=== PATIENT | male | born 1965 | race American Indian/Alaskan Native ===

== ENCOUNTER 2020-09-08 10:32 | Emergency (ER) | payer MEDICARE ==
--- NOTE | 2020-09-08 11:17 | Emergency Department Report ---
HPI - General Chief Complaint: Weakness Time Seen by Provider: 09/08/20 11:06 - HPI HPI: Room 5 The patient is a 55-year-old male present with chief complaint of constipation. Patient was reportedly sent in by his flat sorting machine clerk for constipation. However the patient states his last bowel movement occurred yesterday. Patient denies complaints. Patient is status post lysis of adhesions 08/10/[address]-guided aspiration of seroma consistent with degenerating hematoma 08/30/2020. Patient's flat sorting machine clerk states the patient was walking down the [address] when he complained of dizziness and fell to the ground. ED Past Medical Hx - Past Medical History Previous Medical History?: Yes Hx Renal Disease: Yes (BPH; Obstructive uropathy; chronic Almaraz) Additional medical history: Hypothyroidism, enlarged prostate, dementia, mental delay - Surgical History Additional Surgical History: bowel obstruction 08/2020 - Social History Smoking Status: Never Smoker - Medications Home Medications: Home Medications Medication Instructions Recorded Confirmed Last Taken Type Finasteride [Proscar] 5 mg PO QDAY 08/07/20 09/01/20 Unknown History Levothyroxine Sodium [Tirosint-Nimo] 50 mcg PO QDAY 08/07/20 09/01/20 Unknown His tory Memantine 10 mg PO BID 08/07/20 09/01/20 Unknown History OLANZapine [Zyprexa] 5 mg PO QDAY 08/07/20 09/01/20 Unknown History Sertraline [Zoloft] 25 mg PO QDAY 08/07/20 09/01/20 Unknown History Tamsulosin [Flomax] 0.4 mg PO QDAY 08/07/20 09/01/20 Unknown History Pantoprazole [Protonix TAB] 20 mg PO QDAC #30 tablet. 08/18/20 09/01/20 Unknown Rx Ciprofloxacin HCl [Ciprofloxacin 500 mg PO Q12HR #14 tab 09/02/20 Unknown Rx TAB] Sennosides/Docusate [Senokot S] 1 each PO Q12HR #30 tab 09/02/20 Unknown Rx bisacodyL [Dulcolax tab] 5 mg PO BID #30 tablet 09/02/20 Unknown Rx metroNIDAZOLE [Flagyl] 500 mg PO Q8HR #20 tablet 09/02/20 Unknown Rx Docusate Sodium [Colace] 100 mg PO BID PRN #60 capsule 09/08/20 Unknown Rx Meclizine HCl 25 mg PO TID PRN #20 tablet 09/08/20 Unknown Rx ED Review of Systems ROS: Stated complaint: WEAKNESS/NO BM Other details as noted in HPI ED Medical Decision Making - Lab Data Result diagrams: 09/08/20 11:40 09/08/20 11:40 - EKG Data -: EKG Interpreted by Me EKG shows normal: sinus rhythm Rate: normal - EKG Data When compared to previous EKG there are: previous EKG unavailable Interpretation: other (No ischemic changes seen) - Radiology Data Radiology results: report reviewed (CT chest), image reviewed (CT chest, CT head) [facility] [address] [place] [address] Cat Scan Report Signed Patient: TYRELL SMITH MR#: [id number] : 1965 Acct:[id number] Age/Sex: 55 / M ADM Date: 09/08/20 Loc: ED Attending Dr: Ordering Physician: REMEDIOS VILLANUEVA MD Date of Service: 09/08/20 Procedure(s): CT angio chest Accession Number(s): [id number] cc: REMEDIOS VILLANUEVA MD CTA CHEST WITH IV CONTRAST INDICATION: Dizziness, recent surgery. TECHNIQUE: Axial CT images were obtained through the chest after injection of 100 cc Omni 350 IV contrast. 3 plane MIP reconstructions were produced. All CT scans at this location are performed using CT dose reduction for ALARA by means of automated exposure control. COMPARISON: None available. FINDINGS: PULMONARY ARTERIES: No pulmonary emboli. THORACIC AORTA: No acute abnormality. HEART: Normal. CORONARY ARTERIES: No significant calcification. PLEURA: No pleural effusion. No pneumothorax. LYMPH NODES: No significant adenopathy. LUNGS: No acute air space or interstitial disease. ADDITIONAL FINDINGS: None. UPPER ABDOMEN: No acute findings. SKELETAL STRUCTURES: No significant osseous abnormality. IMPRESSION: 1. No CT evidence for pulmonary embolism. 2. No acute findings. Signer Name: Edil Fan MD Signed: 09/08/2020 3:16 PM Workstation Name: [id number] Transcribed By: TL Dictated By: Edil Fan MD Electronically Authenticated By: Edil Fan MD Signed Date/Time: 09/08/20 151 DD/ 1514 TD/TT: - Differential Diagnosis Vertigo Critical care attestation.: If time is entered above; I have spent that time in minutes in the direct care of this critically ill patient, excluding procedure time. ED Disposition Clinical Impression: Vertigo Disposition: DC-01 TO HOME OR SELFCARE Is pt being admited?: No Does the pt Need Aspirin: No Condition: Stable Instructions: Dizziness, Vertigo Additional Instructions: Return to the emergency department should you develop worsening symptoms, inability to tolerate food or liquids, high fever or any other concerns Prescriptions: Docusate Sodium [Colace] 100 mg PO BID PRN #60 capsule PRN Reason: Constipation Meclizine HCl 25 mg PO TID PRN #20 tablet PRN Reason: Vertigo Referrals: PRIMARY CARE, [Primary Care Provider] - 3-5 Days
[2020-09-08 12:01] LABS: Hematocrit 35.4 % (35.5-45.6); Hemoglobin 11.9 gm/dl (11.8-15.2); Mean Corpuscular HGB Conc 34 % (32-34); Mean Corpuscular Volume 89 fl (84-94); Platelet Count 231 K/mm3 (140-440); Red Cell Distribution Width 15.6 % (13.2-15.2)
[2020-09-08 12:33] LABS: Alanine Aminotransferase 10 units/L (7-56); Albumin 3.8 g/dL (3.9-5); Blood Urea Nitrogen 18 mg/dL (9-20); Calcium 9.4 mg/dL (8.4-10.2); Creatine Kinase MB 1.4 ng/mL (0.0-4.0); Hemolysis Index 8
[2020-09-08 12:39] LABS: BUN/Creatinine Ratio 26; Free T4 (Free Thyroxine) 0.83 ng/dL (0.76-1.46)
[2020-09-08 12:49] LABS: Total Cells Counted 100
[2020-09-08 12:52] LABS: Platelet Estimate Consistent w Auto; RBC Morphology Normal
--- NOTE | 2020-09-08 15:21 | Cat Scan Report ---
CTA CHEST WITH IV CONTRAST INDICATION: Dizziness, recent surgery. TECHNIQUE: Axial CT images were obtained through the chest after injection of 100 cc Omni 350 IV contrast. 3 derek ne MIP reconstructions were produced. All CT scans at this location are performed using CT dose reduc tion for ALARA by means of automated exposure control. COMPARISON: None available. FINDINGS: PULMONARY ARTERIES: No pulmonary emboli. THORACIC AORTA: No acute abnormality. HEART: Normal. CORONARY ARTERIES: No significant calcification. PLEURA: No pleural effusion. No pneumothorax. LYMPH NODES: No significant adenopathy. LUNGS: No acute air space or interstitial disease. ADDITIONAL FINDINGS: None. UPPER ABDOMEN: No acute findings. SKELETAL STRUCTURES: No significant osseous abnormality. IMPRESSION: 1. No CT evidence for pulmonary embolism. 2. No acute findings. Signer Name: Edil Fan MD Signed: 09/08/2020 3:16 PM Workstation Name: [id number]
[2020-09-08] MEDS ORDERED: SODIUM CHLORIDE 0.9% 1000 ML 1,000 ML IV ONE (16:10)
[2020-09-08 16:32] LABS: Bacteria,Urine 1+ /HPF (Negative); Bilirubin,Urine NEG (Negative); Blood,Urine SM (Negative); Color,Urine Straw (Yellow); Mucus,Urine FEW /HPF; Protein,Urine <15 mg/dL mg/dL (Negative); Urobilinogen,Urine < 2.0 mg/dL (<2.0)
[2020-09-08 16:33] LABS: WBC,Urine > 182.0 /HPF (0.0-6.0)
--- NOTE | 2020-09-08 18:36 | Cat Scan Report ---
CT BRAIN: 09/08/2020 INDICATION / CLINICAL INFORMATION: Dizziness. COMPARISON: None available. FINDINGS: BRAIN/INTRACRANIAL STRUCTURES: Unenhanced CT images of the brain demonstrate no evidence of acute abn ormality. Ventricles and sulci are prominent in size, consistent with diffuse cerebral atrophy, more than is ty pically seen in a patient of this age. There is no evidence of acute ischemic injury, hemorrhage, or mass. There are no abnormal extra-axial fluid collections. EXTRACRANIAL STRUCTURES: Unremarkable. IMPRESSION: No acute abnormality. Prominent diffuse cerebral All CT scans at this location are performed using dose reduction to ALARA by means of automated expos ure control. Signer Name: Venkatesh William MD Signed: 09/08/2020 6:32 PM Workstation Name: [id number]
[2020-09-08 21:32] VITALS: BP 95/65
== END 2020-09-08 21:51 | disposition home or self-care (01) ==
LOC: ED 10:32
DX: R42 Dizziness and giddiness (principal); N40.0 Benign prostatic hyperplasia without lower urinary tract symptoms; E03.8 Other specified hypothyroidism; F03.90 Unspecified dementia, unspecified severity, without behavioral disturbance, psychotic disturbance, mood disturbance, and anxiety; Z79.899 Other long term (current) drug therapy
CPT/HCPCS: 36415; 70450; 71275; 80053; 81001; 82550; 82553; 84439; 84443; 84484; 85007; 85025; 93005; 96360; 99284; J7030; Q9967

== ENCOUNTER 2020-09-19 11:04 | Inpatient (IN) | payer MEDICARE ==
[2020-09-19] MEDS ORDERED: ONDANSETRON 4 MG/2 ML INJ IV ONE (11:23)
[2020-09-19] MEDS ORDERED: SODIUM CHLORIDE 0.9% 1000 ML 1,000 ML IV ONE (11:28)
--- NOTE | 2020-09-19 11:42 | Emergency Department Report ---
ED N/V/D HPI - General Chief complaint: Nausea/Vomiting/Diarrhea Stated complaint: NAUSEA/VOMITING Time Seen by Provider: 09/19/20 11:20 Source: EMS Mode of arrival: Wheelchair Limitations: No Limitations - History of Present Illness Initial comments: Patient is very pleasant 55-year-old male with a past medical history of mental delay, BPH with chronic obstructive uropathy and chronic Almaraz use, recent bowel obstruction diagnosed here August 2020 status post ex lap with lysis of adhesions on August 10 with subsequent postoperative ileus, and repeated admission with CT-guided aspiration of abdominal seroma on September 02 presents to the hospital with complaints of nausea and vomiting since last night. Patient complains of mild mid abdominal pain but asking for apple juice. States his dad had a bowel movement yesterday and today. Patient is oriented to self. States the year is "September", and knows he is in a hospital. - Related Data Home Medications Medication Instructions Recorded Confirmed Last Taken Finasteride [Proscar] 5 mg PO QDAY 08/07/20 09/01/20 Unknown Levothyroxine Sodium [Tirosint-Nimo] 50 mcg PO QDAY 08/07/20 09/01/20 Unknown Memantine 10 mg PO BID 08/07/20 09/01/20 Unknown OLANZapine [Zyprexa] 5 mg PO QDAY 08/07/20 09/01/20 Unknown Sertraline [Zoloft] 25 mg PO QDAY 08/07/20 09/01/20 Unknown Tamsulosin [Flomax] 0.4 mg PO QDAY 08/07/20 09/01/20 Unknown Previous Rx's Medication Instructions Recorded Last Taken Type Pantoprazole [Protonix TAB] 20 mg PO QDAC #30 tablet. 08/18/20 Unknown Rx Ciprofloxacin HCl [Ciprofloxacin 500 mg PO Q12HR #14 tab 09/02/20 Unknown Rx TAB] Sennosides/Docusate [Senokot S] 1 each PO Q12HR #30 tab 09/02/20 Unknown Rx bisacodyL [Dulcolax tab] 5 mg PO BID #30 tablet 09/02/20 Unknown Rx metroNIDAZOLE [Flagyl] 500 mg PO Q8HR #20 tablet 09/02/20 Unknown Rx Docusate Sodium [Colace] 100 mg PO BID PRN #60 capsule 09/08/20 Unknown Rx Meclizine HCl 25 mg PO TID PRN #20 tablet 09/08/20 Unknown Rx Allergies Allergy/AdvReac Type Severity Reaction Status Date / Time No Known Allergies Allergy Unverified 08/07/20 07:58 ED Review of Systems ROS: Stated complaint: NAUSEA/VOMITING Other details as noted in HPI Comment: All other systems reviewed and negative ED Past Medical Hx - Past Medical History Previous Medical History?: Yes Hx Renal Disease: Yes (BPH; Obstructive uropathy; chronic Almaraz) Additional medical history: Hypothyroidism, enlarged prostate, mental delay - Surgical History Past Surgical History?: Yes Additional Surgical History: bowel obstruction 08/2020 - Social History Smoking Status: Never Smoker Substance Use Type: None - Medications Home Medications: Home Medications Medication Instructions Recorded Confirmed Last Taken Type Finasteride [Proscar] 5 mg PO QDAY 08/07/20 09/01/20 Unknown History Levothyroxine Sodium [Tirosint-Nimo] 50 mcg PO QDAY 08/07/20 09/01/20 Unknown History Memantine 10 mg PO BID 08/07/20 09/01/20 Unknown History OLANZapine [Zyprexa] 5 mg PO QDAY 08/07/20 09/01/20 Unknown History Sertraline [Zoloft] 25 mg PO QDAY 08/07/20 09/01/20 Unknown History Tamsulosin [Flomax] 0.4 mg PO QDAY 08/07/20 09/01/20 Unknown History Pantoprazole [Protonix TAB] 20 mg PO QDAC #30 tablet. 08/18/20 09/01/20 Unknown Rx Ciprofloxacin HCl [Ciprofloxacin 500 mg PO Q12HR #14 tab 09/02/20 Unknown Rx TAB] Sennosides/Docusate [Senokot S] 1 each PO Q12HR #30 tab 09/02/20 Unknown Rx bisacodyL [Dulcolax tab] 5 mg PO BID #30 tablet 09/02/20 Unknown Rx metroNIDAZOLE [Flagyl] 500 mg PO Q8HR #20 tablet 09/02/20 Unknown Rx Docusate Sodium [Colace] 100 mg PO BID PRN #60 capsule 09/08/20 Unknown Rx Meclizine HCl 25 mg PO TID PRN #20 tablet 09/08/20 Unknown Rx ED Physical Exam - General Limitations: No Limitations - Other Other exam information: General: No acute distress Head: Atraumatic Eyes: normal appearance ENT: Moist mucous membranes Neck: Normal appearance, no midline tenderness Chest: Clear to auscultation bilaterally CV: Regular rate and rhythm Abdomen: Soft, normal bowel sounds, healing midline abdominal vertical scar from recent ex lap with mild mid abdominal tenderness without distention, rebound, or guarding chronic indwelling Almaraz Back: Normal inspection Extremity: Normal inspection, full range of motion Neuro: Alert oriented to self, place, month but not to year, no facial asymmetry, speech clear, no gross motor sensory deficit Psych: Appropriate behavior Skin: No rash ED Course Vital Signs 09/19/20 09/19/20 09/19/20 11:08 11:15 12:00 Temperature 98.3 F Pulse Rate 93 H 68 84 Respiratory 16 18 11 L Rate Blood Pressure 100/63 101/61 O2 Sat by Pulse 100 100 Oximetry 09/19/20 09/19/20 09/19/20 12:07 13:00 14:00 Temperature Pulse Rate 87 79 Respiratory 18 15 10 L Rate Blood Pressure 104/65 89/57 O2 Sat by Pulse 100 98 Oximetry 09/19/20 15:00 Temperature Pulse Rate 73 Respiratory 9 L Rate Blood Pressure 92/53 O2 Sat by Pulse Oximetry - Consultations Consultation #1: 09/19/20 13:[address] Shepard 09/19/20 13:40 Dr Paz returned call. States he saw patient in the office 2 days ago. He recommends admission, ngt, he will consult ED Medical Decision Making - Lab Data Result diagrams: 09/19/20 11:28 09/19/20 11:28 - Radiology Data Radiology results: report reviewed CT abdomen pelvis w con INDICATION: Abdominal pain. COMPARISON: August 30 2020 TECHNIQUE: Abdominal and pelvic CT exam performed. All CT scans at this location are performed using CT dose reduction for ALARA by means of automated exposure control. FINDINGS: CT ABDOMEN and PELVIS: Lung Bases: No significant abnormality. Liver: No significant abnormality. Biliary: No significant abnormality. Spleen: No significant abnormality. Pancreas: No significant abnormality. Adrenals: No significant abnormality. Kidneys: No significant abnormality. Bladder: Significant circumferential thickening of the bladder. The bladder contains air from Almaraz catheter. Lymphatics: No lymphadenopathy. Vasculature: No significant abnormality. Bowel: The small bowel significant dilated with a transition point seen within the mid pelvis on axial images 112 of series 2. The terminal ileum is normal in caliber. No dilation of large bowel. Appendix is nonvisualized. However, no inflammatory changes in the right lower quadrant to suggest appendicitis. Pelvis: No significant abnormality. Osseous Structures: No aggressive osseous lesion. Additional Findings: Moderate quantity of free fluid is seen IMPRESSION: 1. Significant dilation of small bowel with a transition point to normal distal ileum seen within the mid pelvis concerning for small bowel obstruction. 2. Persistent significant thickening of the bladder. Findings could be related to urinary tract infection. Correlate with urinalysis. 3. Moderate quantity of fluid is seen which is likely reactive from the above findings. - Medical Decision Making 55-year-old male with a developmental delay and recent small bowel obstruction status post lysis of adhesions returns to the hospital once again with small bowel obstruction. Labs and vital signs within normal range. Case discussed with Dr. Cain patient surgeon and patient will be readmitted to the hospital for treatment and possible surgical care Critical Care Time: No Critical care attestation.: If time is entered above; I have spent that time in minutes in the direct care of this critically ill patient, excluding procedure time. ED Disposition Clinical Impression: SBO (small bowel obstruction), Chronic indwelling Almaraz catheter, BPH (benign prostatic hyperplasia) Disposition: 09 OP ADMIT IP TO THIS HOSP Is pt being admited?: Yes Condition: Stable Time of Disposition: 13:39
[2020-09-19 11:52] LABS: Hematocrit 38.3 % (35.5-45.6); Hemoglobin 12.8 gm/dl (11.8-15.2); Mean Corpuscular HGB Conc 33 % (32-34); Mean Corpuscular Volume 89 fl (84-94); Red Cell Distribution Width 15.8 % (13.2-15.2)
[2020-09-19 11:54] LABS: Alanine Aminotransferase 9 units/L (7-56); Albumin 3.8 g/dL (3.9-5); BUN/Creatinine Ratio 26; Blood Urea Nitrogen 18 mg/dL (9-20); Calcium 9.4 mg/dL (8.4-10.2); Hemolysis Index 32
--- NOTE | 2020-09-19 12:51 | Cat Scan Report ---
CT abdomen pelvis w con INDICATION: Abdominal pain. COMPARISON: August 30 2020 TECHNIQUE: Abdominal and pelvic CT exam performed. All CT scans at this location are performed using CT dose reduction for ALARA by means of automated exposure control. FINDINGS: CT ABDOMEN and PELVIS: Lung Bases: No significant abnormality. Liver: No significant abnormality. Biliary: No significant abnormality. Spleen: No significant abnormality. Pancreas: No significant abnormality. Adrenals: No significant abnormality. Kidneys: No significant abnormality. Bladder: Significant circumferential thickening of the bladder. The bladder contains air from Almaraz c atheter. Lymphatics: No lymphadenopathy. Vasculature: No significant abnormality. Bowel: The small bowel significant dilated with a transition point seen within the mid pelvis on axia l images 112 of series 2. The terminal ileum is normal in caliber. No dilation of large bowel. Append ix is nonvisualized. However, no inflammatory changes in the right lower quadrant to suggest appendic itis. Pelvis: No significant abnormality. Osseous Structures: No aggressive osseous lesion. Additional Findings: Moderate quantity of free fluid is seen IMPRESSION: 1. Significant dilation of small bowel with a transition point to normal distal ileum seen within the mid pelvis concerning for small bowel obstruction. 2. Persistent significant thickening of the bladder. Findings could be related to urinary tract infec tion. Correlate with urinalysis. 3. Moderate quantity of fluid is seen which is likely reactive from the above findings. Signer Name: Yogesh Andrew MD Signed: 09/19/2020 12:46 PM Workstation Name: [id number]
[2020-09-19 13:20] LABS: Basophils % (Manual) 0 % (0.0-1.8); Eosinophils % (Manual) 0 % (0.0-4.3); Total Cells Counted 100
[2020-09-19 13:21] LABS: Anisocytosis Few; Band Neutrophils # (Manual) 2.5 K/mm3; Platelet Count 213 K/mm3 (140-440); Platelet Estimate Consistent w Auto
[2020-09-19] MEDS ORDERED: LIDOCAINE VISCOUS 2% 15 ML ORAL LIQD PO ONE (13:38)
--- NOTE | 2020-09-19 13:41 | History and Physical Report ---
History of Present Illness Chief complaint: My stomach hurts History of present illness: 55 YO Assisted Facility Resident with Hypothyroidism, BPH complicated by Obstructive Uropathy with Chronic indwelling kim catheter, Vascular Dementia presents to ED for evaluation. Patient has diminished cognition and provides minimal history at the time of admission. Additional patient history taken from EMS staff, ED staff, as well as senior living facility staff. As per staff the patient has experienced abdominal pain, nausea, and multiple episodes of vomiting over the past 1 day with persistent symptoms over the same timeframe. EMS was notified and upon arrival the patient was found to be in distress and subsequently transported to [facility] for further care and evaluation of the aforementioned symptoms. Patient seen and evaluated in the emergency department. All lab and imaging studies reviewed. Patient underwent CT scan of the abdomen and pelvis and was found to have a partial small bowel obstruction. Surgery team consulted in ED. Patient admitted to surgical floor due to increased risk of worsening symptoms. Patient has cognitive delay at the time of my evaluation but has a positive gag reflex and is able to protect his airway without difficulty. Prior admission on 09/08/2020 reviewed. All medication listed at time of admission has been reconciled. Advanced care planning conducted in ED. Past History Past Medical History: other (See HPI) Past Surgical History: bowel surgery Social history: single. denies: smoking, alcohol abuse, prescription drug abuse Family history: hypertension Medications and Allergies Allergies Allergy/AdvReac Type Severity Reaction Status Date / Time No Known Allergies Allergy Unverified 08/07/20 07:58 Home Medications Medication Instructions Recorded Confirmed Last Taken Type Finasteride [Proscar] 5 mg PO QDAY 08/07/20 09/01/20 Unknown History Levothyroxine Sodium [Tirosint-Nimo] 50 mcg PO QDAY 08/07/20 09/01/20 Unknown History Memantine 10 mg PO BID 08/07/20 09/01/20 Unknown History OLANZapine [Zyprexa] 5 mg PO QDAY 08/07/20 09/01/20 Unknown History Sertraline [Zoloft] 25 mg PO QDAY 08/07/20 09/01/20 Unknown History Tamsulosin [Flomax] 0.4 mg PO QDAY 08/07/20 09/01/20 Unknown History Pantoprazole [Protonix TAB] 20 mg PO QDAC #30 tablet.dr 08/18/20 09/01/20 Unknown Rx Ciprofloxacin HCl [Ciprofloxacin 500 mg PO Q12HR #14 tab 09/02/20 Unknown Rx TAB] Sennosides/Docusate [Senokot S] 1 each PO Q12HR #30 tab 09/02/20 Unknown Rx bisacodyL [Dulcolax tab] 5 mg PO BID #30 tablet 09/02/20 Unknown Rx metroNIDAZOLE [Flagyl] 500 mg PO Q8HR #20 tablet 09/02/20 Unknown Rx Docusate Sodium [Colace] 100 mg PO BID PRN #60 capsule 09/08/20 Unknown Rx Meclizine HCl 25 mg PO TID PRN #20 tablet 09/08/20 Unknown Rx Active Meds: Active Medications Sodium Chloride (Nacl 0.9% 1000 Ml) 1,000 mls @ 125 mls/hr IV ONCE ONE Stop: 09/19/20 19:27 Last Admin: 09/19/20 11:40 Dose: 125 mls/hr Documented by: Review of Systems ROS unobtainable: due to mental status Exam - Constitutional Vitals: Temp Pulse Resp BP Pulse Ox 98.3 F 84 18 101/61 100 09/19/20 11:15 09/19/20 12:00 09/19/20 12:07 09/19/20 12:00 09/19/20 12:07 General appearance: Present: mild distress, cachectic - EENT Eyes: Present: PERRL ENT: hearing intact, clear oral mucosa - Neck Neck: Present: supple, normal ROM - Respiratory Respiratory effort: normal Respiratory: bilateral: CTA - Cardiovascular Heart Sounds: Present: S1 & S2. Absent: rub, click - Extremities Extremities: pulses symmetrical, No edema Peripheral Pulses: within normal limits - Abdominal General gastrointestinal: Present: soft, non-tender, tender, non-distended, normal bowel sounds Male genitourinary: Present: normal - Integumentary Integumentary: Present: clear, warm, dry - Musculoskeletal Musculoskeletal: gait normal, strength equal bilaterally - Psychiatric Psychiatric: appropriate mood/affect, no intact judgment & insight, no memory intact - Neurologic Neurologic: CNII-XII intact, moves all extremities, no gait normal Results - Labs CBC & Chem 7: 09/19/20 11:28 09/19/20 15:42 Labs: Abnormal lab results 11/15/20 11/15/20 Range/Units 11:28 11:28 RDW 15.8 H (13.2-15.2) % Lymphocytes % (Manual) 7.0 L (13.4-35.0) % Lymphocytes # (Manual) 0.7 L (1.2-5.4) K/mm3 Sodium 135 L (137-145) mmol/L Creatinine 0.7 L (0.8-1.3) mg/dL Glucose 120 H (75-100) mg/dL Albumin 3.8 L (3.9-5) g/dL Assessment and Plan - Patient Problems (1) SBO (small bowel obstruction) Current Visit: Yes Status: Acute Plan to address problem: CT scan abdomen and pelvis, bowel rest, IV fluid resuscitation therapy, pain control, surgery team consulted in ED, serial abdominal exam, nasogastric decompression. Further care and evaluation as per surgical team (2) Vascular dementia Current Visit: Yes Status: Acute Qualifiers: Dementia behavioral disturbance: without behavioral disturbance Qualified Code(s): F01.50 - Vascular dementia without behavioral disturbance Plan to address problem: Verbal prompting, verbal redirection, benzodiazepine therapy as clinically indicated (3) BPH (benign prostatic hyperplasia) Current Visit: Yes Status: Acute Plan to address problem: Chronic indwelling Kim catheter, supportive care, outpatient urology follow- up. (4) Chronic indwelling Kim catheter Current Visit: Yes Status: Acute Plan to address problem: Supportive care, outpatient urology follow-up. (5) Constipation Current Visit: No Status: Acute Plan to address problem: Bowel regimen, supportive care. Fleet enema daily as needed (6) DVT prophylaxis Current Visit: No Status: Acute Plan to address problem: SCD to bilateral lower extremities while in bed, (7) Advance care planning Current Visit: Yes Status: Acute Plan to address problem: Disease education conducted, patient is full code, prognosis discussed, +30 minutes.
[2020-09-19] MEDS ORDERED: ACETAMINOPHEN 325 MG TAB PO PRN (14:01)
[2020-09-19] MEDS ORDERED: ONDANSETRON 4 MG/2 ML INJ IV PRN (14:01)
[2020-09-19] MEDS ORDERED: ALBUTEROL 2.5 MG/3 ML NEBU IH PRN (14:01)
[2020-09-19 16:21] LABS: Blood Urea Nitrogen 17 mg/dL (9-20); Hemolysis Index 38
[2020-09-19 16:22] LABS: BUN/Creatinine Ratio 24
[2020-09-19] MEDS ORDERED: SODIUM CHLORIDE 0.9% 500 ML 500 ML IV ONE ×5 (19:41→23:22)
[2020-09-19] MEDS ORDERED: SODIUM CHLORIDE 0.9% 500 ML 500 ML ONE ×3 (19:44→23:26)
[2020-09-19] MEDS ORDERED: SODIUM CHLORIDE 0.9% 1000 ML 1,000 ML ONE (21:38)
[2020-09-20] MEDS ORDERED: SODIUM CHLORIDE 0.9% 1000 ML 1,000 ML IV ONE (03:20)
[2020-09-20] MEDS ORDERED: SODIUM CHLORIDE 0.9% 1000 ML 1,000 ML ONE (03:24)
[2020-09-20] MEDS ORDERED: SODIUM CHLORIDE 0.9% 500 ML 500 ML IV ONE (03:37)
--- NOTE | 2020-09-20 09:53 | Progress Note ---
<HARLEEN CRONIN - Last Filed: 09/20/20 11:56> Assessment and Plan - Patient Problems (1) SBO (small bowel obstruction) Current Visit: Yes Status: Acute Plan to address problem: 09/19 CT abdomen/pelvis with contrast shows significant dilation of small bowel with a transition point to the normal distal ileum concerning for SBO, persistent significant thickening of the bladder and moderate quantity of free fluid which may be likely reactive General surgery consulted NGT to LIS ordered on 09/19 however on 09/20 but at examination patient does not have NG tube in place. RN is attempting placement however the patient is refusing NG tube. 09/20 abdominal x-ray pending Supportive care N.p.o., acccheck q6 while npo MIVF with LR @ 125 (2) Hyperkalemia Current Visit: Yes Status: Resolved Plan to address problem: 09/19 potassium 5.2 09/20 K 4.6 Treat as appropriate (3) BPH (benign prostatic hyperplasia) Current Visit: Yes Status: Acute Plan to address problem: Patient is currently n.p.o. Resume home BPH medications when appropriate Patient has a current indwelling Almaraz catheter Follow-up with urology outpatient (4) Chronic indwelling Almaraz catheter Current Visit: Yes Status: Acute Plan to address problem: Continue indwelling Almaraz catheter Supportive care Outpatient follow-up with urology (5) Vascular dementia Current Visit: Yes Status: Acute Qualifiers: Dementia behavioral disturbance: without behavioral disturbance Qualified Code(s): F01.50 - Vascular dementia without behavioral disturbance Plan to address problem: Supportive care Aspiration/fall precautions Reorientation as needed Benzodiazepines as needed (6) Constipation Current Visit: No Status: Chronic Plan to address problem: Daily Fleet enema as needed (7) DVT prophylaxis Current Visit: No Status: Acute Plan to address problem: SCDs to bilateral lower extremity, while in bed Hold prophylactic anticoagulation until surgery evaluation History Interval history: This is a 55-year-old male from a SNF with hypothyroidism, BPH complicated by obstructive uropathy with chronic indwelling Almaraz catheter, cognitive delay and recent bowel obstruction (08/2020) s/p ex lap with JUSTIN on 08/10/2020 with subsequent postoperative ileus and repeat admission with a CT-guided aspiration of abdominal seroma on 09/02/2020 who presented to the emergency department on 09/19 with complaints of abdominal pain, nausea and multiple episodes of vomiting over the past [address] scan of the abdomen and pelvis and was found to have a partial small bowel obstruction and surgery team consulted in ED. in the emergency department he received 2 L NS bolus and while inpatient he received 2 L NS bolus for hypotension. At the time of my exam patient does not have NG tube to LIS which was ordered in the emergency department. Patient is asking for p.o. intake. Patient was hyperkalemic yesterday and a repeat BMP has been ordered. Overnight the patient was hypotensive and he received 1 L normal saline bolus. Patient is still responsive, able to carry conversation and follows commands. RN informed of need of NG tube placement however the patient is refusing at this time. Repeat ABD x-ray has been ordered. Hospitalist Physical - Constitutional Vitals: Temp Pulse Resp BP Pulse Ox 98.6 F 59 L 18 90/67 99 09/19/20 17:25 09/20/20 05:10 09/20/20 05:10 09/20/20 05:10 09/20/20 05:10 General appearance: Present: no acute distress, cachectic - EENT Eyes: Present: PERRL, EOM intact ENT: hearing decreased, poor dentition - Neck Neck: Present: supple, normal ROM - Respiratory Respiratory effort: normal Respiratory: bilateral: CTA - Cardiovascular Rhythm: regular Heart Sounds: Present: S1 & S2. Absent: systolic murmur, diastolic murmur - Extremities Extremities: no ischemia, pulses intact, pulses symmetrical, No edema, normal temperature, normal color, Full ROM Peripheral Pulses: within normal limits - Abdominal General gastrointestinal: soft, non-tender, non-distended, hypoactive bowel sounds - Integumentary Integumentary: Present: warm, dry - Psychiatric Psychiatric: cooperative - Neurologic Neurologic: CNII-XII intact, no focal deficits, moves all extremities - Allied Health Allied health notes reviewed: nursing Results - Labs CBC & Chem 7: 09/20/20 09:46 09/20/20 09:46 Labs: Laboratory Last Values WBC 9.3 K/mm3 (4.5-11.0) 09/19/20 11:28 RBC 4.30 M/mm3 (3.65-5.03) 09/19/20 11:28 Hgb 12.8 gm/dl (11.8-15.2) 09/19/20 11:28 Hct 38.3 % (35.5-45.6) 09/19/20 11:28 MCV 89 fl (84-94) 09/19/20 11:28 MCH 30 pg (28-32) 09/19/20 11:28 MCHC 33 % (32-34) 09/19/20 11:28 RDW 15.8 % (13.2-15.2) H 09/19/20 11:28 Plt Count 213 K/mm3 (140-440) 09/19/20 11:28 Add Manual Diff Complete 09/19/20 11:28 Total Counted 100 09/19/20 11:28 Seg Neuts % (Manual) 61.0 % (40.0-70.0) 09/19/20 11:28 Band Neutrophils % 27.0 % 09/19/20 11:28 Lymphocytes % (Manual) 7.0 % (13.4-35.0) L 09/19/20 11:28 Reactive Lymphs % (Man) 0 % 09/19/20 11:28 Monocytes % (Manual) 5.0 % (0.0-7.3) 09/19/20 11:28 Eosinophils % (Manual) 0 % (0.0-4.3) 09/19/20 11:28 Basophils % (Manual) 0 % (0.0-1.8) 09/19/20 11:28 Metamyelocytes % 0 % 09/19/20 11:28 Myelocytes % 0 % 09/19/20 11:28 Promyelocytes % 0 % 09/19/20 11:28 Blast Cells % 0 % 09/19/20 11:28 Nucleated RBC % Not Reportable 09/19/20 11:28 Seg Neutrophils # Man 5.7 K/mm3 (1.8-7.7) 09/19/20 11:28 Band Neutrophils # 2.5 K/mm3 09/19/20 11:28 Lymphocytes # (Manual) 0.7 K/mm3 (1.2-5.4) L 09/19/20 11:28 Abs React Lymphs (Man) 0.0 K/mm3 09/19/20 11:28 Monocytes # (Manual) 0.5 K/mm3 (0.0-0.8) 09/19/20 11:28 Eosinophils # (Manual) 0.0 K/mm3 (0.0-0.4) 09/19/20 11:28 Basophils # (Manual) 0.0 K/mm3 (0.0-0.1) 09/19/20 11:28 Metamyelocytes # 0.0 K/mm3 09/19/20 11:28 Myelocytes # 0.0 K/mm3 09/19/20 11:28 Promyelocytes # 0.0 K/mm3 09/19/20 11:28 Blast Cells # 0.0 K/mm3 09/19/20 11:28 WBC Morphology Not Reportable 09/19/20 11:28 Hypersegmented Neuts Not Reportable 09/19/20 11:28 Hyposegmented Neuts Not Reportable 09/19/20 11:28 Hypogranular Neuts Not Reportable 09/19/20 11:28 Smudge Cells Not Reportable 09/19/20 11:28 Toxic Granulation Not Reportable 09/19/20 11:28 Toxic Vacuolation Not Reportable 09/19/20 11:28 Dohle Bodies Not Reportable 09/19/20 11:28 Pelger-Huet Anomaly Not Reportable 09/19/20 11:28 Stella Rods Not Reportable 09/19/20 11:28 Platelet Estimate Consistent w auto 09/19/20 11:28 Clumped Platelets Not Reportable 09/19/20 11:28 Plt Clumps, EDTA Not Reportable 09/19/20 11:28 Large Platelets Not Reportable 09/19/20 11:28 Giant Platelets Not Reportable 09/19/20 11:28 Platelet Satelliting Not Reportable 09/19/20 11:28 Plt Morphology Comment Not Reportable 09/19/20 11:28 RBC Morphology Not Reportable 09/19/20 11:28 Dimorphic RBCs Not Reportable 09/19/20 11:28 Polychromasia Not Reportable 09/19/20 11:28 Hypochromasia Not Reportable 09/19/20 11:28 Poikilocytosis Not Reportable 09/19/20 11:28 Anisocytosis Few 09/19/20 11:28 Microcytosis Not Reportable 09/19/20 11:28 Macrocytosis Not Reportable 09/19/20 11:28 Spherocytes Not Reportable 09/19/20 11:28 Pappenheimer Bodies Not Reportable 09/19/20 11:28 Sickle Cells Not Reportable 09/19/20 11:28 Target Cells Not Reportable 09/19/20 11:28 Tear Drop Cells Not Reportable 09/19/20 11:28 Ovalocytes Not Reportable 09/19/20 11:28 Helmet Cells Not Reportable 09/19/20 11:28 [place] Bodies Not Reportable 09/19/20 11:28 [place] Rings Not Reportable 09/19/20 11:28 [place] Cells Not Reportable 09/19/20 11:28 Bite Cells Not Reportable 09/19/20 11:28 Crenated Cell Not Reportable 09/19/20 11:28 Elliptocytes Not Reportable 09/19/20 11:28 Acanthocytes (Spur) Not Reportable 09/19/20 11:28 Rouleaux Not Reportable 09/19/20 11:28 Hemoglobin C Crystals Not Reportable 09/19/20 11:28 Schistocytes Not Reportable 09/19/20 11:28 Malaria parasites Not Reportable 09/19/20 11:28 Roque Bodies Not Reportable 09/19/20 11:28 Hem Pathologist Commnt No 09/19/20 11:28 Sodium 137 mmol/L (137-145) 09/19/20 15:42 Potassium 5.2 mmol/L (3.6-5.0) H 09/19/20 15:42 Chloride 100.7 mmol/L (98-107) 09/19/20 15:42 Carbon Dioxide 26 mmol/L (22-30) 09/19/20 15:42 Anion Gap 16 mmol/L 09/19/20 15:42 BUN 17 mg/dL (9-20) 09/19/20 15:42 Creatinine 0.7 mg/dL (0.8-1.3) L 09/19/20 15:42 Estimated GFR > 60 ml/min 09/19/20 15:42 BUN/Creatinine Ratio 24 % 09/19/20 15:42 Glucose 114 mg/dL (75-100) H 09/19/20 15:42 Calcium 9.0 mg/dL (8.4-10.2) 09/19/20 15:42 Total Bilirubin 0.40 mg/dL (0.1-1.2) 09/19/20 11:28 AST 18 units/L (5-40) 09/19/20 11:28 ALT 9 units/L (7-56) 09/19/20 11:28 Alkaline Phosphatase 68 units/L (35-129) 09/19/20 11:28 Total Protein 7.1 g/dL (6.3-8.2) 09/19/20 11:28 Albumin 3.8 g/dL (3.9-5) L 09/19/20 11:28 Albumin/Globulin Ratio 1.2 % 09/19/20 11:28 Lipase 28 units/L (13-60) 09/19/20 11:28 Almaraz/IV: IV Catheter Type [Left Forearm INT / Saline Lock ] Active Medications - Current Medications Current Medications: Generic Name Dose Route Start Last Admin Trade Name Freq PRN Reason Stop Dose Admin Acetaminophen 650 mg 09/19/20 14:01 Tylenol PO Q4H PRN Pain MILD(1-3)/Fever >100.5/GARCIA Albuterol 2.5 mg 09/19/20 14:01 Proventil IH Q4HRT PRN Shortness Of Breath Sodium Chloride 1,000 mls @ 125 mls/hr 09/20/20 03:20 09/20/20 03:32 Nacl 0.9% 1000 Ml IV 09/20/20 11:19 125 mls/hr ONCE ONE Administration Ondansetron HCl 4 mg 09/19/20 14:01 Zofran IV Q8H PRN Nausea And Vomiting Sodium Chloride 10 ml 09/19/20 22:00 09/19/20 21:43 Sodium Chloride Flush Syringe 10 Ml IV 10 ml BID CLIFF Administration Sodium Chloride 10 ml 09/19/20 14:01 Sodium Chloride Flush Syringe 10 Ml IV PRN PRN LINE FLUSH <JONH CHINO R - Last Filed: 09/20/20 15:04> Assessment and Plan Assessment and plan: I saw and evaluated the patient. I agree with the findings and the plan of care as documented in the Nurse Practitioner's~note. Hospitalist Physical - Constitutional Vitals: Temp Pulse Resp BP Pulse Ox 98.6 F 65 18 107/63 97 09/20/20 10:04 09/20/20 10:04 09/20/20 10:04 09/20/20 10:04 09/20/20 10:04 Results - Labs CBC & Chem 7: 09/20/20 09:46 09/20/20 09:46 Labs: Laboratory Last Values WBC 5.7 K/mm3 (4.5-11.0) 09/20/20 09:46 RBC 4.35 M/mm3 (3.65-5.03) 09/20/20 09:46 Hgb 13.0 gm/dl (11.8-15.2) 09/20/20 09:46 Hct 39.4 % (35.5-45.6) 09/20/20 09:46 MCV 91 fl (84-94) 09/20/20 09:46 MCH 30 pg (28-32) 09/20/20 09:46 MCHC 33 % (32-34) 09/20/20 09:46 RDW 15.9 % (13.2-15.2) H 09/20/20 09:46 Plt Count 203 K/mm3 (140-440) 09/20/20 09:46 Add Manual Diff Complete 09/19/20 11:28 Total Counted 100 09/19/20 11:28 Seg Neuts % (Manual) 61.0 % (40.0-70.0) 09/19/20 11:28 Band Neutrophils % 27.0 % 09/19/20 11:28 Lymphocytes % (Manual) 7.0 % (13.4-35.0) L 09/19/20 11:28 Reactive Lymphs % (Man) 0 % 09/19/20 11:28 Monocytes % (Manual) 5.0 % (0.0-7.3) 09/19/20 11:28 Eosinophils % (Manual) 0 % (0.0-4.3) 09/19/20 11:28 Basophils % (Manual) 0 % (0.0-1.8) 09/19/20 11:28 Metamyelocytes % 0 % 09/19/20 11:28 Myelocytes % 0 % 09/19/20 11:28 Promyelocytes % 0 % 09/19/20 11:28 Blast Cells % 0 % 09/19/20 11:28 Nucleated RBC % Not Reportable 09/19/20 11:28 Seg Neutrophils # Man 5.7 K/mm3 (1.8-7.7) 09/19/20 11:28 Band Neutrophils # 2.5 K/mm3 09/19/20 11:28 Lymphocytes # (Manual) 0.7 K/mm3 (1.2-5.4) L 09/19/20 11:28 Abs React Lymphs (Man) 0.0 K/mm3 09/19/20 11:28 Monocytes # (Manual) 0.5 K/mm3 (0.0-0.8) 09/19/20 11:28 Eosinophils # (Manual) 0.0 K/mm3 (0.0-0.4) 09/19/20 11:28 Basophils # (Manual) 0.0 K/mm3 (0.0-0.1) 09/19/20 11:28 Metamyelocytes # 0.0 K/mm3 09/19/20 11:28 Myelocytes # 0.0 K/mm3 09/19/20 11:28 Promyelocytes # 0.0 K/mm3 09/19/20 11:28 Blast Cells # 0.0 K/mm3 09/19/20 11:28 WBC Morphology Not Reportable 09/19/20 11:28 Hypersegmented Neuts Not Reportable 09/19/20 11:28 Hyposegmented Neuts Not Reportable 09/19/20 11:28 Hypogranular Neuts Not Reportable 09/19/20 11:28 Smudge Cells Not Reportable 09/19/20 11:28 Toxic Granulation Not Reportable 09/19/20 11:28 Toxic Vacuolation Not Reportable 09/19/20 11:28 Dohle Bodies Not Reportable 09/19/20 11:28 Pelger-Huet Anomaly Not Reportable 09/19/20 11:28 Stella Rods Not Reportable 09/19/20 11:28 Platelet Estimate Consistent w auto 09/19/20 11:28 Clumped Platelets Not Reportable 09/19/20 11:28 Plt Clumps, EDTA Not Reportable 09/19/20 11:28 Large Platelets Not Reportable 09/19/20 11:28 Giant Platelets Not Reportable 09/19/20 11:28 Platelet Satelliting Not Reportable 09/19/20 11:28 Plt Morphology Comment Not Reportable 09/19/20 11:28 RBC Morphology Not Reportable 09/19/20 11:28 Dimorphic RBCs Not Reportable 09/19/20 11:28 Polychromasia Not Reportable 09/19/20 11:28 Hypochromasia Not Reportable 09/19/20 11:28 Poikilocytosis Not Reportable 09/19/20 11:28 Anisocytosis Few 09/19/20 11:28 Microcytosis Not Reportable 09/19/20 11:28 Macrocytosis Not Reportable 09/19/20 11:28 Spherocytes Not Reportable 09/19/20 11:28 Pappenheimer Bodies Not Reportable 09/19/20 11:28 Sickle Cells Not Reportable 09/19/20 11:28 Target Cells Not Reportable 09/19/20 11:28 Tear Drop Cells Not Reportable 09/19/20 11:28 Ovalocytes Not Reportable 09/19/20 11:28 Helmet Cells Not Reportable 09/19/20 11:28 [place] Bodies Not Reportable 09/19/20 11:28 [place] Rings Not Reportable 09/19/20 11:28 [place] Cells Not Reportable 09/19/20 11:28 Bite Cells Not Reportable 09/19/20 11:28 Crenated Cell Not Reportable 09/19/20 11:28 Elliptocytes Not Reportable 09/19/20 11:28 Acanthocytes (Spur) Not Reportable 09/19/20 11:28 Rouleaux Not Reportable 09/19/20 11:28 Hemoglobin C Crystals Not Reportable 09/19/20 11:28 Schistocytes Not Reportable 09/19/20 11:28 Malaria parasites Not Reportable 09/19/20 11:28 Roque Bodies Not Reportable 09/19/20 11:28 Hem Pathologist Commnt No 09/19/20 11:28 Sodium 142 mmol/L (137-145) 09/20/20 09:46 Potassium 4.6 mmol/L (3.6-5.0) 09/20/20 09:46 Chloride 108.8 mmol/L (98-107) H 09/20/20 09:46 Carbon Dioxide 22 mmol/L (22-30) 09/20/20 09:46 Anion Gap 16 mmol/L 09/20/20 09:46 BUN 11 mg/dL (9-20) 09/20/20 09:46 Creatinine 0.6 mg/dL (0.8-1.3) L 09/20/20 09:46 Estimated GFR > 60 ml/min 09/20/20 09:46 BUN/Creatinine Ratio 18 % 09/20/20 09:46 Glucose 95 mg/dL (75-100) 09/20/20 09:46 Calcium 9.1 mg/dL (8.4-10.2) 09/20/20 09:46 Total Bilirubin 0.40 mg/dL (0.1-1.2) 09/19/20 11:28 AST 18 units/L (5-40) 09/19/20 11:28 ALT 9 units/L (7-56) 09/19/20 11:28 Alkaline Phosphatase 68 units/L (35-129) 09/19/20 11:28 Total Protein 7.1 g/dL (6.3-8.2) 09/19/20 11:28 Albumin 3.8 g/dL (3.9-5) L 09/19/20 11:28 Albumin/Globulin Ratio 1.2 % 09/19/20 11:28 Lipase 28 units/L (13-60) 09/19/20 11:28 Almaraz/IV: IV Catheter Type [Left Forearm INT / Saline Lock ] Active Medications - Current Medications Current Medications: Generic Name Dose Route Start Last Admin Trade Name Freq PRN Reason Stop Dose Admin Acetaminophen 650 mg 09/19/20 14:01 Tylenol PO Q4H PRN Pain MILD(1-3)/Fever >100.5/GARCIA Albuterol 2.5 mg 09/19/20 14:01 Proventil IH Q4HRT PRN Shortness Of Breath Lactated Ringer's 1,000 mls @ 125 mls/hr 09/20/20 12:00 Lactated Ringers IV DIRECT CLIFF Ondansetron HCl 4 mg 09/19/20 14:01 Zofran IV Q8H PRN Nausea And Vomiting Sodium Chloride 10 ml 09/19/20 22:00 09/20/20 11:34 Sodium Chloride Flush Syringe 10 Ml IV 10 ml BID CLIFF Administration Sodium Chloride 10 ml 09/19/20 14:01 Sodium Chloride Flush Syringe 10 Ml IV PRN PRN LINE FLUSH
[2020-09-20 10:21] LABS: Hematocrit 39.4 % (35.5-45.6); Mean Corpuscular HGB Conc 33 % (32-34); Mean Corpuscular Volume 91 fl (84-94); Platelet Count 203 K/mm3 (140-440); Red Blood Count 4.35 M/mm3 (3.65-5.03); Red Cell Distribution Width 15.9 % (13.2-15.2)
--- NOTE | 2020-09-20 10:53 | XRay Report ---
ABDOMEN 1 VIEW(S) 09/20/2020 9:42 AM INDICATION / CLINICAL INFORMATION: small bowel obstruction. COMPARISON: Abdomen x-ray 10:03 AM same day FINDINGS: The tip of an esophagogastric tube projects over the body of the stomach in expected position. Signer Name: Edil Fan MD Signed: 09/20/2020 10:49 AM Workstation Name: [id number]
--- NOTE | 2020-09-20 10:55 | XRay Report ---
ABDOMEN 4 VIEW(S) INDICATION / CLINICAL INFORMATION: sbo eval. COMPARISON: Abdomen x-ray 08/30/2020 FINDINGS: TUBES / LINES: NG tube has tip in body of stomach. BOWEL GAS PATTERN: Moderate gaseous distention of small bowel with paucity of colonic gas characteris tic for distal small bowel obstruction FREE AIR / EXTRALUMINAL GAS: None seen. ADDITIONAL FINDINGS: No significant additional findings. IMPRESSION: 1. Distal small bowel obstruction Signer Name: Edil Fan MD Signed: 09/20/2020 10:51 AM Workstation Name: [id number]
[2020-09-20] MEDS ORDERED: D5W/LACTATED RINGERS 1,000 ML IV SCH (11:00)
[2020-09-20 11:11] LABS: Blood Urea Nitrogen 11 mg/dL (9-20); Calcium 9.1 mg/dL (8.4-10.2); Hemolysis Index 7
[2020-09-20 11:15] LABS: BUN/Creatinine Ratio 18
[2020-09-20] MEDS ORDERED: LACTATED RINGERS 1,000 ML IV SCH (12:00)
--- NOTE | 2020-09-20 12:12 | Consultation ---
History of Present Illness Consult date: 09/20/20 - History of present illness History of present illness: Pt well-known to me s/p Ex Lap/ JUSTIN on Aug 10, 2020 for same presentation. Pt hx of one day of abd pain/n/v priort to admission. Pt with dementia/developmental retardation so difficult to obtain reliable history on a daily basis. He reports no BM for several days but passing some flatus. c/o crampy abd pain diffusely but wants to eat. Past History Past Medical History: other (See HPI) Past Surgical History: bowel surgery Social history: single. denies: smoking, alcohol abuse, prescription drug abuse Family history: hypertension Medications and Allergies Allergies Allergy/AdvReac Type Severity Reaction Status Date / Time No Known Allergies Allergy Unverified 08/07/20 07:58 Home Medications Medication Instructions Recorded Confirmed Last Taken Type Finasteride [Proscar] 5 mg PO QDAY 08/07/20 09/01/20 Unknown History Levothyroxine Sodium [Tirosint-Nimo] 50 mcg PO QDAY 08/07/20 09/01/20 Unknown History Memantine 10 mg PO BID 08/07/20 09/01/20 Unknown History OLANZapine [Zyprexa] 5 mg PO QDAY 08/07/20 09/01/20 Unknown History Sertraline [Zoloft] 25 mg PO QDAY 08/07/20 09/01/20 Unknown History Tamsulosin [Flomax] 0.4 mg PO QDAY 08/07/20 09/01/20 Unknown History Pantoprazole [Protonix TAB] 20 mg PO QDAC #30 tablet. 08/18/20 09/01/20 Unknown Rx Ciprofloxacin HCl [Ciprofloxacin 500 mg PO Q12HR #14 tab 09/02/20 Unknown Rx TAB] Sennosides/Docusate [Senokot S] 1 each PO Q12HR #30 tab 09/02/20 Unknown Rx bisacodyL [Dulcolax tab] 5 mg PO BID #30 tablet 09/02/20 Unknown Rx metroNIDAZOLE [Flagyl] 500 mg PO Q8HR #20 tablet 09/02/20 Unknown Rx Docusate Sodium [Colace] 100 mg PO BID PRN #60 capsule 09/08/20 Unknown Rx Meclizine HCl 25 mg PO TID PRN #20 tablet 09/08/20 Unknown Rx Active Meds: Active Medications Acetaminophen (Tylenol) 650 mg PO Q4H PRN PRN Reason: Pain MILD(1-3)/Fever >100.5/GARCIA Albuterol (Proventil) 2.5 mg IH Q4HRT PRN PRN Reason: Shortness Of Breath Lactated Ringer's (Lactated Ringers) 1,000 mls @ 125 mls/hr IV DIRECT CLIFF Ondansetron HCl (Zofran) 4 mg IV Q8H PRN PRN Reason: Nausea And Vomiting Sodium Chloride (Sodium Chloride Flush Syringe 10 Ml) 10 ml IV BID CLIFF Last Admin: 09/20/20 11:34 Dose: 10 ml Documented by: Sodium Chloride (Sodium Chloride Flush Syringe 10 Ml) 10 ml IV PRN PRN PRN Reason: LINE FLUSH Exam Vital Signs Pulse Resp 93 H 16 09/19/20 11:08 09/19/20 11:08 - Abdomen Abdomen: Present: tender, bowel sounds hypoactive, distended (wound c/d/i; no periotoneal signs) Results - Labs 09/20/20 09:46 09/20/20 09:46 Abnormal lab results 09/19/20 09/19/20 09/20/20 Range/Units 11:28 15:42 09:46 RDW (13.2-15.2) % Lymphocytes % (Manual) 7.0 L (13.4-35.0) % Lymphocytes # (Manual) 0.7 L (1.2-5.4) K/mm3 Potassium 5.2 H (3.6-5.0) mmol/L Chloride 108.8 H (98-107) mmol/L Creatinine 0.7 L 0.6 L (0.8-1.3) mg/dL Glucose 114 H (75-100) mg/dL 09/20/20 Range/Units 09:46 RDW 15.9 H (13.2-15.2) % Lymphocytes % (Manual) (13.4-35.0) % Lymphocytes # (Manual) (1.2-5.4) K/mm3 Potassium (3.6-5.0) mmol/L Chloride (98-107) mmol/L Creatinine (0.8-1.3) mg/dL Glucose (75-100) mg/dL Diabetes panel 09/19/20 09/20/20 Range/Units 15:42 09:46 Sodium 137 142 (137-145) mmol/L Potassium 5.2 H 4.6 (3.6-5.0) mmol/L Chloride 100.7 108.8 H (98-107) mmol/L Carbon Dioxide 26 22 (22-30) mmol/L BUN 17 11 (9-20) mg/dL Creatinine 0.7 L 0.6 L (0.8-1.3) mg/dL Glucose 114 H 95 (75-100) mg/dL Calcium 9.0 9.1 (8.4-10.2) mg/dL Calcium panel 09/19/20 09/20/20 Range/Units 15:42 09:46 Calcium 9.0 9.1 (8.4-10.2) mg/dL Pituitary panel 09/19/20 09/20/20 Range/Units 15:42 09:46 Sodium 137 142 (137-145) mmol/L Potassium 5.2 H 4.6 (3.6-5.0) mmol/L Chloride 100.7 108.8 H (98-107) mmol/L Carbon Dioxide 26 22 (22-30) mmol/L BUN 17 11 (9-20) mg/dL Creatinine 0.7 L 0.6 L (0.8-1.3) mg/dL Glucose 114 H 95 (75-100) mg/dL Calcium 9.0 9.1 (8.4-10.2) mg/dL Adrenal panel 09/19/20 09/20/20 Range/Units 15:42 09:46 Sodium 137 142 (137-145) mmol/L Potassium 5.2 H 4.6 (3.6-5.0) mmol/L Chloride 100.7 108.8 H (98-107) mmol/L Carbon Dioxide 26 22 (22-30) mmol/L BUN 17 11 (9-20) mg/dL Creatinine 0.7 L 0.6 L (0.8-1.3) mg/dL Glucose 114 H 95 (75-100) mg/dL Calcium 9.0 9.1 (8.4-10.2) mg/dL Assessment and Plan Recurrent pSBO--- NGT now in place this AM (pt had prev refused but RN today talked him into it). KUB noted Obtain SBFT today to further eval. Daily labs/KUB/exam-- will attempt non-operative tx plan at this time. Note that this pt has abnormal GI fct with slow motility and hx chronic constip ation as baseline (along with urologic issues) and is difficult to eval due to developmental retardation/dementia.
--- NOTE | 2020-09-21 10:59 | Progress Note ---
<HARLEEN CRONIN - Last Filed: 09/21/20 11:19> Assessment and Plan - Patient Problems (1) SBO (small bowel obstruction) Current Visit: Yes Status: Acute Plan to address problem: 09/19 CT abdomen/pelvis with contrast shows significant dilation of small bowel with a transition point to the normal distal ileum concerning for SBO, persistent significant thickening of the bladder and moderate quantity of free fluid which may be likely reactive General surgery consulted NGT to LIS 09/20 abdominal x-ray shows SBO 09/20 SBFT ordered for further evaluation MIVF with LR @ 125, changed to D5 half-normal saline given hypoglycemia Supportive care N.p.o., acccheck q6 while npo (2) BPH (benign prostatic hyperplasia) Current Visit: Yes Status: Acute Plan to address problem: Patient is currently n.p.o. Resume home BPH medications when appropriate Patient has a current indwelling Almaraz catheter Follow-up with urology outpatient (3) Chronic indwelling Almaraz catheter Current Visit: Yes Status: Acute Plan to address problem: Continue indwelling Almaraz catheter Supportive care Outpatient follow-up with urology (4) Vascular dementia Current Visit: Yes Status: Acute Qualifiers: Dementia behavioral disturbance: without behavioral disturbance Qualified Code(s): F01.50 - Vascular dementia without behavioral disturbance Plan to address problem: Supportive care Aspiration/fall precautions Reorientation as needed Benzodiazepines as needed (5) Constipation Current Visit: No Status: Chronic Plan to address problem: Daily Fleet enema as needed NV lactulose scheduled Dulcolax suppository as needed Per surgery patient has decreased gastric motility and constipation (6) Severe malnutrition Current Visit: Yes Status: Chronic Plan to address problem: Patient with BMI of 16.5 and appears to be a very cachectic Nutrition supplements while not n.p.o. Nutrition consult (9) DVT prophylaxis Current Visit: No Status: Acute Plan to address problem: SCDs to bilateral lower extremity, while in bed Lovenox subcu since surgery has opted conservative management History Interval history: This is a 55-year-old male from a SNF with hypothyroidism, BPH complicated by obstructive uropathy with chronic indwelling Almaraz catheter, cognitive delay and recent bowel obstruction (08/2020) s/p ex lap with JUSTIN on 08/10/2020 with subsequent postoperative ileus and repeat admission with a CT-guided aspiration of abdominal seroma on 09/02/2020 who presented to the emergency department on 09/19 with complaints of abdominal pain, nausea and multiple episodes of vomiting over the past [address] scan of the abdomen and pelvis and was found to have a partial small bowel obstruction and surgery team consulted in ED. In the emergency department he received 2 L NS bolus and while inpatient he received 2 L NS bolus for hypotension. Overnight the patient was hypoglycemic therefore his IV fluids were changed from LR to D51/2 102 and NS. Patient is NGT to LIS draining light green/yellow fluid. Patient's x-rays show a heavy stool burden and he has some history of chronic constipation therefore lactulose NV and Dulcolax suppository as needed has been ordered. Repeat labs and KUB ordered for the a.m. per surgery recommendations. 09/20: Overnight the patient was hypotensive and he received 1 L normal saline bolus. NGT to LIS placed. Repeat ABD x-ray showed SBO and SBFT was obtained for further evaluation Hospitalist Physical - Constitutional Vitals: Temp Pulse Resp BP Pulse Ox 98.0 F 68 20 125/74 95 09/21/20 08:07 09/21/20 08:07 09/21/20 08:07 09/21/20 08:07 09/21/20 08:33 General appearance: Present: no acute distress, cachectic - EENT Eyes: Present: PERRL, EOM intact ENT: hearing intact, poor dentition - Neck Neck: Present: supple, normal ROM - Respiratory Respiratory effort: normal Respiratory: bilateral: CTA - Cardiovascular Rhythm: regular Heart Sounds: Present: S1 & S2. Absent: systolic murmur, diastolic murmur - Extremities Extremities: no ischemia, pulses intact, pulses symmetrical, No edema, normal temperature, normal color, Full ROM Peripheral Pulses: within normal limits - Abdominal General gastrointestinal: soft, non-tender, normal bowel sounds - Integumentary Integumentary: Present: clear, warm, dry - Psychiatric Psychiatric: appropriate mood/affect, cooperative - Neurologic Neurologic: CNII-XII intact, no focal deficits, moves all extremities - Allied Health Allied health notes reviewed: nursing Results - Labs CBC & Chem 7: 09/20/20 09:46 09/20/20 09:46 Labs: Laboratory Last Values WBC 5.7 K/mm3 (4.5-11.0) 09/20/20 09:46 RBC 4.35 M/mm3 (3.65-5.03) 09/20/20 09:46 Hgb 13.0 gm/dl (11.8-15.2) 09/20/20 09:46 Hct 39.4 % (35.5-45.6) 09/20/20 09:46 MCV 91 fl (84-94) 09/20/20 09:46 MCH 30 pg (28-32) 09/20/20 09:46 MCHC 33 % (32-34) 09/20/20 09:46 RDW 15.9 % (13.2-15.2) H 09/20/20 09:46 Plt Count 203 K/mm3 (140-440) 09/20/20 09:46 Add Manual Diff Complete 09/19/20 11:28 Total Counted 100 09/19/20 11:28 Seg Neuts % (Manual) 61.0 % (40.0-70.0) 09/19/20 11:28 Band Neutrophils % 27.0 % 09/19/20 11:28 Lymphocytes % (Manual) 7.0 % (13.4-35.0) L 09/19/20 11:28 Reactive Lymphs % (Man) 0 % 09/19/20 11:28 Monocytes % (Manual) 5.0 % (0.0-7.3) 09/19/20 11:28 Eosinophils % (Manual) 0 % (0.0-4.3) 09/19/20 11:28 Basophils % (Manual) 0 % (0.0-1.8) 09/19/20 11:28 Metamyelocytes % 0 % 09/19/20 11:28 Myelocytes % 0 % 09/19/20 11:28 Promyelocytes % 0 % 09/19/20 11:28 Blast Cells % 0 % 09/19/20 11:28 Nucleated RBC % Not Reportable 09/19/20 11:28 Seg Neutrophils # Man 5.7 K/mm3 (1.8-7.7) 09/19/20 11:28 Band Neutrophils # 2.5 K/mm3 09/19/20 11:28 Lymphocytes # (Manual) 0.7 K/mm3 (1.2-5.4) L 09/19/20 11:28 Abs React Lymphs (Man) 0.0 K/mm3 09/19/20 11:28 Monocytes # (Manual) 0.5 K/mm3 (0.0-0.8) 09/19/20 11:28 Eosinophils # (Manual) 0.0 K/mm3 (0.0-0.4) 09/19/20 11:28 Basophils # (Manual) 0.0 K/mm3 (0.0-0.1) 09/19/20 11:28 Metamyelocytes # 0.0 K/mm3 09/19/20 11:28 Myelocytes # 0.0 K/mm3 09/19/20 11:28 Promyelocytes # 0.0 K/mm3 09/19/20 11:28 Blast Cells # 0.0 K/mm3 09/19/20 11:28 WBC Morphology Not Reportable 09/19/20 11:28 Hypersegmented Neuts Not Reportable 09/19/20 11:28 Hyposegmented Neuts Not Reportable 09/19/20 11:28 Hypogranular Neuts Not Reportable 09/19/20 11:28 Smudge Cells Not Reportable 09/19/20 11:28 Toxic Granulation Not Reportable 09/19/20 11:28 Toxic Vacuolation Not Reportable 09/19/20 11:28 Dohle Bodies Not Reportable 09/19/20 11:28 Pelger-Huet Anomaly Not Reportable 09/19/20 11:28 Stella Rods Not Reportable 09/19/20 11:28 Platelet Estimate Consistent w auto 09/19/20 11:28 Clumped Platelets Not Reportable 09/19/20 11:28 Plt Clumps, EDTA Not Reportable 09/19/20 11:28 Large Platelets Not Reportable 09/19/20 11:28 Giant Platelets Not Reportable 09/19/20 11:28 Platelet Satelliting Not Reportable 09/19/20 11:28 Plt Morphology Comment Not Reportable 09/19/20 11:28 RBC Morphology Not Reportable 09/19/20 11:28 Dimorphic RBCs Not Reportable 09/19/20 11:28 Polychromasia Not Reportable 09/19/20 11:28 Hypochromasia Not Reportable 09/19/20 11:28 Poikilocytosis Not Reportable 09/19/20 11:28 Anisocytosis Few 09/19/20 11:28 Microcytosis Not Reportable 09/19/20 11:28 Macrocytosis Not Reportable 09/19/20 11:28 Spherocytes Not Reportable 09/19/20 11:28 Pappenheimer Bodies Not Reportable 09/19/20 11:28 Sickle Cells Not Reportable 09/19/20 11:28 Target Cells Not Reportable 09/19/20 11:28 Tear Drop Cells Not Reportable 09/19/20 11:28 Ovalocytes Not Reportable 09/19/20 11:28 Helmet Cells Not Reportable 09/19/20 11:28 [place] Bodies Not Reportable 09/19/20 11:28 [place] Rings Not Reportable 09/19/20 11:28 [place] Cells Not Reportable 09/19/20 11:28 Bite Cells Not Reportable 09/19/20 11:28 Crenated Cell Not Reportable 09/19/20 11:28 Elliptocytes Not Reportable 09/19/20 11:28 Acanthocytes (Spur) Not Reportable 09/19/20 11:28 Rouleaux Not Reportable 09/19/20 11:28 Hemoglobin C Crystals Not Reportable 09/19/20 11:28 Schistocytes Not Reportable 09/19/20 11:28 Malaria parasites Not Reportable 09/19/20 11:28 Roque Bodies Not Reportable 09/19/20 11:28 Hem Pathologist Commnt No 09/19/20 11:28 Sodium 142 mmol/L (137-145) 09/20/20 09:46 Potassium 4.6 mmol/L (3.6-5.0) 09/20/20 09:46 Chloride 108.8 mmol/L (98-107) H 09/20/20 09:46 Carbon Dioxide 22 mmol/L (22-30) 09/20/20 09:46 Anion Gap 16 mmol/L 09/20/20 09:46 BUN 11 mg/dL (9-20) 09/20/20 09:46 Creatinine 0.6 mg/dL (0.8-1.3) L 09/20/20 09:46 Estimated GFR > 60 ml/min 09/20/20 09:46 BUN/Creatinine Ratio 18 % 09/20/20 09:46 Glucose 95 mg/dL (75-100) 09/20/20 09:46 POC Glucose 98 mg/dL (70-105) 09/21/20 09:11 Calcium 9.1 mg/dL (8.4-10.2) 09/20/20 09:46 Total Bilirubin 0.40 mg/dL (0.1-1.2) 09/19/20 11:28 AST 18 units/L (5-40) 09/19/20 11:28 ALT 9 units/L (7-56) 09/19/20 11:28 Alkaline Phosphatase 68 units/L (35-129) 09/19/20 11:28 Total Protein 7.1 g/dL (6.3-8.2) 09/19/20 11:28 Albumin 3.8 g/dL (3.9-5) L 09/19/20 11:28 Albumin/Globulin Ratio 1.2 % 09/19/20 11:28 Lipase 28 units/L (13-60) 09/19/20 11:28 Almaraz/IV: Voiding Method Indwelling Catheter IV Catheter Type [Left Forearm INT / Saline Lock ] Active Medications - Current Medications Current Medications: Generic Name Dose Route Start Last Admin Trade Name Freq PRN Reason Stop Dose Admin Acetaminophen 650 mg 09/19/20 14:01 Tylenol PO Q4H PRN Pain MILD(1-3)/Fever >100.5/GARCIA Albuterol 2.5 mg 09/19/20 14:01 Proventil IH Q4HRT PRN Shortness Of Breath Bisacodyl 10 mg 09/21/20 10:00 Dulcolax NV QDAY PRN Constipation Dextrose/Sodium Chloride 1,000 mls @ 75 mls/hr 09/21/20 10:00 D5/0.45ns IV DIRECT CLIFF Lactulose 200 gm 09/21/20 10:00 Cephulac NV BID CLIFF Levothyroxine Sodium 25 mcg 09/22/20 06:00 Synthroid IV DAILY@0600 CLIFF Olanzapine 5 mg 09/21/20 10:00 Zyprexa PO QDAY CLIFF Ondansetron HCl 4 mg 09/19/20 14:01 Zofran IV Q8H PRN Nausea And Vomiting Pantoprazole Sodium 20 mg 09/22/20 07:30 Protonix PO QDAC CLIFF Sertraline HCl 25 mg 09/21/20 10:00 Zoloft PO QDAY CLIFF Sodium Chloride 10 ml 09/19/20 22:00 09/20/20 22:25 Sodium Chloride Flush Syringe 10 Ml IV 10 ml BID CLIFF Administration Sodium Chloride 10 ml 09/19/20 14:01 Sodium Chloride Flush Syringe 10 Ml IV PRN PRN LINE FLUSH <JONH CHINO R - Last Filed: 09/22/20 15:48> Assessment and Plan Assessment and plan: I saw and evaluated the patient. I agree with the findings and the plan of care as documented in the Nurse Practitioner's~note, Hospitalist Physical - Constitutional Vitals: Temp Pulse Resp BP Pulse Ox 97.9 F 61 18 100/62 99 09/22/20 07:21 09/22/20 07:21 09/22/20 07:21 09/22/20 07:21 09/22/20 07:21 Results - Labs CBC & Chem 7: 09/22/20 10:37 09/22/20 10:37 Labs: Laboratory Last Values WBC 6.6 K/mm3 (4.5-11.0) 09/22/20 10:37 RBC 4.13 M/mm3 (3.65-5.03) 09/22/20 10:37 Hgb 12.4 gm/dl (11.8-15.2) 09/22/20 10:37 Hct 36.5 % (35.5-45.6) 09/22/20 10:37 MCV 88 fl (84-94) 09/22/20 10:37 MCH 30 pg (28-32) 09/22/20 10:37 MCHC 34 % (32-34) 09/22/20 10:37 RDW 15.1 % (13.2-15.2) 09/22/20 10:37 Plt Count 232 K/mm3 (140-440) 09/22/20 10:37 Lymph % (Auto) 11.8 % (13.4-35.0) L 09/22/20 10:37 [place] % (Auto) 10.5 % (0.0-7.3) H 09/22/20 10:37 Eos % (Auto) 1.2 % (0.0-4.3) 09/22/20 10:37 Baso % (Auto) 0.5 % (0.0-1.8) 09/22/20 10:37 Lymph # (Auto) 0.8 K/mm3 (1.2-5.4) L 09/22/20 10:37 [place] # (Auto) 0.7 K/mm3 (0.0-0.8) 09/22/20 10:37 Eos # (Auto) 0.1 K/mm3 (0.0-0.4) 09/22/20 10:37 Baso # (Auto) 0.0 K/mm3 (0.0-0.1) 09/22/20 10:37 Add Manual Diff Complete 09/19/20 11:28 Total Counted 100 09/19/20 11:28 Seg Neutrophils % 76.0 % (40.0-70.0) H 09/22/20 10:37 Seg Neuts % (Manual) 61.0 % (40.0-70.0) 09/19/20 11:28 Band Neutrophils % 27.0 % 09/19/20 11:28 Lymphocytes % (Manual) 7.0 % (13.4-35.0) L 09/19/20 11:28 Reactive Lymphs % (Man) 0 % 09/19/20 11:28 Monocytes % (Manual) 5.0 % (0.0-7.3) 09/19/20 11:28 Eosinophils % (Manual) 0 % (0.0-4.3) 09/19/20 11:28 Basophils % (Manual) 0 % (0.0-1.8) 09/19/20 11:28 Metamyelocytes % 0 % 09/19/20 11:28 Myelocytes % 0 % 09/19/20 11:28 Promyelocytes % 0 % 09/19/20 11:28 Blast Cells % 0 % 09/19/20 11:28 Nucleated RBC % Not Reportable 09/19/20 11:28 Seg Neutrophils # 5.0 K/mm3 (1.8-7.7) 09/22/20 10:37 Seg Neutrophils # Man 5.7 K/mm3 (1.8-7.7) 09/19/20 11:28 Band Neutrophils # 2.5 K/mm3 09/19/20 11:28 Lymphocytes # (Manual) 0.7 K/mm3 (1.2-5.4) L 09/19/20 11:28 Abs React Lymphs (Man) 0.0 K/mm3 09/19/20 11:28 Monocytes # (Manual) 0.5 K/mm3 (0.0-0.8) 09/19/20 11:28 Eosinophils # (Manual) 0.0 K/mm3 (0.0-0.4) 09/19/20 11:28 Basophils # (Manual) 0.0 K/mm3 (0.0-0.1) 09/19/20 11:28 Metamyelocytes # 0.0 K/mm3 09/19/20 11:28 Myelocytes # 0.0 K/mm3 09/19/20 11:28 Promyelocytes # 0.0 K/mm3 09/19/20 11:28 Blast Cells # 0.0 K/mm3 09/19/20 11:28 WBC Morphology Not Reportable 09/19/20 11:28 Hypersegmented Neuts Not Reportable 09/19/20 11:28 Hyposegmented Neuts Not Reportable 09/19/20 11:28 Hypogranular Neuts Not Reportable 09/19/20 11:28 Smudge Cells Not Reportable 09/19/20 11:28 Toxic Granulation Not Reportable 09/19/20 11:28 Toxic Vacuolation Not Reportable 09/19/20 11:28 Dohle Bodies Not Reportable 09/19/20 11:28 Pelger-Huet Anomaly Not Reportable 09/19/20 11:28 Stella Rods Not Reportable 09/19/20 11:28 Platelet Estimate Consistent w auto 09/19/20 11:28 Clumped Platelets Not Reportable 09/19/20 11:28 Plt Clumps, EDTA Not Reportable 09/19/20 11:28 Large Platelets Not Reportable 09/19/20 11:28 Giant Platelets Not Reportable 09/19/20 11:28 Platelet Satelliting Not Reportable 09/19/20 11:28 Plt Morphology Comment Not Reportable 09/19/20 11:28 RBC Morphology Not Reportable 09/19/20 11:28 Dimorphic RBCs Not Reportable 09/19/20 11:28 Polychromasia Not Reportable 09/19/20 11:28 Hypochromasia Not Reportable 09/19/20 11:28 Poikilocytosis Not Reportable 09/19/20 11:28 Anisocytosis Few 09/19/20 11:28 Microcytosis Not Reportable 09/19/20 11:28 Macrocytosis Not Reportable 09/19/20 11:28 Spherocytes Not Reportable 09/19/20 11:28 Pappenheimer Bodies Not Reportable 09/19/20 11:28 Sickle Cells Not Reportable 09/19/20 11:28 Target Cells Not Reportable 09/19/20 11:28 Tear Drop Cells Not Reportable 09/19/20 11:28 Ovalocytes Not Reportable 09/19/20 11:28 Helmet Cells Not Reportable 09/19/20 11:28 [place] Bodies Not Reportable 09/19/20 11:28 [place] Rings Not Reportable 09/19/20 11:28 [place] Cells Not Reportable 09/19/20 11:28 Bite Cells Not Reportable 09/19/20 11:28 Crenated Cell Not Reportable 09/19/20 11:28 Elliptocytes Not Reportable 09/19/20 11:28 Acanthocytes (Spur) Not Reportable 09/19/20 11:28 Rouleaux Not Reportable 09/19/20 11:28 Hemoglobin C Crystals Not Reportable 09/19/20 11:28 Schistocytes Not Reportable 09/19/20 11:28 Malaria parasites Not Reportable 09/19/20 11:28 Roque Bodies Not Reportable 09/19/20 11:28 Hem Pathologist Commnt No 09/19/20 11:28 Sodium 138 mmol/L (137-145) 09/22/20 10:37 Potassium 3.5 mmol/L (3.6-5.0) L 09/22/20 10:37 Chloride 99.1 mmol/L (98-107) 09/22/20 10:37 Carbon Dioxide 29 mmol/L (22-30) 09/22/20 10:37 Anion Gap 13 mmol/L 09/22/20 10:37 BUN 4 mg/dL (9-20) L 09/22/20 10:37 Creatinine 0.6 mg/dL (0.8-1.3) L 09/22/20 10:37 Estimated GFR > 60 ml/min 09/22/20 10:37 BUN/Creatinine Ratio 7 % 09/22/20 10:37 Glucose 135 mg/dL (75-100) H 09/22/20 10:37 POC Glucose 109 mg/dL (70-105) H 09/22/20 12:12 Calcium 9.4 mg/dL (8.4-10.2) 09/22/20 10:37 Total Bilirubin 0.40 mg/dL (0.1-1.2) 09/19/20 11:28 AST 18 units/L (5-40) 09/19/20 11:28 ALT 9 units/L (7-56) 09/19/20 11:28 Alkaline Phosphatase 68 units/L (35-129) 09/19/20 11:28 Total Protein 7.1 g/dL (6.3-8.2) 09/19/20 11:28 Albumin 3.8 g/dL (3.9-5) L 09/19/20 11:28 Albumin/Globulin Ratio 1.2 % 09/19/20 11:28 Lipase 28 units/L (13-60) 09/19/20 11:28 TSH 9.420 mlU/mL (0.270-4.200) H 09/22/20 10:37 Free T4 1.08 ng/dL (0.76-1.46) 09/22/20 10:37 Almaraz/IV: Voiding Method Indwelling Catheter IV Catheter Type [Left Forearm INT / Saline Lock ] Active Medications - Current Medications Current Medications: Generic Name Dose Route Start Last Admin Trade Name Freq PRN Reason Stop Dose Admin Acetaminophen 650 mg 09/19/20 14:01 Tylenol PO Q4H PRN Pain MILD(1-3)/Fever >100.5/GARCIA Albuterol 2.5 mg 09/19/20 14:01 Proventil IH Q4HRT PRN Shortness Of Breath Bisacodyl 10 mg 09/21/20 10:00 Dulcolax NV QDAY PRN Constipation Enoxaparin Sodium 40 mg 09/21/20 12:00 09/22/20 10:16 Enoxaparin SUB-Q 40 mg QDAY@1000 [facility] Administration Protocol Lactulose 20 gm 09/22/20 10:00 09/22/20 10:16 Cephulac PO 20 gm QDAY CLIFF Administration Levothyroxine Sodium 25 mcg 09/22/20 06:00 09/22/20 05:41 Synthroid IV 25 mcg DAILY@0600 [facility] Administration Olanzapine 5 mg 09/21/20 10:00 09/22/20 10:16 Zyprexa PO 5 mg QDAY CLIFF Administration Ondansetron HCl 4 mg 09/19/20 14:01 Zofran IV Q8H PRN Nausea And Vomiting Pantoprazole Sodium 20 mg 09/22/20 07:30 09/22/20 10:16 Protonix PO 20 mg QDAC CLIFF Administration Sertraline HCl 25 mg 09/21/20 10:00 09/22/20 10:16 Zoloft PO 25 mg QDAY CLIFF Administration Sodium Chloride 10 ml 09/19/20 22:00 09/22/20 10:16 Sodium Chloride Flush Syringe 10 Ml IV 10 ml BID CLIFF Administration Sodium Chloride 10 ml 09/19/20 14:01 Sodium Chloride Flush Syringe 10 Ml IV PRN PRN LINE FLUSH Nutrition/Malnutrition Assess - Dietary Evaluation Nutrition/Malnutrition Findings: Nutrition Notes Start: 09/21/20 10:34 Freq: Status: Active Protocol: Document 09/21/20 10:34 LM (Rec: 09/21/20 11:07 LM [id number]) Nutrition Notes Need for Assessment generated from: Low BMI Initial or Follow up Assessment Current Diagnosis Small Bowel Obstruction Other Pertinent Diagnosis Dementia, BPH Current Diet NPO Labs/Tests Reviewed Pertinent Medications Reviewed Height 5 ft 11 in Weight 53.7 kg [place] Body Weight (kg) 78.18 BMI 16.5 Weight Status Underweight Subjective/Other Information MD consult for malnutrition. Screen for low BMI. Pt is from SNF. 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 Pt was unaware of UBW. Pt has temporal wasting. Burn Absent Trauma Absent Current % PO Negligible Minimum of two criteria Yes Body Fat Depletion Mild depletion (non-severe) Muscle Mass Mild Depletion (non-severe) #1 Nutrition Diagnosis Malnutrition Etiology Dementia As Evidenced by Signs and Symptoms Pt with muscle and fat wasting Is patient on ventilator? No Is Patient Ambulatory and/or Out of Bed No REE-([facility]-confined to bed) 1671.684 Kcal/Kg value to use for calculation 38 Approximate Energy Requirements Using 2041 kcal/Kg Calculation Used for Recommendations Kcal/kg Additional Notes Protein: 65-81g (1.2-1.5g/kg) Fluid: 1ml/kcal Nutrition Intervention Change Diet Order: Diet advancement per MD when medically feasible Goal #1 diet advancement Anticipated Discharge Needs: unable to determine at this time Follow-Up By: 09/23/20 Additional Comments F/U for diet advancement
[2020-09-21] MEDS: D5W/0.45% NACL 1,000 ML IV SCH (11:07)
[2020-09-21] MEDS: SERTRALINE 25 MG TAB PO SCH (11:08)
--- NOTE | 2020-09-21 13:37 | Fluoroscopy Report ---
SMALL BOWEL FOLLOW-THROUGH HISTORY: Obstruction. TECHNIQUE: Single contrast barium technique utilized to evaluate the small bowel. FINDINGS: Small bowel transit time was approximately 4 hours which is delayed. Borderline dilated l oops of small bowel are present throughout the abdomen.. The overall pattern is suggestive of mild di stal small bowel partial obstruction. IMPRESSION: Mild distal small bowel partial obstruction pattern. There is delayed transit of oral co ntrast through the small bowel loops at approximately 4 hours. FLUOROSCOPIC TIME: None NUMBER OF FLUOROSCOPIC IMAGES: none Signer Name: Terrence Silva Jr, MD Signed: 09/21/2020 1:32 PM Workstation Name: [id number]
[2020-09-21] MEDS: LACTULOSE ENEMA 1000 ML PR SCH ×2 (13:52→22:21)
[2020-09-21] MEDS: ENOXAPARIN 40 MG/0.4 ML INJ SUB-Q SCH (13:53)
--- NOTE | 2020-09-21 16:47 | Progress Note ---
Assessment and Plan pSBO-- pt has abnormal baseline GI fct along with his developmental delay which makes it very difficult to manage him for this condition. SBFT thru to colon in 4 hrs yest-- likely resolving pSBO Pt may likely never have a "normal" CT scan regarding his bowel appearance/function. Clamp NGT trial with clears around tube with possible NGT removal and reg diet tomorrow. Subjective Date of service: 09/21/20 Patient Reports: Positive: no new complaints, feels better, flatus. Negative: still having pain, no bowel movement (pt wants to eat; denies pain; +flatus; no BM) Objective Vital Signs - 12hr 09/21/20 09/21/20 09/21/20 08:07 08:33 12:52 Temperature 98.0 F 98.3 F Pulse Rate 68 66 Respiratory 20 20 Rate Blood Pressure 125/74 121/72 O2 Sat by Pulse 100 95 99 Oximetry 09/21/20 09/21/20 13:24 15:37 Temperature 98.7 F Pulse Rate 60 Respiratory 18 20 Rate Blood Pressure 122/73 O2 Sat by Pulse 98 Oximetry - Abdomen soft, not tender, bowel sounds normal, not distended - Labs 09/20/20 09:46 09/20/20 09:46
--- NOTE | 2020-09-21 18:05 | Progress Note ---
Subjective Date of service: 09/21/20 Objective - Constitutional Vitals: Vital Signs - 12hr 09/21/20 09/21/20 09/21/20 08:07 08:33 12:52 Temperature 98.0 F 98.3 F Pulse Rate 68 66 Respiratory 20 20 Rate Blood Pressure 125/74 121/72 O2 Sat by Pulse 100 95 99 Oximetry 09/21/20 09/21/20 13:24 15:37 Temperature 98.7 F Pulse Rate 60 Respiratory 18 20 Rate Blood Pressure 122/73 O2 Sat by Pulse 98 Oximetry - Labs CBC & Chem 7: 09/20/20 09:46 09/20/20 09:46 Labs: Abnormal lab results 09/21/20 Range/Units 06:29 POC Glucose 68 L (70-105) mg/dL
[2020-09-22] MEDS: D5W/0.45% NACL 1,000 ML IV SCH ×2 (03:41→10:16)
[2020-09-22] MEDS: LEVOTHYROXINE 100 MCG INJ IV SCH (05:41)
[2020-09-22 06:06] LABS: Hemoglobin 11.3 gm/dl (11.8-15.2); Mean Corpuscular HGB Conc 34 % (32-34); Mean Corpuscular Volume 89 fl (84-94); Platelet Count 216 K/mm3 (140-440); Red Blood Count 3.73 M/mm3 (3.65-5.03)
[2020-09-22 06:25] LABS: Blood Urea Nitrogen 4 mg/dL (9-20); Calcium 8.8 mg/dL (8.4-10.2); Hemolysis Index 5
[2020-09-22 06:29] LABS: BUN/Creatinine Ratio 8
[2020-09-22] MEDS ORDERED: POTASSIUM CHLORIDE 20 MEQ PACKET FEEDTUBE SCH (07:38)
--- NOTE | 2020-09-22 08:55 | XRay Report ---
ABDOMEN 1 VIEW 09/22/2020 7:38 AM INDICATION / CLINICAL INFORMATION: f/u SBO. COMPARISON: Small bowel series dated 09/20/2020 FINDINGS: TUBES / LINES: None. BOWEL GAS PATTERN: Gaseous distention of small bowel persists. This is slightly improved when compare d to the prior study. Contrast media from the small bowel series is noted in the colon. FREE AIR / EXTRALUMINAL GAS: None. ADDITIONAL FINDINGS: No significant additional findings. IMPRESSION: 1. Gaseous distention of small bowel loops persist. This is slightly improved when compared to the pr ior study. Signer Name: Musa Mason MD Signed: 09/22/2020 8:54 AM Workstation Name: [email or web address]
[2020-09-22] MEDS: SERTRALINE 25 MG TAB PO SCH (10:16)
[2020-09-22] MEDS: PANTOPRAZOLE 20 MG TAB PO SCH (10:16)
[2020-09-22] MEDS: ENOXAPARIN 40 MG/0.4 ML INJ SUB-Q SCH (10:16)
[2020-09-22] MEDS: LACTULOSE 20 GM/30 ML ORAL LIQD PO SCH (10:16)
[2020-09-22 11:04] LABS: Basophils % (Auto) 0.5 % (0.0-1.8); Eosinophils # (Auto) 0.1 K/mm3 (0.0-0.4); Eosinophils % (Auto) 1.2 % (0.0-4.3); Hematocrit 36.5 % (35.5-45.6); Hemoglobin 12.4 gm/dl (11.8-15.2); Lymphocytes # (Auto) 0.8 K/mm3 (1.2-5.4); Lymphocytes % (Auto) 11.8 % (13.4-35.0); Mean Corpuscular HGB Conc 34 % (32-34); Mean Corpuscular Volume 88 fl (84-94); Monocytes # (Auto) 0.7 K/mm3 (0.0-0.8); Monocytes % (Auto) 10.5 % (0.0-7.3); Platelet Count 232 K/mm3 (140-440); Red Blood Count 4.13 M/mm3 (3.65-5.03); Red Cell Distribution Width 15.1 % (13.2-15.2)
--- NOTE | 2020-09-22 11:16 | Progress Note ---
<HARLEEN CRONIN - Last Filed: 09/22/20 14:31> Assessment and Plan - Patient Problems (1) SBO (small bowel obstruction) Current Visit: Yes Status: Acute Plan to address problem: 09/19 CT abdomen/pelvis with contrast shows significant dilation of small bowel with a transition point to the normal distal ileum concerning for SBO, persistent significant thickening of the bladder and moderate quantity of free fluid which may be likely reactive General surgery consulted NGT to LIS which has been removed 09/20 abdominal x-ray shows SBO per surgery 09/20 SBFT showed mild distal bowel pressure obstruction pattern with delayed transit of oral contrast through the small bowel loops at approximately 4 hours MIVF with LR @ 125, changed to D5 half-normal saline now discontinued Supportive care Surgery started the patient on clear liquid diet, advance as tolerated 09/22 abdominal x-ray shows gaseous distention of small bowel loops persist however still slightly improved when compared to the prior study. (2) BPH (benign prostatic hyperplasia) Current Visit: Yes Status: Acute Plan to address problem: Patient is currently n.p.o. Resume home BPH medications when appropriate Patient has a current indwelling Almaraz catheter Follow-up with urology outpatient (3) Chronic indwelling Almaraz catheter Current Visit: Yes Status: Acute Plan to address problem: Continue indwelling Almaraz catheter Supportive care Outpatient follow-up with urology (4) Vascular dementia Current Visit: Yes Status: Acute Qualifiers: Dementia behavioral disturbance: without behavioral disturbance Qualified Code(s): F01.50 - Vascular dementia without behavioral disturbance Plan to address problem: Supportive care Aspiration/fall precautions Reorientation as needed Benzodiazepines as needed (5) Constipation Current Visit: No Status: Chronic Plan to address problem: Daily Fleet enema as needed P.o. lactulose Dulcolax suppository as needed Per surgery patient has decreased gastric motility and constipation (6) Severe malnutrition Current Visit: Yes Status: Chronic Plan to address problem: Patient with BMI of 16.5 and appears to be a very cachectic Nutrition supplements Nutrition consult (7) Hypokalemia Current Visit: Yes Status: Acute Plan to address problem: 09/22 potassium 3.3/3.5 Repleted Repeat as needed Trend BMP (8) Elevated TSH Current Visit: Yes Status: Acute Plan to address problem: 09/22 TSH 9.8 09/22 T4 1.08 Check t3 Possible sick thyroid syndrome (9) DVT prophylaxis Current Visit: No Status: Acute Plan to address problem: SCDs to bilateral lower extremity, while in bed Lovenox subcu since surgery has opted conservative management History Interval history: This is a 55-year-old male from a SNF with hypothyroidism, BPH complicated by obstructive uropathy with chronic indwelling Almaraz catheter, cognitive delay and recent bowel obstruction (08/2020) s/p ex lap with JUSTIN on 08/10/2020 with subs equent postoperative ileus and repeat admission with a CT-guided aspiration of abdominal seroma on 09/02/2020 who presented to the emergency department on 09/19 with complaints of abdominal pain, nausea and multiple episodes of vomiting over the past [address] scan of the abdomen and pelvis and was found to have a partial small bowel obstruction and surgery team consulted in ED. In the emergency department he received 2 L NS bolus and while inpatient he received 2 L NS bolus for hypotension. Lactulose LA changed to PO today and surgery advanced the pt to a regular diet. He is hypokalemic today which has been treated. 09/20: Overnight the patient was hypotensive and he received 1 L normal saline bolus. NGT to LIS placed. Repeat ABD x-ray showed SBO and SBFT was obtained for further evaluation Overnight the patient was hypoglycemic therefore his IV fluids were changed from LR to D51/2 102 and NS. Patient is NGT to LIS draining light green/yellow fluid. Patient's x-rays show a heavy stool burden and he has a history of chronic constipation therefore lactulose LA and Dulcolax suppository as needed has been ordered. Repeat labs and KUB ordered for the a.m. per surgery recommendations. Hospitalist Physical - Constitutional Vitals: Temp Pulse Resp BP Pulse Ox 97.9 F 61 18 100/62 99 09/22/20 07:21 09/22/20 07:21 09/22/20 07:21 09/22/20 07:21 09/22/20 07:21 General appearance: Present: no acute distress, cachectic - EENT Eyes: Present: PERRL, EOM intact ENT: hearing decreased, poor dentition - Neck Neck: Present: supple, normal ROM - Respiratory Respiratory effort: normal Respiratory: bilateral: CTA - Cardiovascular Rhythm: regular Heart Sounds: Present: S1 & S2. Absent: systolic murmur, diastolic murmur - Extremities Extremities: no ischemia, pulses intact, pulses symmetrical, No edema, normal temperature, normal color, Full ROM Peripheral Pulses: within normal limits - Abdominal General gastrointestinal: soft, non-tender, non-distended, normal bowel sounds - Integumentary Integumentary: Present: clear, warm, dry - Psychiatric Psychiatric: cooperative - Neurologic Neurologic: CNII-XII intact, moves all extremities - Allied Health Allied health notes reviewed: nursing, social work, case management Results - Labs CBC & Chem 7: 09/22/20 10:37 09/22/20 10:37 Labs: Laboratory Last Values WBC 6.6 K/mm3 (4.5-11.0) 09/22/20 10:37 RBC 4.13 M/mm3 (3.65-5.03) 09/22/20 10:37 Hgb 12.4 gm/dl (11.8-15.2) 09/22/20 10:37 Hct 36.5 % (35.5-45.6) 09/22/20 10:37 MCV 88 fl (84-94) 09/22/20 10:37 MCH 30 pg (28-32) 09/22/20 10:37 MCHC 34 % (32-34) 09/22/20 10:37 RDW 15.1 % (13.2-15.2) 09/22/20 10:37 Plt Count 232 K/mm3 (140-440) 09/22/20 10:37 Lymph % (Auto) 11.8 % (13.4-35.0) L 09/22/20 10:37 [place] % (Auto) 10.5 % (0.0-7.3) H 09/22/20 10:37 Eos % (Auto) 1.2 % (0.0-4.3) 09/22/20 10:37 Baso % (Auto) 0.5 % (0.0-1.8) 09/22/20 10:37 Lymph # (Auto) 0.8 K/mm3 (1.2-5.4) L 09/22/20 10:37 [place] # (Auto) 0.7 K/mm3 (0.0-0.8) 09/22/20 10:37 Eos # (Auto) 0.1 K/mm3 (0.0-0.4) 09/22/20 10:37 Baso # (Auto) 0.0 K/mm3 (0.0-0.1) 09/22/20 10:37 Add Manual Diff Complete 09/19/20 11:28 Total Counted 100 09/19/20 11:28 Seg Neutrophils % 76.0 % (40.0-70.0) H 09/22/20 10:37 Seg Neuts % (Manual) 61.0 % (40.0-70.0) 09/19/20 11:28 Band Neutrophils % 27.0 % 09/19/20 11:28 Lymphocytes % (Manual) 7.0 % (13.4-35.0) L 09/19/20 11:28 Reactive Lymphs % (Man) 0 % 09/19/20 11:28 Monocytes % (Manual) 5.0 % (0.0-7.3) 09/19/20 11:28 Eosinophils % (Manual) 0 % (0.0-4.3) 09/19/20 11:28 Basophils % (Manual) 0 % (0.0-1.8) 09/19/20 11:28 Metamyelocytes % 0 % 09/19/20 11:28 Myelocytes % 0 % 09/19/20 11:28 Promyelocytes % 0 % 09/19/20 11:28 Blast Cells % 0 % 09/19/20 11:28 Nucleated RBC % Not Reportable 09/19/20 11:28 Seg Neutrophils # 5.0 K/mm3 (1.8-7.7) 09/22/20 10:37 Seg Neutrophils # Man 5.7 K/mm3 (1.8-7.7) 09/19/20 11:28 Band Neutrophils # 2.5 K/mm3 09/19/20 11:28 Lymphocytes # (Manual) 0.7 K/mm3 (1.2-5.4) L 09/19/20 11:28 Abs React Lymphs (Man) 0.0 K/mm3 09/19/20 11:28 Monocytes # (Manual) 0.5 K/mm3 (0.0-0.8) 09/19/20 11:28 Eosinophils # (Manual) 0.0 K/mm3 (0.0-0.4) 09/19/20 11:28 Basophils # (Manual) 0.0 K/mm3 (0.0-0.1) 09/19/20 11:28 Metamyelocytes # 0.0 K/mm3 09/19/20 11:28 Myelocytes # 0.0 K/mm3 09/19/20 11:28 Promyelocytes # 0.0 K/mm3 09/19/20 11:28 Blast Cells # 0.0 K/mm3 09/19/20 11:28 WBC Morphology Not Reportable 09/19/20 11:28 Hypersegmented Neuts Not Reportable 09/19/20 11:28 Hyposegmented Neuts Not Reportable 09/19/20 11:28 Hypogranular Neuts Not Reportable 09/19/20 11:28 Smudge Cells Not Reportable 09/19/20 11:28 Toxic Granulation Not Reportable 09/19/20 11:28 Toxic Vacuolation Not Reportable 09/19/20 11:28 Dohle Bodies Not Reportable 09/19/20 11:28 Pelger-Huet Anomaly Not Reportable 09/19/20 11:28 Stella Rods Not Reportable 09/19/20 11:28 Platelet Estimate Consistent w auto 09/19/20 11:28 Clumped Platelets Not Reportable 09/19/20 11:28 Plt Clumps, EDTA Not Reportable 09/19/20 11:28 Large Platelets Not Reportable 09/19/20 11:28 Giant Platelets Not Reportable 09/19/20 11:28 Platelet Satelliting Not Reportable 09/19/20 11:28 Plt Morphology Comment Not Reportable 09/19/20 11:28 RBC Morphology Not Reportable 09/19/20 11:28 Dimorphic RBCs Not Reportable 09/19/20 11:28 Polychromasia Not Reportable 09/19/20 11:28 Hypochromasia Not Reportable 09/19/20 11:28 Poikilocytosis Not Reportable 09/19/20 11:28 Anisocytosis Few 09/19/20 11:28 Microcytosis Not Reportable 09/19/20 11:28 Macrocytosis Not Reportable 09/19/20 11:28 Spherocytes Not Reportable 09/19/20 11:28 Pappenheimer Bodies Not Reportable 09/19/20 11:28 Sickle Cells Not Reportable 09/19/20 11:28 Target Cells Not Reportable 09/19/20 11:28 Tear Drop Cells Not Reportable 09/19/20 11:28 Ovalocytes Not Reportable 09/19/20 11:28 Helmet Cells Not Reportable 09/19/20 11:28 Wade-[place] Bodies Not Reportable 09/19/20 11:28 [place] Rings Not Reportable 09/19/20 11:28 [place] Cells Not Reportable 09/19/20 11:28 Bite Cells Not Reportable 09/19/20 11:28 Crenated Cell Not Reportable 09/19/20 11:28 Elliptocytes Not Reportable 09/19/20 11:28 Acanthocytes (Spur) Not Reportable 09/19/20 11:28 Rouleaux Not Reportable 09/19/20 11:28 Hemoglobin C Crystals Not Reportable 09/19/20 11:28 Schistocytes Not Reportable 09/19/20 11:28 Malaria parasites Not Reportable 09/19/20 11:28 Roque Bodies Not Reportable 09/19/20 11:28 Hem Pathologist Commnt No 09/19/20 11:28 Sodium 139 mmol/L (137-145) 09/22/20 05:35 Potassium 3.3 mmol/L (3.6-5.0) L D 09/22/20 05:35 Chloride 101.3 mmol/L (98-107) 09/22/20 05:35 Carbon Dioxide 29 mmol/L (22-30) D 09/22/20 05:35 Anion Gap 12 mmol/L 09/22/20 05:35 BUN 4 mg/dL (9-20) L 09/22/20 05:35 Creatinine 0.5 mg/dL (0.8-1.3) L 09/22/20 05:35 Estimated GFR > 60 ml/min 09/22/20 05:35 BUN/Creatinine Ratio 8 % 09/22/20 05:35 Glucose 127 mg/dL (75-100) H 09/22/20 05:35 POC Glucose 141 mg/dL (70-105) H 09/22/20 03:04 Calcium 8.8 mg/dL (8.4-10.2) 09/22/20 05:35 Total Bilirubin 0.40 mg/dL (0.1-1.2) 09/19/20 11:28 AST 18 units/L (5-40) 09/19/20 11:28 ALT 9 units/L (7-56) 09/19/20 11:28 Alkaline Phosphatase 68 units/L (35-129) 09/19/20 11:28 Total Protein 7.1 g/dL (6.3-8.2) 09/19/20 11:28 Albumin 3.8 g/dL (3.9-5) L 09/19/20 11:28 Albumin/Globulin Ratio 1.2 % 09/19/20 11:28 Lipase 28 units/L (13-60) 09/19/20 11:28 Almaraz/IV: Voiding Method Indwelling Catheter IV Catheter Type [Left Forearm INT / Saline Lock ] Active Medications - Current Medications Current Medications: Generic Name Dose Route Start Last Admin Trade Name Freq PRN Reason Stop Dose Admin Acetaminophen 650 mg 09/19/20 14:01 Tylenol PO Q4H PRN Pain MILD(1-3)/Fever >100.5/GARCIA Albuterol 2.5 mg 09/19/20 14:01 Proventil IH Q4HRT PRN Shortness Of Breath Bisacodyl 10 mg 09/21/20 10:00 Dulcolax LA QDAY PRN Constipation Enoxaparin Sodium 40 mg 09/21/20 12:00 09/22/20 10:16 Enoxaparin SUB-Q 40 mg QDAY@1000 CLIFF Administration Protocol Dextrose/Sodium Chloride 1,000 mls @ 42 mls/hr 09/21/20 10:00 09/22/20 10:16 D5/0.45ns IV 75 mls/hr DIRECT CLIFF Administration Lactulose 20 gm 09/22/20 10:00 09/22/20 10:16 Cephulac PO 20 gm QDAY CLIFF Administration Levothyroxine Sodium 25 mcg 09/22/20 06:00 09/22/20 05:41 Synthroid IV 25 mcg DAILY@0600 CLIFF Administration Olanzapine 5 mg 09/21/20 10:00 09/22/20 10:16 Zyprexa PO 5 mg QDAY CLIFF Administration Ondansetron HCl 4 mg 09/19/20 14:01 Zofran IV Q8H PRN Nausea And Vomiting Pantoprazole Sodium 20 mg 09/22/20 07:30 09/22/20 10:16 Protonix PO 20 mg QDAC CLIFF Administration Sertraline HCl 25 mg 09/21/20 10:00 09/22/20 10:16 Zoloft PO 25 mg QDAY CLIFF Administration Sodium Chloride 10 ml 09/19/20 22:00 09/22/20 10:16 Sodium Chloride Flush Syringe 10 Ml IV 10 ml BID CLIFF Administration Sodium Chloride 10 ml 09/19/20 14:01 Sodium Chloride Flush Syringe 10 Ml IV PRN PRN LINE FLUSH Nutrition/Malnutrition Assess - Dietary Evaluation Nutrition/Malnutrition Findings: Nutrition Notes Start: 09/21/20 10:34 Freq: Status: Active Protocol: Document 09/21/20 10:34 LM (Rec: 09/21/20 11:07 LM [id number]) Nutrition Notes Need for Assessment generated from: Low BMI Initial or Follow up Assessment Current Diagnosis Small Bowel Obstruction Other Pertinent Diagnosis Dementia, BPH Current Diet NPO Labs/Tests Reviewed Pertinent Medications Reviewed Height 5 ft 11 in Weight 53.7 kg [place] Body Weight (kg) 78.18 BMI 16.5 Weight Status Underweight Subjective/Other Information MD consult for malnutrition. Screen for low BMI. Pt is from SNF. Pt stated that he was eating well [employer] with no wt loss. Pt was unaware of UBW. Pt has temporal wasting. Burn Absent Trauma Absent Current % PO Negligible Minimum of two criteria Yes Body Fat Depletion Mild depletion (non-severe) Muscle Mass Mild Depletion (non-severe) #1 Nutrition Diagnosis Malnutrition Etiology Dementia As Evidenced by Signs and Symptoms Pt with muscle and fat wasting Is patient on ventilator? No Is Patient Ambulatory and/or Out of Bed No REE-([facility]-confined to bed) 1671.684 Kcal/Kg value to use for calculation 38 Approximate Energy Requirements Using 2041 kcal/Kg Calculation Used for Recommendations Kcal/kg Additional Notes Protein: 65-81g (1.2-1.5g/kg) Fluid: 1ml/kcal Nutrition Intervention Change Diet Order: Diet advancement per MD when medically feasible Goal #1 diet advancement Anticipated Discharge Needs: unable to determine at this time Follow-Up By: 09/23/20 Additional Comments F/U for diet advancement <JONH CHINO R - Last Filed: 09/22/20 15:48> Assessment and Plan Assessment and plan: I saw and evaluated the patient. I agree with the findings and the plan of care as documented in the Nurse Practitioner's~note, Hospitalist Physical - Constitutional Vitals: Temp Pulse Resp BP Pulse Ox 97.9 F 61 18 100/62 99 09/22/20 07:21 09/22/20 07:21 09/22/20 07:21 09/22/20 07:21 09/22/20 07:21 Results - Labs CBC & Chem 7: 09/22/20 10:37 09/22/20 10:37 Labs: Laboratory Last Values WBC 6.6 K/mm3 (4.5-11.0) 09/22/20 10:37 RBC 4.13 M/mm3 (3.65-5.03) 09/22/20 10:37 Hgb 12.4 gm/dl (11.8-15.2) 09/22/20 10:37 Hct 36.5 % (35.5-45.6) 09/22/20 10:37 MCV 88 fl (84-94) 09/22/20 10:37 MCH 30 pg (28-32) 09/22/20 10:37 MCHC 34 % (32-34) 09/22/20 10:37 RDW 15.1 % (13.2-15.2) 09/22/20 10:37 Plt Count 232 K/mm3 (140-440) 09/22/20 10:37 Lymph % (Auto) 11.8 % (13.4-35.0) L 09/22/20 10:37 [place] % (Auto) 10.5 % (0.0-7.3) H 09/22/20 10:37 Eos % (Auto) 1.2 % (0.0-4.3) 09/22/20 10:37 Baso % (Auto) 0.5 % (0.0-1.8) 09/22/20 10:37 Lymph # (Auto) 0.8 K/mm3 (1.2-5.4) L 09/22/20 10:37 [place] # (Auto) 0.7 K/mm3 (0.0-0.8) 09/22/20 10:37 Eos # (Auto) 0.1 K/mm3 (0.0-0.4) 09/22/20 10:37 Baso # (Auto) 0.0 K/mm3 (0.0-0.1) 09/22/20 10:37 Add Manual Diff Complete 09/19/20 11:28 Total Counted 100 09/19/20 11:28 Seg Neutrophils % 76.0 % (40.0-70.0) H 09/22/20 10:37 Seg Neuts % (Manual) 61.0 % (40.0-70.0) 09/19/20 11:28 Band Neutrophils % 27.0 % 09/19/20 11:28 Lymphocytes % (Manual) 7.0 % (13.4-35.0) L 09/19/20 11:28 Reactive Lymphs % (Man) 0 % 09/19/20 11:28 Monocytes % (Manual) 5.0 % (0.0-7.3) 09/19/20 11:28 Eosinophils % (Manual) 0 % (0.0-4.3) 09/19/20 11:28 Basophils % (Manual) 0 % (0.0-1.8) 09/19/20 11:28 Metamyelocytes % 0 % 09/19/20 11:28 Myelocytes % 0 % 09/19/20 11:28 Promyelocytes % 0 % 09/19/20 11:28 Blast Cells % 0 % 09/19/20 11:28 Nucleated RBC % Not Reportable 09/19/20 11:28 Seg Neutrophils # 5.0 K/mm3 (1.8-7.7) 09/22/20 10:37 Seg Neutrophils # Man 5.7 K/mm3 (1.8-7.7) 09/19/20 11:28 Band Neutrophils # 2.5 K/mm3 09/19/20 11:28 Lymphocytes # (Manual) 0.7 K/mm3 (1.2-5.4) L 09/19/20 11:28 Abs React Lymphs (Man) 0.0 K/mm3 09/19/20 11:28 Monocytes # (Manual) 0.5 K/mm3 (0.0-0.8) 09/19/20 11:28 Eosinophils # (Manual) 0.0 K/mm3 (0.0-0.4) 09/19/20 11:28 Basophils # (Manual) 0.0 K/mm3 (0.0-0.1) 09/19/20 11:28 Metamyelocytes # 0.0 K/mm3 09/19/20 11:28 Myelocytes # 0.0 K/mm3 09/19/20 11:28 Promyelocytes # 0.0 K/mm3 09/19/20 11:28 Blast Cells # 0.0 K/mm3 09/19/20 11:28 WBC Morphology Not Reportable 09/19/20 11:28 Hypersegmented Neuts Not Reportable 09/19/20 11:28 Hyposegmented Neuts Not Reportable 09/19/20 11:28 Hypogranular Neuts Not Reportable 09/19/20 11:28 Smudge Cells Not Reportable 09/19/20 11:28 Toxic Granulation Not Reportable 09/19/20 11:28 Toxic Vacuolation Not Reportable 09/19/20 11:28 Dohle Bodies Not Reportable 09/19/20 11:28 Pelger-Huet Anomaly Not Reportable 09/19/20 11:28 Stella Rods Not Reportable 09/19/20 11:28 Platelet Estimate Consistent w auto 09/19/20 11:28 Clumped Platelets Not Reportable 09/19/20 11:28 Plt Clumps, EDTA Not Reportable 09/19/20 11:28 Large Platelets Not Reportable 09/19/20 11:28 Giant Platelets Not Reportable 09/19/20 11:28 Platelet Satelliting Not Reportable 09/19/20 11:28 Plt Morphology Comment Not Reportable 09/19/20 11:28 RBC Morphology Not Reportable 09/19/20 11:28 Dimorphic RBCs Not Reportable 09/19/20 11:28 Polychromasia Not Reportable 09/19/20 11:28 Hypochromasia Not Reportable 09/19/20 11:28 Poikilocytosis Not Reportable 09/19/20 11:28 Anisocytosis Few 09/19/20 11:28 Microcytosis Not Reportable 09/19/20 11:28 Macrocytosis Not Reportable 09/19/20 11:28 Spherocytes Not Reportable 09/19/20 11:28 Pappenheimer Bodies Not Reportable 09/19/20 11:28 Sickle Cells Not Reportable 09/19/20 11:28 Target Cells Not Reportable 09/19/20 11:28 Tear Drop Cells Not Reportable 09/19/20 11:28 Ovalocytes Not Reportable 09/19/20 11:28 Helmet Cells Not Reportable 09/19/20 11:28 Wade-Ingleside Bodies Not Reportable 09/19/20 11:28 [place] Rings Not Reportable 09/19/20 11:28 [place] Cells Not Reportable 09/19/20 11:28 Bite Cells Not Reportable 09/19/20 11:28 Crenated Cell Not Reportable 09/19/20 11:28 Elliptocytes Not Reportable 09/19/20 11:28 Acanthocytes (Spur) Not Reportable 09/19/20 11:28 Rouleaux Not Reportable 09/19/20 11:28 Hemoglobin C Crystals Not Reportable 09/19/20 11:28 Schistocytes Not Reportable 09/19/20 11:28 Malaria parasites Not Reportable 09/19/20 11:28 Roque Bodies Not Reportable 09/19/20 11:28 Hem Pathologist Commnt No 09/19/20 11:28 Sodium 138 mmol/L (137-145) 09/22/20 10:37 Potassium 3.5 mmol/L (3.6-5.0) L 09/22/20 10:37 Chloride 99.1 mmol/L (98-107) 09/22/20 10:37 Carbon Dioxide 29 mmol/L (22-30) 09/22/20 10:37 Anion Gap 13 mmol/L 09/22/20 10:37 BUN 4 mg/dL (9-20) L 09/22/20 10:37 Creatinine 0.6 mg/dL (0.8-1.3) L 09/22/20 10:37 Estimated GFR > 60 ml/min 09/22/20 10:37 BUN/Creatinine Ratio 7 % 09/22/20 10:37 Glucose 135 mg/dL (75-100) H 09/22/20 10:37 POC Glucose 109 mg/dL (70-105) H 09/22/20 12:12 Calcium 9.4 mg/dL (8.4-10.2) 09/22/20 10:37 Total Bilirubin 0.40 mg/dL (0.1-1.2) 09/19/20 11:28 AST 18 units/L (5-40) 09/19/20 11:28 ALT 9 units/L (7-56) 09/19/20 11:28 Alkaline Phosphatase 68 units/L (35-129) 09/19/20 11:28 Total Protein 7.1 g/dL (6.3-8.2) 09/19/20 11:28 Albumin 3.8 g/dL (3.9-5) L 09/19/20 11:28 Albumin/Globulin Ratio 1.2 % 09/19/20 11:28 Lipase 28 units/L (13-60) 09/19/20 11:28 TSH 9.420 mlU/mL (0.270-4.200) H 09/22/20 10:37 Free T4 1.08 ng/dL (0.76-1.46) 09/22/20 10:37 Almaraz/IV: Voiding Method Indwelling Catheter IV Catheter Type [Left Forearm INT / Saline Lock ] Active Medications - Current Medications Current Medications: Generic Name Dose Route Start Last Admin Trade Name Freq PRN Reason Stop Dose Admin Acetaminophen 650 mg 09/19/20 14:01 Tylenol PO Q4H PRN Pain MILD(1-3)/Fever >100.5/GARCIA Albuterol 2.5 mg 09/19/20 14:01 Proventil IH Q4HRT PRN Shortness Of Breath Bisacodyl 10 mg 09/21/20 10:00 Dulcolax LA QDAY PRN Constipation Enoxaparin Sodium 40 mg 09/21/20 12:00 09/22/20 10:16 Enoxaparin SUB-Q 40 mg QDAY@1000 CLIFF Administration Protocol Lactulose 20 gm 09/22/20 10:00 09/22/20 10:16 Cephulac PO 20 gm QDAY CLIFF Administration Levothyroxine Sodium 25 mcg 09/22/20 06:00 09/22/20 05:41 Synthroid IV 25 mcg DAILY@0600 CLIFF Administration Olanzapine 5 mg 09/21/20 10:00 09/22/20 10:16 Zyprexa PO 5 mg QDAY CLIFF Administration Ondansetron HCl 4 mg 09/19/20 14:01 Zofran IV Q8H PRN Nausea And Vomiting Pantoprazole Sodium 20 mg 09/22/20 07:30 09/22/20 10:16 Protonix PO 20 mg QDAC CLIFF Administration Sertraline HCl 25 mg 09/21/20 10:00 09/22/20 10:16 Zoloft PO 25 mg QDAY CLIFF Administration Sodium Chloride 10 ml 09/19/20 22:00 09/22/20 10:16 Sodium Chloride Flush Syringe 10 Ml IV 10 ml BID CLIFF Administration Sodium Chloride 10 ml 09/19/20 14:01 Sodium Chloride Flush Syringe 10 Ml IV PRN PRN LINE FLUSH Nutrition/Malnutrition Assess - Dietary Evaluation Nutrition/Malnutrition Findings: Nutrition Notes Start: 09/21/20 10:34 Freq: Status: Active Protocol: Document 09/21/20 10:34 LM (Rec: 09/21/20 11:07 LM [id number]) Nutrition Notes Need for Assessment generated from: Low BMI Initial or Follow up Assessment Current Diagnosis Small Bowel Obstruction Other Pertinent Diagnosis Dementia, BPH Current Diet NPO Labs/Tests Reviewed Pertinent Medications Reviewed Height 5 ft 11 in Weight 53.7 kg [place] Body Weight (kg) 78.18 BMI 16.5 Weight Status Underweight Subjective/Other Information MD consult for malnutrition. Screen for low BMI. Pt is from SNF. Pt stated that he was eating well [employer] with no wt loss. Pt was unaware of UBW. Pt has temporal wasting. Burn Absent Trauma Absent Current % PO Negligible Minimum of two criteria Yes Body Fat Depletion Mild depletion (non-severe) Muscle Mass Mild Depletion (non-severe) #1 Nutrition Diagnosis Malnutrition Etiology Dementia As Evidenced by Signs and Symptoms Pt with muscle and fat wasting Is patient on ventilator? No Is Patient Ambulatory and/or Out of Bed No REE-([facility]-confined to bed) 1671.684 Kcal/Kg value to use for calculation 38 Approximate Energy Requirements Using 2041 kcal/Kg Calculation Used for Recommendations Kcal/kg Additional Notes Protein: 65-81g (1.2-1.5g/kg) Fluid: 1ml/kcal Nutrition Intervention Change Diet Order: Diet advancement per MD when medically feasible Goal #1 diet advancement Anticipated Discharge Needs: unable to determine at this time Follow-Up By: 09/23/20 Additional Comments F/U for diet advancement
[2020-09-22 11:18] LABS: BUN/Creatinine Ratio 7; Blood Urea Nitrogen 4 mg/dL (9-20); Calcium 9.4 mg/dL (8.4-10.2); Hemolysis Index 12
[2020-09-22 11:32] LABS: Free T4 (Free Thyroxine) 1.08 ng/dL (0.76-1.46)
--- NOTE | 2020-09-23 09:27 | Progress Note ---
Assessment and Plan pSBO- resolving/resolved Ok to d/c pt No f/u required Subjective Date of service: 09/23/20 Patient Reports: Positive: no new complaints, feels better, flatus, bowel movement (+flatus/BM; selene reg diet x3 meals; denies abd pain) Objective Vital Signs - 12hr 09/22/20 09/23/20 09/23/20 23:28 04:22 08:07 Temperature 98.0 F 98.1 F 98.9 F Pulse Rate 72 65 62 Respiratory 16 16 20 Rate Blood Pressure 99/54 107/50 114/72 O2 Sat by Pulse 96 97 99 Oximetry - Abdomen soft, not tender, bowel sounds normal - Labs 09/22/20 10:37 09/22/20 10:37 Diabetes panel 09/22/20 Range/Units 10:37 Sodium 138 (137-145) mmol/L Potassium 3.5 L (3.6-5.0) mmol/L Chloride 99.1 (98-107) mmol/L Carbon Dioxide 29 (22-30) mmol/L BUN 4 L (9-20) mg/dL Creatinine 0.6 L (0.8-1.3) mg/dL Glucose 135 H (75-100) mg/dL Calcium 9.4 (8.4-10.2) mg/dL Thyroid panel 09/22/20 Range/Units 10:37 TSH 9.420 H (0.270-4.200) mlU/mL Calcium panel 09/22/20 Range/Units 10:37 Calcium 9.4 (8.4-10.2) mg/dL Pituitary panel 09/22/20 09/22/20 Range/Units 10:37 10:37 Sodium 138 (137-145) mmol/L Potassium 3.5 L (3.6-5.0) mmol/L Chloride 99.1 (98-107) mmol/L Carbon Dioxide 29 (22-30) mmol/L BUN 4 L (9-20) mg/dL Creatinine 0.6 L (0.8-1.3) mg/dL Glucose 135 H (75-100) mg/dL Calcium 9.4 (8.4-10.2) mg/dL TSH 9.420 H (0.270-4.200) mlU/mL Adrenal panel 09/22/20 Range/Units 10:37 Sodium 138 (137-145) mmol/L Potassium 3.5 L (3.6-5.0) mmol/L Chloride 99.1 (98-107) mmol/L Carbon Dioxide 29 (22-30) mmol/L BUN 4 L (9-20) mg/dL Creatinine 0.6 L (0.8-1.3) mg/dL Glucose 135 H (75-100) mg/dL Calcium 9.4 (8.4-10.2) mg/dL
[2020-09-23 10:13] LABS: Basophils % (Auto) 0.8 % (0.0-1.8); Eosinophils # (Auto) 0.1 K/mm3 (0.0-0.4); Eosinophils % (Auto) 2.1 % (0.0-4.3); Lymphocytes # (Auto) 1.1 K/mm3 (1.2-5.4); Lymphocytes % (Auto) 16.6 % (13.4-35.0); Mean Corpuscular HGB Conc 34 % (32-34); Mean Corpuscular Volume 88 fl (84-94); Monocytes # (Auto) 0.5 K/mm3 (0.0-0.8); Platelet Count 243 K/mm3 (140-440); Red Blood Count 3.98 M/mm3 (3.65-5.03); Red Cell Distribution Width 15.4 % (13.2-15.2)
[2020-09-23 10:34] LABS: Blood Urea Nitrogen 12 mg/dL (9-20); Calcium 9.2 mg/dL (8.4-10.2); Hemolysis Index 42
[2020-09-23 10:37] LABS: BUN/Creatinine Ratio 17
[2020-09-23] MEDS: LACTULOSE 20 GM/30 ML ORAL LIQD PO SCH (10:57)
[2020-09-23] MEDS: ENOXAPARIN 40 MG/0.4 ML INJ SUB-Q SCH (10:57)
[2020-09-23] MEDS: SERTRALINE 25 MG TAB PO SCH (10:57)
[2020-09-23] MEDS: PANTOPRAZOLE 20 MG TAB PO SCH (10:59)
--- NOTE | 2020-09-23 11:51 | Progress Note ---
Assessment and Plan - Patient Problems (1) SBO (small bowel obstruction) Current Visit: Yes Status: Acute Plan to address problem: 09/19 CT abdomen/pelvis with contrast shows significant dilation of small bowel with a transition point to the normal distal ileum concerning for SBO, persistent significant thickening of the bladder and moderate quantity of free fluid which may be likely reactive General surgery consulted NGT to LIS which has been removed 09/20 abdominal x-ray shows SBO per surgery 09/20 SBFT showed mild distal bowel pressure obstruction pattern with delayed transit of oral contrast through the small bowel loops at approximately 4 hours MIVF with LR @ 125, changed to D5 half-normal saline now discontinued Supportive care Surgery started the patient on clear liquid diet, advance as tolerated 09/22 abdominal x-ray shows gaseous distention of small bowel loops persist however still slightly improved when compared to the prior study. (2) BPH (benign prostatic hyperplasia) Current Visit: Yes Status: Acute Plan to address problem: Resume home BPH medications Patient has a current indwelling Almaraz catheter Follow-up with urology outpatient (3) Chronic indwelling Almaraz catheter Current Visit: Yes Status: Acute Plan to address problem: Continue indwelling Almaraz catheter Supportive care Outpatient follow-up with urology (4) Vascular dementia Current Visit: Yes Status: Acute Qualifiers: Dementia behavioral disturbance: without behavioral disturbance Qualified Code(s): F01.50 - Vascular dementia without behavioral disturbance Plan to address problem: Supportive care Aspiration/fall precautions Reorientation as needed Benzodiazepines as needed Resume home medications (5) Constipation Current Visit: No Status: Chronic Plan to address problem: Daily Fleet enema as needed P.o. lactulose Dulcolax suppository as needed Per surgery patient has decreased gastric motility and constipation Resume home medications (6) Severe malnutrition Current Visit: Yes Status: Chronic Plan to address problem: Patient with BMI of 16.5 and appears to be a very cachectic Nutrition supplements Nutrition consult (7) Hypokalemia Current Visit: Yes Status: Acute Plan to address problem: 09/22 potassium 3.3/3.5 Repleted Repeat as needed Trend BMP 09/23 potassium 3, repleted with 40 mEq KCl p.o. x2 with recheck of potassium level in the evening (8) Hypothyroidism Current Visit: Yes Status: Chronic Plan to address problem: 09/22 TSH 9.8 09/22 T4 1.08 Check t3 Resume home Synthroid therapy (9) DVT prophylaxis Current Visit: No Status: Acute Plan to address problem: SCDs to bilateral lower extremity, while in bed Lovenox subcu since surgery has opted conservative management History Interval history: This is a 55-year-old male from a SNF with hypothyroidism, BPH complicated by obstructive uropathy with chronic indwelling Almaraz catheter, cognitive delay and recent bowel obstruction (08/2020) s/p ex lap with JUSTIN on 08/10/2020 with subsequent postoperative ileus and repeat admission with a CT-guided aspiration of abdominal seroma on 09/02/2020 who presented to the emergency department on 09/19 with complaints of abdominal pain, nausea and multiple episodes of vomiting over the past [address] scan of the abdomen and pelvis and was found to have a partial small bowel obstruction and surgery team consulted in ED. In the emergency department he received 2 L NS bolus and while inpatient he received 2 L NS bolus for hypotension. This morning at the time my examination patient states that his doctor stated he will be discharged after lunch today. A.m. labs show patient is hypokalemic at 3 and 40 mEq of KCl x2 ordered with a recheck potassium this evening. 09/20: Overnight the patient was hypotensive and he received 1 L normal saline bolus. NGT to LIS placed. Repeat ABD x-ray showed SBO and SBFT was obtained for further evaluation Overnight the patient was hypoglycemic therefore his IV fluids were changed from LR to D51/2 102 and NS. Patient is NGT to LIS draining light green/yellow fluid. Patient's x-rays show a heavy stool burden and he has a history of chronic constipation therefore lactulose SC and Dulcolax suppository as needed has been ordered. Repeat labs and KUB ordered for the a.m. per surgery recommendations. 09/21: NG tube clamped and started on a diet which he tolerated 09/22: Hypokalemic to 3.5 which was repleted. Lactulose SC changed to p.o. and diet advanced to regular diet Hospitalist Physical - Constitutional Vitals: Temp Pulse Resp BP Pulse Ox 98.9 F 62 20 114/72 99 09/23/20 08:07 09/23/20 08:07 09/23/20 08:07 09/23/20 08:07 09/23/20 08:07 General appearance: Present: no acute distress, cachectic - EENT Eyes: Present: PERRL, EOM intact ENT: hearing intact, poor dentition - Neck Neck: Present: supple, normal ROM - Respiratory Respiratory effort: normal Respiratory: bilateral: CTA - Cardiovascular Rhythm: regular Heart Sounds: Present: S1 & S2. Absent: systolic murmur, diastolic murmur - Extremities Extremities: no ischemia, pulses intact, pulses symmetrical, No edema, normal temperature, normal color, Full ROM Peripheral Pulses: within normal limits - Abdominal General gastrointestinal: soft, non-tender, non-distended, normal bowel sounds - Integumentary Integumentary: Present: clear, warm, dry - Psychiatric Psychiatric: appropriate mood/affect, cooperative - Neurologic Neurologic: CNII-XII intact, moves all extremities Results - Labs CBC & Chem 7: 09/23/20 09:52 09/23/20 09:52 Labs: Laboratory Last Values WBC 6.4 K/mm3 (4.5-11.0) 09/23/20 09:52 RBC 3.98 M/mm3 (3.65-5.03) 09/23/20 09:52 Hgb 12.0 gm/dl (11.8-15.2) 09/23/20 09:52 Hct 35.0 % (35.5-45.6) L 09/23/20 09:52 MCV 88 fl (84-94) 09/23/20 09:52 MCH 30 pg (28-32) 09/23/20 09:52 MCHC 34 % (32-34) 09/23/20 09:52 RDW 15.4 % (13.2-15.2) H 09/23/20 09:52 Plt Count 243 K/mm3 (140-440) 09/23/20 09:52 Lymph % (Auto) 16.6 % (13.4-35.0) 09/23/20 09:52 [place] % (Auto) 8.0 % (0.0-7.3) H 09/23/20 09:52 Eos % (Auto) 2.1 % (0.0-4.3) 09/23/20 09:52 Baso % (Auto) 0.8 % (0.0-1.8) 09/23/20 09:52 Lymph # (Auto) 1.1 K/mm3 (1.2-5.4) L 09/23/20 09:52 [place] # (Auto) 0.5 K/mm3 (0.0-0.8) 09/23/20 09:52 Eos # (Auto) 0.1 K/mm3 (0.0-0.4) 09/23/20 09:52 Baso # (Auto) 0.0 K/mm3 (0.0-0.1) 09/23/20 09:52 Add Manual Diff Complete 09/19/20 11:28 Total Counted 100 09/19/20 11:28 Seg Neutrophils % 72.5 % (40.0-70.0) H 09/23/20 09:52 Seg Neuts % (Manual) 61.0 % (40.0-70.0) 09/19/20 11:28 Band Neutrophils % 27.0 % 09/19/20 11:28 Lymphocytes % (Manual) 7.0 % (13.4-35.0) L 09/19/20 11:28 Reactive Lymphs % (Man) 0 % 09/19/20 11:28 Monocytes % (Manual) 5.0 % (0.0-7.3) 09/19/20 11:28 Eosinophils % (Manual) 0 % (0.0-4.3) 09/19/20 11:28 Basophils % (Manual) 0 % (0.0-1.8) 09/19/20 11:28 Metamyelocytes % 0 % 09/19/20 11:28 Myelocytes % 0 % 09/19/20 11:28 Promyelocytes % 0 % 09/19/20 11:28 Blast Cells % 0 % 09/19/20 11:28 Nucleated RBC % Not Reportable 09/19/20 11:28 Seg Neutrophils # 4.7 K/mm3 (1.8-7.7) 09/23/20 09:52 Seg Neutrophils # Man 5.7 K/mm3 (1.8-7.7) 09/19/20 11:28 Band Neutrophils # 2.5 K/mm3 09/19/20 11:28 Lymphocytes # (Manual) 0.7 K/mm3 (1.2-5.4) L 09/19/20 11:28 Abs React Lymphs (Man) 0.0 K/mm3 09/19/20 11:28 Monocytes # (Manual) 0.5 K/mm3 (0.0-0.8) 09/19/20 11:28 Eosinophils # (Manual) 0.0 K/mm3 (0.0-0.4) 09/19/20 11:28 Basophils # (Manual) 0.0 K/mm3 (0.0-0.1) 09/19/20 11:28 Metamyelocytes # 0.0 K/mm3 09/19/20 11:28 Myelocytes # 0.0 K/mm3 09/19/20 11:28 Promyelocytes # 0.0 K/mm3 09/19/20 11:28 Blast Cells # 0.0 K/mm3 09/19/20 11:28 WBC Morphology Not Reportable 09/19/20 11:28 Hypersegmented Neuts Not Reportable 09/19/20 11:28 Hyposegmented Neuts Not Reportable 09/19/20 11:28 Hypogranular Neuts Not Reportable 09/19/20 11:28 Smudge Cells Not Reportable 09/19/20 11:28 Toxic Granulation Not Reportable 09/19/20 11:28 Toxic Vacuolation Not Reportable 09/19/20 11:28 Dohle Bodies Not Reportable 09/19/20 11:28 Pelger-Huet Anomaly Not Reportable 09/19/20 11:28 Stella Rods Not Reportable 09/19/20 11:28 Platelet Estimate Consistent w auto 09/19/20 11:28 Clumped Platelets Not Reportable 09/19/20 11:28 Plt Clumps, EDTA Not Reportable 09/19/20 11:28 Large Platelets Not Reportable 09/19/20 11:28 Giant Platelets Not Reportable 09/19/20 11:28 Platelet Satelliting Not Reportable 09/19/20 11:28 Plt Morphology Comment Not Reportable 09/19/20 11:28 RBC Morphology Not Reportable 09/19/20 11:28 Dimorphic RBCs Not Reportable 09/19/20 11:28 Polychromasia Not Reportable 09/19/20 11:28 Hypochromasia Not Reportable 09/19/20 11:28 Poikilocytosis Not Reportable 09/19/20 11:28 Anisocytosis Few 09/19/20 11:28 Microcytosis Not Reportable 09/19/20 11:28 Macrocytosis Not Reportable 09/19/20 11:28 Spherocytes Not Reportable 09/19/20 11:28 Pappenheimer Bodies Not Reportable 09/19/20 11:28 Sickle Cells Not Reportable 09/19/20 11:28 Target Cells Not Reportable 09/19/20 11:28 Tear Drop Cells Not Reportable 09/19/20 11:28 Ovalocytes Not Reportable 09/19/20 11:28 Helmet Cells Not Reportable 09/19/20 11:28 Wade-Margaret Bodies Not Reportable 09/19/20 11:28 [place] Rings Not Reportable 09/19/20 11:28 Chante Cells Not Reportable 09/19/20 11:28 Bite Cells Not Reportable 09/19/20 11:28 Crenated Cell Not Reportable 09/19/20 11:28 Elliptocytes Not Reportable 09/19/20 11:28 Acanthocytes (Spur) Not Reportable 09/19/20 11:28 Rouleaux Not Reportable 09/19/20 11:28 Hemoglobin C Crystals Not Reportable 09/19/20 11:28 Schistocytes Not Reportable 09/19/20 11:28 Malaria parasites Not Reportable 09/19/20 11:28 Roque Bodies Not Reportable 09/19/20 11:28 Hem Pathologist Commnt No 09/19/20 11:28 Sodium 141 mmol/L (137-145) 09/23/20 09:52 Potassium 3.0 mmol/L (3.6-5.0) L 09/23/20 09:52 Chloride 105.1 mmol/L (98-107) 09/23/20 09:52 Carbon Dioxide 22 mmol/L (22-30) D 09/23/20 09:52 Anion Gap 17 mmol/L 09/23/20 09:52 BUN 12 mg/dL (9-20) 09/23/20 09:52 Creatinine 0.7 mg/dL (0.8-1.3) L 09/23/20 09:52 Estimated GFR > 60 ml/min 09/23/20 09:52 BUN/Creatinine Ratio 17 % 09/23/20 09:52 Glucose 162 mg/dL (75-100) H 09/23/20 09:52 POC Glucose 147 mg/dL (70-105) H 09/22/20 21:50 Calcium 9.2 mg/dL (8.4-10.2) 09/23/20 09:52 Total Bilirubin 0.40 mg/dL (0.1-1.2) 09/19/20 11:28 AST 18 units/L (5-40) 09/19/20 11:28 ALT 9 units/L (7-56) 09/19/20 11:28 Alkaline Phosphatase 68 units/L (35-129) 09/19/20 11:28 Total Protein 7.1 g/dL (6.3-8.2) 09/19/20 11:28 Albumin 3.8 g/dL (3.9-5) L 09/19/20 11:28 Albumin/Globulin Ratio 1.2 % 09/19/20 11:28 Lipase 28 units/L (13-60) 09/19/20 11:28 TSH 9.420 mlU/mL (0.270-4.200) H 09/22/20 10:37 Free T4 1.08 ng/dL (0.76-1.46) 09/22/20 10:37 Almaraz/IV: Voiding Method Indwelling Catheter IV Catheter Type [Left Forearm INT / Saline Lock ] Active Medications - Current Medications Current Medications: Generic Name Dose Route Start Last Admin Trade Name Freq PRN Reason Stop Dose Admin Acetaminophen 650 mg 09/19/20 14:01 Tylenol PO Q4H PRN Pain MILD(1-3)/Fever >100.5/GARCIA Albuterol 2.5 mg 09/19/20 14:01 Proventil IH Q4HRT PRN Shortness Of Breath Bisacodyl 10 mg 09/21/20 10:00 Dulcolax SC QDAY PRN Constipation Enoxaparin Sodium 40 mg 09/21/20 12:00 09/23/20 10:57 Enoxaparin SUB-Q 40 mg QDAY@1000 CLIFF Administration Protocol Lactulose 20 gm 09/22/20 10:00 09/23/20 10:57 Cephulac PO 20 gm QDAY CLIFF Administration Levothyroxine Sodium 25 mcg 09/22/20 06:00 09/22/20 05:41 Synthroid IV 25 mcg DAILY@0600 CLIFF Administration Olanzapine 5 mg 09/21/20 10:00 09/23/20 10:57 Zyprexa PO 5 mg QDAY CLIFF Administration Ondansetron HCl 4 mg 09/19/20 14:01 Zofran IV Q8H PRN Nausea And Vomiting Pantoprazole Sodium 20 mg 09/22/20 07:30 09/23/20 10:59 Protonix PO 20 mg QDAC CLIFF Administration Potassium Chloride 40 meq 09/23/20 12:00 K-Dur PO 09/24/20 12:01 ONCE CLIFF Sertraline HCl 25 mg 09/21/20 10:00 09/23/20 10:57 Zoloft PO 25 mg QDAY CLIFF Administration Sodium Chloride 10 ml 09/19/20 22:00 09/23/20 10:57 Sodium Chloride Flush Syringe 10 Ml IV 10 ml BID CLIFF Administration Sodium Chloride 10 ml 09/19/20 14:01 Sodium Chloride Flush Syringe 10 Ml IV PRN PRN LINE FLUSH Nutrition/Malnutrition Assess - Dietary Evaluation Nutrition/Malnutrition Findings: Nutrition Notes Start: 09/21/20 10:34 Freq: Status: Active Protocol: Document 09/23/20 11:42 IMANI (Rec: 09/23/20 11:46 IMANI [id number]) Co-Sign 09/23/20 11:42 ZOHREH Nutrition Notes Initial or Follow up Reassessment Current Diagnosis Small Bowel Obstruction Other Pertinent Diagnosis Dementia, BPH Current Diet Regular Labs/Tests 09/22 K 3.5 BUN 4 Cr 0.6 Pertinent Medications Reviewed Height 5 ft 11 in Weight 59.9 kg [place] Body Weight (kg) 78.18 BMI 18.3 Weight Status Underweight Subjective/Other Information F/U for diet advancement. Pt reports eating 100% meals and ONS. Percent of energy/protein needs met: 100%/100% Burn Absent Trauma Absent Food Allergy No Current % PO Negligible Minimum of two criteria Yes Body Fat Depletion Mild depletion (non-severe) Muscle Mass Mild Depletion (non-severe) #1 Nutrition Diagnosis Malnutrition Diagnosis Progress(for reassessment Continues documentation) Is patient on ventilator? No Is Patient Ambulatory and/or Out of Bed No REE-([facility]-confined to bed) 1746.012 Kcal/Kg value to use for calculation 35 Approximate Energy Requirements Using 2097 kcal/Kg Calculation Used for Recommendations Kcal/kg Additional Notes Protein: 65-81g (1.2-1.5g/kg) Fluid: 1ml/kcal Nutrition Intervention Change Diet Order: Continue regular Goal #1 Meet at least 90% energy and protien needs via PO intakes Anticipated Discharge Needs: Regular Follow-Up By: 09/30/20 Additional Comments F/U for PO intakes
--- NOTE | 2020-09-23 11:55 | Discharge Summary ---
<JONH CHINO - Last Filed: 09/24/20 07:44> Providers - Providers Date of Admission: 09/20/20 08:18 Date of discharge: 09/24/20 Attending physician: JONH CHINO 09/19/20 13:37 Consult to Physician [CONS] Urgent Comment: Consulting Provider: JESS BREWER Physician Instructions: Reason For Exam: sbo 09/21/20 11:16 Consult to Dietitian/Nutrition [CONS] Routine Physician Instructions: Severe malnutrition Reason For Exam: Reason for Consult: Malnutrition Primary care physician: KENYA NAZARIO Hospitalization Condition: Stable Disposition: DC-01 TO HOME OR SELFCARE Exam - Constitutional Vitals: Temp Pulse Resp BP Pulse Ox 98.0 F 69 16 95/56 96 09/24/20 04:02 09/24/20 04:02 09/24/20 04:02 09/24/20 04:02 09/24/20 04:02 Plan Follow up with: KENYA NAZARIO MD [Primary Care Provider] - 3-5 Days TREVIN THIBODEAUX MD [Staff Physician] - 7 Days Prescriptions: Pantoprazole [Protonix TAB] 20 mg PO QDAC #30 tablet. Sertraline [Zoloft] 25 mg PO QDAY #30 tab OLANZapine [Zyprexa] 5 mg PO QDAY #30 tab <HARLEEN CRONIN - Last Filed: 09/24/20 13:51> Providers - Providers Date of Admission: 09/20/20 08:18 Attending physician: JONH CHINO 09/19/20 13:37 Consult to Physician [CONS] Urgent Comment: Consulting Provider: JESS BREWER Physician Instructions: Reason For Exam: sbo 09/21/20 11:16 Consult to Dietitian/Nutrition [CONS] Routine Physician Instructions: Severe malnutrition Reason For Exam: Reason for Consult: Malnutrition Primary care physician: KENYA NAZARIO Hospitalization Hospital course: This is a 55-year-old male from a long-term with hypothyroidism, BPH complicated by obstructive uropathy with chronic indwelling Almaraz catheter, cognitive delay and recent bowel obstruction (08/2020) s/p ex lap with JUSTIN on 08/10/2020 with subsequent postoperative ileus and repeat admission with a CT- guided aspiration of abdominal seroma on 09/02/2020 who presented to the emergency department on 09/19 with complaints of abdominal pain, nausea and multiple episodes of vomiting over the past [address] scan of the abdomen and pelvis and was found to have a partial small bowel obstruction and surgery team consulted in ED. In the emergency department he received 2 L NS bolus and while inpatient he received 2 L NS bolus for hypotension. On 09/20 overnight the patient was hypotensive and he received 1 L of normal saline bolus and the NG tube was placed to low intermittent suction. A repeat ABD x-ray showed SBO and surgery ordered a SBFT for further evaluation which showed delayed transit of oral contrast at approximately 4 hours and a mild distal bowel obstruction. Repeat KUBs showed persistent SBO with slight improvement and given the history of chronic constipation with a heavy stool burden patient was started on lactulose while inpatient. The patient was slightly hypokalemic at 3.5 and it was repleted however this morning his potassium was 3.0. Repletion has been ordered and p.m. potassium will be checked. His discharge potassium is 3.9. He will need to follow-up with his primary care physician within 1 to 2 weeks of discharge. He will also need to follow-up with urology outpatient for his chronic indwelling Almaraz catheter. It is recommended the patient continue with laxatives for chronic constipation and increase fiber intake. Assessment and Plan - Patient Problems (1) SBO (small bowel obstruction) Current Visit: Yes Status: Acute Plan to address problem: 09/19 CT abdomen/pelvis with contrast shows significant dilation of small bowel with a transition point to the normal distal ileum concerning for SBO, persistent significant thickening of the bladder and moderate quantity of free fluid which may be likely reactive General surgery consulted NGT to LIS which has been removed 09/20 abdominal x-ray shows SBO per surgery 09/20 SBFT showed mild distal bowel obstruction pattern with delayed transit of oral contrast through the small bowel loops at approximately 4 hours MIVF with LR @ 125, changed to D5 half-normal saline now discontinued Surgery started the patient on clear liquid diet, advance as tolerated 09/22 abdominal x-ray shows gaseous distention of small bowel loops persist however still slightly improved when compared to the prior study. (2) BPH (benign prostatic hyperplasia) Current Visit: Yes Status: Chronic Plan to address problem: Continue home BPH medications Patient has a current indwelling Almaraz catheter Follow-up with urology outpatient (3) Chronic indwelling Almaraz catheter Current Visit: Yes Status: Chronic Plan to address problem: Continue indwelling Almaraz catheter Supportive care Outpatient follow-up with urology (4) Vascular dementia Current Visit: Yes Status: Chronic Qualifiers: Dementia behavioral disturbance: without behavioral disturbance Qualified Code(s): F01.50 - Vascular dementia without behavioral disturbance Plan to address problem: Supportive care Continue aspiration/fall precautions Reorientation as needed (5) Constipation Current Visit: No Status: Chronic Plan to address problem: Resume home bowel regimen Increase dietary fiber intake Per surgery patient has decreased gastric motility and constipation (6) Severe malnutrition Current Visit: Yes Status: Chronic Plan to address problem: Patient with BMI of 16.5 and appears to be a very cachectic Continue nutrition supplements Nutrition consult (7) Hypokalemia Current Visit: Yes Status: Acute Plan to address problem: 09/22 potassium 3.3/3.5 Repleted Repeat as needed Trend BMP 09/23 potassium 3, repleted with 40 mEq KCl p.o. x2 with recheck of potassium level in the evening 09/24 potassium 3.9 (8) Hypothyroidism Current Visit: Yes Status: Chronic Plan to address problem: 09/22 TSH 9.8 09/22 T4 1.08 Resume home Synthroid Follow-up with the primary care physician Time spent for discharge: 35 Core Measure Documentation - Palliative Care Palliative Care/ Comfort Measures: Not Applicable - Core Measures Any of the following diagnoses?: none Exam - Physical Exam Narrative exam: Hospitalist Physical - Constitutional Vitals: Temp Pulse Resp BP Pulse Ox 98.9 F 62 20 114/72 99 09/23/20 08:07 09/23/20 08:07 09/23/20 08:07 09/23/20 08:07 09/23/20 08:07 General appearance: Present: no acute distress, cachectic - EENT Eyes: Present: PERRL, EOM intact ENT: hearing intact, poor dentition - Neck Neck: Present: supple, normal ROM - Respiratory Respiratory effort: normal Respiratory: bilateral: CTA - Cardiovascular Rhythm: regular Heart Sounds: Present: S1 & S2. Absent: systolic murmur, diastolic murmur - Extremities Extremities: no ischemia, pulses intact, pulses symmetrical, No edema, normal temperature, normal color, Full ROM Peripheral Pulses: within normal limits - Abdominal General gastrointestinal: soft, non-tender, non-distended, normal bowel sounds - Integumentary Integumentary: Present: clear, warm, dry - Psychiatric Psychiatric: appropriate mood/affect, cooperative - Neurologic Neurologic: CNII-XII intact, moves all extremities - Constitutional Vitals: Temp Pulse Resp BP Pulse Ox 98.9 F 62 20 114/72 99 09/23/20 08:07 09/23/20 08:07 09/23/20 08:07 09/23/20 08:07 09/23/20 08:07 Plan Activity: advance as tolerated Diet: regular, per dietitian instruction, other (Nutrition supplementation, increase fiber intake) Additional Instructions: Contact primary care physician or report to nearest emergency department if experience worsening symptoms. Follow-up with urology and your primary care physician within 1 to 2 weeks of discharge. Increase your fiber intake and continue nutritional supplementation. Continue [id number] laxatives for chronic constipation.
[2020-09-23] MEDS ORDERED: POTASSIUM CHLORIDE ER 20 MEQ TAB PO SCH ×2 (12:00→16:00)
[2020-09-23] MEDS ORDERED: MECLIZINE 25 MG TAB PO PRN (12:09)
[2020-09-23] MEDS: LEVOTHYROXINE 100 MCG INJ IV SCH (20:43)
[2020-09-23] MEDS: SENNOSIDES/DOCUSATE SODIUM 8.6/50 MG TAB PO SCH (22:12)
[2020-09-23] MEDS: MEMANTINE 10 MG TAB PO SCH (22:12)
[2020-09-24] MEDS ORDERED: LEVOTHYROXINE 50 MCG TAB PO SCH (06:00)
[2020-09-24] MEDS ORDERED: FINASTERIDE 5 MG TAB PO SCH (10:00)
[2020-09-24] MEDS ORDERED: TAMSULOSIN 0.4 MG CAP PO SCH (10:00)
[2020-09-24] MEDS ORDERED: LEVOTHYROXINE SODIUM 50 MCG PO SCH (10:00)
[2020-09-24] MEDS: MEMANTINE 10 MG TAB PO SCH (10:29)
[2020-09-24] MEDS: PANTOPRAZOLE 20 MG TAB PO SCH (10:29)
[2020-09-24] MEDS: POTASSIUM CHLORIDE ER 20 MEQ TAB PO SCH ×2 (10:29→12:44)
[2020-09-24] MEDS: SENNOSIDES/DOCUSATE SODIUM 8.6/50 MG TAB PO SCH (10:29)
[2020-09-24] MEDS: ENOXAPARIN 40 MG/0.4 ML INJ SUB-Q SCH (10:29)
[2020-09-24] MEDS: SERTRALINE 25 MG TAB PO SCH (10:33)
[2020-09-24 11:00] LABS: Basophils % (Auto) 0.5 % (0.0-1.8); Eosinophils # (Auto) 0.2 K/mm3 (0.0-0.4); Eosinophils % (Auto) 3.1 % (0.0-4.3); Hematocrit 33.9 % (35.5-45.6); Hemoglobin 11.5 gm/dl (11.8-15.2); Lymphocytes # (Auto) 1.1 K/mm3 (1.2-5.4); Lymphocytes % (Auto) 17.4 % (13.4-35.0); Mean Corpuscular HGB Conc 34 % (32-34); Mean Corpuscular Volume 89 fl (84-94); Monocytes # (Auto) 0.6 K/mm3 (0.0-0.8); Monocytes % (Auto) 9.5 % (0.0-7.3); Platelet Count 219 K/mm3 (140-440); Red Blood Count 3.83 M/mm3 (3.65-5.03); Red Cell Distribution Width 15.1 % (13.2-15.2)
[2020-09-24 11:06] LABS: Blood Urea Nitrogen 15 mg/dL (9-20); Calcium 8.9 mg/dL (8.4-10.2); Hemolysis Index 10
[2020-09-24 11:08] LABS: BUN/Creatinine Ratio 25
[2020-09-24 12:06] VITALS: BP 115/68
== END 2020-09-24 18:29 | disposition home or self-care (01) | DRG 388 ==
LOC: ED 11:04 → 3A 14:01 → 4A 09-20 02:30 → OBSVTOIN 09-20 08:18
PROVIDERS: ADMIT Internal Medicine; ATTEND Internal Medicine
PROC: 0D9670Z Drainage of Stomach with Drainage Device, Via Natural or Artificial Opening (ICD-10-PCS; principal; 2020-09-20)
DX: K56.600 Partial intestinal obstruction, unspecified as to cause (principal); E43 Unspecified severe protein-calorie malnutrition; Z68.1 Body mass index [BMI] 19.9 or less, adult; F01.50 Vascular dementia, unspecified severity, without behavioral disturbance, psychotic disturbance, mood disturbance, and anxiety; E03.9 Hypothyroidism, unspecified; N40.0 Benign prostatic hyperplasia without lower urinary tract symptoms; K59.09 Other constipation; E87.6 Hypokalemia; Z79.899 Other long term (current) drug therapy; Z82.49 Family history of ischemic heart disease and other diseases of the circulatory system
CPT/HCPCS: 36415; 74018; 74022; 74177; 74248; 80048; 80053; 82962; 83690; 84132; 84439; 84443; 84481; 85007; 85025; 85027; 87116; 96361; 96374; G0378; J1650; J2405; J7030; J7040; Q9967

== ENCOUNTER 2020-09-30 12:41 | Emergency (ER) | payer MEDICARE ==
--- NOTE | 2020-09-30 14:40 | Emergency Department Report ---
ED Male HPI - General Chief complaint: Urogenital-Male Stated complaint: BHAT CATHETER PROBLEMS Time Seen by Provider: 09/30/20 14:06 Source: EMS Mode of arrival: Stretcher Limitations: No Limitations - History of Present Illness Initial comments: Patient is 55-year-old male with history of dementia benign prostatic hypertrophy with obstructive uropathy. Patient brought to the emergency room via EMS from his detention for evaluation of leaking Bhat catheter noticed this morning. Patient is alert, oriented x3 no acute distress. Patient denied any fever or chills, no nausea or vomiting. MD Complaint: other (Bhat catheter leaking.) -: This morning - Related Data Home Medications Medication Instructions Recorded Confirmed Last Taken Finasteride [Proscar] 5 mg PO QDAY 08/07/20 09/01/20 Unknown Levothyroxine Sodium [Tirosint-Nimo] 50 mcg PO QDAY 08/07/20 09/01/20 Unknown Memantine 10 mg PO BID 08/07/20 09/01/20 Unknown Tamsulosin [Flomax] 0.4 mg PO QDAY 08/07/20 09/01/20 Unknown Previous Rx's Medication Instructions Recorded Last Taken Type Sennosides/Docusate [Senokot S] 1 each PO Q12HR #30 tab 09/02/20 Unknown Rx bisacodyL [Dulcolax tab] 5 mg PO BID #30 tablet 09/02/20 Unknown Rx Docusate Sodium [Colace CAP] 100 mg PO BID PRN #60 capsule 09/08/20 Unknown Rx Meclizine HCl 25 mg PO TID PRN #20 tablet 09/08/20 Unknown Rx Acetaminophen [Acetaminophen TAB] 650 mg PO Q4H PRN tablet 09/23/20 Unknown Rx OLANZapine [Zyprexa] 5 mg PO QDAY #30 tab 09/23/20 Unknown Rx Pantoprazole [Protonix TAB] 20 mg PO QDAC #30 tablet.dr 09/23/20 Unknown Rx Sertraline [Zoloft] 25 mg PO QDAY #30 tab 09/23/20 Unknown Rx bisacodyL [Dulcolax suppos] 10 mg AK QDAY PRN supp.rect 09/23/20 Unknown Rx Allergies Allergy/AdvReac Type Severity Reaction Status Date / Time No Known Allergies Allergy Unverified 08/07/20 07:58 ED Review of Systems ROS: Stated complaint: BHAT CATHETER PROBLEMS Other details as noted in HPI Comment: All other systems reviewed and negative Constitutional: denies: chills, fever Respiratory: denies: cough, shortness of breath Cardiovascular: denies: chest pain Gastrointestinal: denies: abdominal pain, nausea, vomiting Genitourinary: denies: dysuria ED Past Medical Hx - Past Medical History Hx Renal Disease: Yes (BPH; Obstructive uropathy; chronic Bhat) Additional medical history: Hypothyroidism, enlarged prostate, dementia - Surgical History Additional Surgical History: bowel obstruction 08/2020 - Social History Smoking Status: Unknown if ever smoked - Medications Home Medications: Home Medications Medication Instructions Recorded Confirmed Last Taken Type Finasteride [Proscar] 5 mg PO QDAY 08/07/20 09/01/20 Unknown History Levothyroxine Sodium [Tirosint-Nimo] 50 mcg PO QDAY 08/07/20 09/01/20 Unknown History Memantine 10 mg PO BID 08/07/20 09/01/20 Unknown History Tamsulosin [Flomax] 0.4 mg PO QDAY 08/07/20 09/01/20 Unknown History Sennosides/Docusate [Senokot S] 1 each PO Q12HR #30 tab 09/02/20 Unknown Rx bisacodyL [Dulcolax tab] 5 mg PO BID #30 tablet 09/02/20 Unknown Rx Docusate Sodium [Colace CAP] 100 mg PO BID PRN #60 capsule 09/08/20 Unknown Rx Meclizine HCl 25 mg PO TID PRN #20 tablet 09/08/20 Unknown Rx Acetaminophen [Acetaminophen TAB] 650 mg PO Q4H PRN tablet 09/23/20 Unknown Rx OLANZapine [Zyprexa] 5 mg PO QDAY #30 tab 09/23/20 Unknown Rx Pantoprazole [Protonix TAB] 20 mg PO QDAC #30 tablet.dr 09/23/20 Unknown Rx Sertraline [Zoloft] 25 mg PO QDAY #30 tab 09/23/20 Unknown Rx bisacodyL [Dulcolax suppos] 10 mg AK QDAY PRN supp.rect 09/23/20 Unknown Rx ED Physical Exam - General Limitations: No Limitations General appearance: alert, in no apparent distress - Head Head exam: Present: atraumatic, normocephalic, normal inspection - Eye Eye exam: Present: normal appearance - ENT ENT exam: Present: normal exam, normal orophraynx, mucous membranes moist - Neck Neck exam: Present: normal inspection, full ROM. Absent: tenderness, meningismus - Respiratory Respiratory exam: Present: normal lung sounds bilaterally - Cardiovascular Cardiovascular Exam: Present: regular rate, normal rhythm, normal heart sounds - GI/Abdominal GI/Abdominal exam: Present: soft, normal bowel sounds. Absent: distended, tenderness, guarding, rebound, rigid, organomegaly, mass, bruit, pulsatile mass - Extremities Exam Extremities exam: Present: normal inspection, full ROM, normal capillary refill. Absent: tenderness, pedal edema, calf tenderness - Back Exam Back exam: Present: normal inspection, full ROM. Absent: CVA tenderness (R), CVA tenderness (L) - Neurological Exam Neurological exam: Present: alert, oriented X3, CN II-XII intact - Skin Skin exam: Present: warm, intact, normal color ED Course Vital Signs 09/30/20 13:47 Temperature 97.9 F Pulse Rate 77 Respiratory 18 Rate Blood Pressure 121/73 [Right] O2 Sat by Pulse 98 Oximetry ED Medical Decision Making - Medical Decision Making Patient is 55-year-old male with history of dementia benign prostatic hypertrophy with obstructive uropathy. Patient brought to the emergency room via EMS from his detention for evaluation of leaking Bhat catheter noticed this morning. Patient is alert, oriented x3 no acute distress. Patient denied any fever or chills, no nausea or vomiting. Bhat catheter found to have leak in the tube and is being replaced by the nurse. No more leakage. Patient advised to follow-up with his primary doctor as needed. Critical care attestation.: If time is entered above; I have spent that time in minutes in the direct care of this critically ill patient, excluding procedure time. ED Disposition Clinical Impression: Bhat catheter problem Disposition: DC-01 TO HOME OR SELFCARE Is pt being admited?: No Condition: Stable Instructions: Indwelling Urinary Catheter Care, Adult, [id number] Referrals: PRIMARY CARE, [Referring] - 3-5 Days
[2020-09-30 20:34] VITALS: BP 109/63
== END 2020-09-30 20:30 | disposition home or self-care (01) ==
LOC: ED 12:41
DX: T83.098A Other mechanical complication of other urinary catheter, initial encounter (principal); E03.9 Hypothyroidism, unspecified; Z79.899 Other long term (current) drug therapy
CPT/HCPCS: 99282

== ENCOUNTER 2020-12-22 08:48 | Observation (INO) | payer MEDICARE ==
--- NOTE | 2020-12-20 10:23 | Anesthesia Consultation ---
Anesthesia Consult and Med Hx Date of service: 12/20/20 - Airway Anesthetic Teeth Evaluation: Poor (multiple missing, crowded teeth) ROM Head & Neck: Adequate Mental/Hyoid Distance: Adequate Mallampati Class: Class IV (limited mouth opening) Intubation Access Assessment: Possibly Difficult - Pre-Operative Health Status ASA Pre-Surgery Classification: ASA3 Proposed Anesthetic Plan: General - Pulmonary Hx Pneumonia: No - Central Nervous System Hx Neuromuscular Disorder: Yes (Vascular Dementia) Hx Psychiatric Problems: Yes (dementia, anxiety) - Endocrine Hx Renal Disease: Yes (BPH; Obstructive uropathy; suprapubic catheter) Hx Thyroid Disease: Yes Hx Hypothyroidism: Yes - Other Systems Hx Cancer: No - Additional Comments Anesthesia Medical History Comments: arianna obstruction 2 months ago - exp. laparotomy with lysis of adhesions
[2020-12-20 10:27] LABS: Hematocrit 36.2 % (35.5-45.6); Hemoglobin 11.9 gm/dl (11.8-15.2); Mean Corpuscular HGB Conc 33 % (32-34); Mean Corpuscular Volume 90 fl (84-94); Platelet Count 228 K/mm3 (140-440); Red Blood Count 4.05 M/mm3 (3.65-5.03); Red Cell Distribution Width 15.2 % (13.2-15.2)
[2020-12-20 10:41] LABS: Alanine Aminotransferase 6 units/L (7-56); Albumin 4.2 g/dL (3.9-5); Blood Urea Nitrogen 17 mg/dL (9-20); Calcium 9.2 mg/dL (8.4-10.2); Hemolysis Index 3
[2020-12-20 10:53] LABS: BUN/Creatinine Ratio 24
[~2020-12-22 08:48] MED LIST: FAMOTIDINE 20 MG/2 ML INJ IV NR; LACTATED RINGERS 1,000 ML IV SCH; MIDAZOLAM 2 MG/2 ML INJ IV NR; WATER FOR IRRIG STERILE 2000 ML IR ONE
[2020-12-22] MEDS ORDERED: NEOMY 3.5 MG/BACIT 400 UNITS/POLY B 5000 UNITS OINT 15 GM TP ONE (08:52)
[2020-12-22] MEDS ORDERED: HYDROmorphone 1 MG/1 ML INJ ONE (09:07)
[2020-12-22] MEDS ORDERED: propofoL 200 MG/20 ML VIAL IV ONE (09:07)
[2020-12-22] MEDS ORDERED: LIDOCAINE MPF (2%) 20 MG/1 ML VIAL 5 ML ONE (09:08)
[2020-12-22] MEDS ORDERED: ONDANSETRON 4 MG/2 ML INJ IV PRN ×2 (09:33→11:30)
[2020-12-22] MEDS ORDERED: fentaNYL 100 MCG/2 ML INJ IV PRN (09:33)
--- NOTE | 2020-12-22 09:33 | Anesthesia Day of Surgery ---
Anesthesia Day of Surgery - Day of Surgery Patient Examined: Yes Patient H&P Reviewed: Yes Patient is NPO: Yes
[2020-12-22] MEDS ORDERED: ceFAZolin/STERILE WATER 2 GM/20 ML SYRINGE IV NR (10:10)
[2020-12-22] MEDS ORDERED: IOHEXOL 300 MG/ML 50ML IV ONE ×2 (10:25→10:28)
[2020-12-22] MEDS ORDERED: WATER FOR IRRIG STERILE 2000 ML IR ONE (10:26)
--- NOTE | 2020-12-22 10:56 | Short Stay Summary ---
Short Stay Documentation Date of service: 12/22/20 - History H&P: obtained from office - Allergies and Medications Current Medications: Allergies No Known Allergies Allergy (Verified 12/15/20 17:17) Home Medications Medication Instructions Recorded Confirmed Last Taken Type Finasteride [Proscar] 5 mg PO QDAY 08/07/20 12/20/20 12/21/20 History Levothyroxine Sodium [Tirosint-Nimo] 50 mcg PO QDAY 08/07/20 12/22/20 12/22/20 0 6:30 History Tamsulosin [Flomax] 0.4 mg PO QDAY 08/07/20 12/20/20 12/21/20 History OLANZapine [Zyprexa] 5 mg PO QDAY #30 tab 09/23/20 12/20/20 12/21/20 Rx Sertraline [Zoloft] 25 mg PO QDAY #30 tab 09/23/20 12/20/20 12/21/20 Rx Memantine HCl [Namenda Xr] 100 mg PO DAILY 12/20/20 12/20/20 12/21/20 History Polyethylene Glycol 3350 [Miralax] 119 gm PO DAILY 12/20/20 12/20/20 12/21/20 History Active Medications Cefazolin Sodium (Cefazolin/Sterile Water 2 Gm/20 Ml Syringe) 2 gm IV PREOP NR Stop: 12/22/20 20:00 Famotidine (Famotidine 20 Mg/2 Ml Inj) 20 mg IV PREOP NR Stop: 12/22/20 23:00 Last Admin: 12/22/20 09:45 Dose: 20 mg Documented by: Fentanyl (Fentanyl 100 Mcg/2 Ml Inj) 50 mcg IV Q5MIN PRN PRN Reason: Pain , Severe (7-10) Stop: 12/22/20 23:00 Lactated Ringer's (Lactated Ringers) 1,000 mls @ 75 mls/hr IV DIRECT CLIFF Stop: 12/22/20 23:00 Last Admin: 12/22/20 09:40 Dose: 75 mls/hr Documented by: Midazolam HCl (Midazolam 2 Mg/2 Ml Inj) 2 mg IV PREOP NR Stop: 12/22/20 23:59 Last Admin: 12/22/20 09:40 Dose: 2 mg Documented by: Ondansetron HCl (Ondansetron 4 Mg/2 Ml Inj) 4 mg IV ONCE PRN PRN Reason: Nausea And Vomiting Stop: 12/22/20 13:00 - Brief post op/procedure progress note Date of procedure: 12/22/20 Pre-op diagnosis: BPH, RETENTION, DEMENTIA Post-op diagnosis: same Procedure: CYSTO, RPG, SPT, TURP Anesthesia: GETA Surgeon: TREVIN THIBODEAUX Estimated blood loss: minimal Pathology: list (PROSTATE CHIPS) Specimen disposition: to lab Condition: stable - Hospital course Hospital course: resting well kim clear spt clamped home - Disposition Condition at discharge: Stable Short Stay Discharge Plan Follow up with: KENYA NAZARIO MD [Primary Care Provider] - 7 Days
--- NOTE | 2020-12-22 10:57 | Fluoroscopy Report ---
INTRAOPERATIVE FLUOROSCOPY: RETROGRADE UROGRAPHY INDICATION: BILATERAL RPGS. TECHNIQUE: Intraoperative spot images were obtained during the procedure. FINDINGS: These images show bilateral retrograde injections of the ureters with filling of the collecting syste ms. Fluoroscopic guidance was utilized. No extravasation is seen. Please see procedure note for detai ls. Fluoroscopy Time: 23 seconds. Fluoroscopy Images: 7. Signer Name: Erick Lobo MD Signed: 12/22/2020 10:52 AM Workstation Name: [id number]
[2020-12-22] MEDS ORDERED: SODIUM CHLORIDE 0.9% 1000 ML 1,000 ML IV SCH (11:00)
--- NOTE | 2020-12-22 11:21 | Consultation ---
History of Present Illness - Reason for Consult Consult date: 12/22/20 Medical Management Requesting physician: TREVIN SRIVASTAVA - History of Present Illness 55 YO Male Hypothyroidism, BPH complicated by Obstructive Uropathy with Suprapubic Catheter, Vascular Dementia. Consult placed by Dr. Srivastava for medical management. Patient seen and evaluated in his room postoperatively. Patient resting comfortably in bed. Patient denies pain. No reported nursing events. Past History Past Medical History: hypothyroidism, other (see HPI) Past Surgical History: bowel surgery Social history: single. denies: smoking, alcohol abuse Family history: hypertension Medications and Allergies Allergies Allergy/AdvReac Type Severity Reaction Status Date / Time No Known Allergies Allergy Verified 12/15/20 17:17 Home Medications Medication Instructions Recorded Confirmed Last Taken Type Finasteride [Proscar] 5 mg PO QDAY 08/07/20 12/20/20 12/21/20 History Levothyroxine Sodium [Tirosint-Nimo] 50 mcg PO QDAY 08/07/20 12/22/20 12/22/20 06:30 History Tamsulosin [Flomax] 0.4 mg PO QDAY 08/07/20 12/20/20 12/21/20 History OLANZapine [Zyprexa] 5 mg PO QDAY #30 tab 09/23/20 12/20/20 12/21/20 Rx Sertraline [Zoloft] 25 mg PO QDAY #30 tab 09/23/20 12/20/20 12/21/20 Rx Memantine HCl [Namenda Xr] 100 mg PO DAILY 12/20/20 12/20/20 12/21/20 History Polyethylene Glycol 3350 [Miralax] 119 gm PO DAILY 12/20/20 12/20/20 12/21/20 History Active Meds: Active Medications Hydrocodone Bitart/Acetaminophen (Hydrocodone/Acetaminophen 5-325 Mg Tab) 2 each PO Q4H PRN PRN Reason: Pain, Moderate (4-6) Cefazolin Sodium (Cefazolin/Sterile Water 2 Gm/20 Ml Syringe) 2 gm IV PREOP NR Stop: 12/22/20 20:00 Famotidine (Famotidine 20 Mg/2 Ml Inj) 20 mg IV PREOP NR Stop: 12/22/20 23:00 Last Admin: 12/22/20 09:45 Dose: 20 mg Documented by: Fentanyl (Fentanyl 100 Mcg/2 Ml Inj) 50 mcg IV Q5MIN PRN PRN Reason: Pain , Severe (7-10) Stop: 12/22/20 23:00 Finasteride (Finasteride 5 Mg Tab) 5 mg PO QDAY [facility] Lactated Ringer's (Lactated Ringers) 1,000 mls @ 75 mls/hr IV DIRECT CLIFF Stop: 12/22/20 23:00 Last Admin: 12/22/20 09:40 Dose: 75 mls/hr Documented by: Sodium Chloride (Nacl 0.9% 1000 Ml) 1,000 mls @ 100 mls/hr IV DIRECT CLIFF Cefazolin Sodium (Ancef/Ns 1 Gm/50 Ml) 1 gm in 50 mls @ 100 mls/hr IV Q8H [facility]; Protocol Stop: 12/23/20 02:29 Levothyroxine Sodium (Levothyroxine 50 Mcg Tab) 50 mcg PO DAILY@0600 [facility] Midazolam HCl (Midazolam 2 Mg/2 Ml Inj) 2 mg IV PREOP NR Stop: 12/22/20 23:59 Last Admin: 12/22/20 09:40 Dose: 2 mg Documented by: Miscellaneous Medication (Memantine Hcl [Namenda Xr]) 100 mg PO DAILY [facility] Miscellaneous Medication (Polyethylene Glycol 3350 [Miralax]) 119 gm PO DAILY [facility] Morphine Sulfate (Morphine 2 Mg/1 Ml Inj) 2 mg IV Q4H PRN PRN Reason: Pain, Moderate (4-6) Olanzapine (Olanzapine 5 Mg Tab) 5 mg PO QDAY [facility] Ondansetron HCl (Ondansetron 4 Mg/2 Ml Inj) 4 mg IV ONCE PRN PRN Reason: Nausea And Vomiting Stop: 12/22/20 13:00 Ondansetron HCl (Ondansetron 4 Mg/2 Ml Inj) 4 mg IV Q8H PRN PRN Reason: Nausea And Vomiting Sertraline HCl (Sertraline 25 Mg Tab) 25 mg PO QDAY [facility] Tamsulosin HCl (Tamsulosin 0.4 Mg Cap) 0.4 mg PO QDAY [facility] Review of Systems ROS unobtainable: due to mental status Exam - Constitutional Vitals: Temp Pulse Resp BP Pulse Ox 98.9 F 76 16 119/79 100 12/22/20 09:05 12/22/20 09:05 12/22/20 09:05 12/22/20 09:05 12/22/20 09:05 General appearance: Present: no acute distress, well-nourished - EENT Eyes: Present: PERRL ENT: hearing intact, clear oral mucosa - Neck Neck: Present: supple, normal ROM - Respiratory Respiratory effort: normal Respiratory: bilateral: CTA - Cardiovascular Heart Sounds: Present: S1 & S2. Absent: rub, click - Extremities Extremities: pulses symmetrical, No edema Peripheral Pulses: within normal limits - Abdominal General gastrointestinal: Present: soft, non-tender, non-distended, normal bowel sounds Male genitourinary: Present: normal - Integumentary Integumentary: Present: clear, warm, dry - Musculoskeletal Musculoskeletal: gait normal, strength equal bilaterally - Psychiatric Psychiatric: appropriate mood/affect, intact judgment & insight - Neurologic Neurologic: CNII-XII intact, moves all extremities Results - Labs CBC & Chem 7: 12/20/20 10:00 12/20/20 10:00 Assessment and Plan - Patient Problems (1) Hypothyroidism Current Visit: Yes Status: Acute Qualifiers: Hypothyroidism type: unspecified Qualified Code(s): E03.9 - Hypothyroidism, unspecified Plan to address problem: Continue thyroid replacement therapy, supportive care. (2) Dementia Current Visit: No Status: Acute Qualifiers: Dementia behavioral disturbance: without behavioral disturbance Plan to address problem: Benzodiazepine therapy as clinically indicated, verbal prompting, verbal redirection.
[2020-12-22] MEDS ORDERED: HYDROcodone/ACETAMINOPHEN 5-325 MG TAB PO PRN (11:30)
[2020-12-22] MEDS ORDERED: MORPHINE 2 MG/1 ML INJ IV PRN (11:30)
--- NOTE | 2020-12-22 11:33 | Operative Report ---
PREOPERATIVE DIAGNOSES: Urinary retention, benign prostatic hypertrophy, dementia. POSTOPERATIVE DIAGNOSES: Urinary retention, benign prostatic hypertrophy, dementia. PROCEDURE: Cystoscopy, bilateral retrograde pyelograms, suprapubic catheter placement, transurethral resection of the prostate. SURGEON: Dr. Raj Srivastava ANESTHESIA: General. ESTIMATED BLOOD LOSS: Minimal. FLUIDS: Crystalloid. COMPLICATIONS: No complications. INDICATIONS: This 55-year-old gentleman was initially seen in September of last year where he underwent exploratory laparotomy. At that time, they were unable to put a catheter in and we were consulted. He now continues to have urinary retention and presents now for surgical intervention. He has a history of dementia. We discussed options with the caregiver and they agreed to resection as well as suprapubic catheter placement. Risks, benefits, and complications were explained. DESCRIPTION OF PROCEDURE: The patient was taken to the operative suite, placed in a supine position. After adequate general anesthesia, he was placed in a dorsal lithotomy position, prepped and draped in a sterile fashion. Pancystourethroscopy was performed with a 22-Filipino Storz cystoscope, no urethral abnormalities. His prostate displayed some [id number] trilobar obstruction, mainly high riding bladder neck. Both ureteral orifices are in normal position. No tumors or stones were noted. He does have some mild trabeculation. Bilateral retrograde pyelograms were obtained with an 8-Filipino Tracey catheter and 8 mL of contrast. No filling defects or obstruction. Next, using a curved Lowsley retractor through the penis and tenting the abdominal wall close to the pubic symphysis. A 1 cm incision was made with the Bovie. The Lowsley was popped through the abdominal wall, stitch placed on a 20-Filipino Almaraz catheter was pulled out to the meatus. The stitch was cut. The scope followed the catheter back into the bladder where the balloon was inflated to 20 mL and secured to the skin with a 2-0 silk. Next, using a 24-Filipino resectoscope and loop with the cutting and coag on 160 and 60 transurethral resection of the prostate was performed in a systematic fashion, mainly taken down the median lobe and lateral lobe as well. Adequate hemostasis was achieved. Chips were evacuated out with the Artaic evacuator. A 22-Filipino 3-way catheter was placed. The patient tolerated the procedure well and was extubated and taken to recovery room. JOB# [id number] BETHANY/NTS
[2020-12-22] MEDS ORDERED: SODIUM CHLORIDE IRRI 2000 ML 4,000 ML ONE (12:03)
[2020-12-22] MEDS ORDERED: SODIUM CHLORIDE IRRI 2000 ML 6,000 ML ONE (12:36)
[2020-12-22] MEDS ORDERED: SODIUM CHLORIDE IRRI 2000 ML 2,000 ML ONE (12:46)
--- NOTE | 2020-12-22 14:01 | Post Anesthesia Evaluation ---
- Post Anesthesia Evaluation Patient Participated: Yes Airway Patent: Yes Stable Respiratory Function: Yes Nausea/Vomiting: No Temp > 96.8F: Yes Pain Manageable: Yes Adequeate Hydration: Yes Anesthesia Complications: No
[2020-12-22] MEDS: ceFAZolin/NS 1 GM/50 ML 1 GM/50 ML BAG IV SCH (21:43)
[2020-12-22] MEDS: MEMANTINE 10 MG TAB PO SCH (23:17)
[2020-12-23] MEDS: SODIUM CHLORIDE 0.9% IRRIG SOLN 2000 ML IR SCH ×4 (00:43→12:52)
[2020-12-23] MEDS: ceFAZolin/NS 1 GM/50 ML 1 GM/50 ML BAG IV SCH (02:24)
[2020-12-23] MEDS ORDERED: LEVOTHYROXINE 50 MCG TAB PO SCH (06:00)
--- NOTE | 2020-12-23 07:57 | Progress Note ---
Assessment and Plan Assessment and plan: 55 YO Male Hypothyroidism, BPH complicated by Obstructive Uropathy with Suprapubic Catheter, Vascular Dementia. Consult placed by Dr. Srivastava for medical management. Patient seen and evaluated in his room postoperatively. Patient resting comfortably in bed. Patient denies pain. No reported nursing events. Transient Hypotension- Resolved Hypothyroidism- Continue home meds Dementia-cognitive impairment. BPH/Obstructive uropathy-followed by urologist. Thank you for allowing us take part in the care of your patient as an information become available more therapeutic of diagnostic measures need to be presented History Interval history: Patient seen and examined resting comfortably no new complaints. Nurse at bedside Hospitalist Physical - Physical exam Narrative exam: VITAL SIGNS: Reviewed. GENERAL: The patient appears normally developed, Vital signs as documented. HEAD: No signs of head trauma. EYES: Pupils are equal. Extraocular motions intact. EARS: Hearing grossly intact. MOUTH: Oropharynx is normal. NECK: No adenopathy, no JVD. CHEST: Chest with clear breath sounds bilaterally. No wheezes, rales, or rhonchi. CARDIAC: Regular rate and rhythm. S1 and S2, without murmurs, gallops, or rubs. VASCULAR: No Edema. Peripheral pulses normal and equal in all extremities. ABDOMEN: Soft, non tender and non distended. No rebound or guarding, and no masses palpated. Bowel Sounds normal. MUSCULOSKELETAL: Good range of motion of all major joints. Extremities without clubbing, cyanosis or edema. NEUROLOGIC EXAM: Alert and oriented x 3 No focal sensory or strength deficits. Speech normal. Follows commands. PSYCHIATRIC: Mood normal. SKIN: detail exam as documented in skin assessment - Constitutional Vitals: Temp Pulse Resp BP Pulse Ox 98.0 F 87 16 124/71 99 12/23/20 07:00 12/23/20 07:00 12/23/20 07:00 12/23/20 07:00 12/23/20 07:00 General appearance: Present: no acute distress, well-nourished Results - Labs CBC & Chem 7: 12/20/20 10:00 12/20/20 10:00 Labs: Laboratory Last Values WBC 9.3 K/mm3 (4.5-11.0) 12/20/20 10:00 RBC 4.05 M/mm3 (3.65-5.03) 12/20/20 10:00 Hgb 11.9 gm/dl (11.8-15.2) 12/20/20 10:00 Hct 36.2 % (35.5-45.6) 12/20/20 10:00 MCV 90 fl (84-94) 12/20/20 10:00 MCH 30 pg (28-32) 12/20/20 10:00 MCHC 33 % (32-34) 12/20/20 10:00 RDW 15.2 % (13.2-15.2) 12/20/20 10:00 Plt Count 228 K/mm3 (140-440) 12/20/20 10:00 Sodium 138 mmol/L (137-145) 12/20/20 10:00 Potassium 4.0 mmol/L (3.6-5.0) 12/20/20 10:00 Chloride 105.6 mmol/L (98-107) 12/20/20 10:00 Carbon Dioxide 25 mmol/L (22-30) 12/20/20 10:00 Anion Gap 11 mmol/L 12/20/20 10:00 BUN 17 mg/dL (9-20) 12/20/20 10:00 Creatinine 0.7 mg/dL (0.8-1.3) L 12/20/20 10:00 Estimated GFR > 60 ml/min 12/20/20 10:00 BUN/Creatinine Ratio 24 % 12/20/20 10:00 Glucose 86 mg/dL (75-100) 12/20/20 10:00 Calcium 9.2 mg/dL (8.4-10.2) 12/20/20 10:00 Total Bilirubin < 0.20 mg/dL (0.1-1.2) 12/20/20 10:00 AST 19 units/L (5-40) 12/20/20 10:00 ALT 6 units/L (7-56) L 12/20/20 10:00 Alkaline Phosphatase 78 units/L (35-129) 12/20/20 10:00 Total Protein 7.8 g/dL (6.3-8.2) 12/20/20 10:00 Albumin 4.2 g/dL (3.9-5) 12/20/20 10:00 Albumin/Globulin Ratio 1.2 % 12/20/20 10:00 Coronavirus (PCR) Negative (Negative) 12/20/20 09:30 Blood Type A POSITIVE 12/22/20 09:40 Antibody Screen Negative 12/22/20 09:40 Almaraz/IV: Voiding Method Suprapubic catheter Active Medications - Current Medications Current Medications: Generic Name Dose Route Start Last Admin Trade Name Freq PRN Reason Stop Dose Admin Hydrocodone Bitart/Acetaminophen 2 each 12/22/20 11:30 12/22/20 22:45 Hydrocodone/Acetaminophen 5-325 Mg Tab PO 2 each Q4H PRN Administration Pain, Moderate (4-6) Finasteride 5 mg 12/23/20 08:00 Finasteride 5 Mg Tab PO QDAY [facility] Sodium Chloride 1,000 mls @ 100 mls/hr 12/22/20 11:00 12/22/20 22:44 Nacl 0.9% 1000 Ml IV 100 mls/hr DIRECT [facility] Administration Levothyroxine Sodium 50 mcg 12/23/20 06:00 12/23/20 05:59 Levothyroxine 50 Mcg Tab PO 50 mcg DAILY@0600 [facility] Administration Memantine 10 mg 12/22/20 22:00 12/22/20 23:17 Memantine 10 Mg Tab PO 10 mg Q12HR [facility] Administration Morphine Sulfate 2 mg 12/22/20 11:30 12/23/20 02:09 Morphine 2 Mg/1 Ml Inj IV 2 mg Q4H PRN Administration Pain, Moderate (4-6) Olanzapine 5 mg 12/23/20 08:00 Olanzapine 5 Mg Tab PO QDAY [facility] Ondansetron HCl 4 mg 12/22/20 11:30 12/23/20 02:06 Ondansetron 4 Mg/2 Ml Inj IV 4 mg Q8H PRN Administration Nausea And Vomiting Polyethylene Glycol 17 gm 12/23/20 08:00 Polyethylene Glycol 3350 17 Gm Powder PO QDAY [facility] Sertraline HCl 25 mg 12/23/20 08:00 Sertraline 25 Mg Tab PO QDAY [facility] Sodium Chloride 2,000 ml 12/22/20 20:00 12/23/20 05:48 Sodium Chloride 0.9% Irrig Soln 2000 Ml IR 2,000 ml DIRECT CLIFF Administration Tamsulosin HCl 0.4 mg 12/23/20 08:00 Tamsulosin 0.4 Mg Cap PO QDAY [facility]
[2020-12-23] MEDS ORDERED: POLYETHYLENE GLYCOL 3350 17 GM POWDER PO SCH (08:00)
[2020-12-23] MEDS ORDERED: FINASTERIDE 5 MG TAB PO SCH (08:00)
[2020-12-23] MEDS ORDERED: SERTRALINE 25 MG TAB PO SCH (08:00)
[2020-12-23] MEDS ORDERED: TAMSULOSIN 0.4 MG CAP PO SCH (08:00)
[2020-12-23] MEDS ORDERED: LEVOTHYROXINE PO SCH (08:00)
[2020-12-23] MEDS: MEMANTINE 10 MG TAB PO SCH (09:27)
[2020-12-23] MEDS ORDERED: POLYETHYLENE GLYCOL 119 GM PO SCH (10:00)
[2020-12-23] MEDS ORDERED: MEMANTINE HCL 28 MG PO SCH (10:00)
--- NOTE | 2020-12-23 16:31 | Post Anesthesia Evaluation ---
- Post Anesthesia Evaluation Patient Participated: Yes Airway Patent: Yes Stable Respiratory Function: Yes Nausea/Vomiting: No Temp > 96.8F: Yes Pain Manageable: Yes Adequeate Hydration: Yes Anesthesia Complications: No Patient on Ventilator: No
[2020-12-23 18:41] VITALS: BP 123/70
== END 2020-12-23 16:45 | disposition home or self-care (01) ==
LOC: OR 08:48 → 3A 10:56 → 3B 12:44
PROVIDERS: ADMIT Urology; ATTEND Urology
DX: N40.1 Benign prostatic hyperplasia with lower urinary tract symptoms (principal); Z20.822 Contact with and (suspected) exposure to COVID-19; R33.8 Other retention of urine; I95.9 Hypotension, unspecified; E03.9 Hypothyroidism, unspecified; F02.80 Dementia in other diseases classified elsewhere, unspecified severity, without behavioral disturbance, psychotic disturbance, mood disturbance, and anxiety; Z98.890 Other specified postprocedural states
CPT/HCPCS: 36415; 52005; 52601; 74420; 80053; 85027; 86850; 86900; 86901; 88305; 96361; 96365; 96375; A4217; G0378; J0690; J1170; J2250; J2270; J2405; J2704; J3010; J7030; J7120; Q9967; U0003; A6250

== ENCOUNTER 2021-03-03 13:21 | Emergency (ER) | payer MEDICARE ==
--- NOTE | 2021-03-03 15:01 | Event Note ---
ED Screening Note Date of service: 03/03/21 Time: 14:59 ED Screening Note: 55-year-old male patient with history of dementia, BPH, bowel obstruction, ileus, and multiple abdominal surgeries presents to the emergency department with complaints of epigastric pain, nausea, and vomiting starting today. Patient states he experienced 1 episode of nonbloody emesis. Recently underwent TURP procedure at this facility. No history of alcohol use. Last bowel movement was yesterday. General: Awake, appropriately interactive, no acute distress. Neck: Supple. Full range of motion intact. Cardiovascular: Normal peripheral perfusion. Pulmonary: No respiratory distress. Patient is speaking normally without use of accessory muscles. Abdomen: Well-healed midline vertical surgical scar to the abdomen. Suprapubic postoperative wound dressing in place. Skin: No apparent rashes or lesions. Neurological: No facial asymmetry. Speech is clear. Follows commands. Patient is alert and oriented. Musculoskeletal: Moves all four extremities spontaneously with normal range of motion. Psych: Cooperative. Appropriate mood and affect. I have greeted and performed a focused rapid initial assessment of this patient. A comprehensive ED assessment and evaluation of the patient, analysis of all test results, and completion of the medical decision-making process will be conducted by additional ED providers. This initial assessment/diagnostic orders/clinical plan/treatment(s) is/are subject to change based on patients health status, clinical progression and re-assessment. Further treatment and workup at subsequent clinical provider's discretion. Patient/guardian urged not to elope from the ED as their condition may be serious if not clinically assessed and managed.
[2021-03-03 16:24] LABS: Basophils % (Auto) 0.3 % (0.0-1.8); Eosinophils % (Auto) 0.1 % (0.0-4.3); Hemoglobin 11.9 gm/dl (11.8-15.2); Mean Corpuscular HGB Conc 33 % (32-34); Mean Corpuscular Volume 89 fl (84-94); Monocytes # (Auto) 1.1 K/mm3 (0.0-0.8); Monocytes % (Auto) 9.4 % (0.0-7.3); Platelet Count 319 K/mm3 (140-440); Red Blood Count 4.04 M/mm3 (3.65-5.03)
[2021-03-03 16:39] LABS: Alanine Aminotransferase 22 units/L (7-56); Albumin 3.9 g/dL (3.9-5); BUN/Creatinine Ratio 17; Blood Urea Nitrogen 19 mg/dL (9-20); Calcium 9.2 mg/dL (8.4-10.2); Hemolysis Index 9
[2021-03-03] MEDS ORDERED: LIDOCAINE VISCOUS 2% 15 ML ORAL LIQD PO ONE (19:26)
[2021-03-03] MEDS ORDERED: ALUM-MAG HYDROXIDE-SIMETHICONE 200-200-20MG/5ML ORAL LIQD 30 ML PO ONE (19:26)
[2021-03-03] MEDS ORDERED: FAMOTIDINE 20 MG/2 ML INJ IV ONE (19:27)
[2021-03-03] MEDS ORDERED: ONDANSETRON 4 MG/2 ML INJ IV ONE (19:27)
--- NOTE | 2021-03-03 20:39 | XRay Report ---
CHEST 2 VIEWS 194 INDICATION / CLINICAL INFORMATION: Epigastric pain COMPARISON: None available. FINDINGS: SUPPORT DEVICES: None. HEART / MEDIASTINUM: No significant abnormality. LUNGS / PLEURA: No significant pulmonary or pleural abnormality. No pneumothorax. ADDITIONAL FINDINGS: No significant additional findings. IMPRESSION: No significant acute abnormality Signer Name: Blas Morgan MD Signed: 03/03/2021 8:34 PM Workstation Name: [email or web address]
--- NOTE | 2021-03-03 20:55 | Cat Scan Report ---
CT ABDOMEN AND PELVIS WITH CONTRAST INDICATION: epigastric pain; hx SBO and ileus; recent TURP CONTRAST: 100 cc Omnipaque 300 IV COMPARISON: 09/19/[address] scans at this location are performed using CT dose reduction for ALARA by means of automated e xposure control. FINDINGS: Lung bases show chronic changes. No pneumoperitoneum is seen. I see no significant abnormal ities of the liver, spleen, adrenals, gallbladder, bile ducts, or pancreas. No evidence of bowel obst ruction is seen today with the dilatation seen previously resolved. There is a suggestion of mild rec daniel impaction with moderate amount of rectosigmoid stool present but no proximal dilatation is seen. Appendix is not clearly identified. No focal inflammatory changes are seen. No abdominal masses are n oted. Suprapubic Almaraz catheter is situated well within the urinary bladder. Prostate is not significantly enlarged. The urinary bladder is prominently distended and extends well into the lower abdomen. Promi nent wall thickening seen previously is no longer seen and no focal mass is obvious. No pelvic hemorr tony is seen. The left renal pelvis is now quite prominent with moderate prominence of the collecting system on the left. Left ureter is mildly prominent in its upper portion. Enhancement is seen of the upper left ureteral wall which also appears mildly thickened. No calculi are seen. I do not see obst ructive change on the right. I do not see obvious evidence of pyelonephritis. IMPRESSION: 1. Prominent distention of the urinary bladder despite apparent good placement of the suprapubic Fole y catheter. No prostate region obvious complication of TURP is seen. 2. Moderate obstructive changes in the upper left urinary system as above. Appearance of the upper le ft ureter suggesting inflammation and could relate to ureteris but I do not see obvious evidence of p yelonephritis. No obstructing lesion or calculus is identified. Signer Name: Blas Morgan MD Signed: 03/03/2021 8:50 PM Workstation Name: [email or web address]
[2021-03-03 21:36] LABS: Bilirubin,Urine NEG (Negative); Blood,Urine NEG (Negative); Color,Urine Yellow (Yellow); Mucus,Urine FEW /HPF; Urobilinogen,Urine < 2.0 mg/dL (<2.0)
[2021-03-03 21:43] LABS: WBC,Urine > 182.0 /HPF (0.0-6.0)
[2021-03-03] MEDS ORDERED: cefTRIAXone/NS 1 GM/50 ML 1 GM/50 ML BAG IV ONE (21:54)
[2021-03-03] MEDS ORDERED: SODIUM CHLORIDE 0.9% 1000 ML 1,000 ML IV ONE (21:54)
[2021-03-03 22:46] VITALS: BP 103/68
--- NOTE | 2021-03-03 22:52 | Emergency Department Report ---
ED Abdominal Pain HPI - General Chief Complaint: Abdominal Pain Stated Complaint: ABD PAINS Time Seen by Provider: 03/03/21 14:48 Source: patient Mode of arrival: Ambulatory Limitations: No Limitations - History of Present Illness Initial Comments: Patient is a 55-year-old white male with a history of dementia, BPH, bowel obstruction, ileus, chronic recurrent urinary tract infections due to suprapubic catheter, GERD, and multiple abdominal surgeries presents to the emergency department with complaints of epigastric pain, nausea, and vomiting starting today. Patient states he experienced 1 episode of nonbloody emesis in the last 12 hours. Recently underwent TURP procedure at this facility. No history of alcohol use and last bowel movement was 24 hours ago. Patient denies chest pain, fever, chills, diarrhea, dysuria, urinary frequency and urgency, back pain, shortness of breath, cough, headache, hematemesis or hematochezia or constipation. MD Complaint: abdominal pain, other (Nausea and vomiting) -: Sudden, days(s) (22) Location: epigastric Radiation: none Migration to: no migration Severity: moderate Severity scale (0 -10): 5 Quality: cramping, sharp Consistency: constant Improves With: nothing Worsens With: eating, vomiting Context: possible food poisoning Associated Symptoms: denies other symptoms, nausea. denies: diarrhea, fever, constipation, hematemesis, hematochezia - Related Data Home Medications Medication Instructions Recorded Confirmed Last Taken Finasteride [Proscar] 5 mg PO QDAY 08/07/20 12/20/20 12/21/20 Levothyroxine Sodium [Tirosint-Nimo] 50 mcg PO QDAY 08/07/20 12/22/20 12/22/20 06:30 Tamsulosin [Flomax] 0.4 mg PO QDAY 08/07/20 12/20/20 12/21/20 Memantine HCl [Namenda Xr] 100 mg PO DAILY 12/20/20 12/20/20 12/21/20 Polyethylene Glycol 3350 [Miralax] 119 gm PO DAILY 12/20/20 12/20/20 12/21/20 Previous Rx's Medication Instructions Recorded Last Taken Type OLANZapine [Zyprexa] 5 mg PO QDAY #30 tab 09/23/20 12/21/20 Rx Sertraline [Zoloft] 25 mg PO QDAY #30 tab 11/19/20 02/16/21 Rx Dicyclomine [Bentyl] 20 mg PO Q6H PRN #30 tablet 03/03/21 Unknown Rx Famotidine [Pepcid] 20 mg PO BID #60 tablet 03/03/21 Unknown Rx Ondansetron [Zofran Odt] 4 mg PO Q8HR PRN #20 tab.rapdis 03/03/21 Unknown Rx Sulfamethoxazole/Trimethoprim 1 each PO Q12H #20 tablet 03/03/21 Unknown Rx [Bactrim DS TAB] Allergies Allergy/AdvReac Type Severity Reaction Status Date / Time No Known Allergies Allergy Verified 12/15/20 17:17 ED Review of Systems ROS: Stated complaint: ABD PAINS Other details as noted in HPI Constitutional: denies: chills, fever Eyes: denies: eye pain, eye discharge, vision change ENT: denies: ear pain, throat pain Respiratory: denies: cough, shortness of breath, wheezing Cardiovascular: denies: chest pain, palpitations Endocrine: no symptoms reported Gastrointestinal: abdominal pain, nausea, vomiting. denies: diarrhea Genitourinary: denies: urgency, dysuria Musculoskeletal: denies: back pain, joint swelling, arthralgia Skin: denies: rash, lesions Neurological: denies: headache, weakness, paresthesias Psychiatric: denies: anxiety, depression Hematological/Lymphatic: denies: easy bleeding, easy bruising ED Past Medical Hx - Past Medical History Previous Medical History?: Yes Hx GERD: Yes Hx Renal Disease: Yes (BPH; Obstructive uropathy; suprapubic catheter) Hx Dementia: Yes Additional medical history: Hypothyroidism, enlarged prostate, dementia - Surgical History Additional Surgical History: bowel obstruction 08/2020 - Social History Smoking Status: Never Smoker Substance Use Type: None - Medications Home Medications: Home Medications Medication Instructions Recorded Confirmed Last Taken Type Finasteride [Proscar] 5 mg PO QDAY 08/07/20 12/20/20 12/21/20 History Levothyroxine Sodium [Tirosint-Nimo] 50 mcg PO QDAY 08/07/20 12/22/20 12/22/20 06:30 History Tamsulosin [Flomax] 0.4 mg PO QDAY 08/07/20 12/20/20 12/21/20 History OLANZapine [Zyprexa] 5 mg PO QDAY #30 tab 09/23/20 12/20/20 12/21/20 Rx Sertraline [Zoloft] 25 mg PO QDAY #30 tab 09/23/20 12/20/20 12/21/20 Rx Memantine HCl [Namenda Xr] 100 mg PO DAILY 12/20/20 12/20/20 12/21/20 History Polyethylene Glycol 3350 [Miralax] 119 gm PO DAILY 12/20/20 12/20/20 12/21/20 History Dicyclomine [Bentyl] 20 mg PO Q6H PRN #30 tablet 03/03/21 Unknown Rx Famotidine [Pepcid] 20 mg PO BID #60 tablet 03/03/21 Unknown Rx Ondansetron [Zofran Odt] 4 mg PO Q8HR PRN #20 tab.rapdis 03/03/21 Unknown Rx Sulfamethoxazole/Trimethoprim 1 each PO Q12H #20 tablet 03/03/21 Unknown Rx [Bactrim DS TAB] ED Physical Exam - General Limitations: No Limitations General appearance: alert, in no apparent distress - Head Head exam: Present: atraumatic, normocephalic - Eye Eye exam: Present: normal appearance, PERRL, EOMI Pupils: Present: normal accommodation - ENT ENT exam: Present: normal exam, normal orophraynx, mucous membranes moist, TM's normal bilaterally, normal external ear exam - Neck Neck exam: Present: normal inspection, full ROM - Respiratory Respiratory exam: Present: normal lung sounds bilaterally. Absent: respiratory distress, wheezes, rales, stridor, chest wall tenderness, accessory muscle use, decreased breath sounds, prolonged expiratory - Cardiovascular Cardiovascular Exam: Present: regular rate, normal rhythm, normal heart sounds. Absent: systolic murmur, diastolic murmur, rubs, gallop - GI/Abdominal GI/Abdominal exam: Present: soft, tenderness (Palpable mild epigastric tenderness), normal bowel sounds. Absent: guarding, rebound, hyperactive bowel sounds, hypoactive bowel sounds, organomegaly - Extremities Exam Extremities exam: Present: normal inspection, full ROM, normal capillary refill - Back Exam Back exam: Present: normal inspection, full ROM. Absent: tenderness, CVA tenderness (R), CVA tenderness (L), muscle spasm, paraspinal tenderness - Neurological Exam Neurological exam: Present: alert, oriented X3, CN II-XII intact, normal gait, reflexes normal - Psychiatric Psychiatric exam: Present: normal affect, normal mood - Skin Skin exam: Present: warm, dry, intact, normal color. Absent: rash ED Course Vital Signs 03/03/21 03/03/21 14:43 22:45 Temperature 99.4 F 98.2 F Pulse Rate 97 H 82 Respiratory 20 18 Rate Blood Pressure 118/78 Blood Pressure 103/68 [Right] O2 Sat by Pulse 100 100 Oximetry ED Medical Decision Making - Lab Data Result diagrams: 03/03/21 15:58 03/03/21 15:58 - Radiology Data Radiology results: report reviewed, image reviewed [facility] [address] [place] [address] Cat Scan Report Signed Patient: TYRELL SMITH MR#: [id number] : 1965 Acct:[id number] Age/Sex: 55 / M ADM Date: 03/03/21 Loc: ED Attending Dr: Ordering Physician: BERE DIAZ Date of Service: 03/03/21 Procedure(s): CT abdomen pelvis w con Accession Number(s): [id number] cc: BERE DIAZ CT ABDOMEN AND PELVIS WITH CONTRAST INDICATION: epigastric pain; hx SBO and ileus; recent TURP CONTRAST: 100 cc Omnipaque 300 IV COMPARISON: 09/19/[address] scans at this location are performed using CT dose reduction for ALARA by means of automated exposure control. FINDINGS: Lung bases show chronic changes. No pneumoperitoneum is seen. I see no significant abnormalities of the liver, spleen, adrenals, gallbladder, bile ducts, or pancreas. No evidence of bowel obstruction is seen today with the dilatation seen previously resolved. There is a suggestion of mild rectal impaction with moderate amount of rectosigmoid stool present but no proximal dilatation is seen. Appendix is not clearly identified. No focal inflammatory changes are seen. No abdominal masses are noted. Suprapubic Kim catheter is situated well within the urinary bladder. Prostate is not significantly enlarged. The urinary bladder is prominently distended and extends well into the lower abdomen. Prominent wall thickening seen previously is no longer seen and no focal mass is obvious. No pelvic hemorrhage is seen. The left renal pelvis is now quite prominent with moderate prominence of the collecting system on the left. Left ureter is mildly prominent in its upper portion. Enhancement is seen of the upper left ureteral wall which also appears mildly thickened. No calculi are seen. I do not see obstructive change on the right. I do not see obvious evidence of pyelonephritis. IMPRESSION: 1. Prominent distention of the urinary bladder despite apparent good placement of the suprapubic Kim catheter. No prostate region obvious complication of TURP is seen. 2. Moderate obstructive changes in the upper left urinary system as above. Appearance of the upper left ureter suggesting inflammation and could relate to ureteris but I do not see obvious evidence of pyelonephritis. No obstructing lesion or calculus is identified. Signer Name: Blas Morgan MD Signed: 03/03/2021 8:50 PM Workstation Name: [id number] Transcribed By: GJ Dictated By: Blas Morgan MD Electronically Authenticated By: Blas Morgan MD Signed Date/Time: 03/03/212049 DD/ 42 TD/TT: [facility] [address] [place] [address] XRay Report Signed Patient: TYRELL SMITH MR#: [id number] : 1965 Acct:[id number] Age/Sex: 55 / M ADM Date: 03/03/21 Loc: ED Attending Dr: Ordering Physician: BERE NOBLE Date of Service: 03/03/21 Procedure(s): XR chest routine 2V Accession Number(s): [id number] cc: BERE NOBLE Fluoro Time In Minutes: CHEST 2 VIEWS 1947 INDICATION / CLINICAL INFORMATION: Epigastric pain COMPARISON: None available. FINDINGS: SUPPORT DEVICES: None. HEART / MEDIASTINUM: No significant abnormality. LUNGS / PLEURA: No significant pulmonary or pleural abnormality. No pneumothorax. ADDITIONAL FINDINGS: No significant additional findings. IMPRESSION: No significant acute abnormality Signer Name: Blas Morgan MD Signed: 03/03/2021 8:34 PM Workstation Name: [email or web address] Transcribed By: TERESITA Dictated By: Blas Morgan MD Electronically Authenticated By: Blas Morgan MD Signed Date/Time: 03/03/212033 DD/ 32 TD/TT: Print - Medical Decision Making This is a 55-year-old white male with a history of dementia, BPH, bowel obstruction, ileus, chronic recurrent urinary tract infections due to suprapubic catheter, GERD, and multiple abdominal surgeries presents to the emergency department with complaints of epigastric pain, nausea, and vomiting starting today. Patient states he experienced 1 episode of nonbloody emesis in the last 12 hours. Recently underwent TURP procedure at this facility. No history of alcohol use and last bowel movement was 24 hours ago. In the ED, patient is alert and oriented x3, and is not in any distress. Lab test results were reviewed and showed acute leukocytosis of 11,900. Urinalysis showed significant urinary tract infection. Patient was treated in the ED for nausea and vomiting with antiemetics, also given antacids and normal saline 1 L IV bolus as well as Rocephin 1 g IV x1. Chest x-ray showed no acute cardiopulmonary abnormalities or pneumonitis. Abdomen pelvis CT scan with contrast showed prominent distention of the urinary bladder despite apparent good placement of the suprapubic kim catheter. No prostate region obvious complication of TURP is seen. It also showed moderate obstructive changes in the upper left urinary system as above. Appearance of the upper left ureter suggesting inflammation and could relate to ureteris but I do not see obvious evidence of pyelonephritis. No obstructing lesion or calculus is identified. On reevaluation, patient felt better, and patient did not have any nausea or vomiting or pain after the medications have been administered. Patient was therefore discharged home on antibiotics, antacids and antiemetics medication as well as antispasmodics. Patient was advised to follow-up with his primary care physician in 5 to 7 days for reevaluation. Patient was also advised to return to the ED immediately if his symptoms get worse. - Differential Diagnosis GERD; Cholelithiasis; pancreatitis; UTI; gastroenteritis; gastritis Critical care attestation.: If time is entered above; I have spent that time in minutes in the direct care of this critically ill patient, excluding procedure time. ED Disposition Clinical Impression: Abdominal pain, acute, epigastric, Acute urinary tract infection GERD (gastroesophageal reflux disease) Qualifiers: Esophagitis presence: esophagitis presence not specified Qualified Code(s): K21.9 - Gastro-esophageal reflux disease without esophagitis Disposition: - TO HOME OR SELFCARE Is pt being admited?: No Does the pt Need Aspirin: No Condition: Stable Instructions: Gastroesophageal Reflux Disease, Adult, [id number], Urinary Tract Infection, Adult, [id number], Abdominal Pain, Adult, [id number] Additional Instructions: All lab test results were reviewed and are all [place] [address], and acute urinary tract infection based on urinalysis results. The abdomen pelvis CT scan with contrast showed significant inflammation in the bladder consistent with acute cystitis. Patient was treated for pain in the ED and also given antacids and antiemetics as well as normal saline 1 L IV bolus and Rocephin 1 g IV x1. On reevaluation, patient's pain is well controlled medications. Patient was able to keep oral fluids in the ED with no difficulties or nausea or vomiting. Patient was therefore discharged home on pain medications, antibiotics and antiemetics and was advised to follow- up with his primary care physician in 5 to 7 days for reevaluation. Patient was advised return to the ED immediately if symptoms get worse. Prescriptions: Sulfamethoxazole/Trimethoprim [Bactrim DS TAB] 1 each PO Q12H #20 tablet Dicyclomine [Bentyl] 20 mg PO Q6H PRN #30 tablet PRN Reason: Abdominal pain Famotidine [Pepcid] 20 mg PO BID #60 tablet Ondansetron [Zofran Odt] 4 mg PO Q8HR PRN #20 tab.rapdis PRN Reason: Nausea And Vomiting Referrals: [facility] [Provider Group] - 3-5 Days Time of Disposition: 23:00 Print Language: FINNISH
== END 2021-03-03 23:30 | disposition home or self-care (01) ==
LOC: ED 13:21
DX: K21.9 Gastro-esophageal reflux disease without esophagitis (principal); N39.0 Urinary tract infection, site not specified; R10.13 Epigastric pain; F03.90 Unspecified dementia, unspecified severity, without behavioral disturbance, psychotic disturbance, mood disturbance, and anxiety; Z98.890 Other specified postprocedural states; Z79.899 Other long term (current) drug therapy
CPT/HCPCS: 36415; 71046; 74177; 80053; 81001; 83690; 83735; 84484; 85025; 96365; 96375; 99285; J0696; J2405; J7030; Q9967

== ENCOUNTER 2021-04-07 14:55 | Observation (INO) | payer MEDICARE ==
[2021-04-07 18:37] LABS: Hematocrit 36.2 % (35.5-45.6); Hemoglobin 11.8 gm/dl (11.8-15.2); Mean Corpuscular HGB Conc 33 % (32-34); Mean Corpuscular Volume 88 fl (84-94); Platelet Count 483 K/mm3 (140-440); Red Blood Count 4.13 M/mm3 (3.65-5.03); Red Cell Distribution Width 15.7 % (13.2-15.2)
[2021-04-07 18:42] LABS: Alanine Aminotransferase 9 units/L (7-56); Albumin 3.8 g/dL (3.9-5); BUN/Creatinine Ratio 18; Blood Urea Nitrogen 20 mg/dL (9-20); Calcium 9.4 mg/dL (8.4-10.2); Hemolysis Index 11
[2021-04-07 19:26] LABS: Total Cells Counted 100
[2021-04-07 19:27] LABS: RBC Morphology Normal
[2021-04-07 22:50] LABS: Bacteria,Urine 3+ /HPF (Negative); Bilirubin,Urine NEG (Negative); Blood,Urine NEG (Negative); Color,Urine Yellow (Yellow); Mucus,Urine FEW /HPF; Urobilinogen,Urine < 2.0 mg/dL (<2.0)
[2021-04-07 22:51] LABS: Protein,Urine >500 mg/dL (Negative); WBC,Urine > 182.0 /HPF (0.0-6.0)
[2021-04-07] MEDS ORDERED: ONDANSETRON 4 MG/2 ML INJ IV PRN (23:26)
[2021-04-07] MEDS ORDERED: ALBUTEROL 2.5 MG/3 ML NEBU IH PRN (23:26)
[2021-04-07] MEDS ORDERED: ACETAMINOPHEN 325 MG TAB PO PRN (23:26)
[2021-04-07] MEDS ORDERED: DICYCLOMINE 20 MG TAB PO PRN (23:28)
[2021-04-07] MEDS ORDERED: hydrALAZINE 20 MG/1 ML INJ IV PRN (23:28)
[2021-04-07] MEDS ORDERED: SODIUM CHLORIDE 0.45% 1000 ML 1,000 ML IV SCH (23:45)
[2021-04-08] MEDS ORDERED: LEVOTHYROXINE 50 MCG TAB PO SCH (06:00)
[2021-04-08 06:11] LABS: Basophils # (Auto) 0.1 K/mm3 (0.0-0.1); Basophils % (Auto) 0.4 % (0.0-1.8); Hematocrit 31.7 % (35.5-45.6); Hemoglobin 10.3 gm/dl (11.8-15.2); Lymphocytes # (Auto) 0.8 K/mm3 (1.2-5.4); Lymphocytes % (Auto) 5.6 % (13.4-35.0); Mean Corpuscular HGB Conc 32 % (32-34); Mean Corpuscular Volume 86 fl (84-94); Monocytes # (Auto) 0.8 K/mm3 (0.0-0.8); Monocytes % (Auto) 5.7 % (0.0-7.3); Platelet Count 391 K/mm3 (140-440); Red Blood Count 3.68 M/mm3 (3.65-5.03); Red Cell Distribution Width 15.8 % (13.2-15.2)
[2021-04-08 06:28] LABS: BUN/Creatinine Ratio 18; Blood Urea Nitrogen 21 mg/dL (9-20); Calcium 8.5 mg/dL (8.4-10.2); Hemolysis Index 5
[2021-04-08] MEDS ORDERED: PANTOPRAZOLE 40 MG TAB PO SCH (07:30)
[2021-04-08] MEDS: IPRATROPIUM/ALBUTEROL SULFATE 3 ML AMPUL.NEB IH SCH ×2 (09:00)
[2021-04-08] MEDS ORDERED: POLYETHYLENE GLYCOL 119 GM PO SCH (10:00)
[2021-04-08] MEDS ORDERED: MEMANTINE 10 MG TAB PO SCH (10:00)
[2021-04-08] MEDS ORDERED: FINASTERIDE 5 MG TAB PO SCH (10:00)
[2021-04-08] MEDS ORDERED: MEMANTINE HCL 28 MG PO SCH (10:00)
[2021-04-08] MEDS ORDERED: POLYETHYLENE GLYCOL 3350 17 GM POWDER PO SCH (10:00)
[2021-04-08] MEDS ORDERED: SERTRALINE 25 MG TAB PO SCH (10:00)
[2021-04-08] MEDS ORDERED: TAMSULOSIN 0.4 MG CAP PO SCH (10:00)
[2021-04-08] MEDS ORDERED: LEVOTHYROXINE PO SCH (10:00)
[2021-04-08 17:41] VITALS: BP 98/56
== END 2021-04-08 18:35 | disposition home health service (06) ==
LOC: ED 14:55 → 4A 23:09
PROVIDERS: ADMIT Hospitalist; ATTEND Internal Medicine
DX: N12 Tubulo-interstitial nephritis, not specified as acute or chronic (principal); D72.829 Elevated white blood cell count, unspecified; N39.0 Urinary tract infection, site not specified; N40.0 Benign prostatic hyperplasia without lower urinary tract symptoms; F03.90 Unspecified dementia, unspecified severity, without behavioral disturbance, psychotic disturbance, mood disturbance, and anxiety; K21.9 Gastro-esophageal reflux disease without esophagitis; E03.9 Hypothyroidism, unspecified; Z79.899 Other long term (current) drug therapy; Z98.890 Other specified postprocedural states
CPT/HCPCS: 36415; 74177; 80048; 80053; 81001; 83735; 85025; 87086; 96361; 96365; 99285; G0378; J1956; J7030; Q9967; 85007

== ENCOUNTER 2022-01-27 18:15 | Inpatient (IN) | payer MEDICARE ==
[2022-01-27] MEDS ORDERED: ONDANSETRON 4 MG/2 ML INJ ONE (20:40)
[2022-01-27] MEDS ORDERED: ONDANSETRON 4 MG/2 ML INJ IV ONE (20:42)
--- NOTE | 2022-01-27 22:24 | Emergency Department Report ---
<DIMITRY ONEILL - Last Filed: 01/27/22 22:20> ED N/V/D HPI - General Chief complaint: Nausea/Vomiting/Diarrhea Stated complaint: NAUSEA Source: patient, EMS Mode of arrival: Stretcher Limitations: Altered Mental Status - History of Present Illness MD complaint: nausea, vomiting, diarrhea Description of Vomiting: food contents, watery Description of Diarrhea: water Associated Abdominal Pain: Yes Location: diffuse Severity: mild Quality: cramping Improves with: none Worsens with: none - Related Data Home Medications Medication Instructions Recorded Confirmed Last Taken Finasteride [Proscar] 5 mg PO QDAY 08/07/20 04/08/21 04/07/21 08:00 Levothyroxine Sodium [Tirosint-Nimo] 50 mcg PO QDAY 08/07/20 04/08/21 04/07/21 07:00 Tamsulosin [Flomax] 0.4 mg PO QDAY 08/07/20 04/08/21 04/06/21 21:00 Memantine HCl [Namenda Xr] 100 mg PO DAILY 12/20/20 04/08/21 04/07/21 09:00 Polyethylene Glycol 3350 [Miralax] 119 gm PO DAILY 12/20/20 04/08/21 04/07/21 09:00 Previous Rx's Medication Instructions Recorded Last Taken Type OLANZapine [Zyprexa] 5 mg PO QDAY #30 tab 09/23/20 04/06/21 09:00 Rx Sertraline [Zoloft] 25 mg PO QDAY #30 tab 09/23/20 04/07/21 09:00 Rx Dicyclomine [Bentyl] 20 mg PO Q6H PRN #30 tablet 03/03/21 03/29/21 08:00 Rx Famotidine [Pepcid] 20 mg PO BID #60 tablet 03/03/21 04/07/21 09:00 Rx Ondansetron [Zofran ODT TAB] 4 mg PO Q8HR PRN #20 tab.rapdis 03/03/21 03/30/21 21:00 Rx Pantoprazole [Protonix TAB] 40 mg PO QDAC #30 tablet 04/08/21 Unknown Rx levoFLOXacin [Levaquin TAB] 500 mg PO QDAY #5 tablet 04/08/21 Unknown Rx Acetaminophen [Tylenol] 650 mg PO Q8HR PRN #20 cap 11/23/21 Unknown Rx Ciprofloxacin HCl 500 mg PO BID 10 Days #20 tablet 12/28/21 Unknown Rx Naproxen [Naprosyn] 500 mg PO BID #14 tablet 12/28/21 Unknown Rx Allergies Allergy/AdvReac Type Severity Reaction Status Date / Time No Known Allergies Allergy Verified 01/25/22 11:37 ED Review of Systems Comment: All other systems reviewed and negative Constitutional: denies: fever, malaise, weakness ENT: denies: throat pain, congestion Endocrine: no symptoms reported. denies: increased thirst, increased urine Gastrointestinal: abdominal pain, nausea, vomiting, diarrhea Genitourinary: denies: urgency, dysuria Musculoskeletal: denies: back pain, joint swelling, arthralgia Skin: denies: rash, lesions Neurological: denies: headache, weakness, numbness, confusion Hematological/Lymphatic: denies: easy bleeding, easy bruising ED Past Medical Hx - Past Medical History Previous Medical History?: Yes Hx GERD: Yes Hx Renal Disease: Yes (BPH; Obstructive uropathy; suprapubic catheter) Hx Dementia: Yes Additional medical history: BPH, hypothyroidism - Surgical History Additional Surgical History: Unable to obtain - Social History Smoking Status: Never Smoker Substance Use Type: None - Medications Home Medications: Home Medications Medication Instructions Recorded Confirmed Last Taken Type Finasteride [Proscar] 5 mg PO QDAY 08/07/20 04/08/21 04/07/21 08:00 History Levothyroxine Sodium [Tirosint-Nimo] 50 mcg PO QDAY 08/07/20 04/08/21 04/07/21 07:00 History Tamsulosin [Flomax] 0.4 mg PO QDAY 08/07/20 04/08/21 04/06/21 21:00 History OLANZapine [Zyprexa] 5 mg PO QDAY #30 tab 09/23/20 04/08/21 04/06/21 09:00 Rx Sertraline [Zoloft] 25 mg PO QDAY #30 tab 09/23/20 04/08/21 04/07/21 09:00 Rx Memantine HCl [Namenda Xr] 100 mg PO DAILY 12/20/20 04/08/21 04/07/21 09:00 History Polyethylene Glycol 3350 [Miralax] 119 gm PO DAILY 12/20/20 04/08/21 04/07/21 09:00 History Dicyclomine [Bentyl] 20 mg PO Q6H PRN #30 tablet 03/03/21 04/08/21 03/29/21 08:00 Rx Famotidine [Pepcid] 20 mg PO BID #60 tablet 03/03/21 04/08/21 04/07/21 09:00 Rx Ondansetron [Zofran ODT TAB] 4 mg PO Q8HR PRN #20 tab.rapdis 03/03/21 04/08/21 03/30/21 21:00 Rx Pantoprazole [Protonix TAB] 40 mg PO QDAC #30 tablet 04/08/21 Unknown Rx levoFLOXacin [Levaquin TAB] 500 mg PO QDAY #5 tablet 04/08/21 Unknown Rx Acetaminophen [Tylenol] 650 mg PO Q8HR PRN #20 cap 11/23/21 Unknown Rx Ciprofloxacin HCl 500 mg PO BID 10 Days #20 tablet 12/28/21 Unknown Rx Naproxen [Naprosyn] 500 mg PO BID #14 tablet 12/28/21 Unknown Rx ED Physical Exam - General Limitations: Altered Mental Status General appearance: alert (Actively vomiting but in no apparent distress) - Head Head exam: Present: atraumatic - Eye Eye exam: Present: normal appearance, PERRL, EOMI - ENT ENT exam: Present: normal exam, mucous membranes moist - Neck Neck exam: Present: normal inspection. Absent: tenderness, meningismus - Respiratory Respiratory exam: Present: normal lung sounds bilaterally. Absent: respiratory distress, wheezes, rales, rhonchi - Cardiovascular Cardiovascular Exam: Present: regular rate, normal rhythm, normal heart sounds - GI/Abdominal GI/Abdominal exam: Present: soft, distended, tenderness (Mild). Absent: guarding, rebound, rigid - Rectal Rectal exam: Present: deferred - Extremities Exam Extremities exam: Present: normal inspection, full ROM - Back Exam Back exam: Present: normal inspection, full ROM. Absent: tenderness - Neurological Exam Neurological exam: Present: alert - Psychiatric Psychiatric exam: Present: flat affect ED Disposition Clinical Impression: SBO (small bowel obstruction), UTI (urinary tract infection), Dehydration, Acute renal failure Disposition: ADMITTED INPATIENT Condition: Stable <ROSY JOSEPH - Last Filed: 01/28/22 09:17> ED Review of Systems ROS: Stated complaint: NAUSEA Other details as noted in HPI ED Course Vital Signs 01/27/22 01/27/22 01/27/22 18:44 18:49 18:52 Temperature 98.1 F Pulse Rate 92 H Respiratory 16 16 12 Rate Blood Pressure Blood Pressure 118/74 [Left] O2 Sat by Pulse 97 99 Oximetry 01/27/22 01/27/22 01/27/22 19:00 19:13 19:15 Temperature 98.8 F Pulse Rate 113 H 103 H 106 H Respiratory 21 17 16 Rate Blood Pressure 103/75 Blood Pressure 103/75 [Left] O2 Sat by Pulse 97 97 96 Oximetry 01/27/22 01/27/22 01/27/22 19:30 19:46 20:00 Temperature Pulse Rate 104 H 107 H 107 H Respiratory 25 H 20 22 Rate Blood Pressure 113/78 113/78 110/76 Blood Pressure [Left] O2 Sat by Pulse 95 95 96 Oximetry 01/27/22 01/27/22 01/27/22 20:16 20:30 20:46 Temperature Pulse Rate 115 H 108 H 108 H Respiratory 21 21 26 H Rate Blood Pressure 109/73 108/76 110/77 Blood Pressure [Left] O2 Sat by Pulse 95 96 94 Oximetry 01/27/22 01/27/22 01/27/22 21:00 21:16 21:30 Temperature Pulse Rate 105 H 110 H 109 H Respiratory 18 20 19 Rate Blood Pressure 109/75 109/75 107/73 Blood Pressure [Left] O2 Sat by Pulse 95 96 96 Oximetry 01/27/22 01/27/22 01/27/22 21:46 22:00 22:16 Temperature Pulse Rate 112 H 117 H 109 H Respiratory 14 17 20 Rate Blood Pressure 107/73 114/81 114/81 Blood Pressure [Left] O2 Sat by Pulse 97 96 94 Oximetry 01/27/22 01/27/22 01/27/22 22:30 22:46 23:00 Temperature Pulse Rate 104 H 117 H 95 H Respiratory 24 19 11 L Rate Blood Pressure 113/78 113/78 75/47 Blood Pressure [Left] O2 Sat by Pulse 95 96 96 Oximetry 01/27/22 01/27/22 01/27/22 23:16 23:26 23:30 Temperature Pulse Rate 100 H 103 H 103 H Respiratory 19 16 12 Rate Blood Pressure 75/47 75/47 75/47 Blood Pressure [Left] O2 Sat by Pulse 96 96 97 Oximetry 01/27/22 01/28/22 01/28/22 23:46 00:00 00:16 Temperature Pulse Rate 99 H 102 H 105 H Respiratory 21 15 16 Rate Blood Pressure 75/47 75/47 75/47 Blood Pressure [Left] O2 Sat by Pulse 96 97 97 Oximetry 01/28/22 01/28/22 01/28/22 00:30 00:46 01:00 Temperature Pulse Rate 100 H 99 H 97 H Respiratory 19 23 18 Rate Blood Pressure 75/47 75/47 75/47 Blood Pressure [Left] O2 Sat by Pulse 95 95 97 Oximetry 01/28/22 01/28/22 01/28/22 01:16 01:30 01:46 Temperature Pulse Rate 96 H 96 H 99 H Respiratory 21 22 20 Rate Blood Pressure 75/47 75/47 75/47 Blood Pressure [Left] O2 Sat by Pulse 96 96 97 Oximetry 01/28/22 01/28/22 01/28/22 02:00 02:16 02:30 Temperature Pulse Rate 96 H 99 H 101 H Respiratory 21 21 12 Rate Blood Pressure 75/47 75/47 75/47 Blood Pressure [Left] O2 Sat by Pulse 96 95 97 Oximetry 01/28/22 01/28/22 01/28/22 02:46 03:00 03:16 Temperature Pulse Rate 103 H 101 H 104 H Respiratory 13 18 12 Rate Blood Pressure 75/47 75/47 75/47 Blood Pressure [Left] O2 Sat by Pulse 97 96 96 Oximetry 01/28/22 01/28/22 01/28/22 03:42 03:46 04:00 Temperature Pulse Rate 103 H 93 H Respiratory 19 17 Rate Blood Pressure 75/47 81/57 85/56 Blood Pressure [Left] O2 Sat by Pulse 96 96 96 Oximetry 01/28/22 01/28/22 01/28/22 04:15 04:30 04:46 Temperature Pulse Rate 88 88 90 Respiratory 20 20 16 Rate Blood Pressure 80/54 86/57 86/57 Blood Pressure [Left] O2 Sat by Pulse 96 95 96 Oximetry 01/28/22 01/28/22 01/28/22 05:00 05:16 05:30 Temperature Pulse Rate 86 85 93 H Respiratory 17 16 18 Rate Blood Pressure 96/63 96/63 106/69 Blood Pressure [Left] O2 Sat by Pulse 95 94 97 Oximetry 01/28/22 01/28/22 01/28/22 05:46 06:00 06:16 Temperature Pulse Rate 99 H 87 96 H Respiratory 17 13 13 Rate Blood Pressure 106/69 102/69 102/69 Blood Pressure [Left] O2 Sat by Pulse 94 96 96 Oximetry 01/28/22 01/28/22 01/28/22 06:30 06:46 06:48 Temperature Pulse Rate 86 89 Respiratory 15 16 Rate Blood Pressure 103/69 103/69 Blood Pressure 103/69 [Left] O2 Sat by Pulse 95 95 Oximetry 01/28/22 01/28/22 01/28/22 07:00 08:00 08:33 Temperature Pulse Rate 93 H 92 H Respiratory 11 L 13 18 Rate Blood Pressure 110/65 106/72 Blood Pressure [Left] O2 Sat by Pulse 96 95 98 Oximetry - Consultations Consultation #1: 01/28/22 09:13 I discussed case with Dr. Martin Storey general surgeon on-call overnight. He is aware of the patient and evaluated him in the ED earlier this morning. He has informed oncoming surgeon Dr. Sanchez about the case. ED Medical Decision Making - Lab Data Result diagrams: 01/27/22 23:11 01/27/22 23:11 - Radiology Data Radiology results: report reviewed CT ABDOMEN AND PELVIS WITHOUT CONTRAST INDICATION / CLINICAL INFORMATION: Persistent vomiting. TECHNIQUE: Axial CT images were obtained through the abdomen and pelvis without IV contrast. All CT scans at this location are per formed using CT dose reduction for ALARA by means of automated exposure control. COMPARISON: None available. FINDINGS: LOWER CHEST: Minimal dependent atelectasis present bilaterally. LIVER: No significant abnormality. GALLBLADDER: No significant abnormality. BILE DUCTS: No significant abnormality. SPLEEN: No significant abnormality. PANCREAS: No significant abnormality. ADRENALS: No significant abnormality. RIGHT KIDNEY / URETER: No significant abnormality. LEFT KIDNEY / URETER: No significant abnormality. STOMACH / DUODENUM / SMALL BOWEL: Multiple loops of small bowel within the abdomen are distended and contain numerous air-fluid levels. Transition point is present within the left mid abdomen as demonstrated on image #99; series #2. COLON: Decompressed. APPENDIX: Not identified PERITONEUM: No free air or free fluid are present within the abdomen or pelvis. LYMPH NODES: No significant adenopathy. AORTA / ARTERIES: No significant abnormality. IVC / VEINS: No significant abnormality. URINARY BLADDER: Decompressed. Suprapubic catheter present. REPRODUCTIVE ORGANS: No significant abnormality. ADDITIONAL ABDOMINAL/PELVIC FINDINGS: Previous midline celiotomy. SKELETAL SYSTEM: No significant abnormality. IMPRESSION: 1. Findings compatible small bowel obstruction. Transition point lies left mid abdomen as detailed. - Medical Decision Making 56-year-old male with small bowel obstruction from overnight evaluated by general surgery. Labs also reveal dehydration, acute renal sufficiency, UTI. Rocephin ordered. Additional IVF ordered. Abdominal x-ray reviewed with recommendation to advance NG tube. Nurse informed. Consult ordered for general surgery. Call placed to hospitalist service for admission Critical care attestation.: If time is entered above; I have spent that time in minutes in the direct care of this critically ill patient, excluding procedure time. ED Disposition Is pt being admited?: Yes Time of Disposition: 09:16 (DR LOVE HOSPITALIST INFORMED)
[2022-01-27] MEDS ORDERED: SODIUM CHLORIDE 0.9% 1000 ML 1,000 ML IV ONE (22:27)
[2022-01-27] MEDS ORDERED: METOCLOPRAMIDE 10 MG/2 ML INJ IV ONE (22:27)
[2022-01-27 23:42] LABS: Albumin 5.4 g/dL (3.9-5); Calcium 10.5 mg/dL (8.4-10.2)
[2022-01-28 00:05] LABS: Basophils % (Auto) 0.1 % (0.0-1.8); Hematocrit 48.4 % (35.5-45.6); Hemoglobin 15.9 gm/dl (11.8-15.2); Lymphocytes # (Auto) 0.5 K/mm3 (1.2-5.4); Mean Corpuscular HGB Conc 33 % (32-34); Mean Corpuscular Volume 86 fl (84-94); Monocytes # (Auto) 0.6 K/mm3 (0.0-0.8); Monocytes % (Auto) 6.9 % (0.0-7.3); Platelet Count 285 K/mm3 (140-440); Red Cell Distribution Width 15.1 % (13.2-15.2)
[2022-01-28] MEDS ORDERED: KETOROLAC 30 MG/1 ML INJ IV ONE (00:13)
[2022-01-28] MEDS ORDERED: ONDANSETRON 4 MG/2 ML INJ IV ONE (03:06)
[2022-01-28 04:12] LABS: Bacteria,Urine 4+ /HPF (Negative); Bilirubin,Urine NEG (Negative); Blood,Urine NEG (Negative); Color,Urine Amber (Yellow); Mucus,Urine 1+ /HPF; Triple Phosphate Crystal,Urine 3+; Urobilinogen,Urine < 2.0 mg/dL (<2.0)
[2022-01-28 04:13] LABS: Protein,Urine >500 mg/dL (Negative)
[2022-01-28] MEDS ORDERED: cefTRIAXone/NS 1 GM/50 ML 1 GM/50 ML BAG IV ONE (09:00)
[2022-01-28] MEDS ORDERED: SODIUM CHLORIDE 0.9% 1000 ML 1,000 ML IV ONE (09:17)
--- NOTE | 2022-01-28 11:32 | XRay Report ---
ABDOMEN 2 VIEWS INDICATION / CLINICAL INFORMATION: Nausea, Vomiting and Diarrhea. COMPARISON: None available. FINDINGS: TUBES / LINES: None. BOWEL GAS PATTERN: Nonspecific bowel gas pattern. Moderate stool noted within the rectal vault. A few loops of small bowel left upper abdomen are minimally prominent in size. FREE AIR / EXTRALUMINAL GAS: None seen. ADDITIONAL FINDINGS: No significant additional findings. CHEST: Visualized chest shows no significant abnormality. IMPRESSION: 1. Moderate stool within the rectal vault. 2. Nonspecific bowel gas pattern. Signer Name: Alhaji Maria II, MD Signed: 01/28/2022 12:48 AM Workstation Name: [id number]
--- NOTE | 2022-01-28 11:32 | Cat Scan Report ---
CT ABDOMEN AND PELVIS WITHOUT CONTRAST INDICATION / CLINICAL INFORMATION: Persistent vomiting. TECHNIQUE: Axial CT images were obtained through the abdomen and pelvis without IV contrast. All CT scans at this location are performed using CT dose reduction for ALARA by means of automated exposure control. COMPARISON: None available. FINDINGS: LOWER CHEST: Minimal dependent atelectasis present bilaterally. LIVER: No significant abnormality. GALLBLADDER: No significant abnormality. BILE DUCTS: No significant abnormality. SPLEEN: No significant abnormality. PANCREAS: No significant abnormality. ADRENALS: No significant abnormality. RIGHT KIDNEY / URETER: No significant abnormality. LEFT KIDNEY / URETER: No significant abnormality. STOMACH / DUODENUM / SMALL BOWEL: Multiple loops of small bowel within the abdomen are distended and contain numerous air-fluid levels. Transition point is present within the left mid abdomen as demonst rated on image #99; series #2. COLON: Decompressed. APPENDIX: Not identified PERITONEUM: No free air or free fluid are present within the abdomen or pelvis. LYMPH NODES: No significant adenopathy. AORTA / ARTERIES: No significant abnormality. IVC / VEINS: No significant abnormality. URINARY BLADDER: Decompressed. Suprapubic catheter present. REPRODUCTIVE ORGANS: No significant abnormality. ADDITIONAL ABDOMINAL/PELVIC FINDINGS: Previous midline celiotomy. SKELETAL SYSTEM: No significant abnormality. IMPRESSION: 1. Findings compatible small bowel obstruction. Transition point lies left mid abdomen as detailed. Signer Name: Alhaji Maria II, MD Signed: 01/28/2022 4:55 AM Workstation Name: [id number]
--- NOTE | 2022-01-28 11:33 | XRay Report ---
XR abdomen 1V ap INDICATION / CLINICAL INFORMATION: NG Placement. COMPARISON: None available. TECHNIQUE: One view supine AP abdomen. FINDINGS: TUBES / LINES: The esophagogastric tube terminates within the cardia of the stomach. Advancement by 8 to 10 cm could be considered for optimal positioning. BOWEL GAS PATTERN: Small bowel obstruction multiple loops of small bowel distention midabdomen. FREE AIR / EXTRALUMINAL GAS: None seen. ADDITIONAL FINDINGS: No significant additional findings. IMPRESSION: 1. Advancement of the esophagogastric tube is recommended for optimal positioning. 2. The appearance of the bowel gas pattern is compatible with small bowel obstruction. Signer Name: Alhaji Maria II, MD Signed: 01/28/2022 7:27 AM Workstation Name: [id number]
--- NOTE | 2022-01-28 11:38 | History and Physical Report ---
History of Present Illness Date of examination: 01/28/22 Date of admission: 01/28/22 Chief complaint: Chief complaint nausea vomiting and diarrhea History of present illness: 56-year-old male patient with significant past medical history of obstructive uropathy with suprapubic catheter hypothyroidism hypertension, BPH, dementia presented to the emergency room with intractable nausea vomiting and abdominal pain of 2 to 3 days duration, no history of travel , no history of food poisoning No hematemesis melena, patient also complains of vague abdominal pain CT abdomen and pelvis findings consistent with small bowel obstruction transition point lies left midabdomen details reviewed Patient was evaluated by general surgeon Dr. Salazar recommended NG tube n.p.o. status and advised that covering surgeon Dr. Aggarwal will follow with the patient initial evaluation is also consistent with acute kidney injury, urine analysis consistent with UTI and dehydration Patient received a dose of Rocephin and IV fluids. Past History Past Medical History: hypertension, hypothyroidism, other (Dementia. Obstructive uropathy, suprapubic catheter placement) Past Surgical History: Other (Suprapubic catheter) Social history: denies: smoking, alcohol abuse, prescription drug abuse Family history: no significant family history Medications and Allergies Allergies Allergy/AdvReac Type Severity Reaction Status Date / Time No Known Allergies Allergy Verified 01/25/22 11:37 Home Medications Medication Instructions Recorded Confirmed Last Taken Type Finasteride [Proscar] 5 mg PO QDAY 08/07/20 04/08/21 04/07/21 08:00 History Levothyroxine Sodium [Tirosint-Nimo] 50 mcg PO QDAY 08/07/20 04/08/21 04/07/21 07:00 History Tamsulosin [Flomax] 0.4 mg PO QDAY 08/07/20 04/08/21 04/06/21 21:00 History OLANZapine [Zyprexa] 5 mg PO QDAY #30 tab 09/23/20 04/08/21 04/06/21 09:00 Rx Sertraline [Zoloft] 25 mg PO QDAY #30 tab 09/23/20 04/08/21 04/07/21 09:00 Rx Memantine HCl [Namenda Xr] 100 mg PO DAILY 12/20/20 04/08/21 04/07/21 09:00 History Polyethylene Glycol 3350 [Miralax] 119 gm PO DAILY 12/20/20 04/08/21 04/07/21 09:00 History Dicyclomine [Bentyl] 20 mg PO Q6H PRN #30 tablet 03/03/21 04/08/21 03/29/21 08:00 Rx Famotidine [Pepcid] 20 mg PO BID #60 tablet 03/03/21 04/08/21 04/07/21 09:00 Rx Ondansetron [Zofran ODT TAB] 4 mg PO Q8HR PRN #20 tab.rapdis 03/03/21 04/08/21 03/30/21 21:00 Rx Pantoprazole [Protonix TAB] 40 mg PO QDAC #30 tablet 04/08/21 Unknown Rx levoFLOXacin [Levaquin TAB] 500 mg PO QDAY #5 tablet 04/08/21 Unknown Rx Acetaminophen [Tylenol] 650 mg PO Q8HR PRN #20 cap 11/23/21 Unknown Rx Ciprofloxacin HCl 500 mg PO BID 10 Days #20 tablet 12/28/21 Unknown Rx Naproxen [Naprosyn] 500 mg PO BID #14 tablet 12/28/21 Unknown Rx Active Meds: Active Medications Sodium Chloride (Nacl 0.9% 1000 Ml) 1,000 mls @ 250 mls/hr IV ONCE ONE Stop: 01/28/22 13:16 Review of Systems Constitutional: fatigue, weakness, no weight loss, no weight gain Cardiovascular: no chest pain, no orthopnea, no palpitations, no lightheadedness, no shortness of breath Respiratory: no cough, no shortness of breath Gastrointestinal: abdominal pain, nausea, vomiting Genitourinary Male: no dysuria, no hematuria Musculoskeletal: no neck stiffness, no myalgias, no arthritis Integumentary: no rash, no lesions Neurological: no weakness, no parathesias, no syncope Psychiatric: no anxiety, no depression Endocrine: no cold intolerance Hematologic/Lymphatic: no easy bruising, no easy bleeding Allergic/Immunologic: no urticaria, no allergic rhinitis Exam - Constitutional Vitals: Temp Pulse Resp BP Pulse Ox 98.8 F 91 H 14 109/73 97 01/27/22 19:13 01/28/22 10:00 01/28/22 10:00 01/28/22 10:00 01/28/22 10:00 General appearance: Present: mild distress, well-nourished - EENT Eyes: Present: PERRL, EOM intact - Neck Neck: Present: supple, normal ROM - Respiratory Respiratory effort: normal Respiratory: bilateral: diminished, rhonchi, negative: rales, wheezing - Cardiovascular Rhythm: regular Heart Sounds: Present: S1 & S2 - Extremities Extremities: no ischemia, normal temperature - Abdominal General gastrointestinal: Present: soft, non-tender, distended, other (Suprapubic catheter in place) - Integumentary Integumentary: Present: clear, warm - Musculoskeletal Musculoskeletal: strength equal bilaterally - Psychiatric Psychiatric: appropriate mood/affect, cooperative - Neurologic Neurologic: moves all extremities Results - Labs CBC & Chem 7: 01/27/22 23:11 01/27/22 23:11 Labs: Abnormal lab results 01/27/22 01/27/22 01/28/22 Range/Units 23:11 23:11 03:53 RBC 5.60 H (3.65-5.03) M/mm3 Hgb 15.9 H (11.8-15.2) gm/dl Hct 48.4 H (35.5-45.6) % Lymph % (Auto) 6.0 L (13.4-35.0) % Lymph # (Auto) 0.5 L (1.2-5.4) K/mm3 Seg Neutrophils % 87.0 H (40.0-70.0) % Seg Neutrophils # 7.9 H (1.8-7.7) K/mm3 Potassium 5.4 H (3.6-5.0) mmol/L Carbon Dioxide 15 L (22-30) mmol/L BUN 40 H (9-20) mg/dL Creatinine 1.8 H (0.8-1.3) mg/dL Glucose 186 H (75-100) mg/dL Calcium 10.5 H (8.4-10.2) mg/dL Total Protein 9.4 H (6.3-8.2) g/dL Albumin 5.4 H (3.9-5) g/dL Urine pH 8.0 H (5.0-7.0) Urine WBC (Auto) 75.0 H (0.0-6.0) /HPF Assessment and Plan --Small bowel obstruction; NPO , IV fluids, supportive care Surgery evaluation --Acute kidney injury; Vasomotor nephropathy IV fluids, monitor renal function Avoid nephrotoxins, renal dosing of medications Nephrology consult if needed --Urinary tract infection/present on admission Empiric antibiotics. Follow cultures. IV fluids Supportive care --Hyperkalemia; Closely monitor electrolytes --Hypothyroidism; Resume home medications --History of BPH; Continue Flomax --DVT prophylaxis; SCDs, Heparin subcu --Full CODE STATUS We will closely monitor the patient and adjust the management as needed Follow surgery evaluation recommendations Plan of care reviewed with the patient and his nurse Time spent 55 minutes to coordinate this admission Follow consultants recommendations
[2022-01-28] MEDS ORDERED: oxyCODONE /ACETAMINOPHEN 5-325MG TAB PO PRN (11:46)
[2022-01-28] MEDS ORDERED: ACETAMINOPHEN 325 MG TAB PO PRN (11:46)
[2022-01-28] MEDS ORDERED: MORPHINE 4 MG/1 ML INJ IV PRN (11:46)
[2022-01-28] MEDS ORDERED: MORPHINE 2 MG/1 ML INJ IV PRN (11:46)
[2022-01-28] MEDS ORDERED: METOCLOPRAMIDE 10 MG/2 ML INJ IV PRN (11:46)
[2022-01-28] MEDS ORDERED: ONDANSETRON 4 MG/2 ML INJ IV PRN (11:46)
[2022-01-28] MEDS: D5W/0.9% NACL 1,000 ML IV SCH (15:39)
[2022-01-28] MEDS: cefTRIAXone/NS 2 GM/100 ML 2 GM/100 ML BAG IV SCH (19:37)
[2022-01-28] MEDS: FAMOTIDINE 20 MG/2 ML INJ IV SCH (21:21)
[2022-01-28] MEDS: HEPARIN 5,000 UNIT/1 ML VIAL SUB-Q SCH (21:22)
[2022-01-28] MEDS ORDERED: FAMOTIDINE 20 MG/2 ML INJ IV SCH (22:00)
[2022-01-29 00:03] LABS: Calcium 9.2 mg/dL (8.4-10.2)
[2022-01-29] MEDS: D5W/0.9% NACL 1,000 ML IV SCH ×2 (02:45→20:35)
[2022-01-29] MEDS: MEMANTINE 10 MG TAB PO SCH ×2 (02:48→10:26)
[2022-01-29] MEDS: HEPARIN 5,000 UNIT/1 ML VIAL SUB-Q SCH ×3 (05:28→21:04)
[2022-01-29] MEDS: LEVOTHYROXINE 50 MCG TAB PO SCH (05:32)
[2022-01-29 06:05] LABS: Basophils % (Auto) 0.3 % (0.0-1.8); Eosinophils # (Auto) 0.2 K/mm3 (0.0-0.4); Eosinophils % (Auto) 2.4 % (0.0-4.3); Hematocrit 43.8 % (35.5-45.6); Hemoglobin 14.1 gm/dl (11.8-15.2); Lymphocytes # (Auto) 1.1 K/mm3 (1.2-5.4); Lymphocytes % (Auto) 17.4 % (13.4-35.0); Mean Corpuscular HGB Conc 32 % (32-34); Mean Corpuscular Volume 87 fl (84-94); Monocytes # (Auto) 0.9 K/mm3 (0.0-0.8); Monocytes % (Auto) 14.1 % (0.0-7.3); Platelet Count 236 K/mm3 (140-440); Red Blood Count 5.02 M/mm3 (3.65-5.03); Red Cell Distribution Width 15.5 % (13.2-15.2)
[2022-01-29 06:25] LABS: Albumin 3.9 g/dL (3.9-5); Calcium 8.3 mg/dL (8.4-10.2)
[2022-01-29] MEDS ORDERED: MEMANTINE HCL 28 MG PO SCH (10:00)
[2022-01-29] MEDS ORDERED: LEVOTHYROXINE PO SCH (10:00)
[2022-01-29] MEDS: TAMSULOSIN 0.4 MG CAP PO SCH (10:26)
[2022-01-29] MEDS: FAMOTIDINE 20 MG/2 ML INJ IV SCH ×2 (10:26→21:04)
[2022-01-29] MEDS: SERTRALINE 25 MG TAB PO SCH (10:27)
[2022-01-29] MEDS: FINASTERIDE 5 MG TAB PO SCH (10:27)
--- NOTE | 2022-01-29 13:39 | Progress Note ---
Assessment and Plan Assessment and plan: --Small bowel obstruction; NPO , IV fluids, supportive care Surgery evaluation, NG tube suction as needed --Acute kidney injury; creatinine trending down Vasomotor nephropathy IV fluids, monitor renal function Avoid nephrotoxins, renal dosing of medications Nephrology consult if needed --Urinary tract infection/present on admission Empiric antibiotics. Follow cultures. IV fluids Supportive care --Hyperkalemia; Closely monitor electrolytes --Hypothyroidism; Resume home medications --History of BPH; Continue Flomax --DVT prophylaxis; SCDs, Heparin subcu --Full CODE STATUS We will closely monitor the patient and adjust the management as needed Follow surgery evaluation recommendations Plan of care reviewed with the patient and his nurse History Interval history: I have seen and examined the patient at the bedside Patient's chart and medications reviewed No new event reported by the nursing staff Vital signs noted Patient did not have a bowel movement No nausea 1 Hospitalist Physical - Constitutional Vitals: Temp Pulse Resp BP Pulse Ox 97.5 F L 81 20 135/85 94 01/29/22 11:16 01/29/22 11:16 01/29/22 11:16 01/29/22 11:16 01/29/22 11:16 General appearance: Present: mild distress, well-nourished - EENT Eyes: Present: PERRL, EOM intact - Neck Neck: Present: supple, normal ROM - Respiratory Respiratory effort: normal Respiratory: bilateral: diminished, negative: rales, rhonchi, wheezing - Cardiovascular Rhythm: regular Heart Sounds: Present: S1 & S2 - Extremities Extremities: no ischemia, No edema - Abdominal General gastrointestinal: soft, non-tender, non-distended, normal bowel sounds - Integumentary Integumentary: Present: clear, warm - Psychiatric Psychiatric: appropriate mood/affect, cooperative - Neurologic Neurologic: CNII-XII intact, moves all extremities Results - Labs CBC & Chem 7: 01/29/22 04:43 01/29/22 04:43 Labs: Laboratory Last Values WBC 6.3 K/mm3 (4.5-11.0) 01/29/22 04:43 RBC 5.02 M/mm3 (3.65-5.03) 01/29/22 04:43 Hgb 14.1 gm/dl (11.8-15.2) 01/29/22 04:43 Hct 43.8 % (35.5-45.6) 01/29/22 04:43 MCV 87 fl (84-94) 01/29/22 04:43 MCH 28 pg (28-32) 01/29/22 04:43 MCHC 32 % (32-34) 01/29/22 04:43 RDW 15.5 % (13.2-15.2) H 01/29/22 04:43 Plt Count 236 K/mm3 (140-440) 01/29/22 04:43 Lymph % (Auto) 17.4 % (13.4-35.0) 01/29/22 04:43 [place] % (Auto) 14.1 % (0.0-7.3) H 01/29/22 04:43 Eos % (Auto) 2.4 % (0.0-4.3) 01/29/22 04:43 Baso % (Auto) 0.3 % (0.0-1.8) 01/29/22 04:43 Lymph # (Auto) 1.1 K/mm3 (1.2-5.4) L 01/29/22 04:43 [place] # (Auto) 0.9 K/mm3 (0.0-0.8) H 01/29/22 04:43 Eos # (Auto) 0.2 K/mm3 (0.0-0.4) 01/29/22 04:43 Baso # (Auto) 0.0 K/mm3 (0.0-0.1) 01/29/22 04:43 Seg Neutrophils % 65.8 % (40.0-70.0) 01/29/22 04:43 Seg Neutrophils # 4.2 K/mm3 (1.8-7.7) 01/29/22 04:43 Sodium 143 mmol/L (137-145) 01/29/22 04:43 Potassium 4.2 mmol/L (3.6-5.0) 01/29/22 04:43 Chloride 108.9 mmol/L (98-107) H 01/29/22 04:43 Carbon Dioxide 20 mmol/L (22-30) L 01/29/22 04:43 Anion Gap 18 mmol/L 01/29/22 04:43 BUN 45 mg/dL (9-20) H 01/29/22 04:43 Creatinine 1.3 mg/dL (0.8-1.3) 01/29/22 04:43 Estimated GFR 57 ml/min 01/29/22 04:43 BUN/Creatinine Ratio 35 % 01/29/22 04:43 Glucose 115 mg/dL (75-100) H 01/29/22 04:43 Calcium 8.3 mg/dL (8.4-10.2) L 01/29/22 04:43 Total Bilirubin 0.20 mg/dL (0.1-1.2) 01/29/22 04:43 AST 14 units/L (5-40) 01/29/22 04:43 ALT 6 units/L (7-56) L 01/29/22 04:43 Alkaline Phosphatase 75 units/L (35-129) 01/29/22 04:43 Total Protein 7.5 g/dL (6.3-8.2) D 01/29/22 04:43 Albumin 3.9 g/dL (3.9-5) 01/29/22 04:43 Albumin/Globulin Ratio 1.1 % 01/29/22 04:43 Lipase 41 units/L (13-60) 01/27/22 23:11 Urine Color Rose (Yellow) 01/28/22 03:53 Urine Turbidity Turbid (Clear) 01/28/22 03:53 Urine pH 8.0 (5.0-7.0) H 01/28/22 03:53 Ur Specific [place] 1.020 (1.003-1.030) 01/28/22 03:53 Urine Protein >500 mg/dL (Negative) 01/28/22 03:53 Urine Glucose (UA) Neg mg/dL (Negative) 01/28/22 03:53 Urine Ketones Tr mg/dL (Negative) 01/28/22 03:53 Urine Blood Neg (Negative) 01/28/22 03:53 Urine Nitrite Neg (Negative) 01/28/22 03:53 Urine Bilirubin Neg (Negative) 01/28/22 03:53 Urine Urobilinogen < 2.0 mg/dL (<2.0) 01/28/22 03:53 Ur Leukocyte Esterase Lg (Negative) 01/28/22 03:53 Urine WBC (Auto) 75.0 /HPF (0.0-6.0) H 01/28/22 03:53 Urine RBC (Auto) 38.0 /HPF (0.0-6.0) 01/28/22 03:53 Urine Bacteria (Auto) 4+ /HPF (Negative) 01/28/22 03:53 Triple Phos Crystals 3+ 01/28/22 03:53 Urine Mucus 1+ /HPF 01/28/22 03:53 Microbiology: Microbiology 01/28/22 03:53 Urine,Clean Catch Urine Culture - Preliminary 01/28/22 20:13 Peripheral/Venous Blood Culture - Preliminary Culture in Progress 01/28/22 20:03 Peripheral/Venous Blood Culture - Preliminary Culture in Progress Almaraz/IV: Voiding Method Suprapubic catheter Active Medications - Current Medications Current Medications: Generic Name Dose Route Start Last Admin Trade Name Freq PRN Reason Stop Dose Admin Acetaminophen 650 mg 01/28/22 11:46 Acetaminophen 325 Mg Tab PO Q4H PRN Pain MILD(1-3)/Fever >100.5/GARCIA Famotidine 10 mg 01/28/22 22:00 01/29/22 10:26 Famotidine 20 Mg/2 Ml Inj IV 10 mg BID [facility] Administration Finasteride 5 mg 01/29/22 10:00 01/29/22 10:27 Finasteride 5 Mg Tab PO Not Given QDAY [facility] Heparin Sodium (Porcine) 5,000 unit 01/28/22 14:00 01/29/22 05:28 Heparin 5,000 Unit/1 Ml Vial SUB-Q 5,000 unit Q8HR [facility] Administration Dextrose/Sodium Chloride 1,000 mls @ 100 mls/hr 01/28/22 12:00 01/29/22 02:45 D5ns IV 100 mls/hr DIRECT [facility] Administration Ceftriaxone Sodium 2 gm in 100 mls @ 200 mls/hr 01/28/22 19:00 01/28/22 19:37 Rocephin/Ns 2 Gm/100 Ml IV 200 mls/hr Q24H [facility] Administration Protocol Levothyroxine Sodium 50 mcg 01/29/22 06:00 01/29/22 05:32 Levothyroxine 50 Mcg Tab PO Not Given DAILY@0600 [facility] Memantine 10 mg 01/28/22 22:00 01/29/22 10:26 Memantine 10 Mg Tab PO Not Given Q12HR [facility] Metoclopramide HCl 10 mg 01/28/22 11:46 Metoclopramide 10 Mg/2 Ml Inj IV Q6H PRN Nausea And Vomiting Morphine Sulfate 2 mg 01/28/22 11:46 Morphine 2 Mg/1 Ml Inj IV Q4H PRN Pain, Moderate (4-6) Morphine Sulfate 4 mg 01/28/22 11:46 Morphine 4 Mg/1 Ml Inj IV Q4H PRN Pain , Severe (7-10) Olanzapine 5 mg 01/29/22 10:00 01/29/22 10:27 Olanzapine 5 Mg Tab PO Not Given QDAY [facility] Ondansetron HCl 4 mg 01/28/22 11:46 Ondansetron 4 Mg/2 Ml Inj IV Q8H PRN Nausea And Vomiting Oxycodone/Acetaminophen 1 tab 01/28/22 11:46 Oxycodone /Acetaminophen 5-325mg Tab PO Q6H PRN Pain, Moderate (4-6) Sertraline HCl 25 mg 01/29/22 10:00 01/29/22 10:27 Sertraline 25 Mg Tab PO Not Given QDAY [facility] Sodium Chloride 10 ml 01/28/22 22:00 01/29/22 10:27 Sodium Chloride 0.9% 10 Ml Flush Syringe IV Not Given BID [facility] Sodium Chloride 10 ml 01/28/22 11:46 Sodium Chloride 0.9% 10 Ml Flush Syringe IV PRN PRN LINE FLUSH Tamsulosin HCl 0.4 mg 01/29/22 10:00 01/29/22 10:26 Tamsulosin 0.4 Mg Cap PO Not Given [facility]DAY [facility]
--- NOTE | 2022-01-29 13:55 | Consultation ---
History of Present Illness Consult date: 01/28/22 Reason for consult: abdominal pain - History of present illness History of present illness: 56-year-old male patient with significant past medical history of obstructive uropathy with suprapubic catheter hypothyroidism hypertension, BPH, dementia presented to the emergency room with intractable nausea vomiting and abdominal pain of 2 to 3 days duration, no history of travel , no history of food poisoning No hematemesis melena, patient also complains of vague abdominal pain CT abdomen and pelvis findings consistent with small bowel obstruction transition point lies left midabdomen details reviewed Patient was evaluated by general myself early Sunday am recommended NG tube n.p.o. status and advised that covering surgeon Dr. Sanchez will follow with the patient initial evaluation is also consistent with acute kidney injury, urine analysis consistent with UTI and dehydration Patient received a dose of Rocephin and IV fluids. Past History Past Medical History: hypertension, hypothyroidism, other (Dementia. Obstructive uropathy, suprapubic catheter placement) Past Surgical History: Other (Suprapubic catheter) Social history: denies: smoking, alcohol abuse, prescription drug abuse Family history: no significant family history Medications and Allergies Allergies Allergy/AdvReac Type Severity Reaction Status Date / Time No Known Allergies Allergy Verified 01/25/22 11:37 Home Medications Medication Instructions Recorded Confirmed Last Taken Type Finasteride [Proscar] 5 mg PO QDAY 08/07/20 04/08/21 04/07/21 08:00 History Levothyroxine Sodium [Tirosint-Nimo] 50 mcg PO QDAY 08/07/20 04/08/21 04/07/21 07:00 History Tamsulosin [Flomax] 0.4 mg PO QDAY 08/07/20 04/08/21 04/06/21 21:00 History OLANZapine [Zyprexa] 5 mg PO QDAY #30 tab 09/23/20 04/08/21 04/06/21 09:00 Rx Sertraline [Zoloft] 25 mg PO QDAY #30 tab 09/23/20 04/08/21 04/07/21 09:00 Rx Memantine HCl [Namenda Xr] 100 mg PO DAILY 12/20/20 04/08/21 04/07/21 09:00 History Polyethylene Glycol 3350 [Miralax] 119 gm PO DAILY 12/20/20 04/08/2104/07/21 09:00 History Dicyclomine [Bentyl] 20 mg PO Q6H PRN #30 tablet 03/03/21 04/08/21 03/29/21 08:00 Rx Famotidine [Pepcid] 20 mg PO BID #60 tablet 03/03/21 04/08/21 04/07/21 09:00 Rx Ondansetron [Zofran ODT TAB] 4 mg PO Q8HR PRN #20 tab.rapdis 03/03/21 04/08/21 03/30/21 21:00 Rx Pantoprazole [Protonix TAB] 40 mg PO QDAC #30 tablet 04/08/21 Unknown Rx levoFLOXacin [Levaquin TAB] 500 mg PO QDAY #5 tablet 04/08/21 Unknown Rx Acetaminophen [Tylenol] 650 mg PO Q8HR PRN #20 cap 11/23/21 Unknown Rx Ciprofloxacin HCl 500 mg PO BID 10 Days #20 tablet 12/28/21 Unknown Rx Naproxen [Naprosyn] 500 mg PO BID #14 tablet 12/28/21 Unknown Rx Active Meds: Active Medications Acetaminophen (Acetaminophen 325 Mg Tab) 650 mg PO Q4H PRN PRN Reason: Pain MILD(1-3)/Fever >100.5/GARCIA Famotidine (Famotidine 20 Mg/2 Ml Inj) 10 mg IV BID [facility] Last Admin: 01/29/22 10:26 Dose: 10 mg Finasteride (Finasteride 5 Mg Tab) 5 mg PO QDAY [facility] Last Admin: 01/29/22 10:27 Dose: Not Given Heparin Sodium (Porcine) (Heparin 5,000 Unit/1 Ml Vial) 5,000 unit SUB-Q Q8HR [facility] Last Admin: 01/29/22 05:28 Dose: 5,000 unit Dextrose/Sodium Chloride (D5ns) 1,000 mls @ 100 mls/hr IV DIRECT [facility] Last Admin: 01/29/22 02:45 Dose: 100 mls/hr Ceftriaxone Sodium (Rocephin/Ns 2 Gm/100 Ml) 2 gm in 100 mls @ 200 mls/hr IV Q24H [facility]; Protocol Last Admin: 01/28/22 19:37 Dose: 200 mls/hr Levothyroxine Sodium (Levothyroxine 50 Mcg Tab) 50 mcg PO DAILY@0600 [facility] Last Admin: 01/29/22 05:32 Dose: Not Given Memantine (Memantine 10 Mg Tab) 10 mg PO Q12HR [facility] Last Admin: 01/29/22 10:26 Dose: Not Given Metoclopramide HCl (Metoclopramide 10 Mg/2 Ml Inj) 10 mg IV Q6H PRN PRN Reason: Nausea And Vomiting Morphine Sulfate (Morphine 2 Mg/1 Ml Inj) 2 mg IV Q4H PRN PRN Reason: Pain, Moderate (4-6) Morphine Sulfate (Morphine 4 Mg/1 Ml Inj) 4 mg IV Q4H PRN PRN Reason: Pain , Severe (7-10) Olanzapine (Olanzapine 5 Mg Tab) 5 mg PO QDAY [facility] Last Admin: 01/29/22 10:27 Dose: Not Given Ondansetron HCl (Ondansetron 4 Mg/2 Ml Inj) 4 mg IV Q8H PRN PRN Reason: Nausea And Vomiting Oxycodone/Acetaminophen (Oxycodone /Acetaminophen 5-325mg Tab) 1 tab PO Q6H PRN PRN Reason: Pain, Moderate (4-6) Sertraline HCl (Sertraline 25 Mg Tab) 25 mg PO QDAY [facility] Last Admin: 01/29/22 10:27 Dose: Not Given Sodium Chloride (Sodium Chloride 0.9% 10 Ml Flush Syringe) 10 ml IV BID [facility] Last Admin: 01/29/22 10:27 Dose: Not Given Sodium Chloride (Sodium Chloride 0.9% 10 Ml Flush Syringe) 10 ml IV PRN PRN PRN Reason: LINE FLUSH Tamsulosin HCl (Tamsulosin 0.4 Mg Cap) 0.4 mg PO QDAY [facility] Last Admin: 01/29/22 10:26 Dose: Not Given Exam Vital Signs Temp Pulse Resp BP Pulse Ox 98.1 F 92 H 16 118/74 97 01/27/22 18:44 01/27/22 18:44 01/27/22 18:44 01/27/22 18:44 01/27/22 18:44 Results - Labs 01/29/22 04:43 01/29/22 04:43 Abnormal lab results 01/28/22 01/29/22 01/29/22 Range/Units 22:14 04:43 04:43 RDW 15.5 H (13.2-15.2) % [place] % (Auto) 14.1 H (0.0-7.3) % Lymph # (Auto) 1.1 L (1.2-5.4) K/mm3 [place] # (Auto) 0.9 H (0.0-0.8) K/mm3 Chloride 108.9 H (98-107) mmol/L Carbon Dioxide 19 L 20 L (22-30) mmol/L BUN 58 H 45 H (9-20) mg/dL Creatinine 1.8 H (0.8-1.3) mg/dL Glucose 128 H 115 H (75-100) mg/dL Calcium 8.3 L (8.4-10.2) mg/dL ALT 6 L (7-56) units/L Diabetes panel 01/28/22 01/29/22 Range/Units 22:14 04:43 Sodium 141 143 (137-145) mmol/L Potassium 4.4 4.2 (3.6-5.0) mmol/L Chloride 103.6 108.9 H (98-107) mmol/L Carbon Dioxide 19 L 20 L (22-30) mmol/L BUN 58 H 45 H (9-20) mg/dL Creatinine 1.8 H 1.3 (0.8-1.3) mg/dL Glucose 128 H 115 H (75-100) mg/dL Calcium 9.2 8.3 L (8.4-10.2) mg/dL AST 14 (5-40) units/L ALT 6 L (7-56) units/L Alkaline Phosphatase 75 (35-129) units/L Total Protein 7.5 D (6.3-8.2) g/dL Albumin 3.9 (3.9-5) g/dL Calcium panel 01/28/22 01/29/22 Range/Units 22:14 04:43 Calcium 9.2 8.3 L (8.4-10.2) mg/dL Albumin 3.9 (3.9-5) g/dL Pituitary panel 01/28/22 01/29/22 Range/Units 22:14 04:43 Sodium 141 143 (137-145) mmol/L Potassium 4.4 4.2 (3.6-5.0) mmol/L Chloride 103.6 108.9 H (98-107) mmol/L Carbon Dioxide 19 L 20 L (22-30) mmol/L BUN 58 H 45 H (9-20) mg/dL Creatinine 1.8 H 1.3 (0.8-1.3) mg/dL Glucose 128 H 115 H (75-100) mg/dL Calcium 9.2 8.3 L (8.4-10.2) mg/dL Adrenal panel 01/28/22 01/29/22 Range/Units 22:14 04:43 Sodium 141 143 (137-145) mmol/L Potassium 4.4 4.2 (3.6-5.0) mmol/L Chloride 103.6 108.9 H (98-107) mmol/L Carbon Dioxide 19 L 20 L (22-30) mmol/L BUN 58 H 45 H (9-20) mg/dL Creatinine 1.8 H 1.3 (0.8-1.3) mg/dL Glucose 128 H 115 H (75-100) mg/dL Calcium 9.2 8.3 L (8.4-10.2) mg/dL Total Bilirubin 0.20 (0.1-1.2) mg/dL AST 14 (5-40) units/L ALT 6 L (7-56) units/L Alkaline Phosphatase 75 (35-129) units/L Total Protein 7.5 D (6.3-8.2) g/dL Albumin 3.9 (3.9-5) g/dL Assessment and Plan 56-year-old male patient with significant past medical history of obstructive uropathy with suprapubic catheter hypothyroidism hypertension, BPH, dementia presented to the emergency room with intractable nausea vomiting and abdominal pain of 2 to 3 days duration, no history of travel , no history of food poisoning No hematemesis melena, patient also complains of vague abdominal pain CT abdomen and pelvis findings consistent with small bowel obstruction transition point lies left midabdomen details reviewed Patient was evaluated by general myself early Sunday am recommended NG tube n. p.o. status and advised that covering surgeon Dr. Sanchez will follow with the patient initial evaluation is also consistent with acute kidney injury, urine analysis consistent with UTI and dehydration Patient received a dose of Rocephin and IV fluids. Pt with low midline incision on exam of unk etiology. SBO most likely secondary to adhesions.
--- NOTE | 2022-01-29 14:52 | XRay Report ---
ABDOMEN AP SUPINE 1403 INDICATION: Follow-up/small bowel obstruction COMPARISON: 01/28/2022 FINDINGS: Nasogastric tube is only partially visualized as the upper abdomen not seen well. Some gas is seen in the colon. Small bowel dilatation continues though may be slightly improved. Signer Name: Blas Morgan MD Signed: 01/29/2022 2:48 PM Workstation Name: [id number]
--- NOTE | 2022-01-29 18:59 | Progress Note ---
Assessment and Plan - Patient Problems (1) SBO (small bowel obstruction) Current Visit: Yes Status: Acute Plan to address problem: 1) SBO appears to be improving. Will continue NG to LIS. AXR, CBC and BMP in the am. Subjective Date of service: 01/29/22 Patient Reports: Positive: no new complaints, feels better, pain is less, flatus, bowel movement, diarrhea. Negative: nausea, vomiting Objective Vital Signs - 12hr 01/29/22 01/29/22 11:16 16:00 Temperature 97.5 F L Pulse Rate 81 Respiratory 20 Rate Blood Pressure 135/85 O2 Sat by Pulse 94 98 Oximetry - Abdomen PM_46_EXABD1 4, PM_46_EXABD1 6, PM_46_EXABD1 8 Hernia: none - Labs 01/29/22 04:43 01/29/22 04:43 Diabetes panel 01/28/22 01/29/22 Range/Units 22:14 04:43 Sodium 141 143 (137-145) mmol/L Potassium 4.4 4.2 (3.6-5.0) mmol/L Chloride 103.6 108.9 H (98-107) mmol/L Carbon Dioxide 19 L 20 L (22-30) mmol/L BUN 58 H 45 H (9-20) mg/dL Creatinine 1.8 H 1.3 (0.8-1.3) mg/dL Glucose 128 H 115 H (75-100) mg/dL Calcium 9.2 8.3 L (8.4-10.2) mg/dL AST 14 (5-40) units/L ALT 6 L (7-56) units/L Alkaline Phosphatase 75 (35-129) units/L Total Protein 7.5 D (6.3-8.2) g/dL Albumin 3.9 (3.9-5) g/dL Calcium panel 01/28/22 01/29/22 Range/Units 22:14 04:43 Calcium 9.2 8.3 L (8.4-10.2) mg/dL Albumin 3.9 (3.9-5) g/dL Pituitary panel 01/28/22 01/29/22 Range/Units 22:14 04:43 Sodium 141 143 (137-145) mmol/L Potassium 4.4 4.2 (3.6-5.0) mmol/L Chloride 103.6 108.9 H (98-107) mmol/L Carbon Dioxide 19 L 20 L (22-30) mmol/L BUN 58 H 45 H (9-20) mg/dL Creatinine 1.8 H 1.3 (0.8-1.3) mg/dL Glucose 128 H 115 H (75-100) mg/dL Calcium 9.2 8.3 L (8.4-10.2) mg/dL Adrenal panel 01/28/22 01/29/22 Range/Units 22:14 04:43 Sodium 141 143 (137-145) mmol/L Potassium 4.4 4.2 (3.6-5.0) mmol/L Chloride 103.6 108.9 H (98-107) mmol/L Carbon Dioxide 19 L 20 L (22-30) mmol/L BUN 58 H 45 H (9-20) mg/dL Creatinine 1.8 H 1.3 (0.8-1.3) mg/dL Glucose 128 H 115 H (75-100) mg/dL Calcium 9.2 8.3 L (8.4-10.2) mg/dL Total Bilirubin 0.20 (0.1-1.2) mg/dL AST 14 (5-40) units/L ALT 6 L (7-56) units/L Alkaline Phosphatase 75 (35-129) units/L Total Protein 7.5 D (6.3-8.2) g/dL Albumin 3.9 (3.9-5) g/dL - Imaging Abdominal x-ray: report reviewed CT scan - abdomen: report reviewed CT scan - pelvis: report reviewed
[2022-01-29] MEDS: cefTRIAXone/NS 2 GM/100 ML 2 GM/100 ML BAG IV SCH (20:33)
[2022-01-30] MEDS: MEMANTINE 10 MG TAB PO SCH ×3 (00:33→22:26)
[2022-01-30] MEDS: HEPARIN 5,000 UNIT/1 ML VIAL SUB-Q SCH ×3 (05:52→22:26)
[2022-01-30] MEDS: LEVOTHYROXINE 50 MCG TAB PO SCH (06:23)
[2022-01-30] MEDS: D5W/0.9% NACL 1,000 ML IV SCH ×2 (07:06→19:07)
--- NOTE | 2022-01-30 08:27 | Progress Note ---
Assessment and Plan 56-year-old male patient with significant past medical history of obstructive uropathy with suprapubic catheter hypothyroidism hypertension, BPH, dementia presented to the emergency room with intractable nausea vomiting and abdominal pain of 2 to 3 days duration, no history of travel , no history of food poisoning No hematemesis melena, patient also complains of vague abdominal pain CT abdomen and pelvis findings consistent with small bowel obstruction transition point lies left midabdomen details reviewed Patient was evaluated by general myself early Sunday am recommended NG tube n.p.o. status and advised that covering surgeon Dr. Sanchez will follow with the patient initial evaluation is also consistent with acute kidney injury, urine analysis consistent with UTI and dehydration Patient received a dose of Rocephin and IV fluids. Pt with low midline incision on exam of unk etiology. SBO most likely secondary to adhesions. Pt unable to communicate dependably for flatus or bm questions. AXR essentially unchanged. Will do a CT with contrast via the ng tube to evaluate the sbo. Subjective Date of service: 01/30/22 Narrative: Pt unable to communicate dependably for flatus or bm questions. AXR essentially unchanged. Will do a CT with contrast via the ng tube to evaluate the sbo. Objective Vital Signs - 12hr 01/30/22 01/30/22 04:00 04:11 Temperature 97.7 F Pulse Rate 67 Respiratory 16 Rate Blood Pressure 123/77 O2 Sat by Pulse 98 96 Oximetry - Labs 01/30/22 07:04 01/30/22 07:04
[2022-01-30] MEDS: FAMOTIDINE 20 MG/2 ML INJ IV SCH ×3 (08:46→22:26)
[2022-01-30 09:12] LABS: Basophils % (Auto) 0.3 % (0.0-1.8); Eosinophils # (Auto) 0.2 K/mm3 (0.0-0.4); Eosinophils % (Auto) 3.1 % (0.0-4.3); Hematocrit 38.7 % (35.5-45.6); Hemoglobin 12.5 gm/dl (11.8-15.2); Lymphocytes % (Auto) 14.1 % (13.4-35.0); Mean Corpuscular HGB Conc 32 % (32-34); Mean Corpuscular Volume 88 fl (84-94); Monocytes # (Auto) 0.7 K/mm3 (0.0-0.8); Monocytes % (Auto) 10.6 % (0.0-7.3); Platelet Count 210 K/mm3 (140-440); Red Blood Count 4.41 M/mm3 (3.65-5.03); Red Cell Distribution Width 14.7 % (13.2-15.2)
[2022-01-30 09:23] LABS: Blood Urea Nitrogen 18 mg/dL (9-20); Calcium 8.1 mg/dL (8.4-10.2); Hemolysis Index 0
[2022-01-30 09:28] LABS: BUN/Creatinine Ratio 26
--- NOTE | 2022-01-30 10:58 | XRay Report ---
ABDOMEN 2 VIEW(S) INDICATION / CLINICAL INFORMATION: sbo. COMPARISON: Previous day. FINDINGS: TUBES / LINES: NG tube in satisfactory position. BOWEL GAS PATTERN: Increasing colonic gas with mild decreasing small bowel gas. No free intraperitone al air. ADDITIONAL FINDINGS: No significant additional findings. IMPRESSION: Improving small bowel obstruction. Signer Name: Kristopher Baez MD Signed: 01/30/2022 10:54 AM Workstation Name: [id number]
--- NOTE | 2022-01-30 16:44 | Cat Scan Report ---
CT ABDOMEN AND PELVIS WITH CONTRAST INDICATION / CLINICAL INFORMATION: sbo. TECHNIQUE: Axial CT images were obtained through the abdomen and pelvis after 100 mL Omnipaque 300 IV contrast. Gastrografin placed an NG tube at approximately [address] scans at this location are performed using CT dose reduction for ALARA by means of automated exposure control. COMPARISON: CT dated 01/28/2022 and 12/28/2021 FINDINGS: LOWER CHEST: Mild bibasilar atelectasis. LIVER: No significant abnormality. GALLBLADDER: No significant abnormality. BILE DUCTS: No significant abnormality. PANCREAS: No significant abnormality. SPLEEN: No significant abnormality. ADRENALS: No significant abnormality. RIGHT KIDNEY / URETER: No significant abnormality. LEFT KIDNEY / URETER: No significant abnormality. STOMACH / SMALL BOWEL: Esophagogastric tube is present in the distal stomach. Mildly dilated, fluid-f illed proximal to mid small bowel loops with interval improvement since the most recent study. Distal small bowel loops are normal in caliber. Transition point remains in the mid abdomen. Gastrografin r eaches the mid small bowel at about 1 hour. COLON: No significant abnormality. APPENDIX: Not seen. PERITONEUM: No free fluid. No free air. No fluid collection. LYMPH NODES: No significant adenopathy. AORTA / ARTERIES: No significant abnormality. IVC / VEINS: No significant abnormality. URINARY BLADDER: Contracted around a suprapubic catheter. Moderate bladder wall thickening and edema similar to previous study. REPRODUCTIVE ORGANS: No significant abnormality. ADDITIONAL FINDINGS: None. SKELETAL SYSTEM: No significant abnormality. IMPRESSION: 1. Partial mid small bowel obstruction with slight improvement since the recent prior CT scan. Signer Name: Orlando King MD Signed: 01/30/2022 4:40 PM Workstation Name: [email or web address]
--- NOTE | 2022-01-30 18:36 | Progress Note ---
Assessment and Plan Assessment and plan: --Small bowel obstruction; NPO , IV fluids, supportive care GI following NG tube intermittent suction as needed --Acute kidney injury; creatinine trending down Vasomotor nephropathy resolved/ IV fluids, monitor renal function Avoid nephrotoxins, renal dosing of medications --Urinary tract infection/present on admission Empiric antibiotics. Follow cultures. IV fluids Supportive care --Hyperkalemia; Resolved potassium within normal limits --Hypothyroidism; Resume home medications --History of BPH; Continue Flomax --DVT prophylaxis; SCDs, Heparin subcu --Full CODE STATUS We will closely monitor the patient and adjust the management as needed Surgery following, Plan of care reviewed with the patient and his nurse Disposition per surgery Possible discharge in 1 to 2 days if stable History Interval history: I seen and examined the patient at the bedside Patient's chart and medications reviewed Patient feels better no new complaints Denies nausea vomiting abdominal pain Vital signs noted Hospitalist Physical - Constitutional Vitals: Temp Pulse Resp BP Pulse Ox 97.7 F 67 16 123/77 96 01/30/22 04:11 01/30/22 04:11 01/30/22 04:11 01/30/22 04:11 01/30/22 14:11 General appearance: Present: mild distress, well-nourished - EENT Eyes: Present: PERRL, EOM intact - Neck Neck: Present: supple, normal ROM - Respiratory Respiratory effort: normal Respiratory: bilateral: diminished, negative: rales, rhonchi, wheezing - Cardiovascular Rhythm: regular Heart Sounds: Present: S1 & S2 - Extremities Extremities: no ischemia, No edema - Abdominal General gastrointestinal: soft, non-tender, non-distended, normal bowel sounds - Integumentary Integumentary: Present: clear, warm - Psychiatric Psychiatric: appropriate mood/affect, cooperative - Neurologic Neurologic: CNII-XII intact, moves all extremities Results - Labs CBC & Chem 7: 01/30/22 07:04 01/30/22 07:04 Labs: Laboratory Last Values WBC 6.9 K/mm3 (4.5-11.0) 01/30/22 07:04 RBC 4.41 M/mm3 (3.65-5.03) 01/30/22 07:04 Hgb 12.5 gm/dl (11.8-15.2) 01/30/22 07:04 Hct 38.7 % (35.5-45.6) 01/30/22 07:04 MCV 88 fl (84-94) 01/30/22 07:04 MCH 28 pg (28-32) 01/30/22 07:04 MCHC 32 % (32-34) 01/30/22 07:04 RDW 14.7 % (13.2-15.2) 01/30/22 07:04 Plt Count 210 K/mm3 (140-440) 01/30/22 07:04 Lymph % (Auto) 14.1 % (13.4-35.0) 01/30/22 07:04 [place] % (Auto) 10.6 % (0.0-7.3) H 01/30/22 07:04 Eos % (Auto) 3.1 % (0.0-4.3) 01/30/22 07:04 Baso % (Auto) 0.3 % (0.0-1.8) 01/30/22 07:04 Lymph # (Auto) 1.0 K/mm3 (1.2-5.4) L 01/30/22 07:04 [place] # (Auto) 0.7 K/mm3 (0.0-0.8) 01/30/22 07:04 Eos # (Auto) 0.2 K/mm3 (0.0-0.4) 01/30/22 07:04 Baso # (Auto) 0.0 K/mm3 (0.0-0.1) 01/30/22 07:04 Seg Neutrophils % 71.9 % (40.0-70.0) H 01/30/22 07:04 Seg Neutrophils # 5.0 K/mm3 (1.8-7.7) 01/30/22 07:04 Sodium 143 mmol/L (137-145) 01/30/22 07:04 Potassium 4.1 mmol/L (3.6-5.0) 01/30/22 07:04 Chloride 113.9 mmol/L (98-107) H 01/30/22 07:04 Carbon Dioxide 18 mmol/L (22-30) L 01/30/22 07:04 Anion Gap 15 mmol/L 01/30/22 07:04 BUN 18 mg/dL (9-20) 01/30/22 07:04 Creatinine 0.7 mg/dL (0.8-1.3) L 01/30/22 07:04 Estimated GFR > 60 ml/min 01/30/22 07:04 BUN/Creatinine Ratio 26 % 01/30/22 07:04 Glucose 111 mg/dL (75-100) H 01/30/22 07:04 Calcium 8.1 mg/dL (8.4-10.2) L 01/30/22 07:04 Total Bilirubin 0.20 mg/dL (0.1-1.2) 01/29/22 04:43 AST 14 units/L (5-40) 01/29/22 04:43 ALT 6 units/L (7-56) L 01/29/22 04:43 Alkaline Phosphatase 75 units/L (35-129) 01/29/22 04:43 Total Protein 7.5 g/dL (6.3-8.2) D 01/29/22 04:43 Albumin 3.9 g/dL (3.9-5) 01/29/22 04:43 Albumin/Globulin Ratio 1.1 % 01/29/22 04:43 Lipase 41 units/L (13-60) 01/27/22 23:11 Urine Color Rose (Yellow) 01/28/22 03:53 Urine Turbidity Turbid (Clear) 01/28/22 03:53 Urine pH 8.0 (5.0-7.0) H 01/28/22 03:53 Ur Specific [place] 1.020 (1.003-1.030) 01/28/22 03:53 Urine Protein >500 mg/dL (Negative) 01/28/22 03:53 Urine Glucose (UA) Neg mg/dL (Negative) 01/28/22 03:53 Urine Ketones Tr mg/dL (Negative) 01/28/22 03:53 Urine Blood Neg (Negative) 01/28/22 03:53 Urine Nitrite Neg (Negative) 01/28/22 03:53 Urine Bilirubin Neg (Negative) 01/28/22 03:53 Urine Urobilinogen < 2.0 mg/dL (<2.0) 01/28/22 03:53 Ur Leukocyte Esterase Lg (Negative) 01/28/22 03:53 Urine WBC (Auto) 75.0 /HPF (0.0-6.0) H 01/28/22 03:53 Urine RBC (Auto) 38.0 /HPF (0.0-6.0) 01/28/22 03:53 Urine Bacteria (Auto) 4+ /HPF (Negative) 01/28/22 03:53 Triple Phos Crystals 3+ 01/28/22 03:53 Urine Mucus 1+ /HPF 01/28/22 03:53 Microbiology: Microbiology 01/28/22 03:53 Urine,Clean Catch Urine Culture - Final 01/28/22 20:03 Peripheral/Venous Blood Culture - Preliminary NO GROWTH AFTER 24 HOURS 01/28/22 20:13 Peripheral/Venous Blood Culture - Preliminary NO GROWTH AFTER 24 HOURS Almaraz/IV: Voiding Method Suprapubic catheter Active Medications - Current Medications Current Medications: Generic Name Dose Route Start Last Admin Trade Name Freq PRN Reason Stop Dose Admin Acetaminophen 650 mg 01/28/22 11:46 Acetaminophen 325 Mg Tab PO Q4H PRN Pain MILD(1-3)/Fever >100.5/GARCIA Famotidine 10 mg 01/28/22 22:00 01/30/22 08:46 Famotidine 20 Mg/2 Ml Inj IV 10 mg BID [facility] Administration Finasteride 5 mg 01/29/22 10:00 01/29/22 10:27 Finasteride 5 Mg Tab PO Not Given QDAY [facility] Heparin Sodium (Porcine) 5,000 unit 01/28/22 14:00 01/30/22 05:52 Heparin 5,000 Unit/1 Ml Vial SUB-Q 5,000 unit Q8HR CLIFF Administration Dextrose/Sodium Chloride 1,000 mls @ 100 mls/hr 01/28/22 12:00 01/30/22 07:06 D5ns IV 100 mls/hr DIRECT CLIFF Administration Ceftriaxone Sodium 2 gm in 100 mls @ 200 mls/hr 01/28/22 19:00 01/29/22 20:33 Rocephin/Ns 2 Gm/100 Ml IV 02/02/22 18:59 200 mls/hr Q24H CL[facility] Administration Protocol Levothyroxine Sodium 50 mcg 01/29/22 06:00 01/30/22 06:23 Levothyroxine 50 Mcg Tab PO Not Given DAILY@0600 [facility] Memantine 10 mg 01/28/22 22:00 01/30/22 00:33 Memantine 10 Mg Tab PO Not Given Q12HR [facility] Metoclopramide HCl 10 mg 01/28/22 11:46 Metoclopramide 10 Mg/2 Ml Inj IV Q6H PRN Nausea And Vomiting Morphine Sulfate 2 mg 01/28/22 11:46 Morphine 2 Mg/1 Ml Inj IV Q4H PRN Pain, Moderate (4-6) Morphine Sulfate 4 mg 01/28/22 11:46 Morphine 4 Mg/1 Ml Inj IV Q4H PRN Pain , Severe (7-10) Olanzapine 5 mg 01/29/22 10:00 01/29/22 10:27 Olanzapine 5 Mg Tab PO Not Given [facility] Ondansetron HCl 4 mg 01/28/22 11:46 Ondansetron 4 Mg/2 Ml Inj IV Q8H PRN Nausea And Vomiting Oxycodone/Acetaminophen 1 tab 01/28/22 11:46 Oxycodone /Acetaminophen 5-325mg Tab PO Q6H PRN Pain, Moderate (4-6) Sertraline HCl 25 mg 01/29/22 10:00 01/29/22 10:27 Sertraline 25 Mg Tab PO Not Given QDAY [facility] Sodium Chloride 10 ml 01/28/22 22:00 01/29/22 21:05 Sodium Chloride 0.9% 10 Ml Flush Syringe IV 10 ml BID CLIFF Administration Sodium Chloride 10 ml 01/28/22 11:46 Sodium Chloride 0.9% 10 Ml Flush Syringe IV PRN PRN LINE FLUSH Tamsulosin HCl 0.4 mg 01/29/22 10:00 01/29/22 10:26 Tamsulosin 0.4 Mg Cap PO Not Given [facility]
[2022-01-30] MEDS: TAMSULOSIN 0.4 MG CAP PO SCH (19:02)
[2022-01-30] MEDS: SERTRALINE 25 MG TAB PO SCH (19:02)
[2022-01-30] MEDS: FINASTERIDE 5 MG TAB PO SCH (19:03)
[2022-01-30] MEDS: cefTRIAXone/NS 2 GM/100 ML 2 GM/100 ML BAG IV SCH (19:09)
[2022-01-31] MEDS: HEPARIN 5,000 UNIT/1 ML VIAL SUB-Q SCH ×3 (05:28→21:50)
[2022-01-31] MEDS: D5W/0.9% NACL 1,000 ML IV SCH ×2 (05:30→14:44)
[2022-01-31] MEDS: LEVOTHYROXINE 50 MCG TAB PO SCH (05:31)
--- NOTE | 2022-01-31 08:02 | Progress Note ---
Assessment and Plan Assessment and plan: --Small bowel obstruction; NPO , IV fluids, supportive care Surgery following NG tube intermittent suction as needed Supportive care 01/30/2022 f/u CT abdomen and pelvis: partial small bowel obstruction with slight improvement since the recent prior CT scan 01/28 --Acute kidney injury; present on admission /resolved Vasomotor nephropathy resolved/ IV fluids, monitor renal function Avoid nephrotoxins, renal dosing of medications --Urinary tract infection/present on admission Empiric antibiotics. Rocephin. follow cultures. IV fluids, Supportive care --Hyperkalemia; Resolved potassium within normal limits --Hypothyroidism; Continue Synthroid --History of BPH; Continue Flomax --DVT prophylaxis; SCDs, Heparin subcu --Full CODE STATUS We will closely monitor the patient and adjust the management as needed Surgery following, Plan of care reviewed with the patient and his nurse Disposition per surgery Possible discharge in 1 to 2 days if stable Hospitalist Physical - Constitutional Vitals: Temp Pulse Resp BP Pulse Ox 98.5 F 67 18 120/81 98 01/30/22 21:35 01/30/22 21:35 01/31/22 01:09 01/30/22 21:35 01/31/22 07:51 General appearance: Present: mild distress, well-nourished Results - Labs CBC & Chem 7: 01/30/22 07:04 01/30/22 07:04 Labs: Laboratory Last Values WBC 6.9 K/mm3 (4.5-11.0) 01/30/22 07:04 RBC 4.41 M/mm3 (3.65-5.03) 01/30/22 07:04 Hgb 12.5 gm/dl (11.8-15.2) 01/30/22 07:04 Hct 38.7 % (35.5-45.6) 01/30/22 07:04 MCV 88 fl (84-94) 01/30/22 07:04 MCH 28 pg (28-32) 01/30/22 07:04 MCHC 32 % (32-34) 01/30/22 07:04 RDW 14.7 % (13.2-15.2) 01/30/22 07:04 Plt Count 210 K/mm3 (140-440) 01/30/22 07:04 Lymph % (Auto) 14.1 % (13.4-35.0) 01/30/22 07:04 [place] % (Auto) 10.6 % (0.0-7.3) H 01/30/22 07:04 Eos % (Auto) 3.1 % (0.0-4.3) 01/30/22 07:04 Baso % (Auto) 0.3 % (0.0-1.8) 01/30/22 07:04 Lymph # (Auto) 1.0 K/mm3 (1.2-5.4) L 01/30/22 07:04 [place] # (Auto) 0.7 K/mm3 (0.0-0.8) 01/30/22 07:04 Eos # (Auto) 0.2 K/mm3 (0.0-0.4) 01/30/22 07:04 Baso # (Auto) 0.0 K/mm3 (0.0-0.1) 01/30/22 07:04 Seg Neutrophils % 71.9 % (40.0-70.0) H 01/30/22 07:04 Seg Neutrophils # 5.0 K/mm3 (1.8-7.7) 01/30/22 07:04 Sodium 143 mmol/L (137-145) 01/30/22 07:04 Potassium 4.1 mmol/L (3.6-5.0) 01/30/22 07:04 Chloride 113.9 mmol/L (98-107) H 01/30/22 07:04 Carbon Dioxide 18 mmol/L (22-30) L 01/30/22 07:04 Anion Gap 15 mmol/L 01/30/22 07:04 BUN 18 mg/dL (9-20) 01/30/22 07:04 Creatinine 0.7 mg/dL (0.8-1.3) L 01/30/22 07:04 Estimated GFR > 60 ml/min 01/30/22 07:04 BUN/Creatinine Ratio 26 % 01/30/22 07:04 Glucose 111 mg/dL (75-100) H 01/30/22 07:04 Calcium 8.1 mg/dL (8.4-10.2) L 01/30/22 07:04 Total Bilirubin 0.20 mg/dL (0.1-1.2) 01/29/22 04:43 AST 14 units/L (5-40) 01/29/22 04:43 ALT 6 units/L (7-56) L 01/29/22 04:43 Alkaline Phosphatase 75 units/L (35-129) 01/29/22 04:43 Total Protein 7.5 g/dL (6.3-8.2) D 01/29/22 04:43 Albumin 3.9 g/dL (3.9-5) 01/29/22 04:43 Albumin/Globulin Ratio 1.1 % 01/29/22 04:43 Lipase 41 units/L (13-60) 01/27/22 23:11 Urine Color Rose (Yellow) 01/28/22 03:53 Urine Turbidity Turbid (Clear) 01/28/22 03:53 Urine pH 8.0 (5.0-7.0) H 01/28/22 03:53 Ur Specific [place] 1.020 (1.003-1.030) 01/28/22 03:53 Urine Protein >500 mg/dL (Negative) 01/28/22 03:53 Urine Glucose (UA) Neg mg/dL (Negative) 01/28/22 03:53 Urine Ketones Tr mg/dL (Negative) 01/28/22 03:53 Urine Blood Neg (Negative) 01/28/22 03:53 Urine Nitrite Neg (Negative) 01/28/22 03:53 Urine Bilirubin Neg (Negative) 01/28/22 03:53 Urine Urobilinogen < 2.0 mg/dL (<2.0) 01/28/22 03:53 Ur Leukocyte Esterase Lg (Negative) 01/28/22 03:53 Urine WBC (Auto) 75.0 /HPF (0.0-6.0) H 01/28/22 03:53 Urine RBC (Auto) 38.0 /HPF (0.0-6.0) 01/28/22 03:53 Urine Bacteria (Auto) 4+ /HPF (Negative) 01/28/22 03:53 Triple Phos Crystals 3+ 01/28/22 03:53 Urine Mucus 1+ /HPF 01/28/22 03:53 Microbiology: Microbiology 01/28/22 20:03 Peripheral/Venous Blood Culture - Preliminary NO GROWTH AFTER 48 HOURS 01/28/22 20:13 Peripheral/Venous Blood Culture - Preliminary NO GROWTH AFTER 48 HOURS 01/28/22 03:53 Urine,Clean Catch Urine Culture - Final Almaraz/IV: Voiding Method Suprapubic catheter Active Medications - Current Medications Current Medications: Generic Name Dose Route Start Last Admin Trade Name Freq PRN Reason Stop Dose Admin Acetaminophen 650 mg 01/28/22 11:46 Acetaminophen 325 Mg Tab PO Q4H PRN Pain MILD(1-3)/Fever >100.5/GARCIA Famotidine 10 mg 01/28/22 22:00 01/30/22 22:26 Famotidine 20 Mg/2 Ml Inj IV Not Given BID CLIFF Finasteride 5 mg 01/29/22 10:00 01/30/22 19:03 Finasteride 5 Mg Tab PO Not Given [facility] Heparin Sodium (Porcine) 5,000 unit 01/28/22 14:00 01/31/22 05:28 Heparin 5,000 Unit/1 Ml Vial SUB-Q 5,000 unit Q8HR CLIFF Administration Dextrose/Sodium Chloride 1,000 mls @ 100 mls/hr 01/28/22 12:00 01/31/22 05:30 D5ns IV 100 mls/hr DIRECT CLIFF Administration Ceftriaxone Sodium 2 gm in 100 mls @ 200 mls/hr 01/28/22 19:00 01/30/22 19:09 Rocephin/Ns 2 Gm/100 Ml IV 02/02/22 18:59 200 mls/hr Q24H CL[facility] Administration Protocol Levothyroxine Sodium 50 mcg 01/29/22 06:00 01/31/22 05:31 Levothyroxine 50 Mcg Tab PO Not Given DAILY@0600 [facility] Memantine 10 mg 01/28/22 22:00 01/30/22 22:26 Memantine 10 Mg Tab PO Not Given Q12HR [facility] Metoclopramide HCl 10 mg 01/28/22 11:46 Metoclopramide 10 Mg/2 Ml Inj IV Q6H PRN Nausea And Vomiting Morphine Sulfate 2 mg 01/28/22 11:46 Morphine 2 Mg/1 Ml Inj IV Q4H PRN Pain, Moderate (4-6) Morphine Sulfate 4 mg 01/28/22 11:46 Morphine 4 Mg/1 Ml Inj IV Q4H PRN Pain , Severe (7-10) Olanzapine 5 mg 01/29/22 10:00 01/30/22 19:03 Olanzapine 5 Mg Tab PO Not Given QDAY [facility] Ondansetron HCl 4 mg 01/28/22 11:46 Ondansetron 4 Mg/2 Ml Inj IV Q8H PRN Nausea And Vomiting Oxycodone/Acetaminophen 1 tab 01/28/22 11:46 Oxycodone /Acetaminophen 5-325mg Tab PO Q6H PRN Pain, Moderate (4-6) Sertraline HCl 25 mg 01/29/22 10:00 01/30/22 19:02 Sertraline 25 Mg Tab PO Not Given QDAY [facility] Sodium Chloride 10 ml 01/28/22 22:00 01/30/22 22:27 Sodium Chloride 0.9% 10 Ml Flush Syringe IV 10 ml BID CLIFF Administration Sodium Chloride 10 ml 01/28/22 11:46 Sodium Chloride 0.9% 10 Ml Flush Syringe IV PRN PRN LINE FLUSH Tamsulosin HCl 0.4 mg 01/29/22 10:00 01/30/22 19:02 Tamsulosin 0.4 Mg Cap PO Not Given QDAY [facility]
--- NOTE | 2022-01-31 08:59 | Progress Note ---
Assessment and Plan 56-year-old male patient with significant past medical history of obstructive uropathy with suprapubic catheter hypothyroidism hypertension, BPH, dementia presented to the emergency room with intractable nausea vomiting and abdominal pain of 2 to 3 days duration, no history of travel , no history of food poisoning Pt with low midline incision on exam of unk etiology. SBO most likely secondary to adhesions. CT scan with contrast showing continue small bowel obstruction admit jejunum. Some signs of improvement. Continue NG suction as the proximal small bowel remains distended. We will repeat x-rays tomorrow abdominal x-ray will be able to track the progress of the contrast material. If the contrast material has not reached the colon patient may still need an exploratory laparotomy. There is air that is progressed into the colon so there is signs that the obstruction is not complete. However high-grade obstruction may also require exploration. Recommend continued NG suction IV fluids and beginning peripheral hyperal today. Subjective Date of service: 01/31/22 Patient Reports: Positive: no new complaints Narrative: CT scan with contrast showing continue small bowel obstruction admit jejunum. Some signs of improvement. Continue NG suction as the proximal small bowel remains distended. We will repeat x-rays tomorrow abdominal x-ray will be able to track the progress of the contrast material. If the contrast material has not reached the colon patient may still need an exploratory laparotomy. There is air that is progressed into the colon so there is signs that the obstruction is not complete. However high-grade obstruction may also require exploration. Recommend continued NG suction IV fluids and beginning peripheral hyperal today. Objective Vital Signs - 12hr 01/30/22 01/31/22 01/31/22 21:35 01:09 07:51 Temperature 98.5 F Pulse Rate 67 Respiratory 12 18 Rate Blood Pressure 120/81 O2 Sat by Pulse 95 96 98 Oximetry - Labs 01/30/22 07:04 01/30/22 07:04 Diabetes panel 01/30/22 Range/Units 07:04 Sodium 143 (137-145) mmol/L Potassium 4.1 (3.6-5.0) mmol/L Chloride 113.9 H (98-107) mmol/L Carbon Dioxide 18 L (22-30) mmol/L BUN 18 (9-20) mg/dL Creatinine 0.7 L (0.8-1.3) mg/dL Glucose 111 H (75-100) mg/dL Calcium 8.1 L (8.4-10.2) mg/dL Calcium panel 01/30/22 Range/Units 07:04 Calcium 8.1 L (8.4-10.2) mg/dL Pituitary panel 01/30/22 Range/Units 07:04 Sodium 143 (137-145) mmol/L Potassium 4.1 (3.6-5.0) mmol/L Chloride 113.9 H (98-107) mmol/L Carbon Dioxide 18 L (22-30) mmol/L BUN 18 (9-20) mg/dL Creatinine 0.7 L (0.8-1.3) mg/dL Glucose 111 H (75-100) mg/dL Calcium 8.1 L (8.4-10.2) mg/dL Adrenal panel 01/30/22 Range/Units 07:04 Sodium 143 (137-145) mmol/L Potassium 4.1 (3.6-5.0) mmol/L Chloride 113.9 H (98-107) mmol/L Carbon Dioxide 18 L (22-30) mmol/L BUN 18 (9-20) mg/dL Creatinine 0.7 L (0.8-1.3) mg/dL Glucose 111 H (75-100) mg/dL Calcium 8.1 L (8.4-10.2) mg/dL
[2022-01-31] MEDS: FAMOTIDINE 20 MG/2 ML INJ IV SCH ×2 (09:07→21:50)
--- NOTE | 2022-01-31 09:10 | Progress Note ---
Assessment and Plan Assessment and plan: 56-year-old male patient with significant past medical history of obstructive uropathy with suprapubic catheter hypothyroidism hypertension, BPH, dementia presented to the emergency room with intractable nausea vomiting and abdominal pain of 2 to 3 days duration, no history of travel , no history of food poisoning Small bowel obstruction Severe sepsis. Patient meets criteria given the tachycardia, tachypnea, leukocytosis and diagnosis of UTI with organ failure/acute kidney injury. Acute kidney injury Urinary tract infection Hyperkalemia Hypothyroidism History of BPH 01/31/2022. CT scan with contrast showing continued small bowel obstruction admit jejunum. Some signs of improvement. Continue NG suction as the proximal small bowel remains distended. We will repeat x-rays tomorrow abdominal x-ray will be able to track the progress of the contrast material. Surgery reports if the contrast material has not reached the colon patient may still need an exploratory laparotomy. There is air that is progressed into the colon so there is signs that the obstruction is not complete. However high-grade obstruction may also require exploration. Recommend continued NG suction IV fluids and beginning peripheral hyperal today. Acute kidney injury resolved with IV fluid hydration. Follow-up BMP in a.m. Continue IV antibiotics History Interval history: No new issues overnight Hospitalist Physical - Constitutional Vitals: Temp Pulse Resp BP Pulse Ox 98.5 F 67 18 120/81 98 01/30/22 21:35 01/30/22 21:35 01/31/22 01:09 01/30/22 21:35 01/31/22 07:51 General appearance: Present: no acute distress, well-nourished - EENT Eyes: Present: PERRL, EOM intact ENT: hearing intact, clear oral mucosa, dentition normal - Neck Neck: Present: supple, normal ROM - Respiratory Respiratory effort: normal Respiratory: bilateral: CTA - Cardiovascular Rhythm: regular Heart Sounds: Present: S1 & S2. Absent: gallop, rub - Extremities Extremities: no ischemia, No edema, Full ROM - Abdominal General gastrointestinal: soft, non-tender, non-distended, normal bowel sounds - Integumentary Integumentary: Present: clear, warm, dry - Neurologic Neurologic: CNII-XII intact, moves all extremities Results - Labs CBC & Chem 7: 01/30/22 07:04 01/30/22 07:04 Labs: Laboratory Last Values WBC 6.9 K/mm3 (4.5-11.0) 01/30/22 07:04 RBC 4.41 M/mm3 (3.65-5.03) 01/30/22 07:04 Hgb 12.5 gm/dl (11.8-15.2) 01/30/22 07:04 Hct 38.7 % (35.5-45.6) 01/30/22 07:04 MCV 88 fl (84-94) 01/30/22 07:04 MCH 28 pg (28-32) 01/30/22 07:04 MCHC 32 % (32-34) 01/30/22 07:04 RDW 14.7 % (13.2-15.2) 01/30/22 07:04 Plt Count 210 K/mm3 (140-440) 01/30/22 07:04 Lymph % (Auto) 14.1 % (13.4-35.0) 01/30/22 07:04 [place] % (Auto) 10.6 % (0.0-7.3) H 01/30/22 07:04 Eos % (Auto) 3.1 % (0.0-4.3) 01/30/22 07:04 Baso % (Auto) 0.3 % (0.0-1.8) 01/30/22 07:04 Lymph # (Auto) 1.0 K/mm3 (1.2-5.4) L 01/30/22 07:04 [place] # (Auto) 0.7 K/mm3 (0.0-0.8) 01/30/22 07:04 Eos # (Auto) 0.2 K/mm3 (0.0-0.4) 01/30/22 07:04 Baso # (Auto) 0.0 K/mm3 (0.0-0.1) 01/30/22 07:04 Seg Neutrophils % 71.9 % (40.0-70.0) H 01/30/22 07:04 Seg Neutrophils # 5.0 K/mm3 (1.8-7.7) 01/30/22 07:04 Sodium 143 mmol/L (137-145) 01/30/22 07:04 Potassium 4.1 mmol/L (3.6-5.0) 01/30/22 07:04 Chloride 113.9 mmol/L (98-107) H 01/30/22 07:04 Carbon Dioxide 18 mmol/L (22-30) L 01/30/22 07:04 Anion Gap 15 mmol/L 01/30/22 07:04 BUN 18 mg/dL (9-20) 01/30/22 07:04 Creatinine 0.7 mg/dL (0.8-1.3) L 01/30/22 07:04 Estimated GFR > 60 ml/min 01/30/22 07:04 BUN/Creatinine Ratio 26 % 01/30/22 07:04 Glucose 111 mg/dL (75-100) H 01/30/22 07:04 Calcium 8.1 mg/dL (8.4-10.2) L 01/30/22 07:04 Total Bilirubin 0.20 mg/dL (0.1-1.2) 01/29/22 04:43 AST 14 units/L (5-40) 01/29/22 04:43 ALT 6 units/L (7-56) L 01/29/22 04:43 Alkaline Phosphatase 75 units/L (35-129) 01/29/22 04:43 Total Protein 7.5 g/dL (6.3-8.2) D 01/29/22 04:43 Albumin 3.9 g/dL (3.9-5) 01/29/22 04:43 Albumin/Globulin Ratio 1.1 % 01/29/22 04:43 Lipase 41 units/L (13-60) 01/27/22 23:11 Urine Color Rose (Yellow) 01/28/22 03:53 Urine Turbidity Turbid (Clear) 01/28/22 03:53 Urine pH 8.0 (5.0-7.0) H 01/28/22 03:53 Ur Specific [place] 1.020 (1.003-1.030) 01/28/22 03:53 Urine Protein >500 mg/dL (Negative) 01/28/22 03:53 Urine Glucose (UA) Neg mg/dL (Negative) 01/28/22 03:53 Urine Ketones Tr mg/dL (Negative) 01/28/22 03:53 Urine Blood Neg (Negative) 01/28/22 03:53 Urine Nitrite Neg (Negative) 01/28/22 03:53 Urine Bilirubin Neg (Negative) 01/28/22 03:53 Urine Urobilinogen < 2.0 mg/dL (<2.0) 01/28/22 03:53 Ur Leukocyte Esterase Lg (Negative) 01/28/22 03:53 Urine WBC (Auto) 75.0 /HPF (0.0-6.0) H 01/28/22 03:53 Urine RBC (Auto) 38.0 /HPF (0.0-6.0) 01/28/22 03:53 Urine Bacteria (Auto) 4+ /HPF (Negative) 01/28/22 03:53 Triple Phos Crystals 3+ 01/28/22 03:53 Urine Mucus 1+ /HPF 01/28/22 03:53 Microbiology: Microbiology 01/28/22 20:03 Peripheral/Venous Blood Culture - Preliminary NO GROWTH AFTER 48 HOURS 01/28/22 20:13 Peripheral/Venous Blood Culture - Preliminary NO GROWTH AFTER 48 HOURS 01/28/22 03:53 Urine,Clean Catch Urine Culture - Final Almaraz/IV: Voiding Method Suprapubic catheter Active Medications - Current Medications Current Medications: Generic Name Dose Route Start Last Admin Trade Name Freq PRN Reason Stop Dose Admin Acetaminophen 650 mg 01/28/22 11:46 Acetaminophen 325 Mg Tab PO Q4H PRN Pain MILD(1-3)/Fever >100.5/GARCIA Famotidine 10 mg 01/28/22 22:00 01/30/22 22:26 Famotidine 20 Mg/2 Ml Inj IV Not Given BID CL[facility] Finasteride 5 mg 01/29/22 10:00 01/30/22 19:03 Finasteride 5 Mg Tab PO Not Given QDAY [facility] Heparin Sodium (Porcine) 5,000 unit 01/28/22 14:00 01/31/22 05:28 Heparin 5,000 Unit/1 Ml Vial SUB-Q 5,000 unit Q8HR [facility] Administration Dextrose/Sodium Chloride 1,000 mls @ 100 mls/hr 01/28/22 12:00 01/31/22 05:30 D5ns IV 100 mls/hr DIRECT [facility]IFF Administration Ceftriaxone Sodium 2 gm in 100 mls @ 200 mls/hr 01/28/22 19:00 01/30/22 19:09 Rocephin/Ns 2 Gm/100 Ml IV 02/02/22 18:59 200 mls/hr Q24H [facility] Administration Protocol Levothyroxine Sodium 50 mcg 01/29/22 06:00 01/31/22 05:31 Levothyroxine 50 Mcg Tab PO Not Given DAILY@0600 [facility] Memantine 10 mg 01/28/22 22:00 01/30/22 22:26 Memantine 10 Mg Tab PO Not Given Q12HR [facility]IL[facility] Metoclopramide HCl 10 mg 01/28/22 11:46 Metoclopramide 10 Mg/2 Ml Inj IV Q6H PRN Nausea And Vomiting Morphine Sulfate 2 mg 01/28/22 11:46 Morphine 2 Mg/1 Ml Inj IV Q4H PRN Pain, Moderate (4-6) Morphine Sulfate 4 mg 01/28/22 11:46 Morphine 4 Mg/1 Ml Inj IV Q4H PRN Pain , Severe (7-10) Olanzapine 5 mg 01/29/22 10:00 01/30/22 19:03 Olanzapine 5 Mg Tab PO Not Given QDAY [facility] Ondansetron HCl 4 mg 01/28/22 11:46 Ondansetron 4 Mg/2 Ml Inj IV Q8H PRN Nausea And Vomiting Oxycodone/Acetaminophen 1 tab 01/28/22 11:46 Oxycodone /Acetaminophen 5-325mg Tab PO Q6H PRN Pain, Moderate (4-6) Sertraline HCl 25 mg 01/29/22 10:00 01/30/22 19:02 Sertraline 25 Mg Tab PO Not Given QDAY [facility] Sodium Chloride 10 ml 01/28/22 22:00 01/30/22 22:27 Sodium Chloride 0.9% 10 Ml Flush Syringe IV 10 ml BID [facility]IFF Administration Sodium Chloride 10 ml 01/28/22 11:46 Sodium Chloride 0.9% 10 Ml Flush Syringe IV PRN PRN LINE FLUSH Tamsulosin HCl 0.4 mg 01/29/22 10:00 01/30/22 19:02 Tamsulosin 0.4 Mg Cap PO Not Given QDAY [facility]
[2022-01-31] MEDS: FINASTERIDE 5 MG TAB PO SCH (10:19)
[2022-01-31] MEDS: TAMSULOSIN 0.4 MG CAP PO SCH (10:19)
[2022-01-31] MEDS: MEMANTINE 10 MG TAB PO SCH ×2 (10:19→21:50)
[2022-01-31] MEDS: SERTRALINE 25 MG TAB PO SCH (10:20)
[2022-01-31 11:01] LABS: BUN/Creatinine Ratio 15; Blood Urea Nitrogen 9 mg/dL (9-20); Calcium 8.7 mg/dL (8.4-10.2); Hemolysis Index 12
[2022-01-31] MEDS: cefTRIAXone/NS 2 GM/100 ML 2 GM/100 ML BAG IV SCH (18:01)
[2022-01-31] MEDS ORDERED: AMINO ACIDS 4.25%/DEXTROSE 10% 2,000 ML IV SCH (20:00)
[2022-02-01 04:47] LABS: Hematocrit 39.5 % (35.5-45.6); Hemoglobin 13.5 gm/dl (11.8-15.2); Mean Corpuscular HGB Conc 34 % (32-34); Mean Corpuscular Volume 84 fl (84-94); Platelet Count 214 K/mm3 (140-440); Red Cell Distribution Width 14.5 % (13.2-15.2)
[2022-02-01 05:07] LABS: Blood Urea Nitrogen 10 mg/dL (9-20); Calcium 8.4 mg/dL (8.4-10.2); Hemolysis Index 5
[2022-02-01 05:13] LABS: BUN/Creatinine Ratio 14
[2022-02-01] MEDS: HEPARIN 5,000 UNIT/1 ML VIAL SUB-Q SCH ×3 (05:29→21:48)
[2022-02-01] MEDS: LEVOTHYROXINE 50 MCG TAB PO SCH (05:30)
[2022-02-01 06:06] LABS: Basophils % (Manual) 0 % (0.0-1.8); Platelet Estimate Consistent w Auto; RBC Morphology Normal; Total Cells Counted 100
[2022-02-01] MEDS: MEMANTINE 10 MG TAB PO SCH ×2 (10:30→21:52)
[2022-02-01] MEDS: SERTRALINE 25 MG TAB PO SCH (10:30)
[2022-02-01] MEDS: FINASTERIDE 5 MG TAB PO SCH (10:30)
[2022-02-01] MEDS: TAMSULOSIN 0.4 MG CAP PO SCH (10:30)
[2022-02-01] MEDS: FAMOTIDINE 20 MG/2 ML INJ IV SCH ×2 (10:33→21:52)
--- NOTE | 2022-02-01 10:37 | XRay Report ---
ABDOMEN 3 VIEW(S) INDICATION / CLINICAL INFORMATION: sbo. COMPARISON: CT abdomen pelvis 01/30/2022 FINDINGS: TUBES / LINES: None. BOWEL GAS PATTERN: Moderate gaseous distention of small bowel with small amount of oral contrast note d in the colon. FREE AIR / EXTRALUMINAL GAS: None seen. ADDITIONAL FINDINGS: No significant additional findings. IMPRESSION: 1. Partial distal small bowel obstruction Signer Name: Edil Fan MD Signed: 02/01/2022 10:33 AM Workstation Name: [id number]
--- NOTE | 2022-02-01 12:10 | Progress Note ---
Assessment and Plan Assessment and plan: 56-year-old male patient with significant past medical history of obstructive uropathy with suprapubic catheter hypothyroidism hypertension, BPH, dementia presented to the emergency room with intractable nausea vomiting and abdominal pain of 2 to 3 days duration, no history of travel , no history of food poisoning Small bowel obstruction Severe sepsis. Patient meets criteria given the tachycardia, tachypnea, leukocytosis and diagnosis of UTI with organ failure/acute kidney injury. Acute kidney injury Urinary tract infection Hyperkalemia Hypothyroidism History of BPH 01/31/2022. CT scan with contrast showing continued small bowel obstruction admit jejunum. Some signs of improvement. Continue NG suction as the proximal small bowel remains distended. We will repeat x-rays tomorrow abdominal x-ray will be able to track the progress of the contrast material. Surgery reports if the contrast material has not reached the colon patient may still need an exploratory laparotomy. There is air that is progressed into the colon so there is signs that the obstruction is not complete. However high-grade obstruction may also require exploration. Recommend continued NG suction IV fluids and beginning peripheral hyperal today. Acute kidney injury resolved with IV fluid hydration. Follow-up BMP in a.m. Continue IV antibiotics 02/01/2022. KUB still reveals partial distal small bowel obstruction. I discussed the KUB with surgery. Continue conservative management and determine if patient will need surgery. Follow-up a.m. labs History Interval history: No new issues overnight Hospitalist Physical - Constitutional Vitals: Temp Pulse Resp BP Pulse Ox 98.5 F 65 20 118/77 97 02/01/22 05:18 02/01/22 05:18 02/01/22 05:18 02/01/22 05:18 02/01/22 07:00 General appearance: Present: no acute distress, well-nourished - EENT Eyes: Present: PERRL, EOM intact ENT: hearing intact, clear oral mucosa, dentition normal - Neck Neck: Present: supple, normal ROM - Respiratory Respiratory effort: normal Respiratory: bilateral: CTA - Cardiovascular Rhythm: regular Heart Sounds: Present: S1 & S2. Absent: gallop, rub - Extremities Extremities: no ischemia, No edema, Full ROM - Abdominal General gastrointestinal: soft, non-tender, non-distended, normal bowel sounds - Integumentary Integumentary: Present: clear, warm, dry - Neurologic Neurologic: CNII-XII intact, moves all extremities Results - Labs CBC & Chem 7: 02/01/22 04:33 02/01/22 04:33 Labs: Laboratory Last Values WBC 8.4 K/mm3 (4.5-11.0) 02/01/22 04:33 RBC 4.70 M/mm3 (3.65-5.03) 02/01/22 04:33 Hgb 13.5 gm/dl (11.8-15.2) 02/01/22 04:33 Hct 39.5 % (35.5-45.6) 02/01/22 04:33 MCV 84 fl (84-94) 02/01/22 04:33 MCH 29 pg (28-32) 02/01/22 04:33 MCHC 34 % (32-34) 02/01/22 04:33 RDW 14.5 % (13.2-15.2) 02/01/22 04:33 Plt Count 214 K/mm3 (140-440) 02/01/22 04:33 Lymph % (Auto) 14.1 % (13.4-35.0) 01/30/22 07:04 [place] % (Auto) 10.6 % (0.0-7.3) H 01/30/22 07:04 Eos % (Auto) 3.1 % (0.0-4.3) 01/30/22 07:04 Baso % (Auto) 0.3 % (0.0-1.8) 01/30/22 07:04 Lymph # (Auto) 1.0 K/mm3 (1.2-5.4) L 01/30/22 07:04 Clare # (Auto) 0.7 K/mm3 (0.0-0.8) 01/30/22 07:04 Eos # (Auto) 0.2 K/mm3 (0.0-0.4) 01/30/22 07:04 Baso # (Auto) 0.0 K/mm3 (0.0-0.1) 01/30/22 07:04 Add Manual Diff Complete 02/01/22 04:33 Total Counted 100 02/01/22 04:33 Seg Neutrophils % 71.9 % (40.0-70.0) H 01/30/22 07:04 Seg Neuts % (Manual) 79.0 % (40.0-70.0) H 02/01/22 04:33 Band Neutrophils % 0 % 02/01/22 04:33 Lymphocytes % (Manual) 15.0 % (13.4-35.0) 02/01/22 04:33 Reactive Lymphs % (Man) 0 % 02/01/22 04:33 Monocytes % (Manual) 3.0 % (0.0-7.3) 02/01/22 04:33 Eosinophils % (Manual) 3.0 % (0.0-4.3) 02/01/22 04:33 Basophils % (Manual) 0 % (0.0-1.8) 02/01/22 04:33 Metamyelocytes % 0 % 02/01/22 04:33 Myelocytes % 0 % 02/01/22 04:33 Promyelocytes % 0 % 02/01/22 04:33 Blast Cells % 0 % 02/01/22 04:33 Nucleated RBC % Not Reportable 02/01/22 04:33 Seg Neutrophils # 5.0 K/mm3 (1.8-7.7) 01/30/22 07:04 Seg Neutrophils # Man 6.6 K/mm3 (1.8-7.7) 02/01/22 04:33 Band Neutrophils # 0.0 K/mm3 02/01/22 04:33 Lymphocytes # (Manual) 1.3 K/mm3 (1.2-5.4) 02/01/22 04:33 Abs React Lymphs (Man) 0.0 K/mm3 02/01/22 04:33 Monocytes # (Manual) 0.3 K/mm3 (0.0-0.8) 02/01/22 04:33 Eosinophils # (Manual) 0.3 K/mm3 (0.0-0.4) 02/01/22 04:33 Basophils # (Manual) 0.0 K/mm3 (0.0-0.1) 02/01/22 04:33 Metamyelocytes # 0.0 K/mm3 02/01/22 04:33 Myelocytes # 0.0 K/mm3 02/01/22 04:33 Promyelocytes # 0.0 K/mm3 02/01/22 04:33 Blast Cells # 0.0 K/mm3 02/01/22 04:33 WBC Morphology Not Reportable 02/01/22 04:33 Hypersegmented Neuts Not Reportable 02/01/22 04:33 Hyposegmented Neuts Not Reportable 02/01/22 04:33 Hypogranular Neuts Not Reportable 02/01/22 04:33 Smudge Cells Not Reportable 02/01/22 04:33 Toxic Granulation Not Reportable 02/01/22 04:33 Toxic Vacuolation Not Reportable 02/01/22 04:33 Dohle Bodies Not Reportable 02/01/22 04:33 Pelger-Huet Anomaly Not Reportable 02/01/22 04:33 Stella Rods Not Reportable 02/01/22 04:33 Platelet Estimate Consistent w auto 02/01/22 04:33 Clumped Platelets Not Reportable 02/01/22 04:33 Plt Clumps, EDTA Not Reportable 02/01/22 04:33 Large Platelets Not Reportable 02/01/22 04:33 Giant Platelets Not Reportable 02/01/22 04:33 Platelet Satelliting Not Reportable 02/01/22 04:33 Plt Morphology Comment Not Reportable 02/01/22 04:33 RBC Morphology Normal 02/01/22 04:33 Dimorphic RBCs Not Reportable 02/01/22 04:33 Polychromasia Not Reportable 02/01/22 04:33 Hypochromasia Not Reportable 02/01/22 04:33 Poikilocytosis Not Reportable 02/01/22 04:33 Anisocytosis Not Reportable 02/01/22 04:33 Microcytosis Not Reportable 02/01/22 04:33 Macrocytosis Not Reportable 02/01/22 04:33 Spherocytes Not Reportable 02/01/22 04:33 Pappenheimer Bodies Not Reportable 02/01/22 04:33 Sickle Cells Not Reportable 02/01/22 04:33 Target Cells Not Reportable 02/01/22 04:33 Tear Drop Cells Not Reportable 02/01/22 04:33 Ovalocytes Not Reportable 02/01/22 04:33 Helmet Cells Not Reportable 02/01/22 04:33 Wade-Mccloud Bodies Not Reportable 02/01/22 04:33 [place] Rings Not Reportable 02/01/22 04:33 Chante Cells Not Reportable 02/01/22 04:33 Bite Cells Not Reportable 02/01/22 04:33 Crenated Cell Not Reportable 02/01/22 04:33 Elliptocytes Not Reportable 02/01/22 04:33 Acanthocytes (Spur) Not Reportable 02/01/22 04:33 Rouleaux Not Reportable 02/01/22 04:33 Hemoglobin C Crystals Not Reportable 02/01/22 04:33 Schistocytes Not Reportable 02/01/22 04:33 Malaria parasites Not Reportable 02/01/22 04:33 Roque Bodies Not Reportable 02/01/22 04:33 Hem Pathologist Commnt No 02/01/22 04:33 Sodium 139 mmol/L (137-145) 02/01/22 04:33 Potassium 3.6 mmol/L (3.6-5.0) 02/01/22 04:33 Chloride 105.7 mmol/L (98-107) 02/01/22 04:33 Carbon Dioxide 19 mmol/L (22-30) L 02/01/22 04:33 Anion Gap 18 mmol/L 02/01/22 04:33 BUN 10 mg/dL (9-20) 02/01/22 04:33 Creatinine 0.7 mg/dL (0.8-1.3) L 02/01/22 04:33 Estimated GFR > 60 ml/min 02/01/22 04:33 BUN/Creatinine Ratio 14 % 02/01/22 04:33 Glucose 102 mg/dL (75-100) H 02/01/22 04:33 Calcium 8.4 mg/dL (8.4-10.2) 02/01/22 04:33 Phosphorus 2.30 mg/dL (2.5-4.5) L 02/01/22 04:33 Magnesium 2.10 mg/dL (1.7-2.3) 02/01/22 04:33 Total Bilirubin 0.20 mg/dL (0.1-1.2) 01/29/22 04:43 AST 14 units/L (5-40) 01/29/22 04:43 ALT 6 units/L (7-56) L 01/29/22 04:43 Alkaline Phosphatase 75 units/L (35-129) 01/29/22 04:43 Total Protein 7.5 g/dL (6.3-8.2) D 01/29/22 04:43 Albumin 3.9 g/dL (3.9-5) 01/29/22 04:43 Albumin/Globulin Ratio 1.1 % 01/29/22 04:43 Lipase 41 units/L (13-60) 01/27/22 23:11 Urine Color Rose (Yellow) 01/28/22 03:53 Urine Turbidity Turbid (Clear) 01/28/22 03:53 Urine pH 8.0 (5.0-7.0) H 01/28/22 03:53 Ur Specific [place] 1.020 (1.003-1.030) 01/28/22 03:53 Urine Protein >500 mg/dL (Negative) 01/28/22 03:53 Urine Glucose (UA) Neg mg/dL (Negative) 01/28/22 03:53 Urine Ketones Tr mg/dL (Negative) 01/28/22 03:53 Urine Blood Neg (Negative) 01/28/22 03:53 Urine Nitrite Neg (Negative) 01/28/22 03:53 Urine Bilirubin Neg (Negative) 01/28/22 03:53 Urine Urobilinogen < 2.0 mg/dL (<2.0) 01/28/22 03:53 Ur Leukocyte Esterase Lg (Negative) 01/28/22 03:53 Urine WBC (Auto) 75.0 /HPF (0.0-6.0) H 01/28/22 03:53 Urine RBC (Auto) 38.0 /HPF (0.0-6.0) 01/28/22 03:53 Urine Bacteria (Auto) 4+ /HPF (Negative) 01/28/22 03:53 Triple Phos Crystals 3+ 01/28/22 03:53 Urine Mucus 1+ /HPF 01/28/22 03:53 Microbiology: Microbiology 01/28/22 20:03 Peripheral/Venous Blood Culture - Preliminary NO GROWTH AFTER 72 HOURS 01/28/22 20:13 Peripheral/Venous Blood Culture - Preliminary NO GROWTH AFTER 72 HOURS Almaraz/IV: Voiding Method Suprapubic catheter Active Medications - Current Medications Current Medications: Generic Name Dose Route Start Last Admin Trade Name Freq PRN Reason Stop Dose Admin Acetaminophen 650 mg 01/28/22 11:46 Acetaminophen 325 Mg Tab PO Q4H PRN Pain MILD(1-3)/Fever >100.5/GARCIA Famotidine 10 mg 01/28/22 22:00 02/01/22 10:33 Famotidine 20 Mg/2 Ml Inj IV 10 mg BID CLIFF Administration Finasteride 5 mg 01/29/22 10:00 02/01/22 10:30 Finasteride 5 Mg Tab PO Not Given QDAY [facility] Heparin Sodium (Porcine) 5,000 unit 01/28/22 14:00 02/01/22 05:29 Heparin 5,000 Unit/1 Ml Vial SUB-Q 5,000 unit Q8HR CLIFF Administration Ceftriaxone Sodium 2 gm in 100 mls @ 200 mls/hr 01/28/22 19:00 01/31/22 18:01 Rocephin/Ns 2 Gm/100 Ml IV 02/02/22 18:59 200 mls/hr Q24H CLIFF Administration Protocol Amino Acids 2,000 mls @ 83.33 mls/hr 01/31/22 20:00 01/31/22 21:51 Clinimix 4.25%-10% Solution IV 02/01/22 19:59 83.33 mls/hr ONCE CLIFF Administration Levothyroxine Sodium 50 mcg 01/29/22 06:00 02/01/22 05:30 Levothyroxine 50 Mcg Tab PO Not Given DAILY@0600 [facility] Memantine 10 mg 01/28/22 22:00 02/01/22 10:30 Memantine 10 Mg Tab PO Not Given Q12HR [facility] Metoclopramide HCl 10 mg 01/28/22 11:46 Metoclopramide 10 Mg/2 Ml Inj IV Q6H PRN Nausea And Vomiting Morphine Sulfate 2 mg 01/28/22 11:46 Morphine 2 Mg/1 Ml Inj IV Q4H PRN Pain, Moderate (4-6) Morphine Sulfate 4 mg 01/28/22 11:46 Morphine 4 Mg/1 Ml Inj IV Q4H PRN Pain , Severe (7-10) Olanzapine 5 mg 01/29/22 10:00 02/01/22 10:30 Olanzapine 5 Mg Tab PO Not Given QDAY [facility] Ondansetron HCl 4 mg 01/28/22 11:46 Ondansetron 4 Mg/2 Ml Inj IV Q8H PRN Nausea And Vomiting Oxycodone/Acetaminophen 1 tab 01/28/22 11:46 Oxycodone /Acetaminophen 5-325mg Tab PO Q6H PRN Pain, Moderate (4-6) Sertraline HCl 25 mg 01/29/22 10:00 02/01/22 10:30 Sertraline 25 Mg Tab PO Not Given QDAY [facility] Sodium Chloride 10 ml 01/28/22 22:00 02/01/22 10:33 Sodium Chloride 0.9% 10 Ml Flush Syringe IV 10 ml BID CLIFF Administration Sodium Chloride 10 ml 01/28/22 11:46 Sodium Chloride 0.9% 10 Ml Flush Syringe IV PRN PRN LINE FLUSH Tamsulosin HCl 0.4 mg 01/29/22 10:00 02/01/22 10:30 Tamsulosin 0.4 Mg Cap PO Not Given QDAY [facility] Nutrition/Malnutrition Assess - Dietary Evaluation Nutrition/Malnutrition Findings: Nutrition Notes Start: 01/31/22 12:43 Freq: Status: Active Protocol: Document 02/01/22 10:33 SIENA (Rec: 02/01/22 10:57 SIENA [id number]) Nutrition Notes Initial or Follow up Reassessment Current Diagnosis Sepsis,Hypertension,Small Bowel Obstruction Other Pertinent Diagnosis N/V/Abdominal Pain, Hypothyroidism, s/p obtructive uropathy, BPH, Dementia. Labs/Tests 02/01: CO2 19, Crea 0.7, Glu 102, Phos 2.3. Pertinent Medications 02/01: Nutritionally unremarkable. Height 6 ft Weight 86.039 kg [place] Body Weight (kg) 80.90 BMI 25.7 Weight change and time frame No body weight change reported . Weight Status Appropriate Subjective/Other Information RD consult for routine F/U on PPN. Pt remains NPO. Pt is on room air saturating well in upper 90s. CT scan shows SBO at jejunum w /signs of improvement. Percent of energy/protein needs met: Pt remains NPO. Burn Absent Trauma Absent GI Symptoms Other Food Allergy No Skin Integrity/Comment Assessment WNL. Current % PO Other Minimum of two criteria No #1 Nutrition Diagnosis Altered GI function Diagnosis Progress(for reassessment Continues documentation) Is patient on ventilator? No Is Patient Ambulatory and/or Out of Bed Yes REE-([place]-St. Jeor-ambulatory/OOB) [ [id number] [id number]] Calculation Used for Recommendations [place]-St Jeor Additional Notes Protein: 0.8-1 g/Kg ABW; 69-86 g/day. Fluids: 1 ml/Kcal, or as per MD. Nutrition Intervention Goal #1 Provide at least 75% of energy /protein needs through Parenteral Feeding during LOS. Goal #2 Maintain body weight within +/ -3% of admission body weight during LOS. Follow-Up By: 02/02/22 Additional Comments Start monitoring TF tolerance and BM. BMP, Phos, Mg labs ordered.
--- NOTE | 2022-02-01 16:35 | Progress Note ---
Assessment and Plan 56-year-old male patient with significant past medical history of obstructive uropathy with suprapubic catheter hypothyroidism hypertension, BPH, dementia presented to the emergency room with intractable nausea vomiting and abdominal pain of 2 to 3 days duration, no history of travel , no history of food poisoning Pt with low midline incision on exam of unk etiology. SBO most likely secondary to adhesions. Continue NG for tonight we will try clear liquids tomorrow. I Subjective Date of service: 02/01/22 Narrative: Patient with questionable clinical improvement of his small bowel obstruction. He did have nausea and vomiting yesterday but denies any this morning. He states that he is not passing gas of his bottom but not sure how good of a historian he is. The abdominal x-ray done today shows contrast reaching the colon. Continue NG suction through the night may try it a liquid diet early tomorrow. Objective Vital Signs - 12hr 02/01/22 02/01/22 02/01/22 05:18 07:00 11:18 Temperature 98.5 F 98.7 F Pulse Rate 65 69 Respiratory 20 18 Rate Blood Pressure 118/77 127/86 O2 Sat by Pulse 95 97 96 Oximetry - Labs 02/01/22 04:33 02/01/22 04:33 Diabetes panel 02/01/22 Range/Units 04:33 Sodium 139 (137-145) mmol/L Potassium 3.6 (3.6-5.0) mmol/L Chloride 105.7 (98-107) mmol/L Carbon Dioxide 19 L (22-30) mmol/L BUN 10 (9-20) mg/dL Creatinine 0.7 L (0.8-1.3) mg/dL Glucose 102 H (75-100) mg/dL Calcium 8.4 (8.4-10.2) mg/dL Calcium panel 02/01/22 Range/Units 04:33 Calcium 8.4 (8.4-10.2) mg/dL Phosphorus 2.30 L (2.5-4.5) mg/dL Pituitary panel 02/01/22 Range/Units 04:33 Sodium 139 (137-145) mmol/L Potassium 3.6 (3.6-5.0) mmol/L Chloride 105.7 (98-107) mmol/L Carbon Dioxide 19 L (22-30) mmol/L BUN 10 (9-20) mg/dL Creatinine 0.7 L (0.8-1.3) mg/dL Glucose 102 H (75-100) mg/dL Calcium 8.4 (8.4-10.2) mg/dL Adrenal panel 02/01/22 Range/Units 04:33 Sodium 139 (137-145) mmol/L Potassium 3.6 (3.6-5.0) mmol/L Chloride 105.7 (98-107) mmol/L Carbon Dioxide 19 L (22-30) mmol/L BUN 10 (9-20) mg/dL Creatinine 0.7 L (0.8-1.3) mg/dL Glucose 102 H (75-100) mg/dL Calcium 8.4 (8.4-10.2) mg/dL
[2022-02-01] MEDS ORDERED: AMINO ACIDS 4.25%/DEXTROSE 10% 2,000 ML IV SCH (20:00)
[2022-02-01] MEDS: cefTRIAXone/NS 2 GM/100 ML 2 GM/100 ML BAG IV SCH (21:52)
[2022-02-02] MEDS: HEPARIN 5,000 UNIT/1 ML VIAL SUB-Q SCH ×3 (05:35→21:00)
[2022-02-02] MEDS: LEVOTHYROXINE 50 MCG TAB PO SCH (05:35)
[2022-02-02 07:40] LABS: Hematocrit 39.9 % (35.5-45.6); Hemoglobin 13.3 gm/dl (11.8-15.2); Mean Corpuscular HGB Conc 33 % (32-34); Mean Corpuscular Volume 86 fl (84-94); Platelet Count 210 K/mm3 (140-440); Red Blood Count 4.67 M/mm3 (3.65-5.03); Red Cell Distribution Width 14.7 % (13.2-15.2)
[2022-02-02 08:03] LABS: BUN/Creatinine Ratio 26; Blood Urea Nitrogen 18 mg/dL (9-20); Calcium 8.9 mg/dL (8.4-10.2); Hemolysis Index 5
--- NOTE | 2022-02-02 08:35 | Progress Note ---
Assessment and Plan Assessment and plan: 56-year-old male patient with significant past medical history of obstructive uropathy with suprapubic catheter hypothyroidism hypertension, BPH, dementia presented to the emergency room with intractable nausea vomiting and abdominal pain of 2 to 3 days duration, no history of travel , no history of food poisoning Small bowel obstruction Severe sepsis. Patient meets criteria given the tachycardia, tachypnea, leukocytosis and diagnosis of UTI with organ failure/acute kidney injury. Acute kidney injury Urinary tract infection Hyperkalemia Hypothyroidism History of BPH 01/31/2022. CT scan with contrast showing continued small bowel obstruction admit jejunum. Some signs of improvement. Continue NG suction as the proximal small bowel remains distended. We will repeat x-rays tomorrow abdominal x-ray will be able to track the progress of the contrast material. Surgery reports if the contrast material has not reached the colon patient may still need an exploratory laparotomy. There is air that is progressed into the colon so there is signs that the obstruction is not complete. However high-grade obstruction may also require exploration. Recommend continued NG suction IV fluids and beginning peripheral hyperal today. Acute kidney injury resolved with IV fluid hydration. Follow-up BMP in a.m. Continue IV antibiotics 02/01/2022. KUB still reveals partial distal small bowel obstruction. I discussed the KUB with surgery. Continue conservative management and determine if patient will need surgery. Follow-up a.m. labs 02/02/2022. I discussed the case with surgery who reports patient with a CAT scan revealing moderate bladder wall thickening and edema that is likely co ntributing to partial small bowel obstruction. Urology consultation. Continue IV antibiotics of ceftriaxone. History Interval history: No new issues overnight Hospitalist Physical - Constitutional Vitals: Temp Pulse Resp BP Pulse Ox 98.3 F 63 18 115/71 100 02/02/22 04:38 02/02/22 04:38 02/02/22 04:38 02/02/22 04:38 02/02/22 08:26 General appearance: Present: no acute distress, well-nourished - EENT Eyes: Present: PERRL, EOM intact ENT: hearing intact, clear oral mucosa, dentition normal - Neck Neck: Present: supple, normal ROM - Respiratory Respiratory effort: normal Respiratory: bilateral: CTA - Cardiovascular Rhythm: regular Heart Sounds: Present: S1 & S2. Absent: gallop, rub - Extremities Extremities: no ischemia, No edema, Full ROM - Abdominal General gastrointestinal: soft, non-tender, non-distended, normal bowel sounds - Integumentary Integumentary: Present: clear, warm, dry - Neurologic Neurologic: CNII-XII intact, moves all extremities Results - Labs CBC & Chem 7: 02/02/22 06:57 02/02/22 06:57 Labs: Laboratory Last Values WBC 8.6 K/mm3 (4.5-11.0) 02/02/22 06:57 RBC 4.67 M/mm3 (3.65-5.03) 02/02/22 06:57 Hgb 13.3 gm/dl (11.8-15.2) 02/02/22 06:57 Hct 39.9 % (35.5-45.6) 02/02/22 06:57 MCV 86 fl (84-94) 02/02/22 06:57 MCH 29 pg (28-32) 02/02/22 06:57 MCHC 33 % (32-34) 02/02/22 06:57 RDW 14.7 % (13.2-15.2) 02/02/22 06:57 Plt Count 210 K/mm3 (140-440) 02/02/22 06:57 Lymph % (Auto) 14.1 % (13.4-35.0) 01/30/22 07:04 Childress % (Auto) 10.6 % (0.0-7.3) H 01/30/22 07:04 Eos % (Auto) 3.1 % (0.0-4.3) 01/30/22 07:04 Baso % (Auto) 0.3 % (0.0-1.8) 01/30/22 07:04 Lymph # (Auto) 1.0 K/mm3 (1.2-5.4) L 01/30/22 07:04 Childress # (Auto) 0.7 K/mm3 (0.0-0.8) 01/30/22 07:04 Eos # (Auto) 0.2 K/mm3 (0.0-0.4) 01/30/22 07:04 Baso # (Auto) 0.0 K/mm3 (0.0-0.1) 01/30/22 07:04 Add Manual Diff Complete 02/01/22 04:33 Total Counted 100 02/01/22 04:33 Seg Neutrophils % 71.9 % (40.0-70.0) H 01/30/22 07:04 Seg Neuts % (Manual) 79.0 % (40.0-70.0) H 02/01/22 04:33 Band Neutrophils % 0 % 02/01/22 04:33 Lymphocytes % (Manual) 15.0 % (13.4-35.0) 02/01/22 04:33 Reactive Lymphs % (Man) 0 % 02/01/22 04:33 Monocytes % (Manual) 3.0 % (0.0-7.3) 02/01/22 04:33 Eosinophils % (Manual) 3.0 % (0.0-4.3) 02/01/22 04:33 Basophils % (Manual) 0 % (0.0-1.8) 02/01/22 04:33 Metamyelocytes % 0 % 02/01/22 04:33 Myelocytes % 0 % 02/01/22 04:33 Promyelocytes % 0 % 02/01/22 04:33 Blast Cells % 0 % 02/01/22 04:33 Nucleated RBC % Not Reportable 02/01/22 04:33 Seg Neutrophils # 5.0 K/mm3 (1.8-7.7) 01/30/22 07:04 Seg Neutrophils # Man 6.6 K/mm3 (1.8-7.7) 02/01/22 04:33 Band Neutrophils # 0.0 K/mm3 02/01/22 04:33 Lymphocytes # (Manual) 1.3 K/mm3 (1.2-5.4) 02/01/22 04:33 Abs React Lymphs (Man) 0.0 K/mm3 02/01/22 04:33 Monocytes # (Manual) 0.3 K/mm3 (0.0-0.8) 02/01/22 04:33 Eosinophils # (Manual) 0.3 K/mm3 (0.0-0.4) 02/01/22 04:33 Basophils # (Manual) 0.0 K/mm3 (0.0-0.1) 02/01/22 04:33 Metamyelocytes # 0.0 K/mm3 02/01/22 04:33 Myelocytes # 0.0 K/mm3 02/01/22 04:33 Promyelocytes # 0.0 K/mm3 02/01/22 04:33 Blast Cells # 0.0 K/mm3 02/01/22 04:33 WBC Morphology Not Reportable 02/01/22 04:33 Hypersegmented Neuts Not Reportable 02/01/22 04:33 Hyposegmented Neuts Not Reportable 02/01/22 04:33 Hypogranular Neuts Not Reportable 02/01/22 04:33 Smudge Cells Not Reportable 02/01/22 04:33 Toxic Granulation Not Reportable 02/01/22 04:33 Toxic Vacuolation Not Reportable 02/01/22 04:33 Dohle Bodies Not Reportable 02/01/22 04:33 Pelger-Huet Anomaly Not Reportable 02/01/22 04:33 Stella Rods Not Reportable 02/01/22 04:33 Platelet Estimate Consistent w auto 02/01/22 04:33 Clumped Platelets Not Reportable 02/01/22 04:33 Plt Clumps, EDTA Not Reportable 02/01/22 04:33 Large Platelets Not Reportable 02/01/22 04:33 Giant Platelets Not Reportable 02/01/22 04:33 Platelet Satelliting Not Reportable 02/01/22 04:33 Plt Morphology Comment Not Reportable 02/01/22 04:33 RBC Morphology Normal 02/01/22 04:33 Dimorphic RBCs Not Reportable 02/01/22 04:33 Polychromasia Not Reportable 02/01/22 04:33 Hypochromasia Not Reportable 02/01/22 04:33 Poikilocytosis Not Reportable 02/01/22 04:33 Anisocytosis Not Reportable 02/01/22 04:33 Microcytosis Not Reportable 02/01/22 04:33 Macrocytosis Not Reportable 02/01/22 04:33 Spherocytes Not Reportable 02/01/22 04:33 Pappenheimer Bodies Not Reportable 02/01/22 04:33 Sickle Cells Not Reportable 02/01/22 04:33 Target Cells Not Reportable 02/01/22 04:33 Tear Drop Cells Not Reportable 02/01/22 04:33 Ovalocytes Not Reportable 02/01/22 04:33 Helmet Cells Not Reportable 02/01/22 04:33 Wade-Bertha Bodies Not Reportable 02/01/22 04:33 Loraine Rings Not Reportable 02/01/22 04:33 Chante Cells Not Reportable 02/01/22 04:33 Bite Cells Not Reportable 02/01/22 04:33 Crenated Cell Not Reportable 02/01/22 04:33 Elliptocytes Not Reportable 02/01/22 04:33 Acanthocytes (Spur) Not Reportable 02/01/22 04:33 Rouleaux Not Reportable 02/01/22 04:33 Hemoglobin C Crystals Not Reportable 02/01/22 04:33 Schistocytes Not Reportable 02/01/22 04:33 Malaria parasites Not Reportable 02/01/22 04:33 Roque Bodies Not Reportable 02/01/22 04:33 Hem Pathologist Commnt No 02/01/22 04:33 Sodium 137 mmol/L (137-145) 02/02/22 06:57 Potassium 3.3 mmol/L (3.6-5.0) L 02/02/22 06:57 Chloride 105.1 mmol/L (98-107) 02/02/22 06:57 Carbon Dioxide 19 mmol/L (22-30) L 02/02/22 06:57 Anion Gap 16 mmol/L 02/02/22 06:57 BUN 18 mg/dL (9-20) 02/02/22 06:57 Creatinine 0.7 mg/dL (0.8-1.3) L 02/02/22 06:57 Estimated GFR > 60 ml/min 02/02/22 06:57 BUN/Creatinine Ratio 26 % 02/02/22 06:57 Glucose 123 mg/dL (75-100) H 02/02/22 06:57 Calcium 8.9 mg/dL (8.4-10.2) 02/02/22 06:57 Phosphorus 2.40 mg/dL (2.5-4.5) L 02/02/22 06:57 Magnesium 2.20 mg/dL (1.7-2.3) 02/02/22 06:57 Total Bilirubin 0.20 mg/dL (0.1-1.2) 01/29/22 04:43 AST 14 units/L (5-40) 01/29/22 04:43 ALT 6 units/L (7-56) L 01/29/22 04:43 Alkaline Phosphatase 75 units/L (35-129) 01/29/22 04:43 Total Protein 7.5 g/dL (6.3-8.2) D 01/29/22 04:43 Albumin 3.9 g/dL (3.9-5) 01/29/22 04:43 Albumin/Globulin Ratio 1.1 % 01/29/22 04:43 Lipase 41 units/L (13-60) 01/27/22 23:11 Urine Color Rose (Yellow) 01/28/22 03:53 Urine Turbidity Turbid (Clear) 01/28/22 03:53 Urine pH 8.0 (5.0-7.0) H 01/28/22 03:53 Ur Specific [place] 1.020 (1.003-1.030) 01/28/22 03:53 Urine Protein >500 mg/dL (Negative) 01/28/22 03:53 Urine Glucose (UA) Neg mg/dL (Negative) 01/28/22 03:53 Urine Ketones Tr mg/dL (Negative) 01/28/22 03:53 Urine Blood Neg (Negative) 01/28/22 03:53 Urine Nitrite Neg (Negative) 01/28/22 03:53 Urine Bilirubin Neg (Negative) 01/28/22 03:53 Urine Urobilinogen < 2.0 mg/dL (<2.0) 01/28/22 03:53 Ur Leukocyte Esterase Lg (Negative) 01/28/22 03:53 Urine WBC (Auto) 75.0 /HPF (0.0-6.0) H 01/28/22 03:53 Urine RBC (Auto) 38.0 /HPF (0.0-6.0) 01/28/22 03:53 Urine Bacteria (Auto) 4+ /HPF (Negative) 01/28/22 03:53 Triple Phos Crystals 3+ 01/28/22 03:53 Urine Mucus 1+ /HPF 01/28/22 03:53 Microbiology: Microbiology 01/28/22 20:03 Peripheral/Venous Blood Culture - Preliminary NO GROWTH AFTER 4 DAYS 01/28/22 20:13 Peripheral/Venous Blood Culture - Preliminary NO GROWTH AFTER 4 DAYS Almaraz/IV: Voiding Method Suprapubic catheter Active Medications - Current Medications Current Medications: Generic Name Dose Route Start Last Admin Trade Name Freq PRN Reason Stop Dose Admin Acetaminophen 650 mg 01/28/22 11:46 Acetaminophen 325 Mg Tab PO Q4H PRN Pain MILD(1-3)/Fever >100.5/GARCIA Famotidine 10 mg 01/28/22 22:00 02/01/22 21:52 Famotidine 20 Mg/2 Ml Inj IV 10 mg BID CLIFF Administration Finasteride 5 mg 01/29/22 10:00 02/01/22 10:30 Finasteride 5 Mg Tab PO Not Given QDAY [facility] Heparin Sodium (Porcine) 5,000 unit 01/28/22 14:00 02/02/22 05:35 Heparin 5,000 Unit/1 Ml Vial SUB-Q 5,000 unit Q8HR CLIFF Administration Ceftriaxone Sodium 2 gm in 100 mls @ 200 mls/hr 01/28/22 19:00 02/01/22 21:52 Rocephin/Ns 2 Gm/100 Ml IV 02/02/22 18:59 200 mls/hr Q24H CLIFF Administration Protocol Amino Acids 2,000 mls @ 83.33 mls/hr 02/01/22 20:00 02/02/22 00:43 Clinimix 4.25%-10% Solution IV 02/02/22 19:59 83.33 mls/hr ONCE CLIFF Administration Levothyroxine Sodium 50 mcg 01/29/22 06:00 02/02/22 05:35 Levothyroxine 50 Mcg Tab PO 50 mcg DAILY@0600 CLIFF Administration Memantine 10 mg 01/28/22 22:00 02/01/22 21:52 Memantine 10 Mg Tab PO 10 mg Q12HR CLIFF Administration Metoclopramide HCl 10 mg 01/28/22 11:46 Metoclopramide 10 Mg/2 Ml Inj IV Q6H PRN Nausea And Vomiting Morphine Sulfate 2 mg 01/28/22 11:46 Morphine 2 Mg/1 Ml Inj IV Q4H PRN Pain, Moderate (4-6) Morphine Sulfate 4 mg 01/28/22 11:46 Morphine 4 Mg/1 Ml Inj IV Q4H PRN Pain , Severe (7-10) Olanzapine 5 mg 01/29/22 10:00 02/01/22 10:30 Olanzapine 5 Mg Tab PO Not Given [facility] Ondansetron HCl 4 mg 01/28/22 11:46 Ondansetron 4 Mg/2 Ml Inj IV Q8H PRN Nausea And Vomiting Oxycodone/Acetaminophen 1 tab 01/28/22 11:46 Oxycodone /Acetaminophen 5-325mg Tab PO Q6H PRN Pain, Moderate (4-6) Sertraline HCl 25 mg 01/29/22 10:00 02/01/22 10:30 Sertraline 25 Mg Tab PO Not Given QDAY [facility] Sodium Chloride 10 ml 01/28/22 22:00 02/01/22 21:53 Sodium Chloride 0.9% 10 Ml Flush Syringe IV 10 ml BID CLIFF Administration Sodium Chloride 10 ml 01/28/22 11:46 Sodium Chloride 0.9% 10 Ml Flush Syringe IV PRN PRN LINE FLUSH Tamsulosin HCl 0.4 mg 01/29/22 10:00 02/01/22 10:30 Tamsulosin 0.4 Mg Cap PO Not Given [facility] Nutrition/Malnutrition Assess - Dietary Evaluation Nutrition/Malnutrition Findings: Nutrition Notes Start: 01/31/22 12:43 Freq: Status: Active Protocol: Document 02/01/22 10:33 SIENA (Rec: 02/01/22 10:57 SIENA [id number]) Nutrition Notes Initial or Follow up Reassessment Current Diagnosis Sepsis,Hypertension,Small Bowel Obstruction Other Pertinent Diagnosis N/V/Abdominal Pain, Hypothyroidism, s/p obtructive uropathy, BPH, Dementia. Current Diet PPN Clinimix @ 83.33 ml/hr ( since D 01/31). Labs/Tests 02/01: CO2 19, Crea 0.7, Glu 102, Phos 2.3. Pertinent Medications 02/01: Nutritionally unremarkable. Height 6 ft Weight 86.039 kg [place] Body Weight (kg) 80.90 BMI 25.7 Weight change and time frame No body weight change reported . Weight Status Appropriate Subjective/Other Information RD consult for routine F/U on PPN. Pt remains NPO. Pt is on room air saturating well in upper 90s. CT scan shows SBO at jejunum w /signs of improvement. Percent of energy/protein needs met: Pt remains NPO. Prescribed Clinimix @ 83.33 ml /hr provides for energy/ protein needs (1,020 Kcal/85 g ) during LOS, 46% Kcal; 99% AA . Burn Absent Trauma Absent GI Symptoms Other Food Allergy No Skin Integrity/Comment Assessment WNL. Current % PO Other Minimum of two criteria No #1 Nutrition Diagnosis Altered GI function Diagnosis Progress(for reassessment Continues documentation) Is patient on ventilator? No Is Patient Ambulatory and/or Out of Bed Yes REE-([facility]-ambulatory/OOB) [ [id number] [id number]] Calculation Used for Recommendations [facility] Additional Notes Protein: 0.8-1 g/Kg ABW; 69-86 g/day. Fluids: 1 ml/Kcal, or as per MD. Nutrition Intervention Nutrition Support: Continue Clinimix @ 83.33 ml/ hr. Kcal 1,020 Protein (gm) 85 Carbohydrates (gm) 200 Fat (gm) 0 Fluid (mL) 2,000 Fiber (gm) 0 % RDI: 46% Kcal; 99% AA. Goal #1 Provide at least 75% of energy /protein needs through Parenteral Feeding during LOS. Goal #2 Maintain body weight within +/ -3% of admission body weight during LOS. Follow-Up By: 02/02/22 Additional Comments Start monitoring TF tolerance and BM. BMP, Phos, Mg labs ordered.
[2022-02-02 08:39] LABS: Band Neutrophils # (Manual) 0.3 K/mm3; Basophils % (Manual) 0 % (0.0-1.8); Platelet Estimate Consistent w Auto; RBC Morphology Normal; Total Cells Counted 100
--- NOTE | 2022-02-02 08:55 | XRay Report ---
ABDOMEN 1 VIEW 02/02/2022 6:53 AM INDICATION / CLINICAL INFORMATION: bowel obstruction. COMPARISON: 02/01/22 FINDINGS: TUBES / LINES: None. BOWEL GAS PATTERN: Moderate gaseous distention of small bowel is unchanged. Contrast in the distal co cheng and rectum is unchanged. FREE AIR / EXTRALUMINAL GAS: None. ADDITIONAL FINDINGS: No significant additional findings. IMPRESSION: 1. No change in moderate small bowel dilatation which may represent partial bowel obstruction. Signer Name: Orlando King MD Signed: 02/02/2022 8:50 AM Workstation Name: [email or web address]
--- NOTE | 2022-02-02 12:12 | Progress Note ---
Assessment and Plan mentally challanged \no pain sp[t draining well get cystogram ?? reflux causing hydro Subjective Date of service: 02/02/22 Principal diagnosis: hydro Objective - Constitutional Vitals: Vital Signs - 12hr 02/02/22 02/02/22 04:38 08:26 Temperature 98.3 F Pulse Rate 63 Respiratory 18 Rate Blood Pressure 115/71 [Left] O2 Sat by Pulse 93 100 Oximetry General appearance: Present: no acute distress - Neck Neck: supple - Respiratory Respiratory effort: normal Extremities: no ischemia - Gastrointestinal General gastrointestinal: Present: soft, non-tender - Labs CBC & Chem 7: 02/02/22 06:57 02/02/22 06:57 Labs: Abnormal lab results 02/02/22 02/02/22 Range/Units 06:57 06:57 Seg Neuts % (Manual) 71.0 H (40.0-70.0) % Eosinophils % (Manual) 5.0 H (0.0-4.3) % Potassium 3.3 L (3.6-5.0) mmol/L Carbon Dioxide 19 L (22-30) mmol/L Creatinine 0.7 L (0.8-1.3) mg/dL Glucose 123 H (75-100) mg/dL Phosphorus 2.40 L (2.5-4.5) mg/dL Medications & Allergies - Medications Allergies/Adverse Reactions: Allergies No Known Allergies Allergy (Verified 01/25/22 11:37) Home Medications: Home Medications Medication Instructions Recorded Confirmed Last Taken Type Finasteride [Proscar] 5 mg PO QDAY 08/07/20 04/08/21 04/07/21 08:00 History Levothyroxine Sodium [Tirosint-Nimo] 50 mcg PO QDAY 08/07/20 04/08/21 04/07/21 07:00 History Tamsulosin [Flomax] 0.4 mg PO QDAY 08/07/20 04/08/21 04/06/21 21:00 History OLANZapine [Zyprexa] 5 mg PO QDAY #30 tab 09/23/20 04/08/21 04/06/21 09:00 Rx Sertraline [Zoloft] 25 mg PO QDAY #30 tab 09/23/20 04/08/21 04/07/21 09:00 Rx Memantine HCl [Namenda Xr] 100 mg PO DAILY 12/20/20 04/08/21 04/07/21 09:00 History Polyethylene Glycol 3350 [Miralax] 119 gm PO DAILY 12/20/20 04/08/21 04/07/21 09:00 History Dicyclomine [Bentyl] 20 mg PO Q6H PRN #30 tablet 03/03/21 04/08/21 03/29/21 08:00 Rx Famotidine [Pepcid] 20 mg PO BID #60 tablet 03/03/21 04/08/21 04/07/21 09:00 Rx Ondansetron [Zofran ODT TAB] 4 mg PO Q8HR PRN #20 tab.rapdis 03/03/21 04/08/21 03/30/21 21:00 Rx Pantoprazole [Protonix TAB] 40 mg PO QDAC #30 tablet 04/08/21 Unknown Rx levoFLOXacin [Levaquin TAB] 500 mg PO QDAY #5 tablet 04/08/21 Unknown Rx Acetaminophen [Tylenol] 650 mg PO Q8HR PRN #20 cap 11/23/21 Unknown Rx Ciprofloxacin HCl 500 mg PO BID 10 Days #20 tablet 12/28/21 Unknown Rx Naproxen [Naprosyn] 500 mg PO BID #14 tablet 12/28/21 Unknown Rx Active Medications: Generic Name Dose Route Start Last Admin Trade Name Freq PRN Reason Stop Dose Admin Acetaminophen 650 mg 01/28/22 11:46 Acetaminophen 325 Mg Tab PO Q4H PRN Pain MILD(1-3)/Fever >100.5/GARCIA Famotidine 10 mg 01/28/22 22:00 02/01/22 21:52 Famotidine 20 Mg/2 Ml Inj IV 10 mg BID CLIFF Administration Finasteride 5 mg 01/29/22 10:00 02/01/22 10:30 Finasteride 5 Mg Tab PO Not Given QDAY [facility] Heparin Sodium (Porcine) 5,000 unit 01/28/22 14:00 02/02/22 05:35 Heparin 5,000 Unit/1 Ml Vial SUB-Q 5,000 unit Q8HR CLIFF Administration Ceftriaxone Sodium 2 gm in 100 mls @ 200 mls/hr 01/28/22 19:00 02/01/22 21:52 Rocephin/Ns 2 Gm/100 Ml IV 02/02/22 19:59 200 mls/hr Q24H CLIFF Administration Protocol Amino Acids 2,000 mls @ 83.33 mls/hr 02/01/22 20:00 02/02/22 00:43 Clinimix 4.25%-10% Solution IV 02/02/22 19:59 83.33 mls/hr ONCE CLIFF Administration Levothyroxine Sodium 50 mcg 01/29/22 06:00 02/02/22 05:35 Levothyroxine 50 Mcg Tab PO 50 mcg DAILY@0600 CLIFF Administration Memantine 10 mg 01/28/22 22:00 02/01/22 21:52 Memantine 10 Mg Tab PO 10 mg Q12HR CLIFF Administration Metoclopramide HCl 10 mg 01/28/22 11:46 Metoclopramide 10 Mg/2 Ml Inj IV Q6H PRN Nausea And Vomiting Morphine Sulfate 2 mg 01/28/22 11:46 Morphine 2 Mg/1 Ml Inj IV Q4H PRN Pain, Moderate (4-6) Morphine Sulfate 4 mg 01/28/22 11:46 Morphine 4 Mg/1 Ml Inj IV Q4H PRN Pain , Severe (7-10) Olanzapine 5 mg 01/29/22 10:00 02/01/22 10:30 Olanzapine 5 Mg Tab PO Not Given QDAY [facility] Ondansetron HCl 4 mg 01/28/22 11:46 Ondansetron 4 Mg/2 Ml Inj IV Q8H PRN Nausea And Vomiting Oxycodone/Acetaminophen 1 tab 01/28/22 11:46 Oxycodone /Acetaminophen 5-325mg Tab PO Q6H PRN Pain, Moderate (4-6) Sertraline HCl 25 mg 01/29/22 10:00 02/01/22 10:30 Sertraline 25 Mg Tab PO Not Given QDAY [facility] Sodium Chloride 10 ml 01/28/22 22:00 02/01/22 21:53 Sodium Chloride 0.9% 10 Ml Flush Syringe IV 10 ml BID CLIFF Administration Sodium Chloride 10 ml 01/28/22 11:46 Sodium Chloride 0.9% 10 Ml Flush Syringe IV PRN PRN LINE FLUSH Tamsulosin HCl 0.4 mg 01/29/22 10:00 02/01/22 10:30 Tamsulosin 0.4 Mg Cap PO Not Given QDAY [facility]
[2022-02-02] MEDS: FAMOTIDINE 20 MG/2 ML INJ IV SCH ×2 (14:04→21:00)
[2022-02-02] MEDS: MEMANTINE 10 MG TAB PO SCH ×2 (14:08→21:00)
[2022-02-02] MEDS: TAMSULOSIN 0.4 MG CAP PO SCH (14:08)
[2022-02-02] MEDS: FINASTERIDE 5 MG TAB PO SCH (14:08)
[2022-02-02] MEDS: SERTRALINE 25 MG TAB PO SCH (14:08)
[2022-02-02] MEDS ORDERED: AMINO ACIDS 4.25%/DEXTROSE 10% 2,000 ML IV SCH (20:00)
[2022-02-02] MEDS: cefTRIAXone/NS 2 GM/100 ML 2 GM/100 ML BAG IV SCH (20:45)
--- NOTE | 2022-02-03 04:25 | Consultation ---
DATE OF CONSULTATION: 02/02/2022 HISTORY OF PRESENT ILLNESS: The patient is a 56-year-old gentleman who has mild dementia, mentally handicapped who has a small-bowel obstruction. CT scan showed a suprapubic tube in place with some mild hydronephrosis. Urological consultation was obtained. PAST SURGICAL HISTORY: Previous abdominal surgery, suprapubic cystostomy. SOCIAL HISTORY: Noncontributory. FAMILY HISTORY: Noncontributory. REVIEW OF SYSTEMS: He is comfortable. He is actually joking and the tube is draining clear. PHYSICAL EXAMINATION: GENERAL: He is awake. He is in no distress. ABDOMEN: Soft, nondistended. There is a healed abdominal incision. Suprapubic tube was draining clear urine. GENITALIA: He is circumcised. Testes bilaterally. Digital rectal exam was not easy to do on him, but there were no masses. IMPRESSION AND PLAN: Small-bowel obstruction, previous sepsis. He has hydronephrosis. We will get the static cystogram. He may have reflux. His renal function is normal. Tube was draining well. TID: [id number] RECEIPT: [id number] LUCRECIA/JERZY
[2022-02-03 05:01] LABS: Blood Urea Nitrogen 17 mg/dL (9-20); Calcium 8.6 mg/dL (8.4-10.2); Hemolysis Index 2
[2022-02-03 05:02] LABS: BUN/Creatinine Ratio 24
[2022-02-03] MEDS: HEPARIN 5,000 UNIT/1 ML VIAL SUB-Q SCH ×3 (05:20→22:02)
[2022-02-03] MEDS: LEVOTHYROXINE 50 MCG TAB PO SCH (05:20)
--- NOTE | 2022-02-03 08:30 | Progress Note ---
Subjective Date of service: 02/03/22 Principal diagnosis: hydro Interval history: 56-year-old male patient with significant past medical history of obstructive uropathy with suprapubic catheter hypothyroidism hypertension, BPH, dementia presented to the emergency room with intractable nausea vomiting and abdominal pain of 2 to 3 days duration, no history of travel , no history of food poisoni ng CT abdomen and pelvis findings consistent with small bowel obstruction transition point lies left midabdomen details reviewed Patient was evaluated by general surgeon Dr. Salazar recommended NG tube n.p.o. status and advised that covering surgeon Dr. Sanchez will follow with the patient initial evaluation is also consistent with acute kidney injury, urine analysis consistent with UTI and dehydration Patient received a dose of Rocephin and IV fluids. abd soft spt---urine clear setting up for cystogram A/P neurgenic bladder Objective - Constitutional Vitals: Vital Signs - 12hr 02/02/22 02/02/22 02/03/22 21:25 22:00 04:29 Temperature 98.5 F 98.8 F Pulse Rate 69 63 Respiratory 12 12 Rate Blood Pressure 127/80 113/65 O2 Sat by Pulse 99 99 96 Oximetry 02/03/22 07:27 Temperature Pulse Rate Respiratory Rate Blood Pressure O2 Sat by Pulse 100 Oximetry - Labs CBC & Chem 7: 02/02/22 06:57 02/03/22 04:17 Labs: Abnormal lab results 02/02/22 02/03/22 Range/Units 06:57 04:17 Seg Neuts % (Manual) 71.0 H (40.0-70.0) % Eosinophils % (Manual) 5.0 H (0.0-4.3) % Potassium 3.4 L (3.6-5.0) mmol/L Carbon Dioxide 20 L (22-30) mmol/L Creatinine 0.7 L (0.8-1.3) mg/dL Glucose 129 H (75-100) mg/dL Phosphorus 2.20 L (2.5-4.5) mg/dL Medications & Allergies - Medications Allergies/Adverse Reactions: Allergies No Known Allergies Allergy (Verified 01/25/22 11:37) Home Medications: Home Medications Medication Instructions Recorded Confirmed Last Taken Type Finasteride [Proscar] 5 mg PO QDAY 08/07/20 04/08/21 04/07/21 08:00 History Levothyroxine Sodium [Tirosint-Nimo] 50 mcg PO QDAY 08/07/20 04/08/21 04/07/21 07:00 History Tamsulosin [Flomax] 0.4 mg PO QDAY 08/07/20 04/08/21 04/06/21 21:00 History OLANZapine [Zyprexa] 5 mg PO QDAY #30 tab 09/23/20 04/08/21 04/06/21 09:00 Rx Sertraline [Zoloft] 25 mg PO QDAY #30 tab 09/23/20 04/08/21 04/07/21 09:00 Rx Memantine HCl [Namenda Xr] 100 mg PO DAILY 12/20/20 04/08/21 04/07/21 09:00 History Polyethylene Glycol 3350 [Miralax] 119 gm PO DAILY 12/20/20 04/08/21 04/07/21 09:00 History Dicyclomine [Bentyl] 20 mg PO Q6H PRN #30 tablet 03/03/21 04/08/21 03/29/21 08:00 Rx Famotidine [Pepcid] 20 mg PO BID #60 tablet 03/03/21 04/08/21 04/07/21 09:00 Rx Ondansetron [Zofran ODT TAB] 4 mg PO Q8HR PRN #20 tab.rapdis 03/03/21 04/08/21 03/30/21 21:00 Rx Pantoprazole [Protonix TAB] 40 mg PO QDAC #30 tablet 04/08/21 Unknown Rx levoFLOXacin [Levaquin TAB] 500 mg PO QDAY #5 tablet 04/08/21 Unknown Rx Acetaminophen [Tylenol] 650 mg PO Q8HR PRN #20 cap 11/23/21 Unknown Rx Ciprofloxacin HCl 500 mg PO BID 10 Days #20 tablet 12/28/21 Unknown Rx Naproxen [Naprosyn] 500 mg PO BID #14 tablet 12/28/21 Unknown Rx Active Medications: Generic Name Dose Route Start Last Admin Trade Name Freq PRN Reason Stop Dose Admin Acetaminophen 650 mg 01/28/22 11:46 Acetaminophen 325 Mg Tab PO Q4H PRN Pain MILD(1-3)/Fever >100.5/GARCIA Famotidine 10 mg 01/28/22 22:00 02/02/22 21:00 Famotidine 20 Mg/2 Ml Inj IV 10 mg BID CLIFF Administration Finasteride 5 mg 01/29/22 10:00 02/02/22 14:08 Finasteride 5 Mg Tab PO Not Given QDAY [facility] Heparin Sodium (Porcine) 5,000 unit 01/28/22 14:00 02/03/22 05:20 Heparin 5,000 Unit/1 Ml Vial SUB-Q 5,000 unit Q8HR CLIFF Administration Amino Acids 2,000 mls @ 83.33 mls/hr 02/02/22 20:00 02/02/22 21:00 Clinimix 4.25%-10% Solution IV 02/03/22 19:59 83.33 mls/hr ONCE CLIFF Administration Levothyroxine Sodium 50 mcg 01/29/22 06:00 02/03/22 05:20 Levothyroxine 50 Mcg Tab PO 50 mcg DAILY@0600 CLIFF Administration Memantine 10 mg 01/28/22 22:00 02/02/22 21:00 Memantine 10 Mg Tab PO 10 mg Q12HR CLIFF Administration Metoclopramide HCl 10 mg 01/28/22 11:46 Metoclopramide 10 Mg/2 Ml Inj IV Q6H PRN Nausea And Vomiting Morphine Sulfate 2 mg 01/28/22 11:46 Morphine 2 Mg/1 Ml Inj IV Q4H PRN Pain, Moderate (4-6) Morphine Sulfate 4 mg 01/28/22 11:46 Morphine 4 Mg/1 Ml Inj IV Q4H PRN Pain , Severe (7-10) Olanzapine 5 mg 01/29/22 10:00 02/02/22 14:08 Olanzapine 5 Mg Tab PO Not Given QDAY [facility] Ondansetron HCl 4 mg 01/28/22 11:46 Ondansetron 4 Mg/2 Ml Inj IV Q8H PRN Nausea And Vomiting Oxycodone/Acetaminophen 1 tab 01/28/22 11:46 Oxycodone /Acetaminophen 5-325mg Tab PO Q6H PRN Pain, Moderate (4-6) Sertraline HCl 25 mg 01/29/22 10:00 02/02/22 14:08 Sertraline 25 Mg Tab PO Not Given QDAY [facility] Sodium Chloride 10 ml 01/28/22 22:00 02/02/22 21:01 Sodium Chloride 0.9% 10 Ml Flush Syringe IV 10 ml BID CLIFF Administration Sodium Chloride 10 ml 01/28/22 11:46 Sodium Chloride 0.9% 10 Ml Flush Syringe IV PRN PRN LINE FLUSH Tamsulosin HCl 0.4 mg 01/29/22 10:00 02/02/22 14:08 Tamsulosin 0.4 Mg Cap PO Not Given QDAY [facility]
--- NOTE | 2022-02-03 09:33 | Fluoroscopy Report ---
FLUOROSCOPY CYSTOGRAM STATIC HISTORY: Hydronephrosis COMPARISON: CT abdomen pelvis with contrast 01/30/2022 FINDINGS: Approximately 300 cc of Cystografin contrast agent was infused through the suprapubic avinash ter into the bladder. There is a mild degree of residual oral contrast in the rectum which limits thi s exam. There appears to be normal filling of the bladder. No obvious bladder mass or diverticulosis. No vesicoureteral reflux. Diffuse bladder wall thickening noted on CT is not clearly demonstrated on fluoroscopy. IMPRESSION: Unremarkable bladder. Fluoroscopy time 2.7 minutes Fluoroscopic images 10 Signer Name: Terrence Silva Jr, MD Signed: 02/03/2022 9:29 AM Workstation Name: [id number]
--- NOTE | 2022-02-03 09:45 | Progress Note ---
Assessment and Plan Assessment and plan: 56-year-old male patient with significant past medical history of obstructive uropathy with suprapubic catheter hypothyroidism hypertension, BPH, dementia presented to the emergency room with intractable nausea vomiting and abdominal pain of 2 to 3 days duration, no history of travel , no history of food poisoning Small bowel obstruction Severe sepsis. Patient meets criteria given the tachycardia, tachypnea, leukocytosis and diagnosis of UTI with organ failure/acute kidney injury. Acute kidney injury Urinary tract infection Neurogenic bladder Hyperkalemia Hypothyroidism History of BPH 01/31/2022. CT scan with contrast showing continued small bowel obstruction admit jejunum. Some signs of improvement. Continue NG suction as the proximal small bowel remains distended. We will repeat x-rays tomorrow abdominal x-ray will be able to track the progress of the contrast material. Surgery reports if the contrast material has not reached the colon patient may still need an exploratory laparotomy. There is air that is progressed into the colon so there is signs that the obstruction is not complete. However high-grade obstruction may also require exploration. Recommend continued NG suction IV fluids and beginning peripheral hyperal today. Acute kidney injury resolved with IV fluid hydration. Follow-up BMP in a.m. Continue IV antibiotics 02/01/2022. KUB still reveals partial distal small bowel obstruction. I discussed the KUB with surgery. Continue conservative management and determine if patient will need surgery. Follow-up a.m. labs 02/02/2022. I discussed the case with surgery who reports patient with a CAT scan revealing moderate bladder wall thickening and edema that is likely contributing to partial small bowel obstruction. Urology consultation. Continue IV antibiotics of ceftriaxone. 02/03/2022. Patient with no NG tube at present but still with n.p.o. status. Continue IV antibiotics and IV fluids. Acute kidney injury resolved. Blood and urine cultures were found to be negative. Consider de-escalating or discontinuing antibiotics. Urology consulted and plans for cystogram today History Interval history: No new issues overnight Hospitalist Physical - Constitutional Vitals: Temp Pulse Resp BP Pulse Ox 98.8 F 63 12 113/65 100 02/03/22 04:29 02/03/22 04:29 02/03/22 04:29 02/03/22 04:29 02/03/22 07:27 General appearance: Present: no acute distress - EENT Eyes: Present: PERRL, EOM intact ENT: hearing intact, clear oral mucosa, dentition normal - Neck Neck: Present: supple, normal ROM - Respiratory Respiratory effort: normal Respiratory: bilateral: CTA - Cardiovascular Rhythm: regular Heart Sounds: Present: S1 & S2. Absent: gallop, rub - Extremities Extremities: no ischemia, No edema, Full ROM - Abdominal General gastrointestinal: soft, non-tender, non-distended, normal bowel sounds - Integumentary Integumentary: Present: clear, warm, dry - Neurologic Neurologic: CNII-XII intact, moves all extremities Results - Labs CBC & Chem 7: 02/02/22 06:57 02/03/22 04:17 Labs: Laboratory Last Values WBC 8.6 K/mm3 (4.5-11.0) 02/02/22 06:57 RBC 4.67 M/mm3 (3.65-5.03) 02/02/22 06:57 Hgb 13.3 gm/dl (11.8-15.2) 02/02/22 06:57 Hct 39.9 % (35.5-45.6) 02/02/22 06:57 MCV 86 fl (84-94) 02/02/22 06:57 MCH 29 pg (28-32) 02/02/22 06:57 MCHC 33 % (32-34) 02/02/22 06:57 RDW 14.7 % (13.2-15.2) 02/02/22 06:57 Plt Count 210 K/mm3 (140-440) 02/02/22 06:57 Lymph % (Auto) 14.1 % (13.4-35.0) 01/30/22 07:04 O'Brien % (Auto) 10.6 % (0.0-7.3) H 01/30/22 07:04 Eos % (Auto) 3.1 % (0.0-4.3) 01/30/22 07:04 Baso % (Auto) 0.3 % (0.0-1.8) 01/30/22 07:04 Lymph # (Auto) 1.0 K/mm3 (1.2-5.4) L 01/30/22 07:04 O'Brien # (Auto) 0.7 K/mm3 (0.0-0.8) 01/30/22 07:04 Eos # (Auto) 0.2 K/mm3 (0.0-0.4) 01/30/22 07:04 Baso # (Auto) 0.0 K/mm3 (0.0-0.1) 01/30/22 07:04 Add Manual Diff Complete 02/02/22 06:57 Total Counted 100 02/02/22 06:57 Seg Neutrophils % 71.9 % (40.0-70.0) H 01/30/22 07:04 Seg Neuts % (Manual) 71.0 % (40.0-70.0) H 02/02/22 06:57 Band Neutrophils % 3.0 % 02/02/22 06:57 Lymphocytes % (Manual) 16.0 % (13.4-35.0) 02/02/22 06:57 Reactive Lymphs % (Man) 0 % 02/02/22 06:57 Monocytes % (Manual) 4.0 % (0.0-7.3) 02/02/22 06:57 Eosinophils % (Manual) 5.0 % (0.0-4.3) H 02/02/22 06:57 Basophils % (Manual) 0 % (0.0-1.8) 02/02/22 06:57 Metamyelocytes % 1.0 % 02/02/22 06:57 Myelocytes % 0 % 02/02/22 06:57 Promyelocytes % 0 % 02/02/22 06:57 Blast Cells % 0 % 02/02/22 06:57 Nucleated RBC % Not Reportable 02/02/22 06:57 Seg Neutrophils # 5.0 K/mm3 (1.8-7.7) 01/30/22 07:04 Seg Neutrophils # Man 6.1 K/mm3 (1.8-7.7) 02/02/22 06:57 Band Neutrophils # 0.3 K/mm3 02/02/22 06:57 Lymphocytes # (Manual) 1.4 K/mm3 (1.2-5.4) 02/02/22 06:57 Abs React Lymphs (Man) 0.0 K/mm3 02/02/22 06:57 Monocytes # (Manual) 0.3 K/mm3 (0.0-0.8) 02/02/22 06:57 Eosinophils # (Manual) 0.4 K/mm3 (0.0-0.4) 02/02/22 06:57 Basophils # (Manual) 0.0 K/mm3 (0.0-0.1) 02/02/22 06:57 Metamyelocytes # 0.1 K/mm3 02/02/22 06:57 Myelocytes # 0.0 K/mm3 02/02/22 06:57 Promyelocytes # 0.0 K/mm3 02/02/22 06:57 Blast Cells # 0.0 K/mm3 02/02/22 06:57 WBC Morphology Not Reportable 02/02/22 06:57 Hypersegmented Neuts Not Reportable 02/02/22 06:57 Hyposegmented Neuts Not Reportable 02/02/22 06:57 Hypogranular Neuts Not Reportable 02/02/22 06:57 Smudge Cells Not Reportable 02/02/22 06:57 Toxic Granulation Not Reportable 02/02/22 06:57 Toxic Vacuolation Not Reportable 02/02/22 06:57 Dohle Bodies Not Reportable 02/02/22 06:57 Pelger-Huet Anomaly Not Reportable 02/02/22 06:57 Stella Rods Not Reportable 02/02/22 06:57 Platelet Estimate Consistent w auto 02/02/22 06:57 Clumped Platelets Not Reportable 02/02/22 06:57 Plt Clumps, EDTA Not Reportable 02/02/22 06:57 Large Platelets Not Reportable 02/02/22 06:57 Giant Platelets Not Reportable 02/02/22 06:57 Platelet Satelliting Not Reportable 02/02/22 06:57 Plt Morphology Comment Not Reportable 02/02/22 06:57 RBC Morphology Normal 02/02/22 06:57 Dimorphic RBCs Not Reportable 02/02/22 06:57 Polychromasia Not Reportable 02/02/22 06:57 Hypochromasia Not Reportable 02/02/22 06:57 Poikilocytosis Not Reportable 02/02/22 06:57 Anisocytosis Not Reportable 02/02/22 06:57 Microcytosis Not Reportable 02/02/22 06:57 Macrocytosis Not Reportable 02/02/22 06:57 Spherocytes Not Reportable 02/02/22 06:57 Pappenheimer Bodies Not Reportable 02/02/22 06:57 Sickle Cells Not Reportable 02/02/22 06:57 Target Cells Not Reportable 02/02/22 06:57 Tear Drop Cells Not Reportable 02/02/22 06:57 Ovalocytes Not Reportable 02/02/22 06:57 Helmet Cells Not Reportable 02/02/22 06:57 [place] Bodies Not Reportable 02/02/22 06:57 [place] Rings Not Reportable 02/02/22 06:57 Chante Cells Not Reportable 02/02/22 06:57 Bite Cells Not Reportable 02/02/22 06:57 Crenated Cell Not Reportable 02/02/22 06:57 Elliptocytes Not Reportable 02/02/22 06:57 Acanthocytes (Spur) Not Reportable 02/02/22 06:57 Rouleaux Not Reportable 02/02/22 06:57 Hemoglobin C Crystals Not Reportable 02/02/22 06:57 Schistocytes Not Reportable 02/02/22 06:57 Malaria parasites Not Reportable 02/02/22 06:57 Roque Bodies Not Reportable 02/02/22 06:57 Hem Pathologist Commnt No 02/02/22 06:57 Sodium 137 mmol/L (137-145) 02/03/22 04:17 Potassium 3.4 mmol/L (3.6-5.0) L 02/03/22 04:17 Chloride 104.8 mmol/L (98-107) 02/03/22 04:17 Carbon Dioxide 20 mmol/L (22-30) L 02/03/22 04:17 Anion Gap 16 mmol/L 02/03/22 04:17 BUN 17 mg/dL (9-20) 02/03/22 04:17 Creatinine 0.7 mg/dL (0.8-1.3) L 02/03/22 04:17 Estimated GFR > 60 ml/min 02/03/22 04:17 BUN/Creatinine Ratio 24 % 02/03/22 04:17 Glucose 129 mg/dL (75-100) H 02/03/22 04:17 Calcium 8.6 mg/dL (8.4-10.2) 02/03/22 04:17 Phosphorus 2.20 mg/dL (2.5-4.5) L 02/03/22 04:17 Magnesium 2.10 mg/dL (1.7-2.3) 02/03/22 04:17 Total Bilirubin 0.20 mg/dL (0.1-1.2) 01/29/22 04:43 AST 14 units/L (5-40) 01/29/22 04:43 ALT 6 units/L (7-56) L 01/29/22 04:43 Alkaline Phosphatase 75 units/L (35-129) 01/29/22 04:43 Total Protein 7.5 g/dL (6.3-8.2) D 01/29/22 04:43 Albumin 3.9 g/dL (3.9-5) 01/29/22 04:43 Albumin/Globulin Ratio 1.1 % 01/29/22 04:43 Lipase 41 units/L (13-60) 01/27/22 23:11 Urine Color Rose (Yellow) 01/28/22 03:53 Urine Turbidity Turbid (Clear) 01/28/22 03:53 Urine pH 8.0 (5.0-7.0) H 01/28/22 03:53 Ur Specific [place] 1.020 (1.003-1.030) 01/28/22 03:53 Urine Protein >500 mg/dL (Negative) 01/28/22 03:53 Urine Glucose (UA) Neg mg/dL (Negative) 01/28/22 03:53 Urine Ketones Tr mg/dL (Negative) 01/28/22 03:53 Urine Blood Neg (Negative) 01/28/22 03:53 Urine Nitrite Neg (Negative) 01/28/22 03:53 Urine Bilirubin Neg (Negative) 01/28/22 03:53 Urine Urobilinogen < 2.0 mg/dL (<2.0) 01/28/22 03:53 Ur Leukocyte Esterase Lg (Negative) 01/28/22 03:53 Urine WBC (Auto) 75.0 /HPF (0.0-6.0) H 01/28/22 03:53 Urine RBC (Auto) 38.0 /HPF (0.0-6.0) 01/28/22 03:53 Urine Bacteria (Auto) 4+ /HPF (Negative) 01/28/22 03:53 Triple Phos Crystals 3+ 01/28/22 03:53 Urine Mucus 1+ /HPF 01/28/22 03:53 Microbiology: Microbiology 01/28/22 20:03 Peripheral/Venous Blood Culture - Final NO GROWTH AFTER 5 DAYS 01/28/22 20:13 Peripheral/Venous Blood Culture - Final NO GROWTH AFTER 5 DAYS Almaraz/IV: Voiding Method Suprapubic catheter Active Medications - Current Medications Current Medications: Generic Name Dose Route Start Last Admin Trade Name Freq PRN Reason Stop Dose Admin Acetaminophen 650 mg 01/28/22 11:46 Acetaminophen 325 Mg Tab PO Q4H PRN Pain MILD(1-3)/Fever >100.5/GARCIA Famotidine 10 mg 01/28/22 22:00 02/02/22 21:00 Famotidine 20 Mg/2 Ml Inj IV 10 mg BID CLIFF Administration Finasteride 5 mg 01/29/22 10:00 02/02/22 14:08 Finasteride 5 Mg Tab PO Not Given QDAY [facility] Heparin Sodium (Porcine) 5,000 unit 01/28/22 14:00 02/03/22 05:20 Heparin 5,000 Unit/1 Ml Vial SUB-Q 5,000 unit Q8HR CLIFF Administration Amino Acids 2,000 mls @ 83.33 mls/hr 02/02/22 20:00 02/02/22 21:00 Clinimix 4.25%-10% Solution IV 02/03/22 19:59 83.33 mls/hr ONCE CLIFF Administration Levothyroxine Sodium 50 mcg 01/29/22 06:00 02/03/22 05:20 Levothyroxine 50 Mcg Tab PO 50 mcg DAILY@0600 CLIFF Administration Memantine 10 mg 01/28/22 22:00 02/02/22 21:00 Memantine 10 Mg Tab PO 10 mg Q12HR CLIFF Administration Metoclopramide HCl 10 mg 01/28/22 11:46 Metoclopramide 10 Mg/2 Ml Inj IV Q6H PRN Nausea And Vomiting Morphine Sulfate 2 mg 01/28/22 11:46 Morphine 2 Mg/1 Ml Inj IV Q4H PRN Pain, Moderate (4-6) Morphine Sulfate 4 mg 01/28/22 11:46 Morphine 4 Mg/1 Ml Inj IV Q4H PRN Pain , Severe (7-10) Olanzapine 5 mg 01/29/22 10:00 02/02/22 14:08 Olanzapine 5 Mg Tab PO Not Given QDAY [facility] Ondansetron HCl 4 mg 01/28/22 11:46 Ondansetron 4 Mg/2 Ml Inj IV Q8H PRN Nausea And Vomiting Oxycodone/Acetaminophen 1 tab 01/28/22 11:46 Oxycodone /Acetaminophen 5-325mg Tab PO Q6H PRN Pain, Moderate (4-6) Sertraline HCl 25 mg 01/29/22 10:00 02/02/22 14:08 Sertraline 25 Mg Tab PO Not Given QDAY [facility] Sodium Chloride 10 ml 01/28/22 22:00 02/02/22 21:01 Sodium Chloride 0.9% 10 Ml Flush Syringe IV 10 ml BID CLIFF Administration Sodium Chloride 10 ml 01/28/22 11:46 Sodium Chloride 0.9% 10 Ml Flush Syringe IV PRN PRN LINE FLUSH Tamsulosin HCl 0.4 mg 01/29/22 10:00 02/02/22 14:08 Tamsulosin 0.4 Mg Cap PO Not Given QDAY [facility] Nutrition/Malnutrition Assess - Dietary Evaluation Nutrition/Malnutrition Findings: Nutrition Notes Start: 01/31/22 12:4 3 Freq: Status: Active Protocol: Document 02/02/22 11:00 SIENA (Rec: 02/02/22 11:11 SIENA [id number]) Nutrition Notes Initial or Follow up Reassessment Current Diagnosis Sepsis,Hypertension,Small Bowel Obstruction Other Pertinent Diagnosis N/V/Abdominal Pain, Hypothyroidism, s/p obtructive uropathy, BPH, Dementia. Current Diet PPN Clinimix @ 83.33 ml/hr ( since D 01/31). Labs/Tests 02/02: K 3.3, CO2 19, Crea 0.7 , Glu 123, Phos 2.4. Pertinent Medications 02/02: Levothyroxine, others nutritionally unremarkable. Height 6 ft Weight 72.3 kg [place] Body Weight (kg) 80.90 BMI 21.6 Weight change and time frame Discrepancy of 13.739 Kg body weight loss in 1 day reported. Likely a mistake. Weight Status Appropriate Subjective/Other Information RD consult for routine F/U on day 3 PPN. Pt remains NPO. Pt is on room air saturating well in upper 90s. No more N/V reported on Progress notes nor RN notes. MD wants to start trial of Clear Liquids Diet on 02/02, still not ordered. Percent of energy/protein needs met: Pt remains NPO. Prescribed Clinimix @ 83.33 ml /hr provides for energy/ protein needs (1,020 Kcal/85 g ) during LOS, 49% Kcal; 99% AA . Burn Absent Trauma Absent GI Symptoms Other Food Allergy No Skin Integrity/Comment Assessment WNL. Current % PO Other Minimum of two criteria No #1 Nutrition Diagnosis Altered GI function Comments: No more N/V reported on Progress notes nor RN notes. Diagnosis Progress(for reassessment Improved documentation) Is patient on ventilator? No Is Patient Ambulatory and/or Out of Bed Yes REE-([place]-St. Jeor-ambulatory/OOB) [ [id number]] Calculation Used for Recommendations [facility] Additional Notes Protein: 0.8-1 g/Kg ABW; 69-86 g/day. Fluids: 1 ml/Kcal, or as per MD. Nutrition Intervention Nutrition Support: Continue Clinimix @ 83.33 ml/ hr. Kcal 1,020 Protein (gm) 85 Carbohydrates (gm) 200 Fat (gm) 0 Fluid (mL) 2,000 Fiber (gm) 0 % RDI: 49% Kcal; 99% AA. Goal #1 Provide at least 75% of energy /protein needs through Parenteral Feeding during LOS. Goal #2 Maintain body weight within +/ -3% of admission body weight during LOS. Follow-Up By: 02/03/22 Additional Comments Continue monitoring TF tolerance and BM. BMP, Phos, Mg labs ordered.
[2022-02-03] MEDS: SERTRALINE 25 MG TAB PO SCH (09:52)
[2022-02-03] MEDS: TAMSULOSIN 0.4 MG CAP PO SCH (09:52)
[2022-02-03] MEDS: FAMOTIDINE 20 MG/2 ML INJ IV SCH ×2 (09:52→22:02)
[2022-02-03] MEDS: MEMANTINE 10 MG TAB PO SCH ×2 (09:52→22:02)
[2022-02-03] MEDS: FINASTERIDE 5 MG TAB PO SCH (09:52)
[2022-02-03] MEDS ORDERED: TOTAL PARENTERAL NUTRITION 2,400 ML IV SCH (20:00)
[2022-02-04 04:54] LABS: Hematocrit 40.5 % (35.5-45.6); Hemoglobin 13.5 gm/dl (11.8-15.2); Mean Corpuscular HGB Conc 33 % (32-34); Mean Corpuscular Volume 85 fl (84-94); Platelet Count 217 K/mm3 (140-440); Red Blood Count 4.76 M/mm3 (3.65-5.03); Red Cell Distribution Width 14.9 % (13.2-15.2)
[2022-02-04 05:12] LABS: Blood Urea Nitrogen 18 mg/dL (9-20); Calcium 9.1 mg/dL (8.4-10.2); Hemolysis Index 4
[2022-02-04 05:13] LABS: BUN/Creatinine Ratio 26
[2022-02-04 05:50] LABS: Basophils % (Manual) 0 % (0.0-1.8); RBC Morphology Normal; Total Cells Counted 100
[2022-02-04 05:51] LABS: Platelet Estimate Consistent w Auto
[2022-02-04] MEDS: HEPARIN 5,000 UNIT/1 ML VIAL SUB-Q SCH ×3 (05:53→21:09)
[2022-02-04] MEDS: LEVOTHYROXINE 50 MCG TAB PO SCH (05:53)
[2022-02-04] MEDS: TAMSULOSIN 0.4 MG CAP PO SCH (09:58)
[2022-02-04] MEDS: FAMOTIDINE 20 MG/2 ML INJ IV SCH ×2 (09:58→21:09)
[2022-02-04] MEDS: SERTRALINE 25 MG TAB PO SCH (09:58)
[2022-02-04] MEDS: FINASTERIDE 5 MG TAB PO SCH (09:58)
[2022-02-04] MEDS: MEMANTINE 10 MG TAB PO SCH ×2 (09:58→21:09)
--- NOTE | 2022-02-04 10:38 | Progress Note ---
Assessment and Plan Assessment and plan: 56-year-old male patient with significant past medical history of obstructive uropathy with suprapubic catheter hypothyroidism hypertension, BPH, dementia presented to the emergency room with intractable nausea vomiting and abdominal pain of 2 to 3 days duration, no history of travel , no history of food poisoning Small bowel obstruction Severe sepsis. Patient meets criteria given the tachycardia, tachypnea, leukocytosis and diagnosis of UTI with organ failure/acute kidney injury. Acute kidney injury Urinary tract infection Neurogenic bladder Hyperkalemia Hypothyroidism History of BPH 01/31/2022. CT scan with contrast showing continued small bowel obstruction admit jejunum. Some signs of improvement. Continue NG suction as the proximal small bowel remains distended. We will repeat x-rays tomorrow abdominal x-ray will be able to track the progress of the contrast material. Surgery reports if the contrast material has not reached the colon patient may still need an exploratory laparotomy. There is air that is progressed into the colon so there is signs that the obstruction is not complete. However high-grade obstruction may also require exploration. Recommend continued NG suction IV fluids and beginning peripheral hyperal today. Acute kidney injury resolved with IV fluid hydration. Follow-up BMP in a.m. Continue IV antibiotics 02/01/2022. KUB still reveals partial distal small bowel obstruction. I discussed the KUB with surgery. Continue conservative management and determine if patient will need surgery. Follow-up a.m. labs 02/02/2022. I discussed the case with surgery who reports patient with a CAT scan revealing moderate bladder wall thickening and edema that is likely contributing to partial small bowel obstruction. Urology consultation. Continue IV antibiotics of ceftriaxone. 02/03/2022. Patient with no NG tube at present but still with n.p.o. status. Continue IV antibiotics and IV fluids. Acute kidney injury resolved. Blood and urine cultures were found to be negative. Consider de-escalating or discontinuing antibiotics. Urology consulted and plans for cystogram today 02/04/2022. Patient reportedly tolerated clear liquid diet yesterday. We will advance to regular diet per surgery recommendations. Continue TPN for now. I discussed the case with Dr. Storey. We will discontinue antibiotics History Interval history: No new issues overnight Hospitalist Physical - Constitutional Vitals: Temp Pulse Resp BP Pulse Ox 98.2 F 57 L 18 102/60 100 02/04/22 04:02 02/04/22 04:02 02/04/22 04:02 02/04/22 04:02 02/04/22 07:03 General appearance: Present: no acute distress - EENT Eyes: Present: PERRL, EOM intact ENT: hearing intact, clear oral mucosa, dentition normal - Neck Neck: Present: supple, normal ROM - Respiratory Respiratory effort: normal Respiratory: bilateral: CTA - Cardiovascular Rhythm: regular Heart Sounds: Present: S1 & S2. Absent: gallop, rub - Extremities Extremities: no ischemia, No edema, Full ROM - Abdominal General gastrointestinal: soft, non-tender, non-distended, normal bowel sounds - Integumentary Integumentary: Present: clear, warm, dry - Neurologic Neurologic: CNII-XII intact, moves all extremities Results - Labs CBC & Chem 7: 02/04/22 04:22 02/04/22 04:22 Labs: Laboratory Last Values WBC 8.9 K/mm3 (4.5-11.0) 02/04/22 04:22 RBC 4.76 M/mm3 (3.65-5.03) 02/04/22 04:22 Hgb 13.5 gm/dl (11.8-15.2) 02/04/22 04:22 Hct 40.5 % (35.5-45.6) 02/04/22 04:22 MCV 85 fl (84-94) 02/04/22 04:22 MCH 28 pg (28-32) 02/04/22 04:22 MCHC 33 % (32-34) 02/04/22 04:22 RDW 14.9 % (13.2-15.2) 02/04/22 04:22 Plt Count 217 K/mm3 (140-440) 02/04/22 04:22 Lymph % (Auto) 14.1 % (13.4-35.0) 01/30/22 07:04 [place] % (Auto) 10.6 % (0.0-7.3) H 01/30/22 07:04 Eos % (Auto) 3.1 % (0.0-4.3) 01/30/22 07:04 Baso % (Auto) 0.3 % (0.0-1.8) 01/30/22 07:04 Lymph # (Auto) 1.0 K/mm3 (1.2-5.4) L 01/30/22 07:04 [place] # (Auto) 0.7 K/mm3 (0.0-0.8) 01/30/22 07:04 Eos # (Auto) 0.2 K/mm3 (0.0-0.4) 01/30/22 07:04 Baso # (Auto) 0.0 K/mm3 (0.0-0.1) 01/30/22 07:04 Add Manual Diff Complete 02/04/22 04:22 Total Counted 100 02/04/22 04:22 Seg Neutrophils % 71.9 % (40.0-70.0) H 01/30/22 07:04 Seg Neuts % (Manual) 70.0 % (40.0-70.0) 02/04/22 04:22 Band Neutrophils % 0 % 02/04/22 04:22 Lymphocytes % (Manual) 25.0 % (13.4-35.0) 02/04/22 04:22 Reactive Lymphs % (Man) 0 % 02/04/22 04:22 Monocytes % (Manual) 1.0 % (0.0-7.3) 02/04/22 04:22 Eosinophils % (Manual) 4.0 % (0.0-4.3) 02/04/22 04:22 Basophils % (Manual) 0 % (0.0-1.8) 02/04/22 04:22 Metamyelocytes % 0 % 02/04/22 04:22 Myelocytes % 0 % 02/04/22 04:22 Promyelocytes % 0 % 02/04/22 04:22 Blast Cells % 0 % 02/04/22 04:22 Nucleated RBC % Not Reportable 02/04/22 04:22 Seg Neutrophils # 5.0 K/mm3 (1.8-7.7) 01/30/22 07:04 Seg Neutrophils # Man 6.2 K/mm3 (1.8-7.7) 02/04/22 04:22 Band Neutrophils # 0.0 K/mm3 02/04/22 04:22 Lymphocytes # (Manual) 2.2 K/mm3 (1.2-5.4) 02/04/22 04:22 Abs React Lymphs (Man) 0.0 K/mm3 02/04/22 04:22 Monocytes # (Manual) 0.1 K/mm3 (0.0-0.8) 02/04/22 04:22 Eosinophils # (Manual) 0.4 K/mm3 (0.0-0.4) 02/04/22 04:22 Basophils # (Manual) 0.0 K/mm3 (0.0-0.1) 02/04/22 04:22 Metamyelocytes # 0.0 K/mm3 02/04/22 04:22 Myelocytes # 0.0 K/mm3 02/04/22 04:22 Promyelocytes # 0.0 K/mm3 02/04/22 04:22 Blast Cells # 0.0 K/mm3 02/04/22 04:22 WBC Morphology Not Reportable 02/04/22 04:22 Hypersegmented Neuts Not Reportable 02/04/22 04:22 Hyposegmented Neuts Not Reportable 02/04/22 04:22 Hypogranular Neuts Not Reportable 02/04/22 04:22 Smudge Cells Not Reportable 02/04/22 04:22 Toxic Granulation Not Reportable 02/04/22 04:22 Toxic Vacuolation Not Reportable 02/04/22 04:22 Dohle Bodies Not Reportable 02/04/22 04:22 Pelger-Huet Anomaly Not Reportable 02/04/22 04:22 Stella Rods Not Reportable 02/04/22 04:22 Platelet Estimate Consistent w auto 02/04/22 04:22 Clumped Platelets Not Reportable 02/04/22 04:22 Plt Clumps, EDTA Not Reportable 02/04/22 04:22 Large Platelets Not Reportable 02/04/22 04:22 Giant Platelets Not Reportable 02/04/22 04:22 Platelet Satelliting Not Reportable 02/04/22 04:22 Plt Morphology Comment Not Reportable 02/04/22 04:22 RBC Morphology Normal 02/04/22 04:22 Dimorphic RBCs Not Reportable 02/04/22 04:22 Polychromasia Not Reportable 02/04/22 04:22 Hypochromasia Not Reportable 02/04/22 04:22 Poikilocytosis Not Reportable 02/04/22 04:22 Anisocytosis Not Reportable 02/04/22 04:22 Microcytosis Not Reportable 02/04/22 04:22 Macrocytosis Not Reportable 02/04/22 04:22 Spherocytes Not Reportable 02/04/22 04:22 Pappenheimer Bodies Not Reportable 02/04/22 04:22 Sickle Cells Not Reportable 02/04/22 04:22 Target Cells Not Reportable 02/04/22 04:22 Tear Drop Cells Not Reportable 02/04/22 04:22 Ovalocytes Not Reportable 02/04/22 04:22 Helmet Cells Not Reportable 02/04/22 04:22 [place] Bodies Not Reportable 02/04/22 04:22 Ray Rings Not Reportable 02/04/22 04:22 Chante Cells Not Reportable 02/04/22 04:22 Bite Cells Not Reportable 02/04/22 04:22 Crenated Cell Not Reportable 02/04/22 04:22 Elliptocytes Not Reportable 02/04/22 04:22 Acanthocytes (Spur) Not Reportable 02/04/22 04:22 Rouleaux Not Reportable 02/04/22 04:22 Hemoglobin C Crystals Not Reportable 02/04/22 04:22 Schistocytes Not Reportable 02/04/22 04:22 Malaria parasites Not Reportable 02/04/22 04:22 Roque Bodies Not Reportable 02/04/22 04:22 Hem Pathologist Commnt No 02/04/22 04:22 Sodium 139 mmol/L (137-145) 02/04/22 04:22 Potassium 3.5 mmol/L (3.6-5.0) L 02/04/22 04:22 Chloride 106.4 mmol/L (98-107) 02/04/22 04:22 Carbon Dioxide 22 mmol/L (22-30) 02/04/22 04:22 Anion Gap 14 mmol/L 02/04/22 04:22 BUN 18 mg/dL (9-20) 02/04/22 04:22 Creatinine 0.7 mg/dL (0.8-1.3) L 02/04/22 04:22 Estimated GFR > 60 ml/min 02/04/22 04:22 BUN/Creatinine Ratio 26 % 02/04/22 04:22 Glucose 119 mg/dL (75-100) H 02/04/22 04:22 Calcium 9.1 mg/dL (8.4-10.2) 02/04/22 04:22 Phosphorus 2.80 mg/dL (2.5-4.5) D 02/04/22 04:22 Magnesium 2.30 mg/dL (1.7-2.3) 02/04/22 04:22 Total Bilirubin 0.20 mg/dL (0.1-1.2) 01/29/22 04:43 AST 14 units/L (5-40) 01/29/22 04:43 ALT 6 units/L (7-56) L 01/29/22 04:43 Alkaline Phosphatase 75 units/L (35-129) 01/29/22 04:43 Total Protein 7.5 g/dL (6.3-8.2) D 01/29/22 04:43 Albumin 3.9 g/dL (3.9-5) 01/29/22 04:43 Albumin/Globulin Ratio 1.1 % 01/29/22 04:43 Lipase 41 units/L (13-60) 01/27/22 23:11 Urine Color Rose (Yellow) 01/28/22 03:53 Urine Turbidity Turbid (Clear) 01/28/22 03:53 Urine pH 8.0 (5.0-7.0) H 01/28/22 03:53 Ur Specific [place] 1.020 (1.003-1.030) 01/28/22 03:53 Urine Protein >500 mg/dL (Negative) 01/28/22 03:53 Urine Glucose (UA) Neg mg/dL (Negative) 01/28/22 03:53 Urine Ketones Tr mg/dL (Negative) 01/28/22 03:53 Urine Blood Neg (Negative) 01/28/22 03:53 Urine Nitrite Neg (Negative) 01/28/22 03:53 Urine Bilirubin Neg (Negative) 01/28/22 03:53 Urine Urobilinogen < 2.0 mg/dL (<2.0) 01/28/22 03:53 Ur Leukocyte Esterase Lg (Negative) 01/28/22 03:53 Urine WBC (Auto) 75.0 /HPF (0.0-6.0) H 01/28/22 03:53 Urine RBC (Auto) 38.0 /HPF (0.0-6.0) 01/28/22 03:53 Urine Bacteria (Auto) 4+ /HPF (Negative) 01/28/22 03:53 Triple Phos Crystals 3+ 01/28/22 03:53 Urine Mucus 1+ /HPF 01/28/22 03:53 Almaraz/IV: Voiding Method Suprapubic catheter Active Medications - Current Medications Current Medications: Generic Name Dose Route Start Last Admin Trade Name Freq PRN Reason Stop Dose Admin Acetaminophen 650 mg 01/28/22 11:46 Acetaminophen 325 Mg Tab PO Q4H PRN Pain MILD(1-3)/Fever >100.5/GARCIA Famotidine 10 mg 01/28/22 22:00 02/04/22 09:58 Famotidine 20 Mg/2 Ml Inj IV 10 mg BID CLIFF Administration Finasteride 5 mg 01/29/22 10:00 02/04/22 09:58 Finasteride 5 Mg Tab PO 5 mg QDAY CLIFF Administration Heparin Sodium (Porcine) 5,000 unit 01/28/22 14:00 02/04/22 05:53 Heparin 5,000 Unit/1 Ml Vial SUB-Q 5,000 unit Q8HR CLIFF Administration Amino Acids/Electrolytes/Dextrose 2,400 mls @ 100 mls/hr 02/03/22 20:00 02/03/22 20:02 Tpn Adult IV 02/04/22 19:59 100 mls/hr DAILY@2000 CLIFF Administration Protocol Levothyroxine Sodium 50 mcg 01/29/22 06:00 02/04/22 05:53 Levothyroxine 50 Mcg Tab PO 50 mcg DAILY@0600 CLIFF Administration Memantine 10 mg 01/28/22 22:00 02/04/22 09:58 Memantine 10 Mg Tab PO 10 mg Q12HR CLIFF Administration Metoclopramide HCl 10 mg 01/28/22 11:46 Metoclopramide 10 Mg/2 Ml Inj IV Q6H PRN Nausea And Vomiting Morphine Sulfate 2 mg 01/28/22 11:46 Morphine 2 Mg/1 Ml Inj IV Q4H PRN Pain, Moderate (4-6) Morphine Sulfate 4 mg 01/28/22 11:46 Morphine 4 Mg/1 Ml Inj IV Q4H PRN Pain , Severe (7-10) Olanzapine 5 mg 01/29/22 10:00 02/04/22 09:58 Olanzapine 5 Mg Tab PO 5 mg QDAY CLIFF Administration Ondansetron HCl 4 mg 01/28/22 11:46 Ondansetron 4 Mg/2 Ml Inj IV Q8H PRN Nausea And Vomiting Oxycodone/Acetaminophen 1 tab 01/28/22 11:46 Oxycodone /Acetaminophen 5-325mg Tab PO Q6H PRN Pain, Moderate (4-6) Sertraline HCl 25 mg 01/29/22 10:00 02/04/22 09:58 Sertraline 25 Mg Tab PO 25 mg QDAY CLIFF Administration Sodium Chloride 10 ml 01/28/22 22:00 02/04/22 09:58 Sodium Chloride 0.9% 10 Ml Flush Syringe IV 10 ml BID CLIFF Administration Sodium Chloride 10 ml 01/28/22 11:46 Sodium Chloride 0.9% 10 Ml Flush Syringe IV PRN PRN LINE FLUSH Tamsulosin HCl 0.4 mg 01/29/22 10:00 02/04/22 09:58 Tamsulosin 0.4 Mg Cap PO 0.4 mg QDAY CLIFF Administration Nutrition/Malnutrition Assess - Dietary Evaluation Nutrition/Malnutrition Findings: Nutrition Notes Start: 01/31/22 12:43 Freq: Status: Active Protocol: Document 02/03/22 09:56 GERMAN (Rec: 02/03/22 10:01 [id number]) Nutrition Notes Initial or Follow up Reassessment Current Diagnosis Sepsis,Hypertension,Small Bowel Obstruction Other Pertinent Diagnosis UTI, BPH, Dementia Current Diet Clinimix at 83.33 ml/hr. Labs/Tests K 3.4 CO2 - 20 Phos 2.2 Pertinent Medications Reviewed Height 6 ft Weight 72.3 kg [place] Body Weight (kg) 80.90 BMI 21.6 Weight Status Appropriate Subjective/Other Information Day 1 PPN (with electrolytes). Pt received Clinimix for three days. Burn Absent Trauma Absent #1 Nutrition Diagnosis Altered GI function As Evidenced by Signs and Symptoms bowel obstruction persists Diagnosis Progress(for reassessment Continues documentation) Is patient on ventilator? No Is Patient Ambulatory and/or Out of Bed No REE-([facility] [place]-confined to bed) [phone] Calculation Used for Recommendations [facility] Additional Notes Pro needs 0.8-1g/k-72g/ day Fluid needs 1ml/kcal Nutrition Intervention Nutrition Support: Increase PPN rate to 100ml/hr as pt has peripheral iv access only: MVI, Thiamine, 2.7% amino acids, 6.3% dextrose, 150mEq Na, 80mEq K, 5mEq Mg, 20mmol Phos, 10%/90% chloride/ acetate. Osmolality: 779. Kcal 770 Protein (gm) 65 Carbohydrates (gm) 150 Fat (gm) 0 Fluid (mL) 2,400 Goal #1 PPN to meet nutrient needs as best possible Follow-Up By: 02/04/22 Additional Comments Labs in am: BMP, Mg, Phos
--- NOTE | 2022-02-04 11:35 | Progress Note ---
Assessment and Plan Pt tolerating full liquids was made npo for cystogram. Pt can now return to full liquids and to a soft diet later today or in the am. Subjective Date of service: 02/04/22 Patient Reports: Positive: no new complaints Objective Vital Signs - 12hr 02/04/22 02/04/22 04:02 07:03 Temperature 98.2 F Pulse Rate 57 L Respiratory 18 Rate Blood Pressure 102/60 O2 Sat by Pulse 93 100 Oximetry - Labs 02/04/22 04:22 02/04/22 04:22 Diabetes panel 02/04/22 Range/Units 04:22 Sodium 139 (137-145) mmol/L Potassium 3.5 L (3.6-5.0) mmol/L Chloride 106.4 (98-107) mmol/L Carbon Dioxide 22 (22-30) mmol/L BUN 18 (9-20) mg/dL Creatinine 0.7 L (0.8-1.3) mg/dL Glucose 119 H (75-100) mg/dL Calcium 9.1 (8.4-10.2) mg/dL Calcium panel 02/04/22 Range/Units 04:22 Calcium 9.1 (8.4-10.2) mg/dL Phosphorus 2.80 D (2.5-4.5) mg/dL Pituitary panel 02/04/22 Range/Units 04:22 Sodium 139 (137-145) mmol/L Potassium 3.5 L (3.6-5.0) mmol/L Chloride 106.4 (98-107) mmol/L Carbon Dioxide 22 (22-30) mmol/L BUN 18 (9-20) mg/dL Creatinine 0.7 L (0.8-1.3) mg/dL Glucose 119 H (75-100) mg/dL Calcium 9.1 (8.4-10.2) mg/dL Adrenal panel 02/04/22 Range/Units 04:22 Sodium 139 (137-145) mmol/L Potassium 3.5 L (3.6-5.0) mmol/L Chloride 106.4 (98-107) mmol/L Carbon Dioxide 22 (22-30) mmol/L BUN 18 (9-20) mg/dL Creatinine 0.7 L (0.8-1.3) mg/dL Glucose 119 H (75-100) mg/dL Calcium 9.1 (8.4-10.2) mg/dL
[2022-02-04] MEDS ORDERED: TOTAL PARENTERAL NUTRITION 2,400 ML IV SCH (20:00)
[2022-02-05 05:04] LABS: Alanine Aminotransferase 31 units/L (7-56); Albumin 3.6 g/dL (3.9-5); Blood Urea Nitrogen 16 mg/dL (9-20); Calcium 9.1 mg/dL (8.4-10.2); Hemolysis Index 3
[2022-02-05 05:18] LABS: BUN/Creatinine Ratio 23
[2022-02-05] MEDS: LEVOTHYROXINE 50 MCG TAB PO SCH (05:20)
[2022-02-05] MEDS: HEPARIN 5,000 UNIT/1 ML VIAL SUB-Q SCH (05:20)
--- NOTE | 2022-02-05 07:11 | Progress Note ---
Assessment and Plan Pt tolerating full liquids was made npo for cystogram. Pt can now return to full liquids and to a soft diet later today. Subjective Date of service: 02/05/22 Patient Reports: Positive: no new complaints Narrative: Patient tolerating full liquids will advance to a soft diet follow clinically. Objective Vital Signs - 12hr 02/04/22 02/04/22 02/05/22 20:34 21:59 05:24 Temperature 98.0 F 98.0 F Pulse Rate 66 60 Respiratory 20 19 18 Rate Blood Pressure 112/68 106/61 O2 Sat by Pulse 100 94 93 Oximetry - Labs 02/04/22 04:22 02/05/22 04:29 Diabetes panel 02/05/22 Range/Units 04:29 Sodium 140 (137-145) mmol/L Potassium 3.9 (3.6-5.0) mmol/L Chloride 103.9 (98-107) mmol/L Carbon Dioxide 26 (22-30) mmol/L BUN 16 (9-20) mg/dL Creatinine 0.7 L (0.8-1.3) mg/dL Glucose 113 H (75-100) mg/dL Calcium 9.1 (8.4-10.2) mg/dL AST 35 (5-40) units/L ALT 31 (7-56) units/L Alkaline Phosphatase 86 (35-129) units/L Total Protein 6.6 (6.3-8.2) g/dL Albumin 3.6 L (3.9-5) g/dL Calcium panel 02/05/22 Range/Units 04:29 Calcium 9.1 (8.4-10.2) mg/dL Phosphorus 2.80 (2.5-4.5) mg/dL Albumin 3.6 L (3.9-5) g/dL Pituitary panel 02/05/22 Range/Units 04:29 Sodium 140 (137-145) mmol/L Potassium 3.9 (3.6-5.0) mmol/L Chloride 103.9 (98-107) mmol/L Carbon Dioxide 26 (22-30) mmol/L BUN 16 (9-20) mg/dL Creatinine 0.7 L (0.8-1.3) mg/dL Glucose 113 H (75-100) mg/dL Calcium 9.1 (8.4-10.2) mg/dL Adrenal panel 02/05/22 Range/Units 04:29 Sodium 140 (137-145) mmol/L Potassium 3.9 (3.6-5.0) mmol/L Chloride 103.9 (98-107) mmol/L Carbon Dioxide 26 (22-30) mmol/L BUN 16 (9-20) mg/dL Creatinine 0.7 L (0.8-1.3) mg/dL Glucose 113 H (75-100) mg/dL Calcium 9.1 (8.4-10.2) mg/dL Total Bilirubin 0.20 (0.1-1.2) mg/dL AST 35 (5-40) units/L ALT 31 (7-56) units/L Alkaline Phosphatase 86 (35-129) units/L Total Protein 6.6 (6.3-8.2) g/dL Albumin 3.6 L (3.9-5) g/dL
[2022-02-05] MEDS: FAMOTIDINE 20 MG/2 ML INJ IV SCH (09:05)
[2022-02-05] MEDS: TAMSULOSIN 0.4 MG CAP PO SCH (09:06)
[2022-02-05] MEDS: MEMANTINE 10 MG TAB PO SCH (09:06)
[2022-02-05] MEDS: FINASTERIDE 5 MG TAB PO SCH (09:07)
[2022-02-05] MEDS: SERTRALINE 25 MG TAB PO SCH (09:07)
--- NOTE | 2022-02-05 11:16 | Discharge Summary ---
Providers - Providers Date of Admission: 01/28/22 11:46 Date of discharge: 02/05/22 Attending physician: JAZZMINE SULLIVAN 01/28/22 09:04 Consult to Physician [CONS] Urgent Comment: Consulting Provider: HI SINGH Physician Instructions: Reason For Exam: SBO 01/31/22 11:22 Consult to Dietitian/Nutrition [CONS] Stat Physician Instructions: Reason For Exam: start tpn Reason for Consult: Write/Manage TPN/PPN Primary care physician: MYRIAM MARIE Hospitalization Reason for admission: abd pain Condition: Stable Hospital course: 56-year-old male patient with significant past medical history of obstructive uropathy with suprapubic catheter hypothyroidism hypertension, BPH, dementia presented to the emergency room with intractable nausea vomiting and abdominal pain of 2 to 3 days duration, no history of travel , no history of food poisoning Small bowel obstruction Severe sepsis. Patient meets criteria given the tachycardia, tachypnea, leukocytosis and diagnosis of UTI with organ failure/acute kidney injury. Acute kidney injury Urinary tract infection Neurogenic bladder Hyperkalemia Hypothyroidism History of BPH 01/31/2022. CT scan with contrast showing continued small bowel obstruction admit jejunum. Some signs of improvement. Continue NG suction as the proximal small bowel remains distended. We will repeat x-rays tomorrow abdominal x-ray will be able to track the progress of the contrast material. Surgery reports if the contrast material has not reached the colon patient may still need an exploratory laparotomy. There is air that is progressed into the colon so there is signs that the obstruction is not complete. However high-grade obstruction may also require exploration. Recommend continued NG suction IV fluids and beginning peripheral hyperal today. Acute kidney injury resolved with IV fluid hydration. Follow-up BMP in a.m. Continue IV antibiotics 02/01/2022. KUB still reveals partial distal small bowel obstruction. I discussed the KUB with surgery. Continue conservative management and determine if patient will need surgery. Follow-up a.m. labs 02/02/2022. I discussed the case with surgery who reports patient with a CAT scan revealing moderate bladder wall thickening and edema that is likely contributing to partial small bowel obstruction. Urology consultation. Continue IV antibiotics of ceftriaxone. 02/03/2022. Patient with no NG tube at present but still with n.p.o. status. Continue IV antibiotics and IV fluids. Acute kidney injury resolved. Blood and urine cultures were found to be negative. Consider de-escalating or discontinuing antibiotics. Urology consulted and plans for cystogram today 02/04/2022. Patient reportedly tolerated clear liquid diet yesterday. We will advance to regular diet per surgery recommendations. Continue TPN for now. I discussed the case with Dr. Storey. We will discontinue antibiotics 02/05/2022. Patient has tolerated clear liquid diet and we will continue this diet for the next few days and then transition to soft diet and then regular diet thereafter. [facility]. I did discuss the plan of care with the video game programmer of the [facility]. She voiced understanding. Patient is to have further follow-up with PCP and urology as an outpatient over the next week. Dedicated discharge time 35 minutes Disposition: 30 STILL A PATIENT Final Discharge Diagnosis (Prints w/discharge instructions): Small bowel obstruction. Severe sepsis. Patient meets criteria given the tachycardia, tachypnea, leukocytosis and diagnosis of UTI with organ failure/acute kidney injury. Acute kidney injury. Urinary tract infection. Neurogenic bladder. Hyperkalemia. Hypothyroidism. History of BPH Core Measure Documentation - Palliative Care Palliative Care/ Comfort Measures: Not Applicable - Core Measures Any of the following diagnoses?: none Exam - Constitutional Vitals: Temp Pulse Resp BP Pulse Ox 98.0 F 60 18 106/61 98 02/05/22 05:24 02/05/22 05:24 02/05/22 05:24 02/05/22 05:24 02/05/22 08:36 General appearance: Present: no acute distress, well-nourished - EENT Eyes: Present: PERRL ENT: hearing intact, clear oral mucosa - Neck Neck: Present: supple, normal ROM - Respiratory Respiratory effort: normal Respiratory: bilateral: CTA - Cardiovascular Heart Sounds: Present: S1 & S2. Absent: rub, click - Extremities Extremities: pulses symmetrical, No edema Peripheral Pulses: within normal limits - Abdominal General gastrointestinal: Present: soft, non-tender, non-distended, normal bowel sounds Male genitourinary: Present: normal - Integumentary Integumentary: Present: clear, warm, dry - Musculoskeletal Musculoskeletal: gait normal, strength equal bilaterally - Psychiatric Psychiatric: appropriate mood/affect, intact judgment & insight - Neurologic Neurologic: CNII-XII intact, moves all extremities Plan Activity: advance as tolerated Weight Bearing Status: Weight Bear as Tolerated Diet: clear liquids Follow up with: MYRIAM MARIE MD [Primary Care Provider] - 7 Days TREVIN THIBODEAUX MD [Staff Physician] - 7 Days
[2022-02-05 12:07] VITALS: BP 117/65
== END 2022-02-05 13:37 | disposition home health service (06) | DRG 871 ==
LOC: ED 18:15 → 3A 01-28 11:46
PROVIDERS: ADMIT Internal Medicine; ATTEND Hospitalist
PROC: 0D9670Z Drainage of Stomach with Drainage Device, Via Natural or Artificial Opening (ICD-10-PCS; principal; 2022-01-28)
DX: A41.9 Sepsis, unspecified organism (principal); N17.0 Acute kidney failure with tubular necrosis; K56.609 Unspecified intestinal obstruction, unspecified as to partial versus complete obstruction; N39.0 Urinary tract infection, site not specified; R65.20 Severe sepsis without septic shock; E03.9 Hypothyroidism, unspecified; E87.5 Hyperkalemia; I10 Essential (primary) hypertension; N40.0 Benign prostatic hyperplasia without lower urinary tract symptoms; F03.90 Unspecified dementia, unspecified severity, without behavioral disturbance, psychotic disturbance, mood disturbance, and anxiety
CPT/HCPCS: 36415; 51600; 74018; 74019; 74176; 74177; 74430; 80048; 80053; 81001; 83690; 83735; 84100; 85007; 85025; 87040; 87086; G0378; J3490; Q0162; J0696; J1644; J1885; J2405; J2765; J7030; J7042; Q9958; Q9967

== ENCOUNTER 2022-07-12 18:32 | Emergency (ER) | payer MEDICARE ==
[2022-07-13 01:59] LABS: Hemoglobin 11.9 gm/dl (11.8-15.2); Mean Corpuscular HGB Conc 33 % (32-34); Mean Corpuscular Volume 88 fl (84-94); Platelet Count 247 K/mm3 (140-440); Red Blood Count 4.12 M/mm3 (3.65-5.03); Red Cell Distribution Width 13.9 % (13.2-15.2)
[2022-07-13 02:23] LABS: Alanine Aminotransferase 7 units/L (7-56); Albumin 4.2 g/dL (3.9-5); BUN/Creatinine Ratio 35; Blood Urea Nitrogen 38 mg/dL (9-20); Calcium 8.8 mg/dL (8.4-10.2); Hemolysis Index 15
--- NOTE | 2022-07-13 05:26 | Emergency Department Report ---
ED General Adult HPI - General Chief complaint: Nausea/Vomiting/Diarrhea Stated complaint: DIARRHEA Time Seen by Provider: 07/12/22 21:58 Source: patient, EMS Mode of arrival: Stretcher Limitations: Other - History of Present Illness Initial comments: 57-year-old male presents emerged department complaining of issues with nausea occasional diarrhea and occasional episodes of epistaxis of unknown etiology. Ports no headache, no hemoptysis, no fever, chills, sweats. Reports no chest pain or palpitations. No new medications. Radiation: non-radiation Severity scale (0 -10): 0 Consistency: constant Improves with: none Worsens with: none Associated Symptoms: denies other symptoms Treatments Prior to Arrival: none - Related Data Home Medications Medication Instructions Recorded Confirmed Last Taken Finasteride [Proscar] 5 mg PO QDAY 08/07/20 02/03/22 04/07/21 08:00 Levothyroxine Sodium [Tirosint-Inmo] 50 mcg PO QDAY 08/07/20 02/03/22 04/07/21 07:00 Tamsulosin [Flomax] 0.4 mg PO QDAY 08/07/20 02/03/22 04/06/21 21:00 Memantine HCl [Namenda Xr] 100 mg PO DAILY 12/20/20 02/03/22 04/07/21 09:00 Polyethylene Glycol 3350 [Miralax] 119 gm PO DAILY 12/20/20 02/03/22 04/07/21 09:00 Previous Rx's Medication Instructions Recorded Last Taken Type OLANZapine [Zyprexa] 5 mg PO QDAY #30 tab 09/23/20 04/06/21 09:00 Rx Sertraline [Zoloft] 25 mg PO QDAY #30 tab 09/23/20 04/07/21 09:00 Rx Dicyclomine [Bentyl] 20 mg PO Q6H PRN #30 tablet 03/03/21 03/29/21 08:00 Rx Famotidine [Pepcid] 20 mg PO BID #60 tablet 03/03/21 04/07/21 09:00 Rx Ondansetron [Zofran ODT TAB] 4 mg PO Q8HR PRN #20 tab.rapdis 03/03/21 03/30/21 21:00 Rx Pantoprazole [Protonix TAB] 40 mg PO QDAC #30 tablet 04/08/21 Unknown Rx levoFLOXacin [Levaquin TAB] 500 mg PO QDAY #5 tablet 04/08/21 Unknown Rx Acetaminophen [Tylenol] 650 mg PO Q8HR PRN #20 cap 11/23/21 Unknown Rx Naproxen [Naprosyn TAB] 500 mg PO BID #14 tablet 12/28/21 Unknown Rx Levothyroxine [Synthroid] 50 mcg PO DAILY@0600 tablet 02/05/22 Unknown Rx Memantine 10 mg PO Q12HR tablet 02/05/22 Unknown Rx Allergies Allergy/AdvReac Type Severity Reaction Status Date / Time No Known Allergies Allergy Verified 01/25/22 11:37 ED Review of Systems ROS: Stated complaint: DIARRHEA Other details as noted in HPI Comment: All other systems reviewed and negative ED Past Medical Hx - Past Medical History Hx GERD: Yes Hx Renal Disease: Yes (BPH; Obstructive uropathy; suprapubic catheter) Hx Dementia: Yes Additional medical history: BPH, hypothyroidism - Surgical History Additional Surgical History: Unable to obtain - Social History Smoking Status: Never Smoker - Medications Home Medications: Home Medications Medication Instructions Recorded Confirmed Last Taken Type Finasteride [Proscar] 5 mg PO QDAY 08/07/20 02/03/22 04/07/21 08:00 History Levothyroxine Sodium [Tirosint-Nimo] 50 mcg PO QDAY 08/07/20 02/03/22 04/07/21 07:00 History Tamsulosin [Flomax] 0.4 mg PO QDAY 08/07/20 02/03/22 04/06/21 21:00 History OLANZapine [Zyprexa] 5 mg PO QDAY #30 tab 09/23/20 02/03/22 04/06/21 09:00 Rx Sertraline [Zoloft] 25 mg PO QDAY #30 tab 09/23/20 02/03/22 04/07/21 09:00 Rx Memantine HCl [Namenda Xr] 100 mg PO DAILY 12/20/20 02/03/22 04/07/21 09:00 History Polyethylene Glycol 3350 [Miralax] 119 gm PO DAILY 12/20/20 02/03/22 04/07/21 09:00 History Dicyclomine [Bentyl] 20 mg PO Q6H PRN #30 tablet 0402/03/22 03/29/21 08:00 Rx Famotidine [Pepcid] 20 mg PO BID #60 tablet 03/03/21 02/03/22 04/07/21 09:00 Rx Ondansetron [Zofran ODT TAB] 4 mg PO Q8HR PRN #20 tab.rapdis 03/03/21 02/03/22 03/30/21 21:00 Rx Pantoprazole [Protonix TAB] 40 mg PO QDAC #30 tablet 04/08/21 02/03/22 Unknown Rx levoFLOXacin [Levaquin TAB] 500 mg PO QDAY #5 tablet 04/08/21 02/03/22 Unknown Rx Acetaminophen [Tylenol] 650 mg PO Q8HR PRN #20 cap 11/23/21 02/03/22 Unknown Rx Naproxen [Naprosyn TAB] 500 mg PO BID #14 tablet 12/28/21 02/03/22 Unknown Rx Levothyroxine [Synthroid] 50 mcg PO DAILY@0600 tablet 02/05/22 Unknown Rx Memantine 10 mg PO Q12HR tablet 02/05/22 Unknown Rx ED Physical Exam - General Limitations: Other General appearance: alert, in no apparent distress - Head Head exam: Present: atraumatic, normocephalic - Eye Eye exam: Present: normal appearance - ENT ENT exam: Present: mucous membranes moist, other (And some evidence of dried blood to the nasal cannula but no active bleeding is present.Pharynx is clear ears are normal) - Neck Neck exam: Present: normal inspection - Respiratory Respiratory exam: Present: normal lung sounds bilaterally. Absent: respiratory distress - Cardiovascular Cardiovascular Exam: Present: regular rate, normal rhythm. Absent: systolic murmur, diastolic murmur, rubs, gallop - GI/Abdominal GI/Abdominal exam: Present: soft, normal bowel sounds - Rectal Rectal exam: Present: deferred - Extremities Exam Extremities exam: Present: normal inspection - Back Exam Back exam: Present: normal inspection - Neurological Exam Neurological exam: Present: alert, oriented X3 - Psychiatric Psychiatric exam: Present: normal affect, normal mood - Skin Skin exam: Present: warm, dry, intact, normal color. Absent: rash ED Course Vital Signs 07/12/22 07/13/22 18:36 00:59 Temperature 99.1 F Pulse Rate 80 82 Respiratory 14 14 Rate Blood Pressure 118/70 110/70 [Left] O2 Sat by Pulse 98 94 Oximetry ED Medical Decision Making - Lab Data Result diagrams: 07/13/22 01:34 07/13/22 01:34 - Medical Decision Making 49-year-old male maintaining stable vital signs emergency department visit cardiopulmonary issues. Infectious disease issues and is at least a 6 is controlled. Outpatient follow- up with his primary care provider for further evaluation and testing Critical care attestation.: If time is entered above; I have spent that time in minutes in the direct care of this critically ill patient, excluding procedure time. ED Disposition Clinical Impression: No problem, feared complaint unfounded, Nausea, History of epistaxis Disposition: HOME / SELF CARE / HOMELESS Is pt being admited?: No Does the pt Need Aspirin: No Condition: Stable Instructions: Nausea, Adult Additional Instructions: No episodes of hypotension while in the emergency department. Patient maintaining stable vital signs. Feared complaint unfounded Referrals: MYRIAM MARIE MD [Primary Care Provider] - 3-5 Days
[2022-07-13 07:33] VITALS: BP 122/73
== END 2022-07-13 07:33 | disposition home or self-care (01) ==
LOC: ED 18:32
DX: R11.0 Nausea (principal); R04.0 Epistaxis; Z71.1 Person with feared health complaint in whom no diagnosis is made
CPT/HCPCS: 36415; 80053; 85027; 99283